=== PATIENT | female | born 1940 | race Caucasian/White ===

== ENCOUNTER 2022-12-10 12:29 | Emergency (ER) | payer OTHER, SELFPAY ==
--- NOTE | ~2022-12-10 | CT_ITS ---
EXAMINATION: CT ABDOMEN AND PELVIS WITHOUT CONTRAST CLINICAL INFORMATION: No bowel movement x5 days. Rule out small bowel obstruction. COMPARISON: None available. TECHNIQUE: Multidetector volumetric imaging was performed from the superior aspect of the liver through the pubic symphysis. Sagittal and coronal reformatted images were obtained on the technologist's workstation. This CT examination was performed using dose optimization techniques as appropriate, variously including the following: *Automated exposure control *Adjustment of mA and/or kV according to patient size (this includes techniques or standardized protocols for targeted exams where dose is matched to indication/reason for exam; i.e. extremities or head) *Use of iterative reconstruction technique DLP: 440 mGy-cm FINDINGS: LUNG BASES: Motion artifact obscures lung bases but no consolidation. The heart is enlarged. Coronary atherosclerotic calcification. LIVER, GALLBLADDER, AND BILIARY TREE: Scattered calcified granulomas. No discrete liver mass. Mild ductal dilatation in the setting of cholecystectomy. Cholecystectomy. PANCREAS: No discrete pancreatic mass. No ductal dilatation. SPLEEN: Normal. ADRENAL GLANDS: No adrenal mass KIDNEYS AND URETERS: Small calcifications in the kidneys are favored to be vascular in etiology. There is mild perinephric stranding. No hydroureteronephrosis. BLADDER: Unremarkable. GASTROINTESTINAL TRACT: Small bowel is normal in caliber. There is no evidence of small bowel obstruction. The appendix is normal. There is a large amount of radiodense stool in the distal colon consistent with the given history of constipation. ABDOMINAL WALL: Surgical changes right groin. LYMPH NODES: No lymphadenopathy. VASCULAR: Moderate aortoiliac atherosclerotic disease. No aortic aneurysm. PELVIC VISCERA: The uterus and adnexa are unremarkable. OSSEOUS STRUCTURES: Degenerative changes in the spine. Superior endplate compression fractures at L2, L3, L4 appear chronic. CT/CT abdomen pelvis wo IV con IMPRESSION: No evidence of small bowel obstruction. Large volume of stool throughout the colon consistent with given history of constipation. Fleischner guidelines were followed.
[2022-12-10 12:49] VITALS: BP 198/72; PULSE 61; PULSE 98; RESP 18; TEMP 36.6; O2SAT 98; BMI 28.7
--- NOTE | 2022-12-10 13:16 | PC.NURSE ---
BEDSIDE DISIMPACTION WITH PROVIDER, LARGE FORMED BALLS OF STOOL REMOVED.
--- NOTE | 2022-12-10 13:17 | ED.GENADULT ---
HPI - General Adult General Chief complaint: Abdominal Pain Stated complaint: constipation Time Seen by Provider: 12/10/22 12:45 Source: patient Mode of arrival: ambulatory Limitations: no limitations History of Present Illness HPI narrative: 82-year-old female brought in from nursing for possible constipation evaluation. Patient did not have a bowel movement for the past 5 days, mild nausea but no vomiting, abdominal discomfort, last meal was yesterday, no past surgical history. Patient normally have a bowel movement once a day every day. Related Data Allergies Allergy/AdvReac Type Severity Reaction Status Date / Time No Known Allergies Allergy Verified 12/10/22 13:21 Review of Systems Review of Systems: All other systems are reviewed and are negative Constitutional: Reports as per HPI and Reports no additional constitutional complaints Eyes: Reports as per HPI and Reports no additional eye complaints Reports system reviewed and no additional complaints, except as documented Cardiovascular: Reports as per HPI and Reports no additional cardiovascular complaints Respiratory: Reports as per HPI and Reports no additional respiratory complaints Gastrointestinal: Reports as per HPI and Reports no additional gastrointestinal complaints Genitourinary: Reports no additional female genitourinary complaints Musculoskeletal: Reports no additional musculoskeletal complaints Skin/Breast: Reports system reviewed and no additional complaints, except as docu Psychiatric: Reports no additional psychiatric complaints Endocrine: Reports no additional endocrine complaints Hematologic/Lymphatic: Reports no additional hematologic/lymphatic complaints Allergic/Immunologic: Reports no additional allergic/immunologic complaints Reports system reviewed and no additional complaints, except as documented and Reports Abnormal speech present [facility] Social History Social History Smoked in Last 30 Days: No Advance Directives: No Advance Directives Information Provided: No Physical Exam ED Vital Signs: Vital Signs - 24 hr 12/10/22 12:49 12/10/22 14:56 12/10/22 15:33 Temperature 98 F 98 F 98.0 F Pulse Rate 61 66 69 Respiratory Rate 18 18 16 Blood Pressure 198/72 H 188/68 H 186/72 H Pulse Oximetry 98 98 98 Oxygen Delivery Method Room Air Room Air Room Air BMI result Body Mass Index 28.7 Vital signs have been reviewed as appeared to be correct. Blood pressure elevated. Heart rate normal. Respiration rate normal. Temperature normal. Oxygen saturation normal. Appearance: Alert. Oriented X3. No acute distress. Head: Normal external exam. Normocephalic. Atraumatic. No [place]uire signs noted. No raccoon eyes noted Eyes: PERRLA. EOMI. Conjunctiva and sclera normal. Eyelids normal. ENT: TM's Normal. Pharynx normal. Uvula midline. Moist mucous membranes. No trismus noted. No drooling noted. No muffled voice noted. Neck: Normal inspection. Neck supple. FROM. No adenopathy. Thyroid Normal. No meningeal signs. No neck mass noted. CVS: Normal heart rate and rhythm. Heart sound normal. No murmurs noted. Pulses normal throughout. Respiratory: No respiratory distress. Painless inspiration. Breath sounds normal. No wheezes/rales/rhonchi noted. Chest nontender. No accessory muscle usage noted or decreased air movement noted. Abdomen: Soft and nontender. Bowel sounds normal in all 4 quadrants. No distention noted. No organomegaly noted. No visible injury noted. Rectal exam: Hard stool in the vault, tender and limited exam otherwise, able to disimpact hard stool from the rectal vault. Back: No CVA tenderness. Full range of motion noted. Skin: Skin warm and dry. Normal skin color. Normal skin turgor. No rashes/lesions/lacerations noted. Extremities: No lower extremity edema. Extremities exhibit normal range of motion. Extremities nontender. Neuro: Oriented X 3. Cranial nerve exam: II-XII are grossly intact No motor deficit. No sensory deficit. Reflexes normal. Course Course Course Narrative: 82-year-old female with no bowel movement for the past 4 days physical exam is consistent with constipation, patient had rectal disimpaction with removal of significant hard stool output from the rectal vault patient feels improvement, will discharge her back to the group home and to use MiraLax for the next 2-3 days. Medications Administered Discontinued Medications Generic Name Dose Route Start Last Admin Trade Name Freq PRN Reason Stop Dose Admin Magnesium Hydroxide 30 ml 12/10/22 13:22 12/10/22 14:21 Milk Of Magnesia 30 Ml Oral.Susp PO 12/10/22 13:23 30 ml ONCE ONE Administration Mineral Oil 133 ml 12/10/22 13:22 12/10/22 14:21 Mineral Oil Enema 133 Ml Enema KS 12/10/22 13:23 133 ml ONCE ONE Administration Procedures Rectal Disimpaction Time out performed rectal disimpaction: Yes Indication: fecal impaction Procedural Sedation: No Technique: manual disimpaction with gloved finger Result: significant stool output Patient Tolerated Procedure: well Complications: none Medical Decision Making Differential Diagnosis Differential Diagnoses: The differential diagnosis associated with the presentation includes (Constipation, small-bowel obstruction, colitis, diverticular disease.) Lab Data MDM Lab Attestation statement: I reviewed the patient's lab results. 12/10/22 13:32 12/10/22 13:32 Labs: Lab Results 12/10/22 12/10/22 Range/Units 13:32 13:32 WBC 14.2 H (4.8-10.8) X10*3/uL RBC 2.87 L (4.20-5.50) X10*6/uL Hgb 9.0 L (12.0-16.0) g/dl Hct 26.3 L (37.0-47.0) % MCV 91.6 (80.0-98.0) fL MCH 31.4 (27.0-33.0) pg MCHC 34.2 (31.0-35.0) g/dl RDW 13.6 (11.0-16.0) % Plt Count 286 (160-400) X10*3/uL MPV 8.3 L (9.4-12.3) fL Immature Gran % (Auto) 0.4 (0.0-0.4) % Neut % (Auto) 84.7 H (45-73) % Lymph % (Auto) 10.4 L (20-40) % [place] % (Auto) 3.5 (2-11) % Eos % (Auto) 0.7 (0-4) % Baso % (Auto) 0.3 (0-2) % Lymph # (Auto) 1.5 (1.2-4.9) X10*3/uL [place] # (Auto) 0.5 (0.1-1.2) X10*3/uL Eos # (Auto) 0.1 (0.0-0.4) X10*3/uL Baso # (Auto) 0.0 (0.0-0.2) X10*3/uL Abs Immat Gran (auto) 0.06 H (0.00-0.03) X10*3/uL Absolute Neuts (auto) 12.0 H (2.0-8.3) x10*3/uL Absolute Nucleated RBC 0.000 (0.0-0.012) X10*3/uL Nucleated RBC % (auto) 0.0 (0.0-0.2) /100WBC Sodium 135 (135-145) mmol/L Potassium 4.2 (3.3-5.1) mmol/L Chloride 103 (96-108) mmol/L Carbon Dioxide 21 L (22-29) mmol/L Anion Gap 15 (12-20) BUN 68 H (9-16) mg/dL Creatinine 3.88 H (0.5-1.4) mg/dL Estim Creat Clear Calc 9.7 Estimated GFR 11 Random Glucose 115 (60-115) mg/dL Calcium 9.2 (8.4-10.2) mg/dL Total Bilirubin 0.4 (0.0-1.0) mg/dL Direct Bilirubin 0.1 (0.0-0.5) mg/dL AST 11 (5-31) U/L ALT 7 (0-31) U/L Alkaline Phosphatase 60 (39-117) U/L Total Protein 6.4 L (6.5-8.0) g/dL Albumin 3.6 (3.5-5.0) g/dL Lipase 28 (8-78) U/L Independent Interpretation I performed an independent interpretation of an: CT Scan (Abdomen and pelvis: Constipation, no other intra-abdominal pathology.) Radiology Impression Discussion of test interpretation with radiology: I have reviewed the radiologist's reading. Discharge Plan Discharge Clinical Impression: Constipation Patient Disposition: Xfer SNF Instructions: Constipation (ED) Referrals: Osmin Cardoza MD [Primary Care Provider] -
[2022-12-10 13:35] LABS: MANUAL DIFF FLAG NO
[2022-12-10 13:36] LABS: Basophils Percent Auto 0.3 % (0-2); Eosinophils Absolute Auto 0.1 X10*3/uL (0.0-0.4); Eosinophils Percent Auto 0.7 % (0-4); Hematocrit 26.3 % (37.0-47.0); Imm Gran Abs Auto 0.06 X10*3/uL (0.00-0.03); Imm Gran Pct Auto 0.4 % (0.0-0.4); Lymphocytes Absolute Auto 1.5 X10*3/uL (1.2-4.9); Lymphocytes Percent Auto 10.4 % (20-40); Mean Corpuscular HGB Conc 34.2 g/dl (31.0-35.0); Mean Corpuscular Hemoglobin 31.4 pg (27.0-33.0); Mean Corpuscular Volume 91.6 fL (80.0-98.0); Mean Platelet Volume 8.3 fL (9.4-12.3); Monocytes Absolute Auto 0.5 X10*3/uL (0.1-1.2); Monocytes Percent Auto 3.5 % (2-11); Neutrophils Percent Auto 84.7 % (45-73); Platelet Count 286 X10*3/uL (160-400); Red Blood Count 2.87 X10*6/uL (4.20-5.50); Red Cell Distribution Width 13.6 % (11.0-16.0); White Blood Count 14.2 X10*3/uL (4.8-10.8)
[2022-12-10] MEDS: Milk of Magnesia 30 ML ORAL.SUSP PO (14:21)
[2022-12-10] MEDS: Mineral OiL enema 133 ML ENEMA PR (14:21)
[2022-12-10 14:26] LABS: Alanine Aminotransferase 7 U/L (0-31); Albumin Level 3.6 g/dL (3.5-5.0); Alkaline Phosphatase 60 U/L (39-117); Anion Gap 15 (12-20); Aspartate Amino Transferase 11 U/L (5-31); Bilirubin Direct 0.1 mg/dL (0.0-0.5); Bilirubin Total 0.4 mg/dL (0.0-1.0); Blood Urea Nitrogen 68 mg/dL (9-16); Calcium 9.2 mg/dL (8.4-10.2); Carbon Dioxide 21 mmol/L (22-29); Chloride 103 mmol/L (96-108); Creatinine Clr Calc Pharmacy 9.7; Estimated Glomerular Filt Rate 11; Glucose Random 115 mg/dL (60-115); Lipase 28 U/L (8-78); Potassium 4.2 mmol/L (3.3-5.1); Sodium 135 mmol/L (135-145); Total Protein 6.4 g/dL (6.5-8.0)
--- NOTE | 2022-12-10 14:55 | PC.NURSE ---
DAUGHTER CALLED WILL BE COMING IN TO VISIT
[2022-12-10 14:56] VITALS: BP 188/68; PULSE 66; RESP 18; TEMP 36.6; O2SAT 98
[2022-12-10 15:33] VITALS: BP 186/72; PULSE 69; RESP 16; TEMP 36.7; O2SAT 98
--- NOTE | 2022-12-10 18:06 | PC.NURSE ---
attempted to give nurse to nurse to regal (snf) no answer x2
== END 2022-12-10 18:07 | disposition skilled nursing facility (03) ==
PROVIDERS: Emergency Provider Emergency Medicine; PCP Internal Medicine
DX: K59.00 Constipation, unspecified (principal); Z79.899 Other long term (current) drug therapy
CPT/HCPCS: 36415; 74176; 80048; 80076; 83690; 85025; 99284

== ENCOUNTER 2022-12-12 22:17 | Emergency (ER) | payer OTHER, SELFPAY ==
[2022-12-12 22:26] VITALS: BP 144/70; PULSE 80; O2SAT 95; BMI 40.3
[2022-12-12 22:30] VITALS: BP 144/77; PULSE 89; O2SAT 95; BMI 35.0
[2022-12-12 22:34] VITALS: BP 122/54; PULSE 50; RESP 18; TEMP 36.7; O2SAT 95
[2022-12-12 22:49] LABS: MANUAL DIFF FLAG NO
--- NOTE | 2022-12-12 22:49 | ED_ITS ---
HPI - Recheck/Abnormal Lab/Rx General Chief Complaint: Recheck/Abnormal Lab/Rx Stated Complaint: abnormal labs,bun 20 creatinine 4.9 Time Seen by Provider: 12/12/22 22:45 Source: RN notes reviewed Mode of arrival: EMS History of Present Illness HPI narrative: Patient with dementia, CKD and diabetes [facility] a BUN of 17 creatinine of 4.19 with baseline of 3.8 patient denies any significant complaint no vomiting or diarrhea Related Data Allergies Allergy/AdvReac Type Severity Reaction Status Date / Time No Known Allergies Allergy Verified 12/10/22 13:21 Review of Systems Review of Systems: Yes all other systems are reviewed and are negative [facility] Social History Social History Alcohol intake: never Smoked in Last 30 Days: No Use of substances other than those prescribed or required for medical reasons: No Advance Directives: No Advance Directives Information Provided: Yes Physical Exam Vital Signs: Vital Signs: Last Vital Signs Temp 97.6 F 12/13/22 00:27 Pulse 49 L 12/13/22 00:27 Resp 16 12/13/22 00:27 BP 137/57 L 12/13/22 00:27 Pulse Ox 96 12/13/22 00:27 O2 Del Method Room Air 12/12/22 22:34 BMI result Body Mass Index 35.0 Appearance: Alert. Oriented X2. No acute distress. Eyes: PERRLA, No Nystagmus ENT: Pharynx normal. Oral Mucosa moist Neck: Normal inspection. Neck supple. CVS: Normal heart rate and rhythm. Pulses normal. Respiratory: No respiratory distress. Equal air entry bilateral, no wheezing/rales/rhonchi Abdomen: Soft and nontender. Bowel sounds are present, no mass palpable, no CVA tenderness Skin: Skin warm and dry. Normal skin color. Normal skin turgor. Extremities: No lower extremity edema. No calf tenderness Neuro: Oriented X2. No motor deficit. No sensory deficit.No cerebellar signs , cranial nerves II-XII intact Medications Administered Discontinued Medications Generic Name Dose Route Start Last Admin Trade Name Freq PRN Reason Stop Dose Admin Sodium Chloride 1,000 mls @ 999 mls/hr 12/12/22 22:56 12/13/22 02:05 Ns IV 12/12/22 23:56 Infused .Q1H1M ONE Infusion Medical Decision Making Medical Decision Making [facility] Narrative: Patient has CKD stage 4-5 slightly elevated BUN creatinine [facility] patient received IV fluids UA was negative for acute UTI advised to follow- up with PCP/household assistant Lab Data [facility] Lab Attestation statement: I reviewed the patient's lab results. 12/12/22 22:45 12/12/22 22:44 Labs: Lab Results 12/12/22 12/12/22 12/13/22 Range/Units 22:44 22:45 01:53 WBC 7.8 (4.8-10.8) X10*3/uL RBC 2.36 L (4.20-5.50) X10*6/uL Hgb 7.3 L (12.0-16.0) g/dl Hct 22.1 L (37.0-47.0) % MCV 93.6 (80.0-98.0) fL MCH 30.9 (27.0-33.0) pg MCHC 33.0 (31.0-35.0) g/dl RDW 14.0 (11.0-16.0) % Plt Count 263 (160-400) X10*3/uL MPV 8.6 L (9.4-12.3) fL Immature Gran % (Auto) 0.1 (0.0-0.4) % Neut % (Auto) 54.1 (45-73) % Lymph % (Auto) 36.1 (20-40) % [place] % (Auto) 5.7 (2-11) % Eos % (Auto) 3.5 (0-4) % Baso % (Auto) 0.5 (0-2) % Lymph # (Auto) 2.8 (1.2-4.9) X10*3/uL [place] # (Auto) 0.4 (0.1-1.2) X10*3/uL Eos # (Auto) 0.3 (0.0-0.4) X10*3/uL Baso # (Auto) 0.0 (0.0-0.2) X10*3/uL Abs Immat Gran (auto) 0.01 (0.00-0.03) X10*3/uL Absolute Neuts (auto) 4.2 (2.0-8.3) x10*3/uL Absolute Nucleated RBC 0.000 (0.0-0.012) X10*3/uL Nucleated RBC % (auto) 0.0 (0.0-0.2) /100WBC Sodium 130 L (135-145) mmol/L Potassium 5.1 D (3.3-5.1) mmol/L Chloride 100 (96-108) mmol/L Carbon Dioxide 22 (22-29) mmol/L Anion Gap 13 (12-20) BUN 66 H (9-16) mg/dL Creatinine 3.96 H (0.5-1.4) mg/dL Estim Creat Clear Calc 14.0 Estimated GFR 11 Random Glucose 110 (60-115) mg/dL Calcium 8.3 L D (8.4-10.2) mg/dL Urine Color Yellow Urine Appearance Clear Urine pH 7.5 (5.0-9.0) Ur Specific [place] 1.010 (1.005-1.025) Urine Protein 300 (3+) H (Neg-Trace) mg/dL Urine Glucose (UA) Negative (Negative) mg/dL Urine Ketones Negative (Negative) mg/dL Urine Blood Negative (Negative) Urine Nitrite Negative (Negative) Ur Leukocyte Esterase Moderate (2+) H (Negative) Urine RBC 3-5 H (0-2) /HPF Urine WBC 0-5 (0-5) /HPF Ur Squamous Epith Cells 0-2 (0-2) /HPF Urine Bacteria 2+ (None Seen) Hyaline Casts 0-2 (0-2) /LPF Discharge Plan Discharge Clinical Impression: Chronic renal disease, stage 5, glomerular filtration rate (GFR) less than or equal to 15 mL/min/1.73 square meter Patient Disposition: Xfer [facility] Transfer Details: Patient has CKD follow-up with household assistant BUN 66 creatinine 3.96 patient received 1 L of normal saline Instructions: Diabetic Kidney Disease (ED) Additional Instructions: Follow-up with household assistant for further management
[2022-12-12 22:53] LABS: Basophils Percent Auto 0.5 % (0-2); Eosinophils Absolute Auto 0.3 X10*3/uL (0.0-0.4); Eosinophils Percent Auto 3.5 % (0-4); Hematocrit 22.1 % (37.0-47.0); Hemoglobin 7.3 g/dl (12.0-16.0); Imm Gran Abs Auto 0.01 X10*3/uL (0.00-0.03); Imm Gran Pct Auto 0.1 % (0.0-0.4); Lymphocytes Absolute Auto 2.8 X10*3/uL (1.2-4.9); Lymphocytes Percent Auto 36.1 % (20-40); Mean Corpuscular Hemoglobin 30.9 pg (27.0-33.0); Mean Corpuscular Volume 93.6 fL (80.0-98.0); Mean Platelet Volume 8.6 fL (9.4-12.3); Monocytes Absolute Auto 0.4 X10*3/uL (0.1-1.2); Monocytes Percent Auto 5.7 % (2-11); Neutrophils Absolute Auto 4.2 x10*3/uL (2.0-8.3); Neutrophils Percent Auto 54.1 % (45-73); Platelet Count 263 X10*3/uL (160-400); Red Blood Count 2.36 X10*6/uL (4.20-5.50); White Blood Count 7.8 X10*3/uL (4.8-10.8)
[2022-12-12 23:02] LABS: Anion Gap 13 (12-20); Blood Urea Nitrogen 66 mg/dL (9-16); Calcium 8.3 mg/dL (8.4-10.2); Carbon Dioxide 22 mmol/L (22-29); Chloride 100 mmol/L (96-108); Estimated Glomerular Filt Rate 11; Glucose Random 110 mg/dL (60-115); Potassium 5.1 mmol/L (3.3-5.1); Sodium 130 mmol/L (135-145)
[2022-12-13 00:27] VITALS: BP 137/57; PULSE 49; RESP 16; TEMP 36.4; O2SAT 96
[2022-12-13] MEDS: 0.9 % Sodium Chloride 1,000 ML 999 ML IV (01:00)
[2022-12-13 02:11] LABS: Appearance Urine Clear; Color Urine Yellow; Glucose Urine UA Negative (Negative); Leukocyte Esterase Urine Moderate (2+) (Negative); Nitrite Urine Negative (Negative); PH 7.5 (5.0-9.0); UMIC TRIGGER UACC YES; Urine Blood Negative (Negative); Urine Ketones Negative (Negative); Urine Protein 300 (3+) mg/dL (Neg-Trace)
[2022-12-13 02:24] LABS: Bacteria Urine 2+ (None Seen); Hyaline Casts Urine 0-2 /LPF (0-2); Squamous Epithelial Cell Urine 0-2 /HPF (0-2); WBC Urine 0-5 /HPF (0-5)
--- NOTE | 2022-12-13 05:55 | PC.NURSE ---
Report given to Todd at [facility] with no further questions at this time.
--- NOTE | 2022-12-13 06:30 | MHC.EDTECH ---
call out to servando to book transportion at 06:26 [facility]
== END 2022-12-13 07:23 | disposition skilled nursing facility (03) ==
PROVIDERS: Emergency Provider Internal Medicine; PCP Family Medicine
DX: N18.5 Chronic kidney disease, stage 5 (principal); R79.89 Other specified abnormal findings of blood chemistry; Z79.899 Other long term (current) drug therapy
CPT/HCPCS: 36415; 80048; 81001; 85025; 96360; 99284

== ENCOUNTER 2023-01-25 14:37 | Inpatient (IN) | payer MEDICARE, MEDICAID, SELFPAY ==
--- NOTE | ~2023-01-25 | CT_ITS ---
EXAMINATION: CT CHEST, ABDOMEN AND PELVIS WITHOUT CONTRAST. CLINICAL INFORMATION: Cough and abdominal pain.. COMPARISON: CT abdomen/pelvis 12/10/2022.. TECHNIQUE: Multidetector volumetric imaging was performed from the thoracic inlet through the pubic symphysis without IV contrast. Sagittal and coronal reformatted images were obtained on the technologist's workstation. This CT examination was performed using dose optimization techniques as appropriate, variously including the following: *Automated exposure control *Adjustment of mA and/or kV according to patient size (this includes techniques or standardized protocols for targeted exams where dose is matched to indication/reason for exam; i.e. extremities or head) *Use of iterative reconstruction technique DLP: 310 and 494 mGy-cm FINDINGS: CHEST: Lung: Limited examination secondary to motion. No consolidation or significant groundglass disease. Central airways are patent. Scattered pulmonary nodules, suboptimally assessed due to motion, for instance an approximately 0.4 cm solid right upper lobe nodule on image 106 and an approximately 0.5 cm solid pleural-based nodule in the anterior right upper lobe on image 75, series 7. Mediastinum: Enlarged heart. Trace amount of pericardial fluid. Extensive coronary artery calcifications. Borderline mediastinal lymphadenopathy, for instance a 1.3 x 1.4 cm lower anterior tracheal lymph node (3:20). Evaluation of hilar structures, including hilar masses or lymphadenopathies very limited in the absence of IV contrast and due to motion. Incidentally noted 1.6 cm left-sided thyroid nodule (3:5). Pericardium/Pleura: No pleural effusion or pneumothorax. As above, trace pericardial fluid. Chest Wall/Axilla: No lymphadenopathy by size criteria. ABDOMEN/PELVIS: The lack of intravenous contrast limits evaluation of the solid visceral organs including the liver, spleen, pancreas, and kidneys. The examination is also limited due to motion. Liver, Gallbladder, Biliary Tree: The liver measures 16.6 cm craniocaudally and is otherwise normal in shape and attenuation. No discrete focal liver lesions in this limited noncontrast examination. Cholecystectomy. The CBD is not well delineated due to motion, however appears dilated measuring up to 1 cm, not significantly changed and indeterminate in view of cholecystectomy and patient's age. No evidence of calcified choledocholithiasis. Pancreas: Limited examination. No significant peripancreatic fat stranding or free fluid. Spleen: Limited examination, normal size. Adrenal Glands: No adrenal mass. Kidneys and Ureters: Mild asymmetric right-sided hydroureter, not significantly changed compared to 12/10/2022, no discrete calcified ureteric calculi, calcifications adjacent to the right ureter are likely vascular in etiology. Slightly asymmetric perinephric free fluid, also not convincingly changed. Redemonstration of small calcifications in the right greater than left kidneys, likely related with a combination of stones and vascular calcifications. Again noted 1 cm hyperattenuating observation in the lower pole of the left kidney (11:56) measuring 44 Hounsfield units. A few additional too small to characterize hyperdense foci are noted, for instance upper left kidney image 20 and upper right kidney image 24 series 4. Unchanged exophytic water density cysts from the lower left kidney. Bladder: Mild diffuse urinary bladder wall thickening with minimal perivesical fat stranding. Gastrointestinal Tract: The stomach and the small bowel are nondilated. Normal appendix. No pericolonic inflammatory changes. Moderate to large amount of stool in the colon and rectum. Abdominal Wall: No significant hernia is appreciated. Lymphovascular Structures: No lymphadenopathy by CT short axis size criteria. Extensive atherosclerotic disease. Abdominal aorta normal in caliber. Pelvic Viscera: Unremarkable. Osseous Structures: Chronic appearing bilateral rib fractures. Age indeterminate compression deformity at T2. Stable compression deformities at L2, L3 and L4. Partially imaged left femoral hardware overlying a chronic deformity. Chronic deformity of the right inferior pubic rami. CT/CT abdomen pelvis wo IV con IMPRESSION: Very limited examination secondary to motion as well as lack of IV contrast. 1. No consolidation or groundglass disease. 2. Scattered pulmonary nodules, suboptimally assessed due to motion. Nonspecific borderline mediastinal lymphadenopathy. Recommend a follow-up chest CT in 3-6 months. 3. Mild diffuse urinary bladder wall thickening with perivesical fat stranding. Mild asymmetric right hydroureter with slightly increased right-sided perinephric free fluid compared to the left. Findings are suggestive of an urinary tract infection, correlate clinically. No evidence of obstructive calcified urolithiasis. 4. Large amount of stool in the rectum and less so colon, correlate for constipation. 5. Age indeterminate compression deformity at T2. Correlate for point tenderness. 6. Incidentally noted 1.6 cm left-sided thyroid nodule. Based on the recommendations of the ACR Incidental Thyroid Findings Committee (JACR 2015 Sep; 12(2):143-50), further evaluation by thyroid ultrasound is recommended for solitary incidental thyroid nodules greater than or equal to 1.5 cm in largest axial dimension in patients age 35 years and older who do not have limited life expectancy or significant morbidities, unless clinically warranted. 7. A few hyperattenuating foci in the left kidney are statistically favoring to represent proteinaceous/hemorrhagic cysts, stable compared to 12/10/2022, although incompletely characterized in this examination. Attention on follow-up in future studies recommended.
--- NOTE | ~2023-01-25 | CT_ITS ---
EXAMINATION: CT HEAD WITHOUT CONTRAST CT CERVICAL SPINE WITHOUT CONTRAST CLINICAL INFORMATION: Fall. COMPARISON: None. TECHNIQUE: Contiguous axial imaging was performed from the skull base to vertex without intravenous administration of contrast. Contiguous axial imaging was performed from the upper chest through the skull base without intravenous administration of contrast. Coronal and sagittal reformats were obtained at the acquisition workstation. This CT examination was performed using dose optimization techniques as appropriate, variously including the following: *Automated exposure control *Adjustment of mA and/or kV according to patient size (this includes techniques or standardized protocols for targeted exams where dose is matched to indication/reason for exam; i.e. extremities or head) *Use of iterative reconstruction technique DLP: 281 mGy-cm FINDINGS: Head: Encephalomalacia/gliosis in the right parietal lobe (7:25) with associated volume loss. Multiple age indeterminate hypodensities in the bilateral basal ganglia. No edematous territorial infarction or intracranial hemorrhage. No extra-axial collection. Background of prominent diffuse periventricular white matter hypoattenuation. Generalized cerebral volume loss. No evidence of obstructive hydrocephalus. No acute soft tissue or osseous abnormalities. The mastoid air cells and paranasal sinuses are clear. 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 Bilateral lens extraction. Cervical Spine: Limited examination secondary to motion. The atlantooccipital and atlantoaxial articulations remain well aligned. Straightening of the normal cervical lordosis. Otherwise, there is anatomic alignment of the vertebral bodies and posterior elements. Age indeterminate compression deformity of T3, only partially included within the [id number]. No evidence of acute compression deformities of the cervical spine. Multilevel cervical spondylosis with various degrees of neural foraminal encroachment. Moderate to severe facet arthropathy on the right at the level of C3-C4 and C4-C5. Prominent Schmorl's nodule along the superior endplate of C7. There is no prevertebral soft tissue swelling. The thyroid gland and remaining cervical soft tissues are normal in appearance. Multiple sub-4 mm pulmonary nodules are noted, for instance in the right apex (4:289). CT/CT head/brain wo IV con IMPRESSION: 1. Multiple age-indeterminate hypodensities in the bilateral basal ganglia. If an acute cerebrovascular accident is suspected, correlation with an MR of the brain is recommended. 2. Limited evaluation of the cervical spine secondary to motion. However, accounting for these limitations, no definite acute cervical fractures or subluxation are seen. Repeat imaging could be obtained as clinically indicated. 3. Age indeterminate compression deformity of T3, only partially included within the [id number]. Recommend correlation with point tenderness. 4. Multiple sub-4 mm pulmonary nodules are noted; given upper lobe location and background of mild emphysematous changes, follow-up with a diagnostic chest CT in 3-6 months is recommended.
--- NOTE | ~2023-01-25 | US_ITS ---
EXAMINATION: US EXTRACRANIAL CAROTID DUPLEX, BILATERAL CLINICAL INFORMATION: CVA COMPARISON: None available. TECHNIQUE: Real-time ultrasound and Doppler techniques (integrating B-mode 2-D vascular images, Doppler spectral analysis and color-flow Doppler imaging) were utilized to interrogate the extracranial carotid arteries, the vertebral arteries and proximal subclavian arteries bilaterally. The degree of stenosis is determined by criteria similar to NASCET. FINDINGS: Right Side: 1. There is no significant atherosclerotic plaque seen in the bifurcation/proximal ICA region. 2. The common carotid artery PSV proximally is 138 cm/s and distally 99 cm/s. 3. The proximal internal carotid artery velocities are 65 cm/s systolic and 14 cm/s diastolic. 4. The proximal external carotid artery PSV is 106 cm/s. 5. The vertebral artery shows antegrade flow. 6. The subclavian artery waveforms are normal. Left Side: 1. There is no significant atherosclerotic plaque seen in the bifurcation/proximal ICA region. 2. The common carotid artery PSV proximally is 144 cm/s and distally 101 cm/s. 3. The proximal internal carotid artery velocities are 82 cm/s systolic and 23 cm/s diastolic. 4. The proximal external carotid artery PSV is 117 cm/s. 5. The vertebral artery shows antegrade flow. 6. The subclavian artery waveforms are normal. US/US carotid duplex BI IMPRESSION: 1. RIGHT: Normal right internal carotid artery without atherosclerotic plaque or hemodynamically significant stenosis. 2. LEFT: Normal left internal carotid artery without atherosclerotic plaque or hemodynamically significant stenosis.
--- NOTE | ~2023-01-25 | MR_ITS ---
EXAMINATION: MR BRAIN WITHOUT CONTRAST CLINICAL INFORMATION: left sided weakness, basal ganglia hypodensities COMPARISON: Same day CT head without contrast TECHNIQUE: Multiplanar multisequence MR imaging of the brain was obtained without intravenous contrast. FINDINGS: Motion degraded examination There is no acute infarct on diffusion-weighted imaging. 4 mm focus of susceptibility artifact along the cortex of the left parietal lobe which may reflect sequela of prior microhemorrhage versus a small cavernoma. No extra-axial collection or mass effect/herniation. Confluent supratentorial white matter T2 FLAIR hyperintensity consistent with underlying microangiopathy. Chronic right superior frontoparietal infarct. There are multiple chronic lacunar infarcts involving the deep julio nuclei No hydrocephalus. Mild generalized cerebral volume loss with commensurate sulcal and ventricular prominence. The major flow voids at the skull base are preserved. The midline structures are normal. The cerebellar tonsils are normally positioned. The craniocervical junction is normal. Marrow signal is within normal limits. The visualized soft tissues are without significant abnormality. No signal abnormality within the paranasal sinuses or within the mastoid air cells. MR/MR head/brain wo con IMPRESSION: Motion limited examination. 1. No evidence of acute infarct. No other acute intracranial abnormality within the limitations of motion artifact. 2. Chronic findings include severe chronic microangiopathy, multiple chronic lacunar infarcts involving the deep julio nuclei, and chronic right superior frontoparietal lobe infarct. 3. Focus of susceptibility artifact in the left parietal lobe which may represent sequela microhemorrhage or a small cavernoma.
--- NOTE | ~2023-01-25 | XR_ITS ---
EXAMINATION: XR FOOT, LEFT CLINICAL INFORMATION: Foot pain COMPARISON: None available. TECHNIQUE: AP, lateral, and oblique views of the left foot. FINDINGS: There is diffuse osteopenia. No visible acute fracture, dislocation or subluxation seen. No bony erosive changes. The ankle mortise and subtalar joints are normal. A small calcaneal heel spur. XR/XR foot LT 2V IMPRESSION: 1. Diffuse osteopenia. No visible acute fracture or dislocation seen. 2. Small calcaneal heel spur.
--- NOTE | ~2023-01-25 | CT_ITS ---
EXAMINATION: CT HEAD WITHOUT CONTRAST CT CERVICAL SPINE WITHOUT CONTRAST CLINICAL INFORMATION: Fall. COMPARISON: None. TECHNIQUE: Contiguous axial imaging was performed from the skull base to vertex without intravenous administration of contrast. Contiguous axial imaging was performed from the upper chest through the skull base without intravenous administration of contrast. Coronal and sagittal reformats were obtained at the acquisition workstation. This CT examination was performed using dose optimization techniques as appropriate, variously including the following: *Automated exposure control *Adjustment of mA and/or kV according to patient size (this includes techniques or standardized protocols for targeted exams where dose is matched to indication/reason for exam; i.e. extremities or head) *Use of iterative reconstruction technique DLP: 281 mGy-cm FINDINGS: Head: Encephalomalacia/gliosis in the right parietal lobe (7:25) with associated volume loss. Multiple age indeterminate hypodensities in the bilateral basal ganglia. No edematous territorial infarction or intracranial hemorrhage. No extra-axial collection. Background of prominent diffuse periventricular white matter hypoattenuation. Generalized cerebral volume loss. No evidence of obstructive hydrocephalus. No acute soft tissue or osseous abnormalities. The mastoid air cells and paranasal sinuses are clear. 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 Bilateral lens extraction. Cervical Spine: Limited examination secondary to motion. The atlantooccipital and atlantoaxial articulations remain well aligned. Straightening of the normal cervical lordosis. Otherwise, there is anatomic alignment of the vertebral bodies and posterior elements. Age indeterminate compression deformity of T3, only partially included within the [id number]. No evidence of acute compression deformities of the cervical spine. Multilevel cervical spondylosis with various degrees of neural foraminal encroachment. Moderate to severe facet arthropathy on the right at the level of C3-C4 and C4-C5. Prominent Schmorl's nodule along the superior endplate of C7. There is no prevertebral soft tissue swelling. The thyroid gland and remaining cervical soft tissues are normal in appearance. Multiple sub-4 mm pulmonary nodules are noted, for instance in the right apex (4:289). CT/CT cervical spine wo IV con IMPRESSION: 1. Multiple age-indeterminate hypodensities in the bilateral basal ganglia. If an acute cerebrovascular accident is suspected, correlation with an MR of the brain is recommended. 2. Limited evaluation of the cervical spine secondary to motion. However, accounting for these limitations, no definite acute cervical fractures or subluxation are seen. Repeat imaging could be obtained as clinically indicated. 3. Age indeterminate compression deformity of T3, only partially included within the [id number]. Recommend correlation with point tenderness. 4. Multiple sub-4 mm pulmonary nodules are noted; given upper lobe location and background of mild emphysematous changes, follow-up with a diagnostic chest CT in 3-6 months is recommended.
--- NOTE | ~2023-01-25 | XR_ITS ---
EXAMINATION: XR HIP, LEFT CLINICAL INFORMATION: Left hip pain after fall COMPARISON: None available. TECHNIQUE: Two views of the left hip. Frontal view of the pelvis. FINDINGS: Left femoral fixation hardware. No fracture or dislocation. Mild degenerative change of both hips. Increased ossification at the left femoral lesser trochanter, likely associated with osseous bridging from prior fracture. The sacroiliac joints are symmetric with mild sclerosis along the SI joints. The pubic symphysis is well aligned. Prior healed right inferior pubic ramus fracture. Normal bowel gas pattern. XR/XR hip LT w PEL1V IMPRESSION: No acute fracture or malalignment. Mild degenerative changes of the hips.
[2023-01-25 14:52] VITALS: BP 170/71; BP 170/74; PULSE 78; PULSE 86; RESP 16; TEMP 36.9; O2SAT 97; O2SAT 98; BMI 24.2
[2023-01-25 15:00] VITALS: BP 170/71; PULSE 78; RESP 16; O2SAT 98
--- NOTE | 2023-01-25 15:15 | ECG_ITS ---
Test Reason : fall Blood Pressure : / mmHG Vent. Rate : 066 BPM Atrial Rate : 066 BPM P-R Int : 210 ms QRS Dur : 112 ms QT Int : 438 ms P-R-T Axes : 055 -13 129 degrees QTc Int : 459 ms Sinus rhythm with 1st degree A-V block Left ventricular hypertrophy with repolarization abnormality ( R in aVL , [place] product ) Inferior infarct , age undetermined Abnormal ECG When compared with ECG of 13-JAN-2006 07:19, T wave inversion less evident in Anterolateral leads Referred By: Nellie Machado Electronically Signed By:FANNY RODRIGUEZ MD
[2023-01-25 16:47] LABS: MANUAL DIFF FLAG NO
[2023-01-25 16:52] LABS: Basophils Absolute Auto 0.1 X10*3/uL (0.0-0.2); Basophils Percent Auto 0.4 % (0-2); Eosinophils Absolute Auto 0.3 X10*3/uL (0.0-0.4); Eosinophils Percent Auto 2.1 % (0-4); Hematocrit 24.2 % (37.0-47.0); Hemoglobin 8.3 g/dl (12.0-16.0); Imm Gran Abs Auto 0.08 X10*3/uL (0.00-0.03); Imm Gran Pct Auto 0.6 % (0.0-0.4); Lymphocytes Absolute Auto 2.2 X10*3/uL (1.2-4.9); Lymphocytes Percent Auto 15.3 % (20-40); Mean Corpuscular HGB Conc 34.3 g/dl (31.0-35.0); Mean Corpuscular Hemoglobin 31.4 pg (27.0-33.0); Mean Corpuscular Volume 91.7 fL (80.0-98.0); Mean Platelet Volume 8.6 fL (9.4-12.3); Monocytes Absolute Auto 0.6 X10*3/uL (0.1-1.2); Monocytes Percent Auto 3.9 % (2-11); Neutrophils Percent Auto 77.7 % (45-73); Platelet Count 280 X10*3/uL (160-400); Red Blood Count 2.64 X10*6/uL (4.20-5.50); Red Cell Distribution Width 14.1 % (11.0-16.0); White Blood Count 14.2 X10*3/uL (4.8-10.8)
[2023-01-25 16:56] LABS: INTERNATIONAL NORM RATIO 0.8 (0.9-1.1); Prothrombin Time 9.4 SEC (10.0-13.1)
[2023-01-25 17:03] LABS: Alanine Aminotransferase 8 U/L (0-31); Albumin Level 3.8 g/dL (3.5-5.0); Alkaline Phosphatase 53 U/L (39-117); Anion Gap 17 (12-20); Aspartate Amino Transferase 12 U/L (5-31); Bilirubin Total 0.4 mg/dL (0.0-1.0); Blood Urea Nitrogen 52 mg/dL (9-16); Carbon Dioxide 20 mmol/L (22-29); Chloride 105 mmol/L (96-108); Creatinine Clr Calc Pharmacy 11.7; Estimated Glomerular Filt Rate 14; Glucose Random 92 mg/dL (60-115); Potassium 4.6 mmol/L (3.3-5.1); Sodium 137 mmol/L (135-145); Total Protein 6.9 g/dL (6.5-8.0)
--- NOTE | 2023-01-25 17:30 | ED_ITS ---
HPI - Fall General Chief Complaint: Fall Stated Complaint: FALL W/NECK,L KNEE PAIN Time Seen by Provider: 01/25/23 15:16 Source: patient Mode of arrival: EMS History of Present Illness HPI Narrative: 82-year-old female who arrives via EMS after [place] care found patient on the floor next to her bed. Patient states she is unsure what happened but she is having bilateral shoulder discomfort as well as neck pain but denies any hip or leg pain. Related Data Allergies Allergy/AdvReac Type Severity Reaction Status Date / Time No Known Allergies Allergy Verified 12/10/22 13:21 Review of Systems Review of Systems: Pertinent positives and negatives as stated in HPI PMFSH Past Medical History Source: nursing notes reviewed Social History Social History Alcohol intake: never Smoked in Last 30 Days: No Use of substances other than those prescribed or required for medical reasons: No Advance Directives: Yes Advance Directives on File: Yes Advance Directives Date on File: 12/11/22 Physical Exam Vital Signs: Vital Signs: Last Vital Signs Temp 98.4 F 01/25/23 14:52 Pulse 78 01/25/23 15:00 Resp 16 01/25/23 15:00 BP 170/71 H 01/25/23 15:00 Pulse Ox 98 01/25/23 15:00 O2 Del Method Room Air 01/25/23 15:00 BMI result Body Mass Index 24.2 VITAL SIGNS: Reviewed. GENERAL: Well developed, well nourished, in no acute distress. HEAD: Normocephalic/atraumatic EYES: PERRLA, EOMI EARS: Ext canals without abnormality, TMs non-bulging and non-erythematous NOSE: Nares patent bilateral OROPHARYNX: no oral lesions noted, posterior pharynx clear NECK: Supple, no adenopathy, no midline cervical spine tenderness or step-offs noted LUNGS: Normal breath sounds. No adventitious sounds or accessory muscle use. SpO2<98> CARDIOVASCULAR: Regular rate and rhythm without noted murmurs, no JVD or lower extremity edema. ABDOMEN: Soft, mild discomfort right lower quadrant without rebound, non- distended with bowel sounds. MUSCULOSKELETAL: No tenderness, deformities, or effusions noted on gross inspection. EXTREMITIES: No cyanosis, clubbing or edema. SKIN: Inspection of the skin reveals no rashes NEUROLOGIC: Alert and oriented x 4. Strength and sensation to light touch were grossly intact x 4. Medical Decision Making Medical Decision Making [facility] Narrative: 1818: 82-year-old female who presents with what appears to be a fall from bed, my interpretation of the pelvis x-ray in agreement with radiology's impression, after review of prior lab work it was noted that she had had a significant anemia and the decision was made to proceed with lab work, I have reviewed the hematologic results which show a leukocytosis with concerns for urinary source. Will proceed with lactic acid, blood cultures, antibiotics. 1841: After review of CT scan which I was not called about they described multiple age indeterminate hypodensities in the bilateral basal ganglia. There is no obvious CVA that was initially suspected, last known well is unknown but on re-evaluation of the patient at bedside she does have noted left upper extremity weakness when compared to the right and also has increased ataxia and weakness of the left lower extremity. In addition, CT scan identified an age in determinate compression deformity of T3. I did palpate that area and patient is having pain and may explain patient's complaints of bilateral shoulder pain. Will order MRI, but patient will also be admitted. CT of the chest/abdomen/pelvis is pending. Differential Diagnosis Please see the discussion above Lab Data Please see the discussion above 01/25/23 16:36 01/25/23 16:36 Labs: Lab Results 01/25/23 01/25/23 01/25/23 Range/Units 16:36 16:36 16:36 WBC 14.2 H (4.8-10.8) X10*3/uL RBC 2.64 L (4.20-5.50) X10*6/uL Hgb 8.3 L (12.0-16.0) g/dl Hct 24.2 L (37.0-47.0) % MCV 91.7 (80.0-98.0) fL MCH 31.4 (27.0-33.0) pg MCHC 34.3 (31.0-35.0) g/dl RDW 14.1 (11.0-16.0) % Plt Count 280 (160-400) X10*3/uL MPV 8.6 L (9.4-12.3) fL Immature Gran % (Auto) 0.6 H (0.0-0.4) % Neut % (Auto) 77.7 H (45-73) % Lymph % (Auto) 15.3 L (20-40) % [place] % (Auto) 3.9 (2-11) % Eos % (Auto) 2.1 (0-4) % Baso % (Auto) 0.4 (0-2) % Lymph # (Auto) 2.2 (1.2-4.9) X10*3/uL [place] # (Auto) 0.6 (0.1-1.2) X10*3/uL Eos # (Auto) 0.3 (0.0-0.4) X10*3/uL Baso # (Auto) 0.1 (0.0-0.2) X10*3/uL Abs Immat Gran (auto) 0.08 H (0.00-0.03) X10*3/uL Absolute Neuts (auto) 11.0 H (2.0-8.3) x10*3/uL Absolute Nucleated RBC 0.000 (0.0-0.012) X10*3/uL Nucleated RBC % (auto) 0.0 (0.0-0.2) /100WBC PT 9.4 L (10.0-13.1) SEC INR 0.8 L (0.9-1.1) Sodium 137 (135-145) mmol/L Potassium 4.6 (3.3-5.1) mmol/L Chloride 105 (96-108) mmol/L Carbon Dioxide 20 L (22-29) mmol/L Anion Gap 17 (12-20) BUN 52 H (9-16) mg/dL Creatinine 3.23 H (0.5-1.4) mg/dL Estim Creat Clear Calc 11.7 Estimated GFR 14 Random Glucose 92 (60-115) mg/dL Calcium 9.0 D (8.4-10.2) mg/dL Total Bilirubin 0.4 (0.0-1.0) mg/dL AST 12 (5-31) U/L ALT 8 (0-31) U/L Alkaline Phosphatase 53 (39-117) U/L Total Protein 6.9 (6.5-8.0) g/dL Albumin 3.8 (3.5-5.0) g/dL Urine Color Urine Appearance Urine pH (5.0-9.0) Ur Specific [place] (1.005-1.025) Urine Protein (Neg-Trace) mg/dL Urine Glucose (UA) (Negative) mg/dL Urine Ketones (Negative) mg/dL Urine Blood (Negative) Urine Nitrite (Negative) Ur Leukocyte Esterase (Negative) Urine RBC (0-2) /HPF Urine WBC (0-5) /HPF Ur Squamous Epith Cells (0-2) /HPF Urine Bacteria (None Seen) Hyaline Casts (0-2) /LPF 01/25/23 Range/Units 17:32 WBC (4.8-10.8) X10*3/uL RBC (4.20-5.50) X10*6/uL Hgb (12.0-16.0) g/dl Hct (37.0-47.0) % MCV (80.0-98.0) fL MCH (27.0-33.0) pg MCHC (31.0-35.0) g/dl RDW (11.0-16.0) % Plt Count (160-400) X10*3/uL MPV (9.4-12.3) fL Immature Gran % (Auto) (0.0-0.4) % Neut % (Auto) (45-73) % Lymph % (Auto) (20-40) % [place] % (Auto) (2-11) % Eos % (Auto) (0-4) % Baso % (Auto) (0-2) % Lymph # (Auto) (1.2-4.9) X10*3/uL [place] # (Auto) (0.1-1.2) X10*3/uL Eos # (Auto) (0.0-0.4) X10*3/uL Baso # (Auto) (0.0-0.2) X10*3/uL Abs Immat Gran (auto) (0.00-0.03) X10*3/uL Absolute Neuts (auto) (2.0-8.3) x10*3/uL Absolute Nucleated RBC (0.0-0.012) X10*3/uL Nucleated RBC % (auto) (0.0-0.2) /100WBC PT (10.0-13.1) SEC INR (0.9-1.1) Sodium (135-145) mmol/L Potassium (3.3-5.1) mmol/L Chloride (96-108) mmol/L Carbon Dioxide (22-29) mmol/L Anion Gap (12-20) BUN (9-16) mg/dL Creatinine (0.5-1.4) mg/dL Estim Creat Clear Calc Estimated GFR Random Glucose (60-115) mg/dL Calcium (8.4-10.2) mg/dL Total Bilirubin (0.0-1.0) mg/dL AST (5-31) U/L ALT (0-31) U/L Alkaline Phosphatase (39-117) U/L Total Protein (6.5-8.0) g/dL Albumin (3.5-5.0) g/dL Urine Color Yellow Urine Appearance Cloudy Urine pH 7.5 (5.0-9.0) Ur Specific [place] 1.015 (1.005-1.025) Urine Protein >=1000 (4+) H (Neg-Trace) mg/dL Urine Glucose (UA) Negative (Negative) mg/dL Urine Ketones Negative (Negative) mg/dL Urine Blood Negative (Negative) Urine Nitrite Negative (Negative) Ur Leukocyte Esterase Moderate (2+) H (Negative) Urine RBC 11-20 H (0-2) /HPF Urine WBC 21-50 H (0-5) /HPF Ur Squamous Epith Cells 0-2 (0-2) /HPF Urine Bacteria 4+ (None Seen) Hyaline Casts 0-2 (0-2) /LPF Independent Interpretation I performed an independent interpretation of an: EKG Interpretation: Sinus rhythm with first-degree AV block (this is new), no STEMI, IL-210, QTC is within normal limits. Discharge Plan Discharge Clinical Impression: Acute UTI, Compression fracture of T3 vertebra, Left-sided weakness Patient Disposition: Still a Patient
[2023-01-25 17:44] LABS: Appearance Urine Cloudy; Color Urine Yellow; Glucose Urine UA Negative (Negative); Leukocyte Esterase Urine Moderate (2+) (Negative); Nitrite Urine Negative (Negative); PH 7.5 (5.0-9.0); Specific Gravity - Urine 1.015 (1.005-1.025); UMIC TRIGGER UACC YES; Urine Blood Negative (Negative); Urine Ketones Negative (Negative); Urine Protein >=1000 (4+) mg/dL (Neg-Trace)
[2023-01-25 18:06] LABS: Bacteria Urine 4+ (None Seen); Hyaline Casts Urine 0-2 /LPF (0-2); Squamous Epithelial Cell Urine 0-2 /HPF (0-2); UACC Culture Trigger YES; WBC Urine 21-50 /HPF (0-5)
[2023-01-25] MEDS: Acetaminophen 325 MG TABLET 975 MG PO (19:22)
[2023-01-25] MEDS: 0.9 % Sodium Chloride 500 ML IV (19:22)
[2023-01-25] MEDS: cefTRIAXone sodium 1 GM in 0.9 % Sodium Chloride 50 ML IV (19:22)
[2023-01-25 19:35] LABS: Lactic Acid 0.7 mmol/L (0.5-2.0)
[2023-01-25 19:46] LABS: Troponin-I High Sensitivity 48.7 ng/L (<3.5-17.0)
--- NOTE | 2023-01-25 20:06 | PM.IMHP ---
History of Present Illness Date of Service: 01/25/23 Attending physician on admission: Christiano Jackson Chief Complaint: Unwitnessed fall Pt is an 82-year-old female with a PMH significant for? who presents to the ED from [facility] for evaluation after an unwitnessed fall earlier today. ? In the ED patient was afebrile but hypertensive up to 170/71. Labs were significant for leukocytosis of 14.2, H&H of 8.3/24.2, BUN of 52, creatinine 3.23, initial troponin 48.7. Lactic acid 0.7. Electrolytes WNL. Hepatic function WNL. UA negative for nitrites, but positive for moderate leukocyte esterase, WBC 21-50, and bacteria 4+. Hip and pelvis x-ray found no acute fracture or malalignment but mild degenerative changes of the hips. CT of head found multiple age indeterminate hypodensities in the bilateral basal ganglia. CT of cervical spine limited due to motion, but did not find any definitive acute cervical fractures or subluxation. Found age-indeterminate compression deformity of T3. And found multiple sub 4 mm pulmonary nodules in upper lobes. CT? EKG demonstrated Pt was treated with Pt will be admitted to the hospital [facility] Social History Alcohol intake: never Smoked in Last 30 Days: No Use of substances other than those prescribed or required for medical reasons: No Advance Directives: Yes Advance Directives on File: Yes Advance Directives Date on File: 12/11/22 Meds Allergies Allergy/AdvReac Type Severity Reaction Status Date / Time No Known Allergies Allergy Verified 12/10/22 13:21 Physical Exam Vital Signs and Narrative: Vital Signs: Last Vital Signs Temp 98.4 F 01/25/23 14:52 Pulse 78 01/25/23 15:00 Resp 16 01/25/23 15:00 BP 170/71 H 01/25/23 15:00 Pulse Ox 98 01/25/23 15:00 O2 Del Method Room Air 01/25/23 15:00 BMI result Body Mass Index 24.2 Results Labs 01/25/23 16:36 01/25/23 16:36 Labs: Laboratory Results - last 24 hr 01/25/23 01/25/23 01/25/23 16:36 16:36 16:36 MCV 91.7 MCH 31.4 MCHC 34.3 RDW 14.1 Plt Count 280 MPV 8.6 L Immature Gran % (Auto) 0.6 H Neut % (Auto) 77.7 H Lymph % (Auto) 15.3 L [place] % (Auto) 3.9 Eos % (Auto) 2.1 Baso % (Auto) 0.4 Lymph # (Auto) 2.2 [place] # (Auto) 0.6 Eos # (Auto) 0.3 Baso # (Auto) 0.1 Abs Immat Gran (auto) 0.08 H Absolute Neuts (auto) 11.0 H Absolute Nucleated RBC 0.000 Nucleated RBC % (auto) 0.0 PT 9.4 L INR 0.8 L Anion Gap 17 Estim Creat Clear Calc 11.7 Estimated GFR 14 Random Glucose 92 Lactic Acid Calcium 9.0 D Total Bilirubin 0.4 AST 12 ALT 8 Alkaline Phosphatase 53 Troponin I High Sens Total Protein 6.9 Albumin 3.8 Urine Color Urine Appearance Urine pH Ur Specific [place] Urine Protein Urine Glucose (UA) Urine Ketones Urine Blood Urine Nitrite Ur Leukocyte Esterase Urine RBC Urine WBC Ur Squamous Epith Cells Urine Bacteria Hyaline Casts 01/25/23 01/25/23 01/25/23 17:32 19:05 19:05 MCV MCH MCHC RDW Plt Count MPV Immature Gran % (Auto) Neut % (Auto) Lymph % (Auto) [place] % (Auto) Eos % (Auto) Baso % (Auto) Lymph # (Auto) [place] # (Auto) Eos # (Auto) Baso # (Auto) Abs Immat Gran (auto) Absolute Neuts (auto) Absolute Nucleated RBC Nucleated RBC % (auto) PT INR Anion Gap Estim Creat Clear Calc Estimated GFR Random Glucose Lactic Acid 0.7 Calcium Total Bilirubin AST ALT Alkaline Phosphatase Troponin I High Sens 48.7 H Total Protein Albumin Urine Color Yellow Urine Appearance Cloudy Urine pH 7.5 Ur Specific [place] 1.015 Urine Protein >=1000 (4+) H Urine Glucose (UA) Negative Urine Ketones Negative Urine Blood Negative Urine Nitrite Negative Ur Leukocyte Esterase Moderate (2+) H Urine RBC 11-20 H Urine WBC 21-50 H Ur Squamous Epith Cells 0-2 Urine Bacteria 4+ Hyaline Casts 0-2 Imaging Radiologist's Impressions: Impressions Hip/Pelvis X-Ray 01/25/23 15:24 IMPRESSION: No acute fracture or malalignment. Mild degenerative changes of the hips. Cervical Spine CT 01/25/23 17:21 IMPRESSION: 1. Multiple age-indeterminate hypodensities in the bilateral basal ganglia. If an acute cerebrovascular accident is suspected, correlation with an MR of the brain is recommended. 2. Limited evaluation of the cervical spine secondary to motion. However, accounting for these limitations, no definite acute cervical fractures or subluxation are seen. Repeat imaging could be obtained as clinically indicated. 3. Age indeterminate compression deformity of T3, only partially included within the [id number]. Recommend correlation with point tenderness. 4. Multiple sub-4 mm pulmonary nodules are noted; given upper lobe location and background of mild emphysematous changes, follow-up with a diagnostic chest CT in 3-6 [address] is recommended. Head CT 01/25/23 17:22 IMPRESSION: 1. Multiple age-indeterminate hypodensities in the bilateral basal ganglia. If an acute cerebrovascular accident is suspected, correlation with an MR of the brain is recommended. 2. Limited evaluation of the cervical spine secondary to motion. However, accounting for these limitations, no definite acute cervical fractures or subluxation are seen. Repeat imaging could be obtained as clinically indicated. 3. Age indeterminate compression deformity of T3, only partially included within the [id number]. Recommend correlation with point tenderness. 4. Multiple sub-4 mm pulmonary nodules are noted; given upper lobe location and background of mild emphysematous changes, follow-up with a diagnostic chest CT in 3-6 months is recommended. Assessment and Plan Plan Question of UTI UA negative for nitrites, but positive for moderate leukocyte esterase, WBC 20-50, urine bacteria 4+ Will empirically treat with ceftriaxone Follow cultures Pulmonary nodules CT found multiple sub 4 mm pulmonary nodules in right upper lobe Patient should follow-up with diagnostic chest CT in 3-6 months Time Spent With Patient Time: Total time managing care of this patient today ____ minutes.
--- NOTE | 2023-01-25 20:28 | PC.NURSE ---
I assumed care of the pt at 1900. Pt was resting quietly in bed. Pt reported 8/10 pain in her neck. A 20g IV was inserted in the left AC, labs were drawn and sent. Pt medicated per OCT and brought to CT. Pt is A&Ox4, GCS 15. Denies NVD or SOB.
--- NOTE | 2023-01-25 22:01 | PC.NURSE ---
Pt brought to MRI but was unable to sit still. Dr Jackson ordered IV ativan. IV ativan was administered in MRI and pt relaxed a little bit. Scans were taken but may not be able to be read. aware of situation.
[2023-01-25] MEDS: LORazepam 2 MG/ML VIAL 0.5 MG IVPUSH (22:10)
--- NOTE | 2023-01-25 22:21 | PC.NURSE ---
Pt IV in left AC infiltrated upon return to the ER. Fluids and antibiotics were held. I attempted to put an IV in the right arm but was unsuccessful. I will have someone else try. A heat pack was applied to the infiltrated area and swelling is decreasing.
--- NOTE | 2023-01-25 23:11 | P.HPHOSP_ITS ---
History of Present Illness Date of Service: 01/25/23 Chief Complaint: fall 82-year-old female with past medical history of hypertension, diabetes, CKD stage 4, CAD, HLD, [facility] after on on witnessed fall. Patient does not remember the episode and cannot give me much history. She does not remember if she lost consciousness or not. When asked her if she has had any weakness she states that she has been feeling weak on the right side, for the past 3 days. on my exam patient is more weak on the left side. she otherwise denies any chest pain, reports no shortness of breath, no abdominal pain nausea or vomiting, no diarrhea constipation, she does report burning on urination for the past 3 days. She otherwise reports no lower extremity edema. No headache or change in vision. On arrival to the ED patient hemodynamically stable slightly elevated blood pressure Labs are significant for WBC count of 14.2, hemoglobin of 8.3 which is higher than recent visit, creatinine of 3.23 which is around her baseline, troponin of 40.7, UA is positive for leukocyte Estrace, WBC, bacteria, head CT showed multiple age indeterminate hypodensities in the bilateral basal ganglia, on MRI is recommended, no diffuse acute cervical fractures or subluxation, compression deformity of T3, multiple sub 4 mm pulmonary nodules patient scheduled for MRI and will be admitted for further management past medical history is obtained from the documents included with her from prison Review of Systems Review of Systems: Yes all other systems are reviewed and are negative [facility] Medical History Alzheimer's dementia Anxiety CAD (coronary artery disease) CKD (chronic kidney disease) stage 3, GFR 30-59 ml/min Diabetes Heart failure Hypertension Social History Household Members: Other Housing: Group Home Do you presently have visiting nurse or other home services: No Alcohol intake: never Patient Tobacco Use Status: Never used Tobacco Smoked in Last 30 Days: No Use of substances other than those prescribed or required for medical reasons: No Have you been hit, kicked, punched, or otherwise hurt by someone within the past year? If so, by whom?: No Advance Directives: Yes Advance Directives on File: Yes Advance Directives Date on File: 12/11/22 Do you have thoughts of harming others: None Do you have a plan to hurt others: No Plan Recently lost weight without trying: No Nutrition Risks: No Nutritional Risk Patient : No : No Poor oral hygiene: No Meds Allergies Allergy/AdvReac Type Severity Reaction Status Date / Time No Known Allergies Allergy Verified 12/10/22 13:21 Active Medications: Current Medications Acetaminophen (Acetaminophen 325 Mg Tablet) 650 mg PO Q6H PRN PRN Reason: Pain, Mild (Pain Scale 1-3) Docusate Sodium (Docusate Sodium 100 Mg Capsule) 100 mg PO DAILY PRN PRN Reason: Constipation Ondansetron HCl (Ondansetron Hcl 4 Mg/2 Ml Vial) 4 mg IVPUSH Q8H PRN PRN Reason: Nausea and Vomiting Pharmacy Consult (Consult Rx Perform Med Rec) 1 each MISCELLANE ONCE PRN PRN Reason: Consult order Home Medications Medication Instructions Recorded Confirmed Last Taken Type acetaminophen 325 mg tablet 975 mg PO Q8H 01/25/23 01/25/23 Unknown History aspirin 81 mg tablet,delayed 81 mg PO DAILY 01/25/23 01/25/23 Unknown History release atorvastatin 20 mg tablet 20 mg PO BEDTIME 01/25/23 01/25/23 Unknown History bisacodyl 10 mg rectal suppository 10 mg LA DAILY PRN Constipation 01/25/23 01/25/23 Unknown History clonidine HCl 0.2 mg tablet 0.2 mg PO TID 01/25/23 01/25/23 Unknown History epoetin paul 20,000 unit/2 mL 20,000 unit subcut FR 01/25/23 01/25/23 Unknown History injection solution (Procrit) escitalopram oxalate 10 mg tablet 10 mg PO DAILY 01/25/23 01/25/23 Unknown History furosemide 40 mg tablet 40 mg PO BID 01/25/23 01/25/23 Unknown History hydralazine 100 mg tablet 100 mg PO TID 01/25/23 01/25/23 Unknown History ipratropium 18 mcg-albuterol 103 1 spray inhalation Q6H PRN Wheezing 01/25/23 01/25/23 Unknown History mcg/actuation aerosol inhaler lidocaine 5 % topical patch 1 patch topical DAILY 01/25/23 01/25/23 Unknown His tory melatonin 3 mg tablet 3 mg PO BEDTIME PRN Insomnia 01/25/23 01/25/23 Unknown History nifedipine 60 mg tablet,extended 60 mg PO BID 01/25/23 01/25/23 Unknown History release nitroglycerin 0.3 mg sublingual 0.3 mg sublingual Q5M PRN Angina 01/25/23 01/25/23 Unknown History tablet ondansetron 4 mg oral soluble film 4 mg PO Q6H 01/25/23 01/25/23 Unknown History oxycodone 5 mg capsule 5 mg PO Q6H PRN Pain 01/25/23 01/25/23 Unknown History polyethylene glycol 3350 17 gram 17 g PO BID 01/25/23 01/25/23 Unknown History oral powder packet (Miralax) sennosides 8.6 mg-docusate sodium 1 tab-cap PO DAILY 01/25/23 01/25/23 Unknown History 50 mg capsule (Senna Plus) sevelamer HCl 800 mg tablet 800 mg PO BID 01/25/23 01/25/23 Unknown History sodium bicarbonate 650 mg tablet 650 mg PO TID 01/25/23 01/25/23 Unknown History Physical Exam Vital Signs and Narrative: Vital Signs: Last Vital Signs Temp 98.4 F 01/25/23 14:52 Pulse 78 01/25/23 15:00 Resp 16 01/25/23 15:00 BP 170/71 H 01/25/23 15:00 Pulse Ox 98 01/25/23 15:00 O2 Del Method Room Air 01/25/23 15:00 BMI result Body Mass Index 24.2 Const: Other: patient awake, alert, oriented to self, able to answers questions, and follow command General: cooperative and no acute distress Eyes: General: appearance normal, both eyes and all related structures Resp: Effort & Inspection: normal respiratory effort Auscultation: clear to auscultation bilaterally Cardio: Rate: regular rate Rhythm: regular rhythm GI: Palpation (GI): Soft to palpation Auscultation: normal bowel sounds Skin: General skin exam: no rashes or lesions noted Neuro: Other: has 3/5 strength in left upper and lower extremity no other neurological deficits noted Extrem: General: Yes normal to inspection and Yes no pedal edema Results Labs 01/25/23 16:36 01/25/23 16:36 Labs: Laboratory Results - last 24 hr 01/25/23 01/25/23 01/25/23 16:36 16:36 16:36 MCV 91.7 MCH 31.4 MCHC 34.3 RDW 14.1 Plt Count 280 MPV 8.6 L Immature Gran % (Auto) 0.6 H Neut % (Auto) 77.7 H Lymph % (Auto) 15.3 L [place] % (Auto) 3.9 Eos % (Auto) 2.1 Baso % (Auto) 0.4 Lymph # (Auto) 2.2 [place] # (Auto) 0.6 Eos # (Auto) 0.3 Baso # (Auto) 0.1 Abs Immat Gran (auto) 0.08 H Absolute Neuts (auto) 11.0 H Absolute Nucleated RBC 0.000 Nucleated RBC % (auto) 0.0 PT 9.4 L INR 0.8 L Anion Gap 17 Estim Creat Clear Calc 11.7 Estimated GFR 14 Random Glucose 92 Lactic Acid Calcium 9.0 D Total Bilirubin 0.4 AST 12 ALT 8 Alkaline Phosphatase 53 Troponin I High Sens Total Protein 6.9 Albumin 3.8 Urine Color Urine Appearance Urine pH Ur Specific [place] Urine Protein Urine Glucose (UA) Urine Ketones Urine Blood Urine Nitrite Ur Leukocyte Esterase Urine RBC Urine WBC Ur Squamous Epith Cells Urine Bacteria Hyaline Casts 01/25/23 01/25/23 01/25/23 17:32 19:05 19:05 MCV MCH MCHC RDW Plt Count MPV Immature Gran % (Auto) Neut % (Auto) Lymph % (Auto) [place] % (Auto) Eos % (Auto) Baso % (Auto) Lymph # (Auto) [place] # (Auto) Eos # (Auto) Baso # (Auto) Abs Immat Gran (auto) Absolute Neuts (auto) Absolute Nucleated RBC Nucleated RBC % (auto) PT INR Anion Gap Estim Creat Clear Calc Estimated GFR Random Glucose Lactic Acid 0.7 Calcium Total Bilirubin AST ALT Alkaline Phosphatase Troponin I High Sens 48.7 H Total Protein Albumin Urine Color Yellow Urine Appearance Cloudy Urine pH 7.5 Ur Specific [place] 1.015 Urine Protein >=1000 (4+) H Urine Glucose (UA) Negative Urine Ketones Negative Urine Blood Negative Urine Nitrite Negative Ur Leukocyte Esterase Moderate (2+) H Urine RBC 11-20 H Urine WBC 21-50 H Ur Squamous Epith Cells 0-2 Urine Bacteria 4+ Hyaline Casts 0-2 Imaging Radiologist's Impressions: Impressions Hip/Pelvis X-Ray 01/25/23 15:24 IMPRESSION: No acute fracture or malalignment. Mild degenerative changes of the hips. Cervical Spine CT 01/25/23 17:21 IMPRESSION: 1. Multiple age-indeterminate hypodensities in the bilateral basal ganglia. If an acute cerebrovascular accident is suspected, correlation with an MR of the brain is recommended. 2. Limited evaluation of the cervical spine secondary to motion. However, accounting for these limitations, no definite acute cervical fractures or subluxation are seen. Repeat imaging could be obtained as clinically indicated. 3. Age indeterminate compression deformity of T3, only partially included within the [id number]. Recommend correlation with point tenderness. 4. Multiple sub-4 mm pulmonary nodules are noted; given upper lobe location and background of mild emphysematous changes, follow-up with a diagnostic chest CT in 3-6 months is recommended. Head CT 01/25/23 17:22 IMPRESSION: 1. Multiple age-indeterminate hypodensities in the bilateral basal ganglia. If an acute cerebrovascular accident is suspected, correlation with an MR of the brain is recommended. 2. Limited evaluation of the cervical spine secondary to motion. However, accounting for these limitations, no definite acute cervical fractures or subluxation are seen. Repeat imaging could be obtained as clinically indicated. 3. Age indeterminate compression deformity of T3, only partially included within the [id number]. Recommend correlation with point tenderness. 4. Multiple sub-4 mm pulmonary nodules are noted; given upper lobe location and background of mild emphysematous changes, follow-up with a diagnostic chest CT in 3-6 months is recommended. Abdomen/Pelvis CT 01/25/23 19:59 IMPRESSION: Very limited examination secondary to motion as well as lack of IV contrast. 1. No consolidation or groundglass disease. 2. Scattered pulmonary nodules, suboptimally assessed due to motion. Nonspecific borderline mediastinal lymphadenopathy. Recommend a follow-up chest CT in 3-6 months. 3. Mild diffuse urinary bladder wall thickening with perivesical fat stranding. Mild asymmetric right hydroureter with slightly increased right-sided perinephric free fluid compared to the left. Findings are suggestive of an urinary tract infection, correlate clinically. No evidence of obstructive calcified urolithiasis. 4. Large amount of stool in the rectum and less so colon, correlate for constipation. 5. Age indeterminate compression deformity at T2. Correlate for point tenderness. 6. Incidentally noted 1.6 cm left-sided thyroid nodule. Based on the recommendations of the ACR Incidental Thyroid Findings Committee (JACR 2014; 12(2):143-50), further evaluation by thyroid ultrasound is recommended for solitary incidental thyroid nodules greater than or equal to 1.5 cm in largest axial dimension in patients age 35 years and older who do not have limited life expectancy or significant morbidities, unless clinically warranted. 7. A few hyperattenuating foci in the left kidney are statistically favoring to represent proteinaceous/hemorrhagic cysts, stable compared to 12/10/2022, although incompletely characterized in this examination. Attention on follow-up in future studies recommended. Chest CT 01/25/23 19:59 IMPRESSION: Very limited examination secondary to motion as well as lack of IV contrast. 1. No consolidation or groundglass disease. 2. Scattered pulmonary nodules, suboptimally assessed due to motion. Nonspecific borderline mediastinal lymphadenopathy. Recommend a follow-up chest CT in 3-6 months. 3. Mild diffuse urinary bladder wall thickening with perivesical fat stranding. Mild asymmetric right hydroureter with slightly increased right-sided perinephric free fluid compared to the left. Findings are suggestive of an urinary tract infection, correlate clinically. No evidence of obstructive calcified urolithiasis. 4. Large amount of stool in the rectum and less so colon, correlate for constipation. 5. Age indeterminate compression deformity at T2. Correlate for point tenderness. 6. Incidentally noted 1.6 cm left-sided thyroid nodule. Based on the recommendations of the ACR Incidental Thyroid Findings Committee (JACR 2014; 12(2):143-50), further evaluation by thyroid ultrasound is recommended for solitary incidental thyroid nodules greater than or equal to 1.5 cm in largest axial dimension in patients age 35 years and older who do not have limited life expectancy or significant morbidities, unless clinically warranted. 7. A few hyperattenuating foci in the left kidney are statistically favoring to represent proteinaceous/hemorrhagic cysts, stable compared to 12/10/2022, although incompletely characterized in this examination. Attention on follow-up in future studies recommended. Assessment and Plan (1) CVA (cerebral vascular accident): Status: Acute (2) Left-sided weakness: Status: Acute (3) Acute UTI: Status: Acute Plan 82-year-old female presents to the hospital after an unwitnessed fall, found to have on age-indeterminate CVA on imaging # CVA - acute versus subacute versus chronic - CT head as above with findings of CVA in the basal ganglia with likely led to her fall - patient also has residual left-sided weakness - at this time will admit for further workup including MRI that is scheduled to be done tonight,bilateral Doppler, echocardiogram, admit to telemetry - will increase dose of atorvastatin, continue aspirin - lipid battery - Neurology consulted - PT OT # UTI - symptomatic with dysuria - will treat with IV antibiotics - follow cultures # fall - likely due to left-sided weakness - will consult physical therapy # diabetes - low-dose sliding scale insulin - diabetic diet # history of CHF, unspecified - not in exacerbation - continue home Lasix # hypertensive crisis - resume her home medications - monitor BP # CKD stage 4 - baseline - monitor BMP DVT prophylaxis: Hep subcu given patient's need for further workup of CVA patient require minimum 2 nights inpatient hospital stay for further management and monitoring Time Spent With Patient Time: Total time managing care of this patient today ____ minutes. Quality Stroke Does the patient have a stroke diagnosis?: No VTE Prior VTE?: No VTE Risk Level:: Medical - moderate - high VTE Device Contraindication: Treatment Not Indicated VTE Drug Contraindication: N/A - Med Ordered
[2023-01-26] VITALS (11 sets, daily range): BP systolic 123–252; BP diastolic 56–112; PULSE 57–77; RESP 16–18; TEMP 35.8–37.1; O2SAT 96–99; BMI 24.4
[2023-01-26] MEDS: hydrALAZINE HCl 20 MG/ML VIAL 5 MG IVPUSH (00:49)
[2023-01-26] MEDS: cloNIDine HCL 0.2 MG TABLET PO ×4 (01:51→19:57)
[2023-01-26] MEDS: hydrALAZINE HCl 50 MG TABLET 100 MG PO ×4 (01:51→19:56)
[2023-01-26] MEDS: Labetalol HCL 100 MG/20 ML VIAL 20 MG IVPUSH (02:19)
[2023-01-26 06:38] LABS: MANUAL DIFF FLAG NO
[2023-01-26 06:44] LABS: Basophils Percent Auto 0.4 % (0-2); Eosinophils Absolute Auto 0.3 X10*3/uL (0.0-0.4); Eosinophils Percent Auto 2.9 % (0-4); Hematocrit 21.6 % (37.0-47.0); Hemoglobin 7.2 g/dl (12.0-16.0); Imm Gran Abs Auto 0.04 X10*3/uL (0.00-0.03); Imm Gran Pct Auto 0.4 % (0.0-0.4); Lymphocytes Absolute Auto 1.9 X10*3/uL (1.2-4.9); Lymphocytes Percent Auto 19.9 % (20-40); Mean Corpuscular HGB Conc 33.3 g/dl (31.0-35.0); Mean Corpuscular Hemoglobin 31.3 pg (27.0-33.0); Mean Corpuscular Volume 93.9 fL (80.0-98.0); Mean Platelet Volume 8.9 fL (9.4-12.3); Monocytes Absolute Auto 0.5 X10*3/uL (0.1-1.2); Monocytes Percent Auto 5.5 % (2-11); Neutrophils Absolute Auto 6.6 x10*3/uL (2.0-8.3); Neutrophils Percent Auto 70.9 % (45-73); Platelet Count 250 X10*3/uL (160-400); Red Cell Distribution Width 14.4 % (11.0-16.0); White Blood Count 9.4 X10*3/uL (4.8-10.8)
--- NOTE | 2023-01-26 07:00 | CA_ITS ---
Transthoracic Echocardiogram Patient (Last, First, Middle): Dorie Faria, Gender: Female Date of : 1940 Age: 82 Procedure Date: 01/26/2023 Procedure Type: Transthoracic Echocardiogram [place] [facility] [place]: 162.56 cm Weight: 74.84 kg BSA: 1.80 m2 Heart Rate: bpm BP: 170 / 62 mmHg Certified Professional Controller: Referring MD: Christiano Jackson MD Acute Care Physical Therapist: Don Luna MD Symptoms: cva Study Quality: Adequate ECG Rhythm: Sinus Conclusions: - 1. Normal LV systolic function with mild LVH with LVEF of 60 65% 2. At least mildly dilated left atrium 3. [id number] calcific aortic stenosis 4. Moderate mitral and calcification 5. Mildly dilated ascending aorta at 3.8 cm 6. No pericardial effusion Findings Left Ventricle Normal left ventricular size and systolic function. There is mildly increased left ventricular wall thickness. The visually estimated ejection fraction is between 60-65%. Spectral Doppler is indicative of an impaired relaxation filling pattern. E/E prime ratio is between 8 and 15 consistent with indeterminate filling pressures. Peak GLS is -17.1%, borderline low. Right Ventricle Normal right ventricular cavity size and systolic function. Atria The left atrium is mildly dilated. There is no evidence of interatrial shunt. The right atrium is normal in size. Aortic Valve There is moderate calcification of the aortic valve. There is mild thickening of the aortic valve. There is mild to moderate aortic valve stenosis. There is trace (trivial) aortic valve regurgitation. Mitral Valve There is mild anterior and posterior mitral leaflet thickening. There is moderate mitral annular calcification. There is mild mitral valve regurgitation. There is no mitral valve stenosis. Pulmonic Valve The pulmonic valve is likely normal. Tricuspid Valve Normal tricuspid valve structure. Tricuspid regurgitation envelope is inadequate for calculation of right ventricular systolic pressure. Great Vessels The pulmonary artery was not well visualized. There is mild dilatation of the ascending aorta measuring 3.80 cm. Venous The inferior vena cava is normal in size and collapses greater than 50% with inspiration. Pericardium/Pleural There is no evidence of pericardial effusion. Prior Study Comparison no previous study in the last 5 years for comparison Measurements 2D Linear Measurements IVSd: 1.21 0.6-0.9/0.6-1.0 cm LVIDd: 4.29 3.9-5.3/4.2-5.9 cm LVIDd Index: 2.38 2.4-3.2/2.2-3.1 cm/m2 LVIDs: 2.79 2.0-3.6 cm LVPWd: 1.27 0.7-1.1 cm Ao Root: 3.30 2.1-3.5 cm LA Diam: 3.70 2.7-3.8/3.0-4.0 cm LAIDs Index: 2.06 1.5-2.3 cm/m2 LV Mass: 240.59 67-162/88-224 g LV Mass Index: 133.66 43-95/49-115 g/m2 LVOT Diam: 2.10 3.0+(-)1.3 cm Mitral Valve MV VTI: 0.35 MV Pk Kilo: 1.35 MV Mn Kilo: 0.72 MV Pk Grad: 7.00 MV Mn Grad: 3.00 MV Pk E: 0.75 MV PK A: 1.19 MV Decel Time: 159.00 E/A: 0.60 E'Lateral: 5.66 E'Medial: 4.03 E/E' Med: 18.60 E/E' Lat: 13.30 PHT: 47.00 MVA PHT: 4.68 MVA Continuity: 2.83 Decel Jennings: 4.71 Aortic Valve AoV Pk Kilo: 2.97 AoV Mn Kilo: 1.82 AoV VTI: 0.68 AoV Pk Grad: 35.00 Aov Mn Grad: 16.00 RADHA Cont.VTI: 1.44 LVOT LVOT Pk Kilo: 1.24 LVOT Mn Kilo: 0.73 LVOT VTI: 0.28 LVOT Pk Grad: 6.00 LVOT Mn Grad: 3.00 LVOT Diam: 2.10 LVOT Area: 3.46 Diastolic Function MV Pk E: 0.75 MV Pk A: 1.19 E/A: 0.60 E'Medial: 4.03 E/E' Med: 18.60 E' Laterial: 5.66 E/E' Lat: 13.30 Right Ventricle TAPSE (mm): 24.30 TVS' Kilo: 13.90 Tricuspid Valve TR Pk Kilo: 2.31 TR Pk Grad: 21.00 RA Press: 3.00 Great Vessels Aorta Ao Root-2D: 3.30 2.0-3.7 cm Ao Asc: 3.80 2.1-3.4 cm Pulmonary Valve PV Pk Kilo: 1.41 Peak PV Grad: 8.00 Updated in Other Vendor System with Status of Final Don Luna MD electronically signed on 01/26/2023 3:16:52 PM with status of Final
[2023-01-26 07:11] LABS: Anion Gap 13 (12-20); Blood Urea Nitrogen 50 mg/dL (9-16); Calcium 8.7 mg/dL (8.4-10.2); Carbon Dioxide 18 mmol/L (22-29); Chloride 110 mmol/L (96-108); Cholesterol 124 mg/dL; Creatinine Clr Calc Pharmacy 13.2; Estimated Glomerular Filt Rate 16; Glucose Random 103 mg/dL (60-115); HDL Cholesterol 42 mg/dL; LDL Cholesterol Calculated 62 mg/dl; Potassium 4.2 mmol/L (3.3-5.1); Sodium 137 mmol/L (135-145); Triglycerides 103 mg/dL
[2023-01-26 07:30] LABS: Troponin-I High Sensitivity 53.4 ng/L (<3.5-17.0)
[2023-01-26 08:10] LABS: Iron 42 mcg/dL (30-160); Percent Iron Saturation 22 % (15-50); Total Iron Binding Capacity 192 mcg/dL (228-428); Unsaturated Iron Binding 150 ug/dL
[2023-01-26 08:24] LABS: Ferritin 409 ng/mL (10-250)
[2023-01-26] MEDS: Furosemide 40 MG TABLET PO ×2 (08:48→19:57)
[2023-01-26] MEDS: Aspirin Enteric Coated 81 MG TABLET.DR PO (08:48)
[2023-01-26] MEDS: Sevelamer Carbonate Tablet 800 MG TABLET PO ×2 (08:48→19:56)
[2023-01-26] MEDS: NIFEdipine ER 60 MG TAB.ER.24 PO ×2 (08:48→19:56)
[2023-01-26] MEDS: Escitalopram Oxalate 10 MG TABLET PO (08:49)
[2023-01-26] MEDS: Sennosides/Docusate Sodium TABLET 1 TAB PO (08:49)
[2023-01-26] MEDS: Sodium Bicarbonate 650 MG TABLET PO ×3 (08:49→19:57)
[2023-01-26 09:33] LABS: Folate 6.5 ng/mL (> or = 4.0); Vitamin B12 283 pg/mL (200-900)
--- NOTE | 2023-01-26 09:38 | MHC.CM.PN ---
IMM 01/26/23 DELIVER TO DTR/HCP EDGAR HERNÁNDEZ REPORTS PT IS IN LTC AT [facility] SINCE END OF OCTOBER, [facility] REPORTS PT WAS WALKING AND REPORTS SNF SHOULD BE WALKING PT, EDGAR VERIFIES PT HAS NOT BEEN VACCINATED, SNF PCP [facility] AND HCP IS ON FILE FROM PREVIOUS ADMIT. PLAN WILL BE FOR PT TO RETURN TO LTC AT [facility] ONCE MEDICALLY CLEARED.
[2023-01-26] MEDS: diphenhydrAMINE HCL 50 MG/ML VIAL 12.5 MG IVPUSH (10:39)
--- NOTE | 2023-01-26 11:05 | PM.NEUROCN ---
History of Present Illness Data of Consult Service Date: 01/26/23 Primary Care Provider: Unknown Physician HPI Reason for consult: Encephalopathy 82 years old woman who was brought to hospital after she fell. Circumstances around the fall were not clear. There was no witnessing of any seizure. She said that she was here because she was having headache for number of years. She said that her primary care physician center here. Review of Systems Review of Systems: No recent fever or chills. PMFSH Past Medical History Medical History Alzheimer's dementia Anxiety CAD (coronary artery disease) CKD (chronic kidney disease) stage 3, GFR 30-59 ml/min Diabetes Heart failure Hypertension Social History Social History Household Members: Other Housing: Shelter Do you presently have visiting nurse or other home services: No Alcohol intake: never Patient Tobacco Use Status: Never used Tobacco Smoked in Last 30 Days: No Use of substances other than those prescribed or required for medical reasons: No Currently Displaying Signs/Symptoms of Drug Intoxication Withdrawal: No Have you been hit, kicked, punched, or otherwise hurt by someone within the past year? If so, by whom?: No Advance Directives: Yes Advance Directives on File: Yes Advance Directives Date on File: 12/11/22 Do you have thoughts of harming others: None Do you have a plan to hurt others: No Plan Recently lost weight without trying: No Nutrition Risks: No Nutritional Risk Patient : No : No Poor oral hygiene: No service: No Meds Allergies Allergy/AdvReac Type Severity Reaction Status Date / Time No Known Allergies Allergy Verified 12/10/22 13:21 Active Medications: Current Medications Acetaminophen (Acetaminophen 325 Mg Tablet) 650 mg PO Q6H PRN PRN Reason: Pain, Mild (Pain Scale 1-3) Albuterol/Ipratropium (Albuterol/Iprat 2.5/0.5mg 3 Ml Ampul.Neb) 3 ml INHALE Q6H PRN PRN Reason: wheezing Aspirin (Aspirin Enteric Coated 81 Mg Tablet.) 81 mg PO DAILY [facility] Last Admin: 01/26/23 08:48 Dose: 81 mg Atorvastatin Calcium (Atorvastatin Calcium 20 Mg Tablet) 20 mg PO BEDTIME [facility] Bisacodyl (Bisacodyl 10 Mg Supp.Rect) 10 mg [place] DAILY PRN PRN Reason: Constipation Clonidine HCl (Clonidine Hcl 0.2 Mg Tablet) 0.2 mg PO TID [facility]; Protocol Last Admin: 01/26/23 08:49 Dose: 0.2 mg Docusate Sodium (Docusate Sodium 100 Mg Capsule) 100 mg PO DAILY PRN PRN Reason: Constipation Escitalopram Oxalate (Escitalopram Oxalate 10 Mg Tablet) 10 mg PO DAILY [facility] Last Admin: 01/26/23 08:49 Dose: 10 mg Furosemide (Furosemide 40 Mg Tablet) 40 mg PO BID [facility]; Protocol Last Admin: 01/26/23 08:48 Dose: 40 mg Heparin Sodium (Porcine) (Heparin Sodium,Porcine 5,000 Unit/Ml Vial) 5,000 unit SUBCUT Q12H [facility] Last Admin: 01/26/23 07:24 Dose: Not Given Hydralazine HCl (Hydralazine Hcl 50 Mg Tablet) 100 mg PO TID [facility]; Protocol Last Admin: 01/26/23 08:48 Dose: 100 mg Ceftriaxone Sodium 1 gm/ (Sodium Chloride) 50 mls @ 100 mls/hr IV Q24H [facility] Lidocaine (Lidocaine 4 % Patch Adh..Patch) 1 patch TRANSDERMA DAILY [facility] Last Admin: 01/26/23 10:41 Dose: Not Given Melatonin (Melatonin 3 Mg Tablet) 3 mg PO BEDTIME PRN PRN Reason: Insomnia Nifedipine (Nifedipine Er 60 Mg Tab.Er.24) 60 mg PO BID [facility] Last Admin: 01/26/23 08:48 Dose: 60 mg Nitroglycerin (Nitroglycerin 0.4 Mg Tab.Subl) 0.4 mg SUBLINGUAL Q5M PRN PRN Reason: chest pain Omeprazole (Omeprazole 20 Mg Capsule.Dr) 20 mg PO BID@0630,1630 [facility] Ondansetron HCl (Ondansetron Hcl 4 Mg/2 Ml Vial) 4 mg IVPUSH Q8H PRN PRN Reason: Nausea and Vomiting Oxycodone HCl (Oxycodone Hcl Immed Release 5 Mg Tablet) 5 mg PO Q6H PRN PRN Reason: Pain, Moderate(Pain Scale 4-6) Pharmacy Consult (Consult Rx Perform Med Rec) 1 each MISCELLANE ONCE PRN PRN Reason: Consult order Polyethylene Glycol (Polyethylene Glycol 3350 17 Gm Powd.Pack) 17 gm PO BID [facility] Last Admin: 01/26/23 08:50 Dose: Not Given Senna/Docusate Sodium (Sennosides/Docusate Sodium Tablet) 1 tab PO DAILY [facility] Last Admin: 01/26/23 08:49 Dose: 1 tab Sevelamer Carbonate (Sevelamer Carbonate Tablet 800 Mg Tablet) 800 mg PO BID [facility] Last Admin: 01/26/23 08:48 Dose: 800 mg Sodium Bicarbonate (Sodium Bicarbonate 650 Mg Tablet) 650 mg PO TID [facility] Last Admin: 01/26/23 08:49 Dose: 650 mg Home Medications Medication Instructions Recorded Confirmed Last Taken Type acetaminophen 325 mg tablet 975 mg PO Q8H 01/25/23 01/25/23 Unknown History aspirin 81 mg tablet,delayed 81 mg PO DAILY 01/25/23 01/25/23 Unknown History release atorvastatin 20 mg tablet 20 mg PO BEDTIME 01/25/23 01/25/23 Unknown History bisacodyl 10 mg rectal suppository 10 mg [place] DAILY PRN Constipation 01/25/23 01/25/23 Unknown History clonidine HCl 0.2 mg tablet 0.2 mg PO TID 01/25/23 01/25/23 Unknown History epoetin paul 20,000 unit/2 mL 20,000 unit subcut FR 01/25/23 01/25/23 Unknown History injection solution (Procrit) escitalopram oxalate 10 mg tablet 10 mg PO DAILY 01/25/23 01/25/23 Unknown History furosemide 40 mg tablet 40 mg PO BID 01/25/23 01/25/23 Unknown History hydralazine 100 mg tablet 100 mg PO TID 01/25/23 01/25/23 Unknown History ipratropium 18 mcg-albuterol 103 1 spray inhalation Q6H PRN Wheezing 01/25/23 01/25/23 Unknown History mcg/actuation aerosol inhaler lidocaine 5 % topical patch 1 patch topical DAILY 01/25/23 01/25/23 Unknown History melatonin 3 mg tablet 3 mg PO BEDTIME PRN Insomnia 01/25/23 01/25/23 Unknown History nifedipine 60 mg tablet,extended 60 mg PO BID 01/25/23 01/25/23 Unknown History release nitroglycerin 0.3 mg sublingual 0.3 mg sublingual Q5M PRN Angina 01/25/23 01/25/23 Unknown History tablet ondansetron 4 mg oral soluble film 4 mg PO Q6H 01/25/23 01/25/23 Unknown History oxycodone 5 mg capsule 5 mg PO Q6H PRN Pain 01/25/23 01/25/23 Unknown History polyethylene glycol 3350 17 gram 17 g PO BID 01/25/23 01/25/23 Unknown History oral powder packet (Miralax) sennosides 8.6 mg-docusate sodium 1 tab-cap PO DAILY 01/25/23 01/25/23 Unknown History 50 mg capsule (Senna Plus) sevelamer HCl 800 mg tablet 800 mg PO BID 01/25/23 01/25/23 Unknown History sodium bicarbonate 650 mg tablet 650 mg PO TID 01/25/23 01/25/23 Unknown History Physical Exam Vital Signs: Vital Signs: Last Vital Signs Temp 96.4 F L 01/26/23 07:56 Pulse 61 01/26/23 07:56 Resp 18 01/26/23 07:56 BP 166/74 H 01/26/23 07:56 Pulse Ox 96 01/26/23 07:56 O2 Del Method Room Air 01/26/23 03:05 BMI result Body Mass Index 24.4 Neuro: Other: Alert and awake with normal spontaneity of speech fluency comprehension and affect. Visual pringle are full. Face is symmetrical. There is mild left-sided pronator drift. Deep tendon reflexes are trace to absent with left extensor right flexor plantar. Results Labs 01/26/23 06:09 01/26/23 06:09 Labs: Short CBC 01/25/23 01/26/23 Range/Units 16:36 06:09 WBC 14.2 H 9.4 (4.8-10.8) X10*3/uL Hgb 8.3 L 7.2 L (12.0-16.0) g/dl Hct 24.2 L 21.6 L (37.0-47.0) % Plt Count 280 250 (160-400) X10*3/uL BMP 01/25/23 01/26/23 16:36 06:09 Sodium 137 137 Potassium 4.6 4.2 Chloride 105 110 H Carbon Dioxide 20 L 18 L BUN 52 H 50 H Creatinine 3.23 H 2.89 H Calcium 9.0 D 8.7 Liver Function 01/25/23 Range/Units 16:36 Total Bilirubin 0.4 (0.0-1.0) mg/dL AST 12 (5-31) U/L ALT 8 (0-31) U/L Alkaline Phosphatase 53 (39-117) U/L Albumin 3.8 (3.5-5.0) g/dL Urine 01/25/23 Range/Units 17:32 Urine Color Yellow Urine Appearance Cloudy Urine pH 7.5 (5.0-9.0) Ur Specific [place] 1.015 (1.005-1.025) Urine Protein >=1000 (4+) H (Neg-Trace) mg/dL Urine Glucose (UA) Negative (Negative) mg/dL MRI of brain revealed extensive chronic microvascular ischemic changes and moderate to severe diffuse atrophy. Assessment and Plan (1) Vascular dementia: Status: Acute 82 years old woman with extensive ischemic microvascular disease of brain likely related to uncontrolled hypertension and significant brain atrophy resulting in multifactorial dementia. She was constantly at risk of falling and cognitive dysfunction. Conservative measures are recommended with blood pressure control, baby aspirin daily, and control of other vascular risk factors. MRI of brain revealed couple of small signal abnormalities suggestive of chronic hemosiderin deposition, which is not a risk at this time for this type of treatment. She is also at risk for seizure disorder. (2) Multifactorial dementia: Status: Acute Time Spent With Patient Time: Total time managing care of this patient today ____ minutes. Procedures Date of Service Date of Service: 01/26/23
--- NOTE | 2023-01-26 13:58 | HO.PM.IMPN ---
Subjective Subjective Date of Service: 01/29/23 Interval History: ? ch cva ,unconrtolled htn ,aocd,?ckd 5 Review of Systems Seems to be improving, blood pressure is also somewhat better Denies any chest pain or shortness of breath or abdominal pain Physical Exam Vital Signs: Vital Signs: Last Vital Signs Temp 96.4 F L 01/26/23 07:56 Pulse 61 01/26/23 07:56 Resp 18 01/26/23 07:56 BP 166/74 H 01/26/23 07:56 Pulse Ox 96 01/26/23 07:56 O2 Del Method Room Air 01/26/23 03:05 BMI result Body Mass Index 24.4 Appearance: Alert.? Oriented X3.? not in distress.? cvs: rrr, [id number] , no murmur res: clear to auscultation ,no rhonchii or wheezing abd: no rebound or guarding ,nt, bs present. ext pulses present , no cyanosis ,Gait well balanced well coordinated. neuro: axo3 , nonfocal. Objective Data Active Medications Acetaminophen (Acetaminophen 325 Mg Tablet) 650 mg PO Q6H PRN PRN Reason: Pain, Mild (Pain Scale 1-3) Albuterol/Ipratropium (Albuterol/Iprat 2.5/0.5mg 3 Ml Ampul.Neb) 3 ml INHALE Q6H PRN PRN Reason: wheezing Aspirin (Aspirin Enteric Coated 81 Mg Tablet.) 81 mg PO DAILY [facility], [facility] Last Admin: 01/26/23 08:48 Dose: 81 mg Documented By: DOMONIQUE Atorvastatin Calcium (Atorvastatin Calcium 20 Mg Tablet) 20 mg PO BEDTIME [facility]1983 Bisacodyl (Bisacodyl 10 Mg Supp.Rect) 10 mg [place] DAILY PRN PRN Reason: Constipation Clonidine HCl (Clonidine Hcl 0.2 Mg Tablet) 0.2 mg PO TID [facility], [facility]; Protocol Last Admin: 01/26/23 08:49 Dose: 0.2 mg Documented By: DOMONIQUE Docusate Sodium (Docusate Sodium 100 Mg Capsule) 100 mg PO DAILY PRN PRN Reason: Constipation Escitalopram Oxalate (Escitalopram Oxalate 10 Mg Tablet) 10 mg PO DAILY [facility] Last Admin: 01/26/23 08:49 Dose: 10 mg Documented By: DOMONIQUE Furosemide (Furosemide 40 Mg Tablet) 40 mg PO BID [facility], [facility]; Protocol Last Admin: 01/26/23 08:48 Dose: 40 mg Documented By: DOMONIQUE Heparin Sodium (Porcine) (Heparin Sodium,Porcine 5,000 Unit/Ml Vial) 5,000 unit SUBCUT Q12H [facility]1983 Last Admin: 01/26/23 07:24 Dose: Not Given Documented By: DOMONIQUE Non-Admin Reason: Physician Held Med Hydralazine HCl (Hydralazine Hcl 50 Mg Tablet) 100 mg PO TID [facility]; Protocol Last Admin: 01/26/23 08:48 Dose: 100 mg Documented By: DOMONIQUE Ceftriaxone Sodium 1 gm/ (Sodium Chloride) 50 mls @ 100 mls/hr IV Q24H [facility]1983 Lidocaine (Lidocaine 4 % Patch Adh..Patch) 1 patch TRANSDERMA DAILY [facility] Last Admin: 01/26/23 10:41 Dose: Not Given Documented By: DOMONIQUE Non-Admin Reason: Patient Refused Melatonin (Melatonin 3 Mg Tablet) 3 mg PO BEDTIME PRN PRN Reason: Insomnia Nifedipine (Nifedipine Er 60 Mg Tab.Er.24) 60 mg PO BID [facility] Last Admin: 01/26/23 08:48 Dose: 60 mg Documented By: DOMONIQUE Nitroglycerin (Nitroglycerin 0.4 Mg Tab.Subl) 0.4 mg SUBLINGUAL Q5M PRN PRN Reason: chest pain Omeprazole (Omeprazole 20 Mg Capsule.Dr) 20 mg PO BID@0630,1630 [facility] Ondansetron HCl (Ondansetron Hcl 4 Mg/2 Ml Vial) 4 mg IVPUSH Q8H PRN PRN Reason: Nausea and Vomiting Oxycodone HCl (Oxycodone Hcl Immed Release 5 Mg Tablet) 5 mg PO Q6H PRN PRN Reason: Pain, Moderate(Pain Scale 4-6) Pharmacy Consult (Consult Rx Perform Med Rec) 1 each MISCELLANE ONCE PRN PRN Reason: Consult order Polyethylene Glycol (Polyethylene Glycol 3350 17 Gm Powd.Pack) 17 gm PO BID [facility] Last Admin: 01/26/23 08:50 Dose: Not Given Documented By: DOMONIQUE Non-Admin Reason: Patient Refused Senna/Docusate Sodium (Sennosides/Docusate Sodium Tablet) 1 tab PO DAILY [facility] Last Admin: 01/26/23 08:49 Dose: 1 tab Documented By: DOMONIQUE Sevelamer Carbonate (Sevelamer Carbonate Tablet 800 Mg Tablet) 800 mg PO BID [facility] Last Admin: 01/26/23 08:48 Dose: 800 mg Documented By: DOMONIQUE Sodium Bicarbonate (Sodium Bicarbonate 650 Mg Tablet) 650 mg PO TID [facility] Last Admin: 01/26/23 08:49 Dose: 650 mg Documented By: DOMONIQUE Labs 01/26/23 06:09 01/26/23 06:09 Labs: Laboratory Results - last 24 hr 01/25/23 01/25/23 01/25/23 16:36 16:36 16:36 MCV 91.7 MCH 31.4 MCHC 34.3 RDW 14.1 Plt Count 280 MPV 8.6 L Immature Gran % (Auto) 0.6 H Neut % (Auto) 77.7 H Lymph % (Auto) 15.3 L [place] % (Auto) 3.9 Eos % (Auto) 2.1 Baso % (Auto) 0.4 Lymph # (Auto) 2.2 [place] # (Auto) 0.6 Eos # (Auto) 0.3 Baso # (Auto) 0.1 Abs Immat Gran (auto) 0.08 H Absolute Neuts (auto) 11.0 H Absolute Nucleated RBC 0.000 Nucleated RBC % (auto) 0.0 PT 9.4 L INR 0.8 L Anion Gap 17 Estim Creat Clear Calc 11.7 Estimated GFR 14 Random Glucose 92 Lactic Acid Calcium 9.0 D Iron TIBC % Saturation Unsat Iron Binding Ferritin Total Bilirubin 0.4 AST 12 ALT 8 Alkaline Phosphatase 53 Troponin I High Sens Total Protein 6.9 Albumin 3.8 Triglycerides Cholesterol LDL Cholesterol, Calc HDL Cholesterol Vitamin B12 Folate Urine Color Urine Appearance Urine pH Ur Specific [place] Urine Protein Urine Glucose (UA) Urine Ketones Urine Blood Urine Nitrite Ur Leukocyte Esterase Urine RBC Urine WBC Ur Squamous Epith Cells Urine Bacteria Hyaline Casts Blood Type Antibody Screen 01/25/23 01/25/23 01/25/23 17:32 19:05 19:05 MCV MCH MCHC RDW Plt Count MPV Immature Gran % (Auto) Neut % (Auto) Lymph % (Auto) [place] % (Auto) Eos % (Auto) Baso % (Auto) Lymph # (Auto) [place] # (Auto) Eos # (Auto) Baso # (Auto) Abs Immat Gran (auto) Absolute Neuts (auto) Absolute Nucleated RBC Nucleated RBC % (auto) PT INR Anion Gap Estim Creat Clear Calc Estimated GFR Random Glucose Lactic Acid 0.7 Calcium Iron TIBC % Saturation Unsat Iron Binding Ferritin Total Bilirubin AST ALT Alkaline Phosphatase Troponin I High Sens 48.7 H Total Protein Albumin Triglycerides Cholesterol LDL Cholesterol, Calc HDL Cholesterol Vitamin B12 Folate Urine Color Yellow Urine Appearance Cloudy Urine pH 7.5 Ur Specific [place] 1.015 Urine Protein >=1000 (4+) H Urine Glucose (UA) Negative Urine Ketones Negative Urine Blood Negative Urine Nitrite Negative Ur Leukocyte Esterase Moderate (2+) H Urine RBC 11-20 H Urine WBC 21-50 H Ur Squamous Epith Cells 0-2 Urine Bacteria 4+ Hyaline Casts 0-2 Blood Type Antibody Screen 01/26/23 01/26/23 01/26/23 06:09 06:09 06:09 MCV 93.9 MCH 31.3 MCHC 33.3 RDW 14.4 Plt Count 250 MPV 8.9 L Immature Gran % (Auto) 0.4 Neut % (Auto) 70.9 Lymph % (Auto) 19.9 L [place] % (Auto) 5.5 Eos % (Auto) 2.9 Baso % (Auto) 0.4 Lymph # (Auto) 1.9 [place] # (Auto) 0.5 Eos # (Auto) 0.3 Baso # (Auto) 0.0 Abs Immat Gran (auto) 0.04 H Absolute Neuts (auto) 6.6 Absolute Nucleated RBC 0.000 Nucleated RBC % (auto) 0.0 PT INR Anion Gap 13 Estim Creat Clear Calc 13.2 Estimated GFR 16 Random Glucose 103 Lactic Acid Calcium 8.7 Iron 42 TIBC 192 L % Saturation 22 Unsat Iron Binding 150 Ferritin 409 H Total Bilirubin AST ALT Alkaline Phosphatase Troponin I High Sens Total Protein Albumin Triglycerides 103 Cancelled Cholesterol 124 Cancelled LDL Cholesterol, Calc 62 Cancelled HDL Cholesterol 42 Cancelled Vitamin B12 Folate Urine Color Urine Appearance Urine pH Ur Specific [place] Urine Protein Urine Glucose (UA) Urine Ketones Urine Blood Urine Nitrite Ur Leukocyte Esterase Urine RBC Urine WBC Ur Squamous Epith Cells Urine Bacteria Hyaline Casts Blood Type Antibody Screen 01/26/23 01/26/23 01/26/23 06:09 07:40 08:34 MCV MCH MCHC RDW Plt Count MPV Immature Gran % (Auto) Neut % (Auto) Lymph % (Auto) [place] % (Auto) Eos % (Auto) Baso % (Auto) Lymph # (Auto) [place] # (Auto) Eos # (Auto) Baso # (Auto) Abs Immat Gran (auto) Absolute Neuts (auto) Absolute Nucleated RBC Nucleated RBC % (auto) PT INR Anion Gap Estim Creat Clear Calc Estimated GFR Random Glucose Lactic Acid Calcium Iron TIBC % Saturation Unsat Iron Binding Ferritin Total Bilirubin AST ALT Alkaline Phosphatase Troponin I High Sens 53.4 H* Total Protein Albumin Triglycerides Cholesterol LDL Cholesterol, Calc HDL Cholesterol Vitamin B12 283 Folate 6.5 Urine Color Urine Appearance Urine pH Ur Specific [place] Urine Protein Urine Glucose (UA) Urine Ketones Urine Blood Urine Nitrite Ur Leukocyte Esterase Urine RBC Urine WBC Ur Squamous Epith Cells Urine Bacteria Hyaline Casts Blood Type O Positive Antibody Screen NEGATIVE Microbiology Microbiology Results: Microbiology 01/25/23 18:07 Urine Culture - Preliminary Urine clean catch - Urine julio top Culture too young to evaluate. Assessment and Plan (1) Multifactorial dementia: Status: Acute (2) CVA (cerebral vascular accident): Status: Acute (3) Acute UTI: Status: Acute Plan 82-year-old female presents to the hospital after an unwitnessed fall, found to have on? age-indeterminate CVA on imaging #? CVA -? acute versus subacute versus chronic -? CT head as above with findings of CVA in the basal ganglia with likely led to her fall -? patient also has residual left-sided weakness -? at this time will admit for further workup including? MRI that is scheduled to be done tonight,bilateral Doppler and echocardiogram pemding -? will increase dose of atorvastatin, continue aspirin - lipid battery - ? Neurology consulted -? PT OT #? UTI -? symptomatic with? dysuria -? will treat with IV antibiotics -? follow cultures #? fall -? likely? due to left-sided weakness -? will consult physical therapy #? diabetes -? low-dose sliding scale insulin -? diabetic diet #? history of CHF,? unspecified -? not in exacerbation -? continue home Lasix #? hypertensive uncontrolled adjusted bpmeds -? monitor BP #? CKD stage 4 -? baseline -? monitor BMP ?DVT prophylaxis:? Hep subcu ?inpatient need:uti -on iv antibiotics ,cultures pending , as well as echo/carotid pending Time Spent With Patient Time: Total time managing care of this patient today ____ minutes. Quality Stroke Does the patient have a stroke diagnosis?: No VTE Prior VTE?: No VTE Risk Level:: Medical - moderate - high VTE Device Contraindication: Treatment Not Indicated VTE Drug Contraindication: N/A - Med Ordered
--- NOTE | 2023-01-26 15:39 | PC.NURSE ---
Assumed care of patient at this time
--- NOTE | 2023-01-26 16:26 | PM.CNNEP ---
History of Present Illness Reason for Consult Consult date: 01/26/23 Reason for consult: MIA on CKD Chief Complaint Chief complaint: CVA History of Present Illness Narrative: Ms. Dorie Faria is an 82-year-old female with past medical history of hypertension, diabetes, CKD stage 4 (BL Cr 3.7-4.1mg/dL) but does not follow regularly with [employer], TURNER, KAREN, who presents to the hospital from group home after on on witnessed fall.? On arrival to the ED patient was hemodynamically stable slightly elevated blood pressure Labs are significant for WBC count of 14.2, hemoglobin of 8.3 which is higher than recent visit, creatinine of 3.23 which is around her baseline, troponin of 40.7, UA is positive for leukocyte Estrace, WBC, bacteria. ?She had head CT showed multiple age indeterminate hypodensities in the bilateral basal ganglia, on MRI is recommended, no diffuse acute cervical fractures or subluxation, compression deformity of T3, multiple sub 4 mm pulmonary nodules Review of Systems Review of Systems Yes all other systems are reviewed and are negative PMFSH Past Medical History Medical History Alzheimer's dementia Anxiety CAD (coronary artery disease) CKD (chronic kidney disease) stage 3, GFR 30-59 ml/min Diabetes Heart failure Hypertension Social History Social History Household Members: Other Housing: [facility] Do you presently have visiting nurse or other home services: No Alcohol intake: never Patient Tobacco Use Status: Never used Tobacco Smoked in Last 30 Days: No Use of substances other than those prescribed or required for medical reasons: No Currently Displaying Signs/Symptoms of Drug Intoxication Withdrawal: No Have you been hit, kicked, punched, or otherwise hurt by someone within the past year? If so, by whom?: No Advance Directives: Yes Advance Directives on File: Yes Advance Directives Date on File: 12/11/22 Do you have thoughts of harming others: None Do you have a plan to hurt others: No Plan Recently lost weight without trying: No Nutrition Risks: No Nutritional Risk Patient : No : No Poor oral hygiene: No service: No Meds Allergies Allergy/AdvReac Type Severity Reaction Status Date / Time No Known Allergies Allergy Verified 12/10/22 13:21 Active Medications: Current Medications Acetaminophen (Acetaminophen 325 Mg Tablet) 650 mg PO Q6H PRN PRN Reason: Pain, Mild (Pain Scale 1-3) Albuterol/Ipratropium (Albuterol/Iprat 2.5/0.5mg 3 Ml Ampul.Neb) 3 ml INHALE Q6H PRN PRN Reason: wheezing Aspirin (Aspirin Enteric Coated 81 Mg Tablet.Dr) 81 mg PO DAILY [facility] Last Admin: 01/26/23 08:48 Dose: 81 mg Atorvastatin Calcium (Atorvastatin Calcium 20 Mg Tablet) 20 mg PO BEDTIME [place] Bisacodyl (Bisacodyl 10 Mg Supp.Rect) 10 mg FL DAILY PRN PRN Reason: Constipation Clonidine HCl (Clonidine Hcl 0.2 Mg Tablet) 0.2 mg PO TID [facility]; Protocol Last Admin: 01/26/23 14:28 Dose: 0.2 mg Docusate Sodium (Docusate Sodium 100 Mg Capsule) 100 mg PO DAILY PRN PRN Reason: Constipation Escitalopram Oxalate (Escitalopram Oxalate 10 Mg Tablet) 10 mg PO DAILY [facility] Last Admin: 01/26/23 08:49 Dose: 10 mg Furosemide (Furosemide 40 Mg Tablet) 40 mg PO BID [facility]; Protocol Last Admin: 01/26/23 08:48 Dose: 40 mg Heparin Sodium (Porcine) (Heparin Sodium,Porcine 5,000 Unit/Ml Vial) 5,000 unit SUBCUT Q12H [facility] Last Admin: 01/26/23 07:24 Dose: Not Given Hydralazine HCl (Hydralazine Hcl 50 Mg Tablet) 100 mg PO TID [facility]; Protocol Last Admin: 01/26/23 14:28 Dose: 100 mg Ceftriaxone Sodium 1 gm/ (Sodium Chloride) 50 mls @ 100 mls/hr IV Q24H [facility] Lidocaine (Lidocaine 4 % Patch Adh..Patch) 1 patch TRANSDERMA DAILY [facility] Last Admin: 01/26/23 10:41 Dose: Not Given Melatonin (Melatonin 3 Mg Tablet) 3 mg PO BEDTIME PRN PRN Reason: Insomnia Nifedipine (Nifedipine Er 60 Mg Tab.Er.24) 60 mg PO BID [facility] Last Admin: 01/26/23 08:48 Dose: 60 mg Nitroglycerin (Nitroglycerin 0.4 Mg Tab.Subl) 0.4 mg SUBLINGUAL Q5M PRN PRN Reason: chest pain Omeprazole (Omeprazole 20 Mg Capsule.) 20 mg PO BID@0630,1630 [facility] Ondansetron HCl (Ondansetron Hcl 4 Mg/2 Ml Vial) 4 mg IVPUSH Q8H PRN PRN Reason: Nausea and Vomiting Oxycodone HCl (Oxycodone Hcl Immed Release 5 Mg Tablet) 5 mg PO Q6H PRN PRN Reason: Pain, Moderate(Pain Scale 4-6) Pharmacy Consult (Consult Rx Perform Med Rec) 1 each MISCELLANE ONCE PRN PRN Reason: Consult order Polyethylene Glycol (Polyethylene Glycol 3350 17 Gm Powd.Pack) 17 gm PO BID [facility] Last Admin: 01/26/23 08:50 Dose: Not Given Senna/Docusate Sodium (Sennosides/Docusate Sodium Tablet) 1 tab PO DAILY [facility] Last Admin: 01/26/23 08:49 Dose: 1 tab Sevelamer Carbonate (Sevelamer Carbonate Tablet 800 Mg Tablet) 800 mg PO BID [facility] Last Admin: 01/26/23 08:48 Dose: 800 mg Sodium Bicarbonate (Sodium Bicarbonate 650 Mg Tablet) 650 mg PO TID [facility] Last Admin: 01/26/23 14:28 Dose: 650 mg Home Medications Medication Instructions Recorded Confirmed Last Taken Type acetaminophen 325 mg tablet 975 mg PO Q8H 01/25/23 01/25/23 Unknown History aspirin 81 mg tablet,delayed 81 mg PO DAILY 01/25/23 01/25/23 Unknown History release atorvastatin 20 mg tablet 20 mg PO BEDTIME 01/25/23 01/25/23 Unknown History bisacodyl 10 mg rectal suppository 10 mg FL DAILY PRN Constipation 01/25/23 01/25/23 Unknown History clonidine HCl 0.2 mg tablet 0.2 mg PO TID 01/25/23 01/25/23 Unknown History epoetin paul 20,000 unit/2 mL 20,000 unit subcut FR 01/25/23 01/25/23 Unknown History injection solution (Procrit) escitalopram oxalate 10 mg tablet 10 mg PO DAILY 01/25/23 01/25/23 Unknown History furosemide 40 mg tablet 40 mg PO BID 01/25/23 01/25/23 Unknown History hydralazine 100 mg tablet 100 mg PO TID 01/25/23 01/25/23 Unknown History ipratropium 18 mcg-albuterol 103 1 spray inhalation Q6H PRN Wheezing 01/25/23 01/25/23 Unknown History mcg/actuation aerosol inhaler lidocaine 5 % topical patch 1 patch topical DAILY 01/25/23 01/25/23 Unknown History melatonin 3 mg tablet 3 mg PO BEDTIME PRN Insomnia 01/25/23 01/25/23 Unknown History nifedipine 60 mg tablet,extended 60 mg PO BID 01/25/23 01/25/23 Unknown History release nitroglycerin 0.3 mg sublingual 0.3 mg sublingual Q5M PRN Angina 01/25/23 01/25/23 Unknown History tablet ondansetron 4 mg oral soluble film 4 mg PO Q6H 01/25/23 01/25/23 Unknown History oxycodone 5 mg capsule 5 mg PO Q6H PRN Pain 01/25/23 01/25/23 Unknown History polyethylene glycol 3350 17 gram 17 g PO BID 01/25/23 01/25/23 Unknown History oral powder packet (Miralax) sennosides 8.6 mg-docusate sodium 1 tab-cap PO DAILY 01/25/23 01/25/23 Unknown History 50 mg capsule (Senna Plus) sevelamer HCl 800 mg tablet 800 mg PO BID 01/25/23 01/25/23 Unknown History sodium bicarbonate 650 mg tablet 650 mg PO TID 01/25/23 01/25/23 Unknown History Physical Exam Vital Signs: Last Vital Signs Temp 98.0 F 01/26/23 15:24 Pulse 64 01/26/23 15:24 Resp 18 01/26/23 15:24 BP 123/56 L 01/26/23 15:24 Pulse Ox 96 01/26/23 15:24 O2 Del Method Room Air 01/26/23 15:24 BMI result Body Mass Index 24.4 Const General: cooperative and no acute distress Eyes General: appearance normal, both eyes and all related structures Resp Effort & Inspection: normal respiratory effort Auscultation: clear to auscultation bilaterally Cardio Rate: regular rate Rhythm: regular rhythm GI Palpation (GI): Soft to palpation Auscultation: normal bowel sounds Neuro Other: Alert and awake with normal spontaneity of speech fluency comprehension and affect. Visual pringle are full. Face is symmetrical. There is mild left-sided pronator drift. Deep tendon reflexes are trace to absent with left extensor right flexor plantar. Extrem General: Yes normal to inspection and Yes no pedal edema Results Lab Results 01/26/23 06:09 01/26/23 06:09 Lab results: Chemistry 01/25/23 01/26/23 16:36 06:09 Sodium 137 137 Potassium 4.6 4.2 Carbon Dioxide 20 L 18 L BUN 52 H 50 H Creatinine 3.23 H 2.89 H Calcium 9.0 D 8.7 Hematology 01/25/23 01/26/23 16:36 06:09 WBC 14.2 H 9.4 Hgb 8.3 L 7.2 L Plt Count 280 250 Urinalysis 01/25/23 17:32 Urine Color Yellow Urine Appearance Cloudy Urine pH 7.5 Ur Specific [place] 1.015 Urine Protein >=1000 (4+) H Urine Glucose (UA) Negative Urine Ketones Negative Urine Blood Negative Urine Nitrite Negative Ur Leukocyte Esterase Moderate (2+) H Urine RBC 11-20 H Urine WBC 21-50 H Ur Squamous Epith Cells 0-2 Hyaline Casts 0-2 Assessment and Plan (1) Multifactorial dementia: Status: Acute (2) CVA (cerebral vascular accident): Status: Acute (3) Acute UTI: Status: Acute Plan Ms. Dorie Faria is an 82-year-old female with past medical history of hypertension, diabetes, CKD stage 4 (BL Cr 3.7-4.1mg/dL) but does not follow regularly with [employer], TURNER, KAREN, who presents to the hospital from group home after on on witnessed fall.?She is being worked up for UTI, CVA all in the setting of advanced CKD. 1 Advanced CKD stage IV [place] [facility] [place]. Does not have routine Nephrology care established, being at [facility] adequate followups never established. 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 PCN since removed. Has chronic Right hydro-ureter. Now with BL Cr 3.7-4.0mg/dL Plan: - monitor renal function - treat urosepsis - monitor for hydronephrosis / [place]-ureteral fistula -? continue home Lasix Time Spent With Patient Time: Total time managing care of this patient today ____ minutes. Procedures Date of Service Date of Service: 01/26/23
[2023-01-26] MEDS: cefTRIAXone sodium 1 GM in 0.9 % Sodium Chloride 50 ML IV (17:13)
[2023-01-26] MEDS: Omeprazole 20 MG CAPSULE.DR PO (17:13)
[2023-01-26] MEDS: Acetaminophen 325 MG TABLET 650 MG PO (17:13)
[2023-01-26] MEDS: polyethylene glycoL 3350 17 GM POWD.PACK PO (19:56)
[2023-01-26] MEDS: Atorvastatin Calcium 20 MG TABLET PO (19:57)
[2023-01-26 22:24] LABS: OBS Int Ctl Valid YES; OBS1 NEGATIVE (NEGATIVE)
[2023-01-27 03:54] VITALS: BP 124/56; PULSE 58; RESP 20; TEMP 36.9; O2SAT 98
[2023-01-27] MEDS: Omeprazole 20 MG CAPSULE.DR PO (05:49)
[2023-01-27 07:22] VITALS: BP 154/70; PULSE 56; RESP 12; TEMP 36.8; O2SAT 99
[2023-01-27] MEDS: NIFEdipine ER 60 MG TAB.ER.24 PO (08:48)
[2023-01-27] MEDS: hydrALAZINE HCl 50 MG TABLET 100 MG PO (08:48)
[2023-01-27] MEDS: Sennosides/Docusate Sodium TABLET 1 TAB PO (08:48)
[2023-01-27] MEDS: Aspirin Enteric Coated 81 MG TABLET.DR PO (08:49)
[2023-01-27] MEDS: Escitalopram Oxalate 10 MG TABLET PO (08:50)
[2023-01-27] MEDS: Sodium Bicarbonate 650 MG TABLET PO (08:50)
[2023-01-27] MEDS: Furosemide 40 MG TABLET PO (08:50)
[2023-01-27] MEDS: Sevelamer Carbonate Tablet 800 MG TABLET PO (08:50)
[2023-01-27] MEDS: polyethylene glycoL 3350 17 GM POWD.PACK PO (08:51)
[2023-01-27] MEDS: cloNIDine HCL 0.2 MG TABLET PO (08:55)
--- NOTE | 2023-01-27 11:09 | PM.DS ---
DS: Providers Provider Date of Service: 01/28/23 Date of admission: 01/25/23 23:05 Primary care physician: Steven Martinez MD Consults: 01/25/23 23:05 Consult to Neurology Routine Consulting Provider: [facility] Reason for consultation: cva Has provider been notified: No 01/26/23 08:04 Consult to Nephrology Routine Consulting Provider: Abhinav Erazo Reason for consultation: ckd 5?/htn urgency/?AOCD DS: Diagnosis Discharge Diagnosis (1) Multifactorial dementia: Status: Acute (2) CVA (cerebral vascular accident): Status: Acute (3) Acute UTI: Status: Acute DS: Summary Hospital Course Hospital Course: 82-year-old female with past medical history of hypertension, diabetes, CKD stage 4, CAD, HLD, presents the hospital from [facility] after on on witnessed fall.? Patient does not remember the episode and cannot give me much history. ? She does not remember if she lost consciousness or not.? When asked her if she has had any weakness she states that she has been feeling weak on the right side,? for the past 3 days. on my exam patient is more weak on the left side. ? she otherwise denies any chest pain, reports no shortness of breath, no abdominal pain nausea or vomiting, no diarrhea constipation, she does report burning on urination for the past 3 days. ? She otherwise reports no lower extremity edema.? No headache or change in vision.? On arrival to the ED patient hemodynamically stable slightly elevated blood pressure Labs are significant for WBC count of 14.2, hemoglobin of 8.3 which is higher than recent visit, creatinine of 3.23 which is around her baseline, troponin of 40.7, UA is positive for leukocyte Estrace, WBC, bacteria, ?head CT showed multiple age indeterminate hypodensities in the bilateral basal ganglia, on MRI is recommended, no diffuse acute cervical fractures or subluxation, compression deformity of T3, multiple sub 4 mm pulmonary nodules ?patient scheduled for MRI and will be admitted for further management ?past medical history is obtained from the documents included with her from halfway. hospital course: Patient was sent from [facility] after unwitnessed fall-admitted for question of CVA: further workup MRI of brain did not reveal acute CVA, has chronic infarcts: Currently patient seems to be near her baseline and Seen by Neurology-no new CVA appreciated, patient possibly has extensive ischemic microvascular disease of brain likely related to uncontrolled hypertension and significant brain atrophy resulting in multifactorial dementia.? She was constantly at risk of falling and cognitive dysfunction.? Conservative measures are recommended with blood pressure control, baby aspirin daily, and control of other vascular risk factors.? MRI of brain revealed couple of small signal abnormalities suggestive of chronic hemosiderin deposition, which is not a risk at this time for this type of treatment.? She is also at risk for seizure disorder but currently no seizure medication recomended . echo was also done :ef 60-65%(please see detailed report in the eye imaging section). carotid study -seems fine (please see detailed report in the eye imaging section). uti -urine cultures still mixed ,blood cultures seems neg@24hrs- will switch to po ceftin. htn control-blood pressure improving with home regimen-clonidine,hydrlazine,procardia. ckd stage 4 and possible anemia of ch dis( fobt negative ,iron studies seems fine except low tibc, folate and b12 normal) : moniter cbc and bmp outpatiently patient is on epogen. constipation on ct : added luxatives prn . ct imgaing abd /chest showed :incidental : Scattered pulmonary nodules, suboptimally assessed due to motion. Nonspecific borderline mediastinal lymphadenopathy. Recommend a follow-up chest CT in 3-6 months. ?Incidentally noted 1.6 cm left-sided thyroid nodule?:further evaluation by thyroid ultrasound is recommended for solitary incidental thyroid nodules greater than or equal to 1.5 cm in largest axial dimension in patients age 35 years and older who do not have limited life expectancy or significant morbidities, unless clinically warranted. ?Age indeterminate compression deformity at T2. Correlate for point tenderness. (patient does not have pain or tenderness at site), continue to moniter. plan: Complete course of antibiotics(Ceftin) for UTI for 5 days. Monitor renal function and CBC for chronic kidney disease and anemia. please consider further workup and management outpatient -chest/abd imaging outpatient. Time Spent with Patient Time attestation: Total time managing care of this patient today ____ minutes. Discharge coordination time: Greater than 30 minutes Quality: Safe Use of Opioids Does Pt have an Active Cancer Diagnosis on the Problem List?: No Quality: Stroke Does the patient have a stroke diagnosis?: No Physical Exam Vital Signs: Vital Signs: Last Vital Signs Temp 98.3 F 06/17/23 07:22 Pulse 56 01/27/23 07:22 Resp 12 01/27/23 07:22 BP 154/70 H 01/27/23 07:22 Pulse Ox 99 01/27/23 07:22 O2 Del Method Room Air 01/27/23 07:22 BMI result Body Mass Index 24.4 ?patient awake, alert, oriented to self,? able to answers questions, and follow command cvs: rrr, [id number] . res: clear to auscultation ,no rhonchii or wheezing abd: no rebound or guarding ,nt, bs present. ext pulses present , no cyanosis . neuro: axo3 , ?There is mild left-sided pronator drift.? weakness seems to be improving DS: Data Data Completed and Pending Labs on day of discharge: Laboratory Results - last 24 hr 01/26/23 21:59 Stool Occult Blood NEGATIVE Preliminary micro results at discharge 01/25/23 19:05 Blood Culture - Preliminary Blood - Venous No growth after 24 hours. 01/25/23 19:05 Blood Culture - Preliminary Blood - Venous No growth after 24 hours. 01/25/23 18:07 Urine Culture - Preliminary Urine clean catch - Urine julio top Culture too young to evaluate. Imaging Chest x-ray: Radiologist's impression: ITS Impressions Hip/Pelvis X-Ray 01/25/23 15:24 IMPRESSION: No acute fracture or malalignment. Mild degenerative changes of the hips. Cervical Spine CT 01/25/23 17:21 IMPRESSION: 1. Multiple age-indeterminate hypodensities in the bilateral basal ganglia. If an acute cerebrovascular accident is suspected, correlation with an MR of the brain is recommended. 2. Limited evaluation of the cervical spine secondary to motion. However, accounting for these limitations, no definite acute cervical fractures or subluxation are seen. Repeat imaging could be obtained as clinically indicated. 3. Age indeterminate compression deformity of T3, only partially included within the [id number]. Recommend correlation with point tenderness. 4. Multiple sub-4 mm pulmonary nodules are noted; given upper lobe location and background of mild emphysematous changes, follow-up with a diagnostic chest CT in 3-6 [address] is [address]. Head CT 01/25/23 17:22 IMPRESSION: 1. Multiple age-indeterminate hypodensities in the bilateral basal ganglia. If an acute cerebrovascular accident is suspected, correlation with an MR of the brain is recommended. 2. Limited evaluation of the cervical spine secondary to motion. However, accounting for these limitations, no definite acute cervical fractures or subluxation are seen. Repeat imaging could be obtained as clinically indicated. 3. Age indeterminate compression deformity of T3, only partially included within the [id number]. Recommend correlation with point tenderness. 4. Multiple sub-4 mm pulmonary nodules are noted; given upper lobe location and background of mild emphysematous changes, follow-up with a diagnostic chest CT in 3-6 months is recommended. Abdomen/Pelvis CT 01/25/23 19:59 IMPRESSION: Very limited examination secondary to motion as well as lack of IV contrast. 1. No consolidation or groundglass disease. 2. Scattered pulmonary nodules, suboptimally assessed due to motion. Nonspecific borderline mediastinal lymphadenopathy. Recommend a follow-up chest CT in 3-6 months. 3. Mild diffuse urinary bladder wall thickening with perivesical fat stranding. Mild asymmetric right hydroureter with slightly increased right-sided perinephric free fluid compared to the left. Findings are suggestive of an urinary tract infection, correlate clinically. No evidence of obstructive calcified urolithiasis. 4. Large amount of stool in the rectum and less so colon, correlate for constipation. 5. Age indeterminate compression deformity at T2. Correlate for point tenderness. 6. Incidentally noted 1.6 cm left-sided thyroid nodule. Based on the recommendations of the ACR Incidental Thyroid Findings Committee (JACR 2015 Sep; 12(2):143-50), further evaluation by thyroid ultrasound is recommended for solitary incidental thyroid nodules greater than or equal to 1.5 cm in largest axial dimension in patients age 35 years and older who do not have limited life expectancy or significant morbidities, unless clinically warranted. 7. A few hyperattenuating foci in the left kidney are statistically favoring to represent proteinaceous/hemorrhagic cysts, stable compared to 12/10/2022, although incompletely characterized in this examination. Attention on follow-up in future studies recommended. Chest CT 01/25/23 19:59 IMPRESSION: Very limited examination secondary to motion as well as lack of IV contrast. 1. No consolidation or groundglass disease. 2. Scattered pulmonary nodules, suboptimally assessed due to motion. Nonspecific borderline mediastinal lymphadenopathy. Recommend a follow-up chest CT in 3-6 months. 3. Mild diffuse urinary bladder wall thickening with perivesical fat stranding. Mild asymmetric right hydroureter with slightly increased right-sided perinephric free fluid compared to the left. Findings are suggestive of an urinary tract infection, correlate clinically. No evidence of obstructive calcified urolithiasis. 4. Large amount of stool in the rectum and less so colon, correlate for constipation. 5. Age indeterminate compression deformity at T2. Correlate for point tenderness. 6. Incidentally noted 1.6 cm left-sided thyroid nodule. Based on the recommendations of the ACR Incidental Thyroid Findings Committee (JACR 2015 Sep; 12(2):143-50), further evaluation by thyroid ultrasound is recommended for solitary incidental thyroid nodules greater than or equal to 1.5 cm in largest axial dimension in patients age 35 years and older who do not have limited life expectancy or significant morbidities, unless clinically warranted. 7. A few hyperattenuating foci in the left kidney are statistically favoring to represent proteinaceous/hemorrhagic cysts, stable compared to 12/10/2022, although incompletely characterized in this examination. Attention on follow-up in future studies recommended. Brain MRI 01/25/23 21:57 IMPRESSION: Motion limited examination. 1. No evidence of acute infarct. No other acute intracranial abnormality within the limitations of motion artifact. 2. Chronic findings include severe chronic microangiopathy, multiple chronic lacunar infarcts involving the deep julio nuclei, and chronic right superior frontoparietal lobe infarct. 3. Focus of susceptibility artifact in the left parietal lobe which may represent sequela microhemorrhage or a small cavernoma. echo: Conclusions: - 1. Normal LV systolic function with mild LVH with LVEF of 60 ? 65%? 2. At least mildly dilated left atrium ? 3. [id number] calcific aortic stenosis ? 4. Moderate mitral and calcification ? 5. Mildly dilated ascending aorta at 3.8 cm? 6. No pericardial effusion ? Findings Left Ventricle Normal left ventricular size and systolic function. There is mildly increased left ventricular wall thickness.? The visually estimated ejection fraction is between 60-65%.? Spectral Doppler is indicative of an impaired relaxation filling pattern.? E/E prime ratio is between 8 and 15 consistent with indeterminate filling pressures. Peak GLS is -17.1%, borderline low. Right Ventricle Normal right ventricular cavity size and systolic function. Atria The left atrium is mildly dilated.? There is no evidence of interatrial shunt.? The right atrium is normal in size. Aortic Valve There is moderate calcification of the aortic valve.? There is mild thickening of the aortic valve.? There is mild to moderate aortic valve stenosis.? There is trace (trivial) aortic valve regurgitation. Mitral Valve There is mild anterior and posterior mitral leaflet thickening. There is moderate mitral annular calcification.? There is mild mitral valve regurgitation.? There is no mitral valve stenosis. Pulmonic Valve The pulmonic valve is likely normal. Tricuspid Valve Normal tricuspid valve structure.? Tricuspid regurgitation envelope is inadequate for calculation of right ventricular systolic pressure. Great Vessels The pulmonary artery was not well visualized.? There is mild dilatation of the ascending aorta measuring 3.80 cm. Venous The inferior vena cava is normal in size and collapses greater than 50% with inspiration. Pericardium/Pleural There is no evidence of pericardial effusion. Prior Study Comparison no previous study in the last 5 years for comparison ?? carotid dupplex: US/US carotid duplex BI IMPRESSION: 1. RIGHT: Normal right internal carotid artery without atherosclerotic plaque or hemodynamically significant stenosis. ? 2. LEFT: Normal left internal carotid artery without atherosclerotic plaque or hemodynamically significant stenosis. ? Discharge Plan Discharge Anticipated Discharge Date/Time: 01/27/23 10:56 Patient Disposition: er SNF Discharge Diagnosis: uti, vascular dementia Referrals: [facility] [Outside] - 1 Week Steven Martinez MD [Primary Care Provider] - 1 Week Discharge Medications: New cefuroxime axetil 250 mg tablet 250 mg PO Q12H Qty: 10 0RF Continued furosemide 40 mg tablet 40 mg PO BID acetaminophen 325 mg Tablet 975 mg PO Q8H atorvastatin 20 mg Tablet 20 mg PO BEDTIME polyethylene glycol 3350 [Miralax] 17 gram Powder In Packet 17 g PO BID nitroglycerin 0.3 mg Tablet, Sublingual 0.3 mg SUBLINGUAL Q5M PRN (Reason: Angina) Rx Instructions: do not exceed 3 doses per episode sevelamer HCl 800 mg Tablet 800 mg PO BID Rx Instructions: must administer with a meal/food melatonin 3 mg Tablet 3 mg PO BEDTIME PRN (Reason: Insomnia) aspirin 81 mg Tablet,Delayed Release (Dr/Ec) 81 mg PO DAILY clonidine HCl 0.2 mg Tablet 0.2 mg PO TID sodium bicarbonate 650 mg Tablet 650 mg PO TID bisacodyl 10 mg Suppository 10 mg TN DAILY PRN (Reason: Constipation) hydralazine 100 mg Tablet 100 mg PO TID lidocaine 5 % Adhesive Patch,Medicated 1 patch TOPICAL DAILY Rx Instructions: leave on most painful area for up to 12 hrs oxycodone 5 mg Capsule 5 mg PO Q6H PRN (Reason: Pain) ipratropium-albuterol 18-103 mcg/actuation Aerosol 1 spray INHALATION Q6H PRN (Reason: Wheezing) nifedipine 60 mg Tablet Extended Release 60 mg PO BID escitalopram oxalate 10 mg tablet 10 mg PO DAILY Procrit 20,000 unit/2 mL Solution 20,000 unit SUBCUT FR ondansetron 4 mg Film 4 mg PO Q6H Senna Plus 8.6-50 mg Capsule 1 tab-cap PO DAILY Discharge Orders: Discharge Order (Routine); Ordered 01/27/23 Ordered By: Diomedes Vargas Diet: Advance to usual diet Activity on Discharge: As tolerated Stand Alone Forms: Patient Portal Discharge page Care Plan Goals: Patient was sent from halfway after unwitnessed fall-admitted for question of CVA: Subsequent workup including MRI of brain did not reveal acute CVA, has chronic infarcts: Currently patient seems to be near her baseline and Seen by Neurology-no new CVA appreciated, patient possibly has extensive ischemic microvascular disease of brain likely related to uncontrolled hypertension and significant brain atrophy resulting in multifactorial dementia.? She was constantly at risk of falling and cognitive dysfunction.? Conservative measures are recommended with blood pressure control, baby aspirin daily, and control of other vascular risk factors.? MRI of brain revealed couple of small signal abnormalities suggestive of chronic hemosiderin deposition, which is not a risk at this time for this type of treatment.? She is also at risk for seizure disorder but currently no seizure medication recomended . htn control-blood pressure improving with home regimen-clonidine,hydrlazine,procardia.adjust dosing current blood pressure medications if need needed for blood pressure control. ckd stage 4 and possible anemia of ch dis( fobt negative ,iron studies seems fine except low tibc, folate and b12 normal) : moniter cbc and bmp outpatiently patient is on epogen. further workup and management outpatient. Health Concerns: as above. Plan of Treatment: as above. Assessment: as above. Discharge Date/Time: 01/27/23 19:10
--- NOTE | 2023-01-27 11:17 | PC.NURSE ---
Pt pulled IV and refuses another. Provider notified.
[2023-01-27 11:28] LABS: Glucose, Whole Blood 139 mg/dL (60-115)
--- NOTE | 2023-01-27 12:37 | MHC.CM.PN ---
Patient has been medically cleared for dc today, to return to LTC. Patient will return to LTC @ [facility] [place] [facility] today at 4PM via [facility]. CM spoke with Daughter/HCP/Josefa @ [phone], who is aware of and in agreement with the dc plan. Last IMM addressed on 01/26/2023.
--- NOTE | 2023-01-27 13:20 | P.PNNP_ITS ---
Subjective Subjective Date of Service: 01/27/23 Interval history: GFR stable HH stable Physical Exam Vital Signs: Vital Signs: Last Vital Signs Temp 98.3 F 01/27/23 07:22 Pulse 56 01/27/23 07:22 Resp 12 01/27/23 07:22 BP 154/70 H 01/27/23 07:22 Pulse Ox 99 01/27/23 07:22 O2 Del Method Room Air 01/27/23 07:22 BMI result Body Mass Index 24.4 Const: General: cooperative and no acute distress Eyes: General: appearance normal, both eyes and all related structures Resp: Effort & Inspection: normal respiratory effort Auscultation: clear to auscultation bilaterally Cardio: Rate: regular rate Rhythm: regular rhythm GI: Palpation (GI): Soft to palpation Auscultation: normal bowel sounds Neuro: Other: Alert and awake with normal spontaneity of speech fluency comprehension and affect. Visual pringle are full. Face is symmetrical. There is mild left-sided pronator drift. Deep tendon reflexes are trace to absent with left extensor right flexor plantar. Extrem: General: Yes normal to inspection and Yes no pedal edema Objective Data Labs 01/26/23 06:09 01/26/23 06:09 Labs: Laboratory Results - last 24 hr 01/26/23 01/27/23 21:59 11:23 POC Glucose 139 H Stool Occult Blood NEGATIVE Microbiology Microbiology Results: Microbiology 01/25/23 19:05 Blood - Venous Blood Culture - Preliminary No growth after 24 hours. 01/25/23 19:05 Blood - Venous Blood Culture - Preliminary No growth after 24 hours. 01/25/23 18:07 Urine clean catch - Urine julio top Urine Culture - Preliminary Culture too young to evaluate. Procedures Date of Service Date of Service: 01/27/23 Assessment & Plan Assessment and plan (1) Multifactorial dementia: Status: Acute (2) CVA (cerebral vascular accident): Status: Acute (3) Acute UTI: Status: Acute Plan Ms. Dorie Faria is an 82-year-old female with past medical history of hypertension, diabetes, CKD stage 4 (BL Cr 3.7-4.1mg/dL) but does not follow regularly with Medicare Coordinator, CAD, HLD, who presents to the hospital from longterm after on on witnessed fall.?She is being worked up for UTI, CVA all in the setting of advanced CKD. 1 Advanced CKD stage IV Has had admissions to [facility] with severe MIA. Does not have routine Nephrology care established, being at SNF adequate followups never established. 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 PCN since removed. Has chronic Right hydro-ureter. Now with BL Cr 3.7-4.0mg/dL Plan: - OK for discharge - will set up f/u with [facility] per patient / family request. wishing for nephrology team in [place] - will setup with EPO injection Time Spent With Patient Time: Total time managing care of this patient today ____ minutes. Progress Note: Quality Stroke Does the patient have a stroke diagnosis?: No
[2023-01-27 13:24] LABS: COVID-19 Test Negative (Negative); IDNOW Serial# BCCEAD1C
[2023-01-27 15:26] VITALS: BP 142/61; PULSE 74; RESP 18; TEMP 37.1; O2SAT 97
[2023-01-27 16:09] LABS: Glucose, Whole Blood 133 mg/dL (60-115)
[2023-01-27] MEDS: Acetaminophen 325 MG TABLET 650 MG PO (18:08)
== END 2023-01-27 19:10 | disposition skilled nursing facility (03) | DRG 690 ==
LOC: HO.ED 20:00 → HO.EDOVER 23:13 → HO.IMC 23:35
PROVIDERS: Admitting Provider Internal Medicine; Emergency Provider Student in an Organized Health Care Education/Training Program; PCP Family Medicine; Visit Provider Internal Medicine
DX: N39.0 Urinary tract infection, site not specified (principal); I13.0 Hypertensive heart and chronic kidney disease with heart failure and stage 1 through stage 4 chronic kidney disease, or unspecified chronic kidney disease; I16.9 Hypertensive crisis, unspecified; N18.4 Chronic kidney disease, stage 4 (severe); I69.954 Hemiplegia and hemiparesis following unspecified cerebrovascular disease affecting left non-dominant side; G30.9 Alzheimer's disease, unspecified; I50.9 Heart failure, unspecified; E78.5 Hyperlipidemia, unspecified; F01.50 Vascular dementia, unspecified severity, without behavioral disturbance, psychotic disturbance, mood disturbance, and anxiety; K59.00 Constipation, unspecified; F02.80 Dementia in other diseases classified elsewhere, unspecified severity, without behavioral disturbance, psychotic disturbance, mood disturbance, and anxiety; I25.10 Atherosclerotic heart disease of native coronary artery without angina pectoris; E11.22 Type 2 diabetes mellitus with diabetic chronic kidney disease; Z20.822 Contact with and (suspected) exposure to COVID-19; Z79.899 Other long term (current) drug therapy
CPT/HCPCS: 36415; 70450; 70551; 71250; 72125; 73502; 73620; 74176; 80048; 80053; 80061; 81001; 82272; 82607; 82728; 82746; 82947; 83540; 83605; 84484; 85025; 85610; 86850; 86900; 86901; 87040; 87086; 87635; 93005; 93306; 93356; 93880; 97162; 97166; 99285; J0696; J1200; J2060

== ENCOUNTER 2023-03-04 10:34 | Inpatient (IN) | payer MEDICARE, MEDICAID, SELFPAY ==
[2023-03-04] VITALS (8 sets, daily range): BP systolic 160–199; BP diastolic 64–80; PULSE 61–75; RESP 16–18; TEMP 36.6–36.8; O2SAT 96–100; BMI 27.2
--- NOTE | ~2023-03-04 | CT_ITS ---
EXAMINATION: CT ABDOMEN AND PELVIS WITHOUT CONTRAST CLINICAL INFORMATION: Abdominal pain COMPARISON: Previous CT of the abdomen and pelvis January 2023 TECHNIQUE: Multidetector volumetric imaging was performed from the superior aspect of the liver through the pubic symphysis. Sagittal and coronal reformatted images were obtained on the technologist's workstation. This CT examination was performed using dose optimization techniques as appropriate, variously including the following: *Automated exposure control *Adjustment of mA and/or kV according to patient size (this includes techniques or standardized protocols for targeted exams where dose is matched to indication/reason for exam; i.e. extremities or head) *Use of iterative reconstruction technique DLP: 576 mGy-cm FINDINGS: LUNG BASES: Enlarged heart and coronary artery calcification. LIVER, GALLBLADDER, AND BILIARY TREE: The liver is normal in size, shape, and attenuation. No focal hepatic lesion or intrahepatic biliary ductal dilatation is present. The gallbladder has been removed. Mild dilatation of the common bile duct similar to previous exams probably normal postcholecystectomy. PANCREAS: Unremarkable. SPLEEN: Unremarkable. ADRENAL GLANDS: Unremarkable. KIDNEYS AND URETERS: Small bilateral renal stones. No definite right hydronephrosis. Asymmetric increased right perinephric fat stranding. Mild right ureteral dilatation. No right ureteral stone seen. Findings are similar to January 2023 exam. Simple and hyperdense left renal cysts. No imaging follow-up recommended. BLADDER: Unremarkable. GASTROINTESTINAL TRACT: Constipation. There is mild wall thickening of the distal colon and rectum questionable for proctocolitis. The small and large bowel are otherwise unremarkable. The appendix is unremarkable. ABDOMINAL WALL: No significant hernia is appreciated. LYMPH NODES: Normal. VASCULAR: Atherosclerotic disease. PELVIC VISCERA: Unremarkable. OSSEOUS STRUCTURES: Old trauma to the right pelvis. ORIF of left femoral intertrochanteric fracture. Old-appearing L2 and L4 vertebral body impression fractures. CT/CT abdomen pelvis wo IV con IMPRESSION: Constipation. Mild wall thickening of the distal colon and rectum suggestive of mild proctocolitis. Small bilateral renal stones. Mild right ureteral dilatation and perinephric fat stranding similar to recent exam. Fleischner guidelines were followed.
--- NOTE | 2023-03-04 11:59 | ED.GENADULT ---
HPI - General Adult General Chief complaint: Abdominal Pain Stated complaint: Vomiting x 2 days, no BM in 8 days per EMS Time Seen by Provider: 03/04/23 11:36 Source: patient Mode of arrival: ambulatory Limitations: no limitations and other (Poor historian, dementia) History of Present Illness HPI narrative: Patient is an 82-year-old female the past medical history of vascular dementia, hypertension and diabetes presenting with a chief complaint of nausea, vomiting, weakness. Patient reports that starting at 08:00 she has been experiencing nausea. Patient had 1 episode of vomiting, has been having nausea and dry heaving ever since. Patient has been nauseous all day. Patient denies any other symptoms. Patient denies any sick contacts or travel. Patient denies fever, chills, abdominal pain, headache, vision changes, chest pain, numbness, tingling. Patient poor historian, appears confused. Related Data Home Medications Medication Instructions Recorded Confirmed acetaminophen 325 mg tablet 975 mg PO Q8H 01/25/23 01/25/23 aspirin 81 mg tablet,delayed 81 mg PO DAILY 01/25/23 01/25/23 release atorvastatin 20 mg tablet 20 mg PO BEDTIME 01/25/23 01/25/23 bisacodyl 10 mg rectal suppository 10 mg OR DAILY PRN Constipation 01/25/23 01/25/23 clonidine HCl 0.2 mg tablet 0.2 mg PO TID 01/25/23 01/25/23 epoetin paul 20,000 unit/2 mL 20,000 unit subcut FR 01/25/23 01/25/23 injection solution (Procrit) escitalopram oxalate 10 mg tablet 10 mg PO DAILY 01/25/23 01/25/23 furosemide 40 mg tablet 40 mg PO BID 01/25/23 01/25/23 hydralazine 100 mg tablet 100 mg PO TID 01/25/23 01/25/23 ipratropium 18 mcg-albuterol 103 1 spray inhalation Q6H PRN Wheezing 01/25/23 01/25/23 mcg/actuation aerosol inhaler lidocaine 5 % topical patch 1 patch topical DAILY 01/25/23 01/25/23 melatonin 3 mg tablet 3 mg PO BEDTIME PRN Insomnia 01/25/23 01/25/23 nifedipine 60 mg tablet,extended 60 mg PO BID 01/25/23 01/25/23 release nitroglycerin 0.3 mg sublingual 0.3 mg sublingual Q5M PRN Angina 01/25/23 01/25/23 tablet ondansetron 4 mg oral soluble film 4 mg PO Q6H 01/25/23 01/25/23 oxycodone 5 mg capsule 5 mg PO Q6H PRN Pain 01/25/23 01/25/23 polyethylene glycol 3350 17 gram 17 g PO BID 01/25/23 01/25/23 oral powder packet (Miralax) sennosides 8.6 mg-docusate sodium 1 tab-cap PO DAILY 01/25/23 01/25/23 50 mg capsule (Senna Plus) sevelamer HCl 800 mg tablet 800 mg PO BID 01/25/23 01/25/23 sodium bicarbonate 650 mg tablet 650 mg PO TID 01/25/23 01/25/23 Previous Rx's Medication Instructions Recorded cefuroxime axetil 250 mg tablet 250 mg PO Q12H #10 tabs 01/27/23 Allergies Allergy/AdvReac Type Severity Reaction Status Date / Time No Known Allergies Allergy Verified 12/10/22 13:21 Review of Systems Review of Systems: Constitutional : No Weight loss, No Fever, No Chills, No Fatigue, No Malaise ENT/Mouth : No sore throat, No Rhinorrhea Eyes: No Eye Pain, No Swelling, No Redness Cardiovascular : No Chest Pain, No SOB, No Dyspnea on Exertion, No Orthopnea, No Edema, No Palpitations Respiratory : No Cough, No Sputum, No Wheezing Gastrointestinal : + Nausea, + Vomiting, No Diarrhea, No Constipation, No abdominal Pain, No Hematochezia, No Melena Genitourinary : No Dysuria, No Urinary Frequency, No Hematuria, Musculoskeletal : No joint pain, No Myalgias, No Joint Swelling Skin : No Skin Lesions, No rash Neuro : No Weakness, No Numbness, No Dizziness, No Headache All other systems reviewed and are negative Yes all other systems are reviewed and are negative [facility] Past Medical History Attestation statement: The following information was validated with the patient. Source: old records reviewed and nursing notes reviewed Medical History Alzheimer's dementia Anxiety CAD (coronary artery disease) CKD (chronic kidney disease) stage 3, GFR 30-59 ml/min Diabetes Heart failure Hypertension Social History Social History Household Members: Other Housing: Custodial Do you presently have visiting nurse or other home services: No Alcohol intake: never Patient Tobacco Use Status: Never used Tobacco Smoked in Last 30 Days: No Use of substances other than those prescribed or required for medical reasons: No Advance Directives: Yes Advance Directives on File: Yes Advance Directives Date on File: 12/11/22 service: No Physical Exam ED Vital Signs: Vital Signs - 24 hr 03/04/23 11:08 03/04/23 12:47 03/04/23 14:06 Temperature 98.2 F 98.2 F 98.3 F Pulse Rate 62 62 61 Respiratory Rate 18 16 16 Blood Pressure 172/73 H 186/64 H 199/77 H Pulse Oximetry 98 100 98 Oxygen Delivery Method Room Air Room Air Room Air 03/04/23 14:23 Temperature Pulse Rate Respiratory Rate Blood Pressure 185/73 H Pulse Oximetry Oxygen Delivery Method BMI result Body Mass Index 27.2 vss. Hypertension likely due to discomfort/nausea Appearance: Alert.? Oriented X3.? No acute distress.? Patient spitting in a bag and on the floor Head: Normocephalic, atraumatic, no step-offs or deformities Eyes: Pupils equal, round and reactive to light.? Neck: Normal inspection.? Neck supple.? CVS: Normal heart rate and rhythm.? Pulses normal.? Respiratory: No respiratory distress.? Breath sounds normal.? Abdomen: Soft and nontender.? Slight distension Skin: Skin warm and dry.? Normal skin color.? Normal skin turgor.? Extremities: No lower extremity edema.? No calf ttp. Global weakness Neuro: Oriented X 3.? No motor deficit.? No sensory deficit. CN 2-12 intact Course Reevaluation(s) Reevaluation #1: CBC with slight leukocytosis 12.6 likely reactive from nausea and vomiting or possibly from infection, patient is noted to have low sodium 126, IV fluids ordered and patient receiving them at this time, patient also noted to have an acute on chronic kidney injury, fluids are being given at this time in CMP will be rechecked, dehydration likely contributing to MIA, magnesium 3.0. Random glucose 117. Lipase within normal limits. Patient's out chest pain or shortness of breath. Patient's urine with bacteria concerns for UTI. CT abdomen and pelvis pending. Time: 14:23 Reevaluation #2: CT abdomen pelvis with constipation and mild proctocolitis, patient also noted to have small bilateral renal stones, nonobstructing however there is mild right ureteral dilation. Neck freak fat stranding similar to recent exam ceftriaxone ordered, still having nausea and vomiting, not tolerating p.o.. Repeat CMP pending. Plan at this time hospital admission. Time: 15:51 Medications Administered Discontinued Medications Generic Name Dose Route Start Last Admin Trade Name Freq PRN Reason Stop Dose Admin Sodium Chloride 1,000 mls @ 999 mls/hr 03/04/23 12:45 03/04/23 15:24 Ns IV 03/04/23 13:45 Infused .Q1H1M SHIRLEY Infusion Sodium Chloride 1,000 mls @ 999 mls/hr 03/04/23 12:45 03/04/23 15:24 Ns IV 03/04/23 13:45 Infused .Q1H1M SHIRLEY Infusion Ceftriaxone Sodium 1 gm/ 50 mls @ 100 mls/hr 03/04/23 14:01 03/04/23 15:22 Sodium Chloride IV 03/04/23 14:30 100 mls/hr ONCE ONE Administration Ondansetron HCl 4 mg 03/04/23 12:37 03/04/23 12:42 Ondansetron Hcl 4 Mg/2 Ml Vial IVPUSH 03/04/23 12:38 4 mg ONCE ONE Administration Medical Decision Making Medical Decision Making MDM Narrative: 82-year-old female with past medical history of dementia presenting with nausea, vomiting. Also reports to nursing no bowel movements for the past 8 days. Poor historian Physical exam pertinent for a slight abdominal distension with no tenderness to palpation. Benign otherwise. Concerns for obstruction, GERD, gastritis, viral illness, UTI. Other differentials which are less likely include diverticulitis, pancreatitis, cholecystitis, appendicitis, acute abdomen. Will rule out electrolyte abnormalities and metabolic derangements. plan: Labs, imaging, urine Differential Diagnosis Differential Diagnoses: The differential diagnosis associated with the presentation includes Concerns for obstruction, GERD, gastritis, viral illness, UTI. Other differentials which are less likely include diverticulitis, pancreatitis, cholecystitis, appendicitis, acute abdomen. Will rule out electrolyte abnormalities and metabolic derangements. Consult Healthcare Provider Management of the patient was discussed with: Hospitalist Lab Data MDM Lab Attestation statement: I reviewed the patient's lab results. 03/04/23 12:08 03/04/23 12:08 Labs: Lab Results 03/04/23 03/04/23 03/04/23 Range/Units 12:08 12:08 13:29 WBC 12.6 H (4.8-10.8) X10*3/uL RBC 4.11 L D (4.20-5.50) X10*6/uL Hgb 12.6 D (12.0-16.0) g/dl Hct 36.6 L D (37.0-47.0) % MCV 89.1 (80.0-98.0) fL MCH 30.7 (27.0-33.0) pg MCHC 34.4 (31.0-35.0) g/dl RDW 14.3 (11.0-16.0) % Plt Count 382 D (160-400) X10*3/uL MPV 8.5 L (9.4-12.3) fL Immature Gran % (Auto) 0.5 H (0.0-0.4) % Neut % (Auto) 87.5 H (45-73) % Lymph % (Auto) 8.2 L (20-40) % [place] % (Auto) 3.0 (2-11) % Eos % (Auto) 0.6 (0-4) % Baso % (Auto) 0.2 (0-2) % Lymph # (Auto) 1.0 L (1.2-4.9) X10*3/uL [place] # (Auto) 0.4 (0.1-1.2) X10*3/uL Eos # (Auto) 0.1 (0.0-0.4) X10*3/uL Baso # (Auto) 0.0 (0.0-0.2) X10*3/uL Abs Immat Gran (auto) 0.06 H (0.00-0.03) X10*3/uL Absolute Neuts (auto) 11.0 H (2.0-8.3) x10*3/uL Absolute Nucleated RBC 0.000 (0.0-0.012) X10*3/uL Nucleated RBC % (auto) 0.0 (0.0-0.2) /100WBC Sodium 126 L (135-145) mmol/L Potassium 3.5 (3.3-5.1) mmol/L Chloride 91 L (96-108) mmol/L Carbon Dioxide 20 L (22-29) mmol/L Anion Gap 19 (12-20) BUN 44 H (9-16) mg/dL Creatinine 4.29 H* (0.5-1.4) mg/dL Estim Creat Clear Calc 8.5 Estimated GFR 10 Random Glucose 117 H (60-115) mg/dL Lactic Acid (0.5-2.0) mmol/L Calcium 9.6 D (8.4-10.2) mg/dL Magnesium 3.0 H (1.6-2.6) mg/dL Total Bilirubin 0.4 (0.0-1.0) mg/dL AST 11 (5-31) U/L ALT 7 (0-31) U/L Alkaline Phosphatase 60 (39-117) U/L Total Protein 7.4 (6.5-8.0) g/dL Albumin 4.0 (3.5-5.0) g/dL Lipase 23 (8-78) U/L Urine Color Yellow Urine Appearance Turbid Urine pH 6.5 (5.0-9.0) Ur Specific [place] 1.010 (1.005-1.025) Urine Protein 300 (3+) H (Neg-Trace) mg/dL Urine Glucose (UA) Negative (Negative) mg/dL Urine Ketones Negative (Negative) mg/dL Urine Blood Negative (Negative) Urine Nitrite Negative (Negative) Ur Leukocyte Esterase Large (3+) H (Negative) Urine RBC 6-10 H (0-2) /HPF Urine WBC >50 H (0-5) /HPF Ur Squamous Epith Cells 3-5 (0-2) /HPF Urine Bacteria 4+ (None Seen) Hyaline Casts 0-2 (0-2) /LPF 03/04/ Range/Units 15:05 WBC (4.8-10.8) X10*3/uL RBC (4.20-5.50) X10*6/uL Hgb (12.0-16.0) g/dl Hct (37.0-47.0) % MCV (80.0-98.0) fL MCH (27.0-33.0) pg MCHC (31.0-35.0) g/dl RDW (11.0-16.0) % Plt Count (160-400) X10*3/uL MPV (9.4-12.3) fL Immature Gran % (Auto) (0.0-0.4) % Neut % (Auto) (45-73) % Lymph % (Auto) (20-40) % [place] % (Auto) (2-11) % Eos % (Auto) (0-4) % Baso % (Auto) (0-2) % Lymph # (Auto) (1.2-4.9) X10*3/uL [place] # (Auto) (0.1-1.2) X10*3/uL Eos # (Auto) (0.0-0.4) X10*3/uL Baso # (Auto) (0.0-0.2) X10*3/uL Abs Immat Gran (auto) (0.00-0.03) X10*3/uL Absolute Neuts (auto) (2.0-8.3) x10*3/uL Absolute Nucleated RBC (0.0-0.012) X10*3/uL Nucleated RBC % (auto) (0.0-0.2) /100WBC Sodium (135-145) mmol/L Potassium (3.3-5.1) mmol/L Chloride (96-108) mmol/L Carbon Dioxide (22-29) mmol/L Anion Gap (12-20) BUN (9-16) mg/dL Creatinine (0.5-1.4) mg/dL Estim Creat Clear Calc Estimated GFR Random Glucose (60-115) mg/dL Lactic Acid 1.3 (0.5-2.0) mmol/L Calcium (8.4-10.2) mg/dL Magnesium (1.6-2.6) mg/dL Total Bilirubin (0.0-1.0) mg/dL AST (5-31) U/L ALT (0-31) U/L Alkaline Phosphatase (39-117) U/L Total Protein (6.5-8.0) g/dL Albumin (3.5-5.0) g/dL Lipase (8-78) U/L Urine Color Urine Appearance Urine pH (5.0-9.0) Ur Specific [place] (1.005-1.025) Urine Protein (Neg-Trace) mg/dL Urine Glucose (UA) (Negative) mg/dL Urine Ketones (Negative) mg/dL Urine Blood (Negative) Urine Nitrite (Negative) Ur Leukocyte Esterase (Negative) Urine RBC (0-2) /HPF Urine WBC (0-5) /HPF Ur Squamous Epith Cells (0-2) /HPF Urine Bacteria (None Seen) Hyaline Casts (0-2) /LPF Independent Interpretation I performed an independent interpretation of an: CT Scan (CT/CT abdomen pelvis wo IV con IMPRESSION: Constipation. Mild wall thickening of the distal colon and rectum suggestive of mild proctocolitis. Small bilateral renal stones. Mild right ureteral dilatation and perinephric fat stranding similar to recent exam. Fleischner guidelines were followed.) Radiology Impression Discussion of test interpretation with radiology: I have reviewed the radiologist's reading. Core Measures AMI core measures followed: Yes Measure exclusions: not indicated Critical Care Time Critical Care Time Critical Care Time: No Discharge Plan Discharge Clinical Impression: Acute UTI, Nausea & vomiting, Dehydration, Acute on chronic kidney failure, Proctocolitis Patient Disposition: Admitted As Inpatient Prescriptions: No Action furosemide 40 mg tablet 40 mg PO BID acetaminophen 325 mg Tablet 975 mg PO Q8H atorvastatin 20 mg Tablet 20 mg PO BEDTIME polyethylene glycol 3350 [Miralax] 17 gram Powder In Packet 17 g PO BID nitroglycerin 0.3 mg Tablet, Sublingual 0.3 mg SUBLINGUAL Q5M PRN (Reason: Angina) Rx Instructions: do not exceed 3 doses per episode sevelamer HCl 800 mg Tablet 800 mg PO BID Rx Instructions: must administer with a meal/food melatonin 3 mg Tablet 3 mg PO BEDTIME PRN (Reason: Insomnia) aspirin 81 mg Tablet,Delayed Release (Dr/Ec) 81 mg PO DAILY clonidine HCl 0.2 mg Tablet 0.2 mg PO TID sodium bicarbonate 650 mg Tablet 650 mg PO TID bisacodyl 10 mg Suppository 10 mg OR DAILY PRN (Reason: Constipation) hydralazine 100 mg Tablet 100 mg PO TID lidocaine 5 % Adhesive Patch,Medicated 1 patch TOPICAL DAILY Rx Instructions: leave on most painful area for up to 12 hrs oxycodone 5 mg Capsule 5 mg PO Q6H PRN (Reason: Pain) ipratropium-albuterol 18-103 mcg/actuation Aerosol 1 spray INHALATION Q6H PRN (Reason: Wheezing) nifedipine 60 mg Tablet Extended Release 60 mg PO BID escitalopram oxalate 10 mg tablet 10 mg PO DAILY Procrit 20,000 unit/2 mL Solution 20,000 unit SUBCUT FR ondansetron 4 mg Film 4 mg PO Q6H Senna Plus 8.6-50 mg Capsule 1 tab-cap PO DAILY cefuroxime axetil 250 mg tablet 250 mg PO Q12H Qty: 10 0RF
[2023-03-04 12:14] LABS: MANUAL DIFF FLAG NO
[2023-03-04 12:21] LABS: Basophils Percent Auto 0.2 % (0-2); Eosinophils Absolute Auto 0.1 X10*3/uL (0.0-0.4); Eosinophils Percent Auto 0.6 % (0-4); Hematocrit 36.6 % (37.0-47.0); Hemoglobin 12.6 g/dl (12.0-16.0); Imm Gran Abs Auto 0.06 X10*3/uL (0.00-0.03); Imm Gran Pct Auto 0.5 % (0.0-0.4); Lymphocytes Percent Auto 8.2 % (20-40); Mean Corpuscular HGB Conc 34.4 g/dl (31.0-35.0); Mean Corpuscular Hemoglobin 30.7 pg (27.0-33.0); Mean Corpuscular Volume 89.1 fL (80.0-98.0); Mean Platelet Volume 8.5 fL (9.4-12.3); Monocytes Absolute Auto 0.4 X10*3/uL (0.1-1.2); Neutrophils Percent Auto 87.5 % (45-73); Platelet Count 382 X10*3/uL (160-400); Red Blood Count 4.11 X10*6/uL (4.20-5.50); Red Cell Distribution Width 14.3 % (11.0-16.0); White Blood Count 12.6 X10*3/uL (4.8-10.8)
[2023-03-04 12:38] LABS: Alanine Aminotransferase 7 U/L (0-31); Alkaline Phosphatase 60 U/L (39-117); Anion Gap 19 (12-20); Aspartate Amino Transferase 11 U/L (5-31); Bilirubin Total 0.4 mg/dL (0.0-1.0); Blood Urea Nitrogen 44 mg/dL (9-16); Calcium 9.6 mg/dL (8.4-10.2); Carbon Dioxide 20 mmol/L (22-29); Chloride 91 mmol/L (96-108); Creatinine Clr Calc Pharmacy 8.5; Estimated Glomerular Filt Rate 10; Glucose Random 117 mg/dL (60-115); Lipase 23 U/L (8-78); Potassium 3.5 mmol/L (3.3-5.1); Sodium 126 mmol/L (135-145); Total Protein 7.4 g/dL (6.5-8.0)
[2023-03-04] MEDS: ondansetron HCL 4 MG/2 ML VIAL IVPUSH (12:42)
[2023-03-04] MEDS: 0.9 % Sodium Chloride 1,000 ML 999 ML IV ×2 (12:42→14:14)
[2023-03-04 13:36] LABS: Appearance Urine Turbid; Color Urine Yellow; Glucose Urine UA Negative (Negative); Leukocyte Esterase Urine Large (3+) (Negative); Nitrite Urine Negative (Negative); PH 6.5 (5.0-9.0); UMIC TRIGGER UACC YES; Urine Blood Negative (Negative); Urine Ketones Negative (Negative); Urine Protein 300 (3+) mg/dL (Neg-Trace)
[2023-03-04 13:43] LABS: Bacteria Urine 4+ (None Seen); Hyaline Casts Urine 0-2 /LPF (0-2); UACC Culture Trigger YES; WBC Urine >50 /HPF (0-5)
[2023-03-04 15:20] LABS: Lactic Acid 1.3 mmol/L (0.5-2.0)
[2023-03-04] MEDS: cefTRIAXone sodium 1 GM in 0.9 % Sodium Chloride 50 ML IV (15:22)
--- NOTE | 2023-03-04 15:23 | PC.NURSE ---
assume care of pt from [facility]LL[facility]. abx hung and infusing with 2L NS. pt resting comfortably, watching TV, NAD
--- NOTE | 2023-03-04 16:24 | P.HPHOSP_ITS ---
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 Symptoms started on a.m. of admission. One episode of vomitus with multiple dry heaves, unable to tolerate p.o.. Denies bowel movement for several days. In ED found to have acute kidney injury on CKD 4, hyponatremia, UTI, proctocolitis PMFSH Medical History Alzheimer's dementia Anxiety CAD (coronary artery disease) CKD (chronic kidney disease) stage 3, GFR 30-59 ml/min Diabetes Heart failure Hypertension Social History Household Members: Other Housing: Retirement Do you presently have visiting nurse or other home services: No Alcohol intake: never Patient Tobacco Use Status: Never used Tobacco Smoked in Last 30 Days: No Use of substances other than those prescribed or required for medical reasons: No Advance Directives: Yes Advance Directives on File: Yes Advance Directives Date on File: 12/11/22 service: No Meds Allergies Allergy/AdvReac Type Severity Reaction Status Date / Time No Known Allergies Allergy Verified 12/10/22 13:21 Active Medications: Current Medications Heparin Sodium (Porcine) (Heparin Sodium,Porcine 5,000 Unit/Ml Vial) 5,000 unit SUBCUT Q12H [facility] Sodium Chloride (Ns) 1,000 mls @ 75 mls/hr IVCONT .[id number] [facility] Ceftriaxone Sodium 1 gm/ (Sodium Chloride) 50 mls @ 100 mls/hr IV Q24H [facility] Mineral Oil (Mineral Oil Enema 133 Ml Enema) 133 ml [place] Q2H [facility] Ondansetron HCl (Ondansetron Hcl 4 Mg/2 Ml Vial) 4 mg IVPUSH Q8H PRN PRN Reason: Nausea Pharmacy Consult (Consult Rx Perform Med Rec) 1 each MISCELLANE ONCE PRN PRN Reason: Consult order Sodium Chloride (0.9 % Sodium Chloride Flush 3 Ml Syringe) 3 ml IVFLUSH QSHIFT [facility] Home Medications Medication Instructions Recorded Confirmed Last Taken Type acetaminophen 325 mg tablet 975 mg PO Q8H 01/25/23 01/25/23 Unknown History aspirin 81 mg tablet,delayed 81 mg PO DAILY 01/25/23 01/25/23 Unknown History release atorvastatin 20 mg tablet 20 mg PO BEDTIME 01/25/23 01/25/23 Unknown History bisacodyl 10 mg rectal suppository 10 mg [place] DAILY PRN Constipation 01/25/23 01/25/23 Unknown History clonidine HCl 0.2 mg tablet 0.2 mg PO TID 01/25/23 01/25/23 Unknown History epoetin paul 20,000 unit/2 mL 20,000 unit subcut FR 01/25/23 01/25/23 Unknown History injection solution (Procrit) escitalopram oxalate 10 mg tablet 10 mg PO DAILY 01/25/23 01/25/23 Unknown History furosemide 40 mg tablet 40 mg PO BID 01/25/23 01/25/23 Unknown History hydralazine 100 mg tablet 100 mg PO TID 01/25/23 01/25/23 Unknown History ipratropium 18 mcg-albuterol 103 1 spray inhalation Q6H PRN Wheezing 01/25/23 01/25/23 Unknown History mcg/actuation aerosol inhaler lidocaine 5 % topical patch 1 patch topical DAILY 01/25/23 01/25/23 Unknown History melatonin 3 mg tablet 3 mg PO BEDTIME PRN Insomnia 01/25/23 01/25/23 Unknown History nifedipine 60 mg tablet,extended 60 mg PO BID 01/25/23 01/25/23 Unknown History release nitroglycerin 0.3 mg sublingual 0.3 mg sublingual Q5M PRN Angina 01/25/23 01/25/23 Unknown History tablet ondansetron 4 mg oral soluble film 4 mg PO Q6H 01/25/23 01/25/23 Unknown History oxycodone 5 mg capsule 5 mg PO Q6H PRN Pain 01/25/23 01/25/23 Unknown History polyethylene glycol 3350 17 gram 17 g PO BID 01/25/23 01/25/23 Unknown History oral powder packet (Miralax) sennosides 8.6 mg-docusate sodium 1 tab-cap PO DAILY 01/25/23 01/25/23 Unknown History 50 mg capsule (Senna Plus) sevelamer HCl 800 mg tablet 800 mg PO BID 01/25/23 01/25/23 Unknown History sodium bicarbonate 650 mg tablet 650 mg PO TID 01/25/23 01/25/23 Unknown History Physical Exam Vital Signs and Narrative: Vital Signs: Last Vital Signs Temp 98.3 F 03/04/23 14:06 Pulse 61 03/04/23 14:06 Resp 16 03/04/23 14:06 BP 185/73 H 03/04/23 14:23 Pulse Ox 98 03/04/23 14:06 O2 Del Method Room Air 03/04/23 14:06 BMI result Body Mass Index 27.2 alert, oriented times 2, uncomfortable/nasueous appearing, lungs cta, abd soft non tender Results Labs 03/04/23 12:08 03/04/23 12:08 Labs: Laboratory Results - last 24 hr 03/04/23 03/04/23 03/04/23 12:08 12:08 13:29 MCV 89.1 MCH 30.7 MCHC 34.4 RDW 14.3 Plt Count 382 D MPV 8.5 L Immature Gran % (Auto) 0.5 H Neut % (Auto) 87.5 H Lymph % (Auto) 8.2 L [place] % (Auto) 3.0 Eos % (Auto) 0.6 Baso % (Auto) 0.2 Lymph # (Auto) 1.0 L [place] # (Auto) 0.4 Eos # (Auto) 0.1 Baso # (Auto) 0.0 Abs Immat Gran (auto) 0.06 H Absolute Neuts (auto) 11.0 H Absolute Nucleated RBC 0.000 Nucleated RBC % (auto) 0.0 Anion Gap 19 Estim Creat Clear Calc 8.5 Estimated GFR 10 Random Glucose 117 H Lactic Acid Calcium 9.6 D Magnesium 3.0 H Total Bilirubin 0.4 AST 11 ALT 7 Alkaline Phosphatase 60 Total Protein 7.4 Albumin 4.0 Lipase 23 Urine Color Yellow Urine Appearance Turbid Urine pH 6.5 Ur Specific [place] 1.010 Urine Protein 300 (3+) H Urine Glucose (UA) Negative Urine Ketones Negative Urine Blood Negative Urine Nitrite Negative Ur Leukocyte Esterase Large (3+) H Urine RBC 6-10 H Urine WBC >50 H Ur Squamous Epith Cells 3-5 Urine Bacteria 4+ Hyaline Casts 0-2 03/04/23 15:05 MCV MCH MCHC RDW Plt Count MPV Immature Gran % (Auto) Neut % (Auto) Lymph % (Auto) [place] % (Auto) Eos % (Auto) Baso % (Auto) Lymph # (Auto) [place] # (Auto) Eos # (Auto) Baso # (Auto) Abs Immat Gran (auto) Absolute Neuts (auto) Absolute Nucleated RBC Nucleated RBC % (auto) Anion Gap Estim Creat Clear Calc Estimated GFR Random Glucose Lactic Acid 1.3 Calcium Magnesium Total Bilirubin AST ALT Alkaline Phosphatase Total Protein Albumin Lipase Urine Color Urine Appearance Urine pH Ur Specific [place] Urine Protein Urine Glucose (UA) Urine Ketones Urine Blood Urine Nitrite Ur Leukocyte Esterase Urine RBC Urine WBC Ur Squamous Epith Cells Urine Bacteria Hyaline Casts Imaging Radiologist's Impressions: Impressions Abdomen/Pelvis CT 03/04/23 14:22 IMPRESSION: Constipation. Mild wall thickening of the distal colon and rectum suggestive of mild proctocolitis. Small bilateral renal stones. Mild right ureteral dilatation and perinephric fat stranding similar to recent exam. Fleischner guidelines were followed. 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), right parietal lobe CVA, presented with nausea and vomitting constipation, [place] and vomitting with proctocolitis enemas until successful BM antiemetics clear liquids ivf karen on ckd IV ns, monitor UTI [place], follow up cultures acute hyponatremia poor solute intake, iv NS, monitor closely DM inuslin vasular dementia stable CAD asa, statin htn nifedipine, hydralazine, clonidine chronic diastolic chf hold diuretics dvt prohpylaxis - heparin sq full code patient with significant karen and hyponatremia, requiring ivf, close monitoring, therefore, expected to require atleast 2 midnights inpatient. Time Spent With Patient Time: Total time managing care of this patient today ____ minutes. Quality Stroke Does the patient have a stroke diagnosis?: No VTE Prior VTE?: No VTE Risk Level:: Medical - moderate - high VTE Device Contraindication: Treatment Not Indicated VTE Drug Contraindication: N/A - Med Ordered
[2023-03-04 16:29] LABS: Alanine Aminotransferase 7 U/L (0-31); Albumin Level 3.7 g/dL (3.5-5.0); Alkaline Phosphatase 55 U/L (39-117); Anion Gap 19 (12-20); Aspartate Amino Transferase 20 U/L (5-31); Bilirubin Total 0.4 mg/dL (0.0-1.0); Blood Urea Nitrogen 41 mg/dL (9-16); Calcium 9.1 mg/dL (8.4-10.2); Carbon Dioxide 18 mmol/L (22-29); Chloride 96 mmol/L (96-108); Creatinine Clr Calc Pharmacy 8.8; Estimated Glomerular Filt Rate 10; Glucose Random 95 mg/dL (60-115); Potassium 3.9 mmol/L (3.3-5.1); Sodium 129 mmol/L (135-145); Total Protein 7.1 g/dL (6.5-8.0)
[2023-03-04] MEDS: Sodium Phosphate,Mono-Dibasic 133 ML ENEMA PR (16:41)
[2023-03-04] MEDS: 0.9 % Sodium Chloride 1,000 ML 75 ML IVCONT (17:27)
[2023-03-04 17:32] LABS: Glucose, Whole Blood 100 mg/dL (60-115)
--- NOTE | 2023-03-04 17:47 | PHA.MEDREC ---
Pharmacy Consult ? Medication Reconciliation Pharmacy has completed the medication reconciliation. [facility]
[2023-03-04] MEDS: Heparin Sodium,Porcine 5,000 UNIT/ML VIAL 5000 UNIT SUBCUT (18:05)
[2023-03-04] MEDS: Atorvastatin Calcium 20 MG TABLET PO (20:04)
[2023-03-04] MEDS: Sodium Bicarbonate 650 MG TABLET PO (20:04)
[2023-03-04] MEDS: oxyCODONE HCl Immed Release 5 MG TABLET PO (20:05)
[2023-03-04] MEDS: Sevelamer Carbonate Tablet 800 MG TABLET PO (20:05)
[2023-03-04] MEDS: cloNIDine HCL 0.2 MG TABLET PO (20:05)
[2023-03-04] MEDS: hydrALAZINE HCl 50 MG TABLET 100 MG PO (20:05)
[2023-03-04 20:27] LABS: Glucose, Whole Blood 105 mg/dL (60-115)
[2023-03-05 04:00] VITALS: BP 178/76; PULSE 59; RESP 16; TEMP 36.1; O2SAT 98
[2023-03-05] MEDS: Heparin Sodium,Porcine 5,000 UNIT/ML VIAL 5000 UNIT SUBCUT ×2 (05:01→18:11)
[2023-03-05] MEDS: 0.9 % Sodium Chloride 1,000 ML 75 ML IVCONT (05:04)
[2023-03-05 06:15] LABS: Hemoglobin 12.3 g/dl (12.0-16.0); Mean Corpuscular HGB Conc 33.2 g/dl (31.0-35.0); Mean Corpuscular Hemoglobin 31.1 pg (27.0-33.0); Mean Corpuscular Volume 93.4 fL (80.0-98.0); Mean Platelet Volume 9.2 fL (9.4-12.3); Platelet Count 315 X10*3/uL (160-400); Red Blood Count 3.96 X10*6/uL (4.20-5.50); Red Cell Distribution Width 14.3 % (11.0-16.0); White Blood Count 8.6 X10*3/uL (4.8-10.8)
[2023-03-05 06:37] LABS: Anion Gap 15 (12-20); Blood Urea Nitrogen 38 mg/dL (9-16); Calcium 8.9 mg/dL (8.4-10.2); Carbon Dioxide 20 mmol/L (22-29); Chloride 103 mmol/L (96-108); Creatinine Clr Calc Pharmacy 10.5; Estimated Glomerular Filt Rate 13; Glucose Fasting 88 mg/dL (60-99); Magnesium 2.8 mg/dL (1.6-2.6); Potassium 3.2 mmol/L (3.3-5.1); Sodium 135 mmol/L (135-145)
[2023-03-05] MEDS: polyethylene glycoL 3350 17 GM POWD.PACK PO (07:57)
[2023-03-05] MEDS: cloNIDine HCL 0.2 MG TABLET PO ×3 (07:58→20:53)
[2023-03-05] MEDS: Sevelamer Carbonate Tablet 800 MG TABLET PO ×2 (07:58→20:53)
[2023-03-05] MEDS: Potassium Chloride ER 20 MEQ TAB.ER.PRT 40 MEQ PO (07:58)
[2023-03-05] MEDS: Aspirin Enteric Coated 81 MG TABLET.DR PO (07:58)
[2023-03-05] MEDS: Sodium Bicarbonate 650 MG TABLET PO ×3 (07:58→20:54)
[2023-03-05] MEDS: hydrALAZINE HCl 50 MG TABLET 100 MG PO ×3 (07:58→20:54)
[2023-03-05] MEDS: NIFEdipine ER 60 MG TAB.ER.24 PO (07:58)
[2023-03-05] MEDS: oxyCODONE HCl Immed Release 5 MG TABLET PO ×2 (07:59→20:51)
[2023-03-05] MEDS: Escitalopram Oxalate 10 MG TABLET PO (07:59)
[2023-03-05 08:00] VITALS: BP 142/82; PULSE 57; RESP 18; TEMP 36.9
[2023-03-05 08:04] LABS: Glucose, Whole Blood 90 mg/dL (60-115)
--- NOTE | 2023-03-05 08:12 | P.PNIM_ITS ---
Subjective Subjective Date of Service: 03/05/23 Interval History: had BM Physical Exam Vital Signs: Vital Signs: Last Vital Signs Temp 96.9 F 03/05/23 04:00 Pulse 59 03/05/23 04:00 Resp 16 03/05/23 04:00 BP 178/76 H 03/05/23 04:00 Pulse Ox 98 03/05/23 04:00 O2 Del Method Room Air 03/05/23 04:00 BMI result Body Mass Index 27.2 more comfortable, alert oriented times 3, abd soft non tender Objective Data Active Medications Aspirin (Aspirin Enteric Coated 81 Mg Tablet.Dr) 81 mg PO DAILY [facility] Last Admin: 03/05/23 07:58 Dose: 81 mg Documented By: FIDELIA Atorvastatin Calcium (Atorvastatin Calcium 20 Mg Tablet) 20 mg PO BEDTIME [facility] Last Admin: 03/04/23 20:04 Dose: 20 mg Documented By: SHAYAN Clonidine HCl (Clonidine Hcl 0.2 Mg Tablet) 0.2 mg PO TID [facility]; Protocol Last Admin: 03/05/23 07:58 Dose: 0.2 mg Documented By: FIDELIA Dextrose (Dextrose 50 % 25 Gm/50 Ml Syringe) 25 gm IVPUSH Q15M PRN; Protocol PRN Reason: per Hypoglycemia Standing Ord. Escitalopram Oxalate (Escitalopram Oxalate 10 Mg Tablet) 10 mg PO DAILY [facility] Last Admin: 03/05/23 07:59 Dose: 10 mg Documented By: FIDELIA Glucose (Glucose Gel 15 Gm Gel..Gram.) 15 gm PO Q15M PRN; Protocol PRN Reason: per Hypoglycemia Standing Ord. Heparin Sodium (Porcine) (Heparin Sodium,Porcine 5,000 Unit/Ml Vial) 5,000 unit SUBCUT Q12H [facility] Last Admin: 03/05/23 05:01 Dose: 5,000 unit Documented By: GIOVANA Hydralazine HCl (Hydralazine Hcl 50 Mg Tablet) 100 mg PO TID [facility]; Protocol Last Admin: 03/05/23 07:58 Dose: 100 mg Documented By: FIDELIA Ceftriaxone Sodium 1 gm/ (Sodium Chloride) 50 mls @ 100 mls/hr IV Q24H [facility] Insulin Human Lispro (Insulin Lispro 100 Unit/Ml 3 Ml Vial) 0 unit SUBCUT QIDACHS [facility]; Protocol Last Admin: 03/05/23 07:59 Dose: Not Given Documented By: FIDELIA Non-Admin Reason: No Insulin Coverage Nifedipine (Nifedipine Er 60 Mg Tab.Er.24) 60 mg PO DAILY [facility]; Protocol Last Admin: 03/05/23 07:58 Dose: 60 mg Documented By: FIDELIA Ondansetron HCl (Ondansetron Hcl 4 Mg/2 Ml Vial) 4 mg IVPUSH Q8H PRN PRN Reason: Nausea Oxycodone HCl (Oxycodone Hcl Immed Release 5 Mg Tablet) 5 mg PO BID [facility] Last Admin: 03/05/23 07:59 Dose: 5 mg Documented By: FIDELIA Pharmacy Consult (Consult Rx Perform Med Rec) 1 each MISCELLANE ONCE PRN PRN Reason: Consult order Polyethylene Glycol (Polyethylene Glycol 3350 17 Gm Powd.Pack) 17 gm PO DAILY [facility] Last Admin: 03/05/23 07:57 Dose: 17 gm Documented By: FIDELIA Sevelamer Carbonate (Sevelamer Carbonate Tablet 800 Mg Tablet) 800 mg PO BID [facility] Last Admin: 03/05/23 07:58 Dose: 800 mg Documented By: FIDELIA Sodium Bicarbonate (Sodium Bicarbonate 650 Mg Tablet) 650 mg PO TID [facility] Last Admin: 03/05/23 07:58 Dose: 650 mg Documented By: FIDELIA Sodium Chloride (0.9 % Sodium Chloride Flush 3 Ml Syringe) 3 ml IVFLUSH QSHIFT [facility] Last Admin: 03/05/23 07:59 Dose: Not Given Documented By: FIDELIA Non-Admin Reason: IV Running Labs 03/05/23 06:03 03/05/23 06:03 Labs: Laboratory Results - last 24 hr 03/04/23 03/04/23 03/04/23 12:08 12:08 13:29 MCV 89.1 MCH 30.7 MCHC 34.4 RDW 14.3 Plt Count 382 D MPV 8.5 L Immature Gran % (Auto) 0.5 H Neut % (Auto) 87.5 H Lymph % (Auto) 8.[address] [place] % (Auto) 3.0 Eos % (Auto) 0.6 Baso % (Auto) 0.2 Lymph # (Auto) 1.[address] [place] # (Auto) 0.4 Eos # (Auto) 0.1 Baso # (Auto) 0.0 Abs Immat Gran (auto) 0.06 H Absolute Neuts (auto) 11.0 H Absolute Nucleated RBC 0.000 Nucleated RBC % (auto) 0.0 Anion Gap 19 Estim Creat Clear Calc 8.5 Estimated GFR 10 POC Glucose Random Glucose 117 H Fasting Glucose Lactic Acid Calcium 9.6 D Magnesium 3.0 H Total Bilirubin 0.4 AST 11 ALT 7 Alkaline Phosphatase 60 Total Protein 7.4 Albumin 4.0 Lipase 23 Urine Color Yellow Urine Appearance Turbid Urine pH 6.5 Ur Specific [place] 1.010 Urine Protein 300 (3+) H Urine Glucose (UA) Negative Urine Ketones Negative Urine Blood Negative Urine Nitrite Negative Ur Leukocyte Esterase Large (3+) H Urine RBC 6-10 H Urine WBC >50 H Ur Squamous Epith Cells 3-5 Urine Bacteria 4+ Hyaline Casts 0-2 03/04/23 03/04/23 03/04/23 15:05 16:07 17:28 MCV MCH MCHC RDW Plt Count MPV Immature Gran % (Auto) Neut % (Auto) Lymph % (Auto) [place] % (Auto) Eos % (Auto) Baso % (Auto) Lymph # (Auto) [place] # (Auto) Eos # (Auto) Baso # (Auto) Abs Immat Gran (auto) Absolute Neuts (auto) Absolute Nucleated RBC Nucleated RBC % (auto) Anion Gap 19 Estim Creat Clear Calc 8.8 Estimated GFR 10 POC Glucose 100 Random Glucose 95 Fasting Glucose Lactic Acid 1.3 Calcium 9.1 Magnesium Total Bilirubin 0.4 AST 20 ALT 7 Alkaline Phosphatase 55 Total Protein 7.1 Albumin 3.7 Lipase Urine Color Urine Appearance Urine pH Ur Specific [place] Urine Protein Urine Glucose (UA) Urine Ketones Urine Blood Urine Nitrite Ur Leukocyte Esterase Urine RBC Urine WBC Ur Squamous Epith Cells Urine Bacteria Hyaline Casts 03/04/23 03/05/23 03/05/23 20:15 06:03 06:03 MCV 93.4 MCH 31.1 MCHC 33.2 RDW 14.3 Plt Count 315 MPV 9.2 L Immature Gran % (Auto) Neut % (Auto) Lymph % (Auto) [place] % (Auto) Eos % (Auto) Baso % (Auto) Lymph # (Auto) [place] # (Auto) Eos # (Auto) Baso # (Auto) Abs Immat Gran (auto) Absolute Neuts (auto) Absolute Nucleated RBC 0.000 Nucleated RBC % (auto) 0.0 Anion Gap 15 Estim Creat Clear Calc 10.5 Estimated GFR 13 POC Glucose 105 Random Glucose Fasting Glucose 88 Lactic Acid Calcium 8.9 Magnesium 2.8 H Total Bilirubin AST ALT Alkaline Phosphatase Total Protein Albumin Lipase Urine Color Urine Appearance Urine pH Ur Specific [place] Urine Protein Urine Glucose (UA) Urine Ketones Urine Blood Urine Nitrite Ur Leukocyte Esterase Urine RBC Urine WBC Ur Squamous Epith Cells Urine Bacteria Hyaline Casts 03/05/23 07:41 MCV MCH MCHC RDW Plt Count MPV Immature Gran % (Auto) Neut % (Auto) Lymph % (Auto) [place] % (Auto) Eos % (Auto) Baso % (Auto) Lymph # (Auto) [place] # (Auto) Eos # (Auto) Baso # (Auto) Abs Immat Gran (auto) Absolute Neuts (auto) Absolute Nucleated RBC Nucleated RBC % (auto) Anion Gap Estim Creat Clear Calc Estimated GFR POC Glucose 90 Random Glucose Fasting Glucose Lactic Acid Calcium Magnesium Total Bilirubin AST ALT Alkaline Phosphatase Total Protein Albumin Lipase Urine Color Urine Appearance Urine pH Ur Specific [place] Urine Protein Urine Glucose (UA) Urine Ketones Urine Blood Urine Nitrite Ur Leukocyte Esterase Urine RBC Urine WBC Ur Squamous Epith Cells Urine Bacteria Hyaline Casts 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), right parietal lobe CVA, presented with nausea and vomiting constipation, nasuea and vomitting with proctocolitis had successful BM antiemetics advance to solids karen on ckd IV improved hypokalemia replace UTI Rocephin, follow up cultures acute hyponatremia poor solute intake, resolved DM inuslin vascular dementia stable CAD asa, statin htn nifedipine, hydralazine, clonidine chronic diastolic chf hold diuretics dvt prohpylaxis - heparin sq full code reason for continued hospitalization:awaiting cultures, tolerance of po Time Spent With Patient Time: Total time managing care of this patient today ____ minutes. Quality Stroke Does the patient have a stroke diagnosis?: No VTE Prior VTE?: No VTE Risk Level:: Medical - moderate - high VTE Device Contraindication: Treatment Not Indicated VTE Drug Contraindication: N/A - Med Ordered
[2023-03-05 11:24] LABS: Glucose, Whole Blood 106 mg/dL (60-115)
[2023-03-05] MEDS: cefTRIAXone sodium 1 GM in 0.9 % Sodium Chloride 50 ML IV (14:48)
[2023-03-05 15:42] VITALS: BP 115/57; PULSE 58; RESP 18; TEMP 36.2; O2SAT 98
--- NOTE | 2023-03-05 15:43 | MHC.CM.PN ---
IMM 03/05/23 Patient from [facility]. Spoke with patients dtr/HCP Aranza to gather information for the CM assessment. Patient went to [facility] s/p CVA 02/02. She is dependent with care. Per dtr was ambulatory prior to previous admit. DP return to [facility] via BLS. A HCP is on file.
[2023-03-05 16:27] LABS: Glucose, Whole Blood 93 mg/dL (60-115)
[2023-03-05 19:02] VITALS: BP 138/60; PULSE 55; RESP 16; TEMP 36.3; O2SAT 97
[2023-03-05 20:18] LABS: Glucose, Whole Blood 122 mg/dL (60-115)
[2023-03-05] MEDS: Atorvastatin Calcium 20 MG TABLET PO (20:54)
[2023-03-05] MEDS: 0.9 % Sodium Chloride Flush 3 ML SYRINGE IVFLUSH (20:55)
[2023-03-06 03:54] VITALS: BP 158/56; PULSE 54; RESP 16; TEMP 36.1; O2SAT 100
[2023-03-06] MEDS: Heparin Sodium,Porcine 5,000 UNIT/ML VIAL 5000 UNIT SUBCUT ×2 (05:52→17:01)
[2023-03-06 06:37] LABS: Hematocrit 32.7 % (37.0-47.0); Hemoglobin 10.5 g/dl (12.0-16.0); Mean Corpuscular HGB Conc 32.1 g/dl (31.0-35.0); Mean Corpuscular Hemoglobin 30.3 pg (27.0-33.0); Mean Corpuscular Volume 94.2 fL (80.0-98.0); Platelet Count 297 X10*3/uL (160-400); Red Blood Count 3.47 X10*6/uL (4.20-5.50); Red Cell Distribution Width 14.2 % (11.0-16.0); White Blood Count 8.3 X10*3/uL (4.8-10.8)
[2023-03-06 06:48] LABS: Anion Gap 10 (12-20); Blood Urea Nitrogen 33 mg/dL (9-16); Calcium 8.7 mg/dL (8.4-10.2); Carbon Dioxide 25 mmol/L (22-29); Chloride 102 mmol/L (96-108); Creatinine Clr Calc Pharmacy 11.8; Estimated Glomerular Filt Rate 15; Glucose Fasting 98 mg/dL (60-99); Potassium 3.8 mmol/L (3.3-5.1); Sodium 133 mmol/L (135-145)
[2023-03-06 07:37] LABS: Glucose, Whole Blood 100 mg/dL (60-115)
[2023-03-06 08:00] VITALS: BP 177/79; PULSE 50; RESP 18; TEMP 36.7; O2SAT 100
[2023-03-06] MEDS: oxyCODONE HCl Immed Release 5 MG TABLET PO ×2 (09:42→21:54)
[2023-03-06] MEDS: NIFEdipine ER 60 MG TAB.ER.24 PO (09:43)
[2023-03-06] MEDS: 0.9 % Sodium Chloride Flush 3 ML SYRINGE IVFLUSH ×2 (09:43→15:31)
[2023-03-06] MEDS: hydrALAZINE HCl 50 MG TABLET 100 MG PO ×3 (09:43→21:54)
[2023-03-06] MEDS: Escitalopram Oxalate 10 MG TABLET PO (09:43)
[2023-03-06] MEDS: cloNIDine HCL 0.2 MG TABLET PO ×3 (09:43→21:54)
[2023-03-06] MEDS: polyethylene glycoL 3350 17 GM POWD.PACK PO (09:43)
[2023-03-06] MEDS: Aspirin Enteric Coated 81 MG TABLET.DR PO (09:43)
[2023-03-06] MEDS: Sodium Bicarbonate 650 MG TABLET PO ×3 (09:43→21:54)
[2023-03-06] MEDS: Sevelamer Carbonate Tablet 800 MG TABLET PO ×2 (09:43→21:55)
--- NOTE | 2023-03-06 11:30 | P.PNIM_ITS ---
Subjective Subjective Date of Service: 03/06/23 Interval History: still nauseous, poor intake Physical Exam Vital Signs: Vital Signs: Last Vital Signs Temp 98.0 F 03/06/23 08:00 Pulse 50 03/06/23 08:00 Resp 18 03/06/23 08:00 BP 177/79 H 03/06/23 08:00 Pulse Ox 100 03/06/23 08:00 O2 Del Method Room Air 03/06/23 08:00 BMI result Body Mass Index 27.2 more comfortable, alert oriented times 3, abd soft non tender Objective Data Active Medications Aspirin (Aspirin Enteric Coated 81 Mg Tablet.Dr) 81 mg PO DAILY [facility] Last Admin: 03/06/23 09:43 Dose: 81 mg Documented By: SARAHI Atorvastatin Calcium (Atorvastatin Calcium 20 Mg Tablet) 20 mg PO BEDTIME [facility] Last Admin: 03/05/23 20:54 Dose: 20 mg Documented By: SARA Clonidine HCl (Clonidine Hcl 0.2 Mg Tablet) 0.2 mg PO TID [facility]; Protocol Last Admin: 03/06/23 09:43 Dose: 0.2 mg Documented By: SARAHI Dextrose (Dextrose 50 % 25 Gm/50 Ml Syringe) 25 gm IVPUSH Q15M PRN; Protocol PRN Reason: per Hypoglycemia Standing Ord. Escitalopram Oxalate (Escitalopram Oxalate 10 Mg Tablet) 10 mg PO DAILY [facility] Last Admin: 03/06/23 09:43 Dose: 10 mg Documented By: SARAHI Glucose (Glucose Gel 15 Gm Gel..Gram.) 15 gm PO Q15M PRN; Protocol PRN Reason: per Hypoglycemia Standing Ord. Heparin Sodium (Porcine) (Heparin Sodium,Porcine 5,000 Unit/Ml Vial) 5,000 unit SUBCUT Q12H [facility] Last Admin: 03/06/23 05:52 Dose: 5,000 unit Documented By: SARA Hydralazine HCl (Hydralazine Hcl 50 Mg Tablet) 100 mg PO TID [facility]; Protocol Last Admin: 03/06/23 09:43 Dose: 100 mg Documented By: SARAHI Ceftriaxone Sodium 1 gm/ (Sodium Chloride) 50 mls @ 100 mls/hr IV Q24H [facility] Last Infusion: 03/05/23 15:23 Dose: 0 mls/hr Documented By: FIDELIA Insulin Human Lispro (Insulin Lispro 100 Unit/Ml 3 Ml Vial) 0 unit SUBCUT QIDACHS [facility]; Protocol Last Admin: 03/06/23 08:28 Dose: Not Given Documented By: SARAHI Non-Admin Reason: No Insulin Coverage Nifedipine (Nifedipine Er 60 Mg Tab.Er.24) 60 mg PO DAILY [facility]; Protocol Last Admin: 03/06/23 09:43 Dose: 60 mg Documented By: SARAHI Ondansetron HCl (Ondansetron Hcl 4 Mg/2 Ml Vial) 4 mg IVPUSH Q8H PRN PRN Reason: Nausea Oxycodone HCl (Oxycodone Hcl Immed Release 5 Mg Tablet) 5 mg PO BID [facility] Last Admin: 03/06/23 09:42 Dose: 5 mg Documented By: SARAHI Pharmacy Consult (Consult Rx Perform Med Rec) 1 each MISCELLANE ONCE PRN PRN Reason: Consult order Polyethylene Glycol (Polyethylene Glycol 3350 17 Gm Powd.Pack) 17 gm PO DAILY [facility] Last Admin: 03/06/23 09:43 Dose: 17 gm Documented By: SARAHI Sevelamer Carbonate (Sevelamer Carbonate Tablet 800 Mg Tablet) 800 mg PO BID [facility] Last Admin: 03/06/23 09:43 Dose: 800 mg Documented By: SARAHI Sodium Bicarbonate (Sodium Bicarbonate 650 Mg Tablet) 650 mg PO TID [facility] Last Admin: 03/06/23 09:43 Dose: 650 mg Documented By: SARAHI Sodium Chloride (0.9 % Sodium Chloride Flush 3 Ml Syringe) 3 ml IVFLUSH QSHIFT [facility] Last Admin: 03/06/23 09:43 Dose: 3 ml Documented By: SARAHI Labs 03/06/23 06:21 03/06/23 06:21 Labs: Laboratory Results - last 24 hr 03/05/23 03/05/23 03/06/23 16:23 20:09 06:21 MCV 94.2 MCH 30.3 MCHC 32.1 RDW 14.2 Plt Count 297 MPV 9.0 L Absolute Nucleated RBC 0.000 Nucleated RBC % (auto) 0.0 Anion Gap Estim Creat Clear Calc Estimated GFR POC Glucose 93 122 H Fasting Glucose Calcium 03/06/23 03/06/23 06:21 07:32 MCV MCH MCHC RDW Plt Count MPV Absolute Nucleated RBC Nucleated RBC % (auto) Anion Gap 10 L Estim Creat Clear Calc 11.8 Estimated GFR 15 POC Glucose 100 Fasting Glucose 98 Calcium 8.7 Microbiology Microbiology Results: Microbiology 03/04/23 Unknown Urine Culture - Preliminary Urine clean catch - Urine julio top Escherichia coli 03/04/23 15:07 Blood Culture - Preliminary Blood - Venous No growth after 24 hours. 03/04/23 15:05 Blood Culture - Preliminary Blood - Venous No growth after 24 hours. 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), right parietal lobe CVA, presented with nausea and vomiting constipation, nasuea and vomitting with proctocolitis had successful BM antiemetics advanced to solids but still nauseous, poor intake karen on ckd IV improved, back to baseline hypokalemia replace UTI Rocephin, urine growing ecoli, follow up sensitivities acute hyponatremia poor solute intake, resolved DM inuslin vascular dementia stable CAD asa, statin htn nifedipine, hydralazine, clonidine chronic diastolic chf holding diuretics for karen, monitor fluid status dvt prohpylaxis - heparin sq full code reason for continued hospitalization:awaiting cultures, tolerance of po Time Spent With Patient Time: Total time managing care of this patient today ____ minutes. Quality Stroke Does the patient have a stroke diagnosis?: No VTE Prior VTE?: No VTE Risk Level:: Medical - moderate - high VTE Device Contraindication: Treatment Not Indicated VTE Drug Contraindication: N/A - Med Ordered
[2023-03-06 11:34] LABS: Glucose, Whole Blood 141 mg/dL (60-115)
[2023-03-06] MEDS: ondansetron HCL 4 MG/2 ML VIAL IVPUSH (14:40)
[2023-03-06] MEDS: cefTRIAXone sodium 1 GM in 0.9 % Sodium Chloride 50 ML IV (14:49)
[2023-03-06 14:51] VITALS: BP 186/81; PULSE 50; RESP 18; TEMP 36.9; O2SAT 100
[2023-03-06 14:59] VITALS: BP 168/54; PULSE 51; RESP 18; TEMP 36; O2SAT 100
[2023-03-06] MEDS: Pantoprazole Sodium 40 MG/10 ML VIAL IVPUSH (15:27)
[2023-03-06 16:30] LABS: Glucose, Whole Blood 125 mg/dL (60-115)
[2023-03-06 19:15] VITALS: BP 152/74; PULSE 60; RESP 18; TEMP 36.3; O2SAT 99
[2023-03-06 20:28] LABS: Glucose, Whole Blood 130 mg/dL (60-115)
[2023-03-06] MEDS: Prochlorperazine Edisylate 10 MG/2 ML VIAL 5 MG IVPUSH (21:51)
[2023-03-06] MEDS: Atorvastatin Calcium 20 MG TABLET PO (21:54)
--- NOTE | 2023-03-06 21:59 | PC.NURSE ---
c/o nausea, spitting up in cup, no vomiting. MD Jackson notified and ordered compazine kevin
[2023-03-07 04:00] VITALS: BP 162/68; PULSE 53; RESP 16; TEMP 36; O2SAT 99
[2023-03-07] MEDS: Heparin Sodium,Porcine 5,000 UNIT/ML VIAL 5000 UNIT SUBCUT ×2 (06:26→16:20)
[2023-03-07 06:59] LABS: Hematocrit 33.6 % (37.0-47.0); Hemoglobin 11.3 g/dl (12.0-16.0); Mean Corpuscular HGB Conc 33.6 g/dl (31.0-35.0); Mean Corpuscular Hemoglobin 30.5 pg (27.0-33.0); Mean Corpuscular Volume 90.6 fL (80.0-98.0); PLT CLUMP 1; Red Blood Count 3.71 X10*6/uL (4.20-5.50)
[2023-03-07 07:13] VITALS: BP 170/79; PULSE 51; RESP 18; TEMP 36.4; O2SAT 99
[2023-03-07 07:24] LABS: Anion Gap 13 (12-20); Blood Urea Nitrogen 30 mg/dL (9-16); Calcium 8.5 mg/dL (8.4-10.2); Carbon Dioxide 21 mmol/L (22-29); Chloride 101 mmol/L (96-108); Creatinine Clr Calc Pharmacy 12.7; Estimated Glomerular Filt Rate 16; Glucose Fasting 155 mg/dL (60-99); Potassium 4.4 mmol/L (3.3-5.1); Sodium 131 mmol/L (135-145)
[2023-03-07 07:26] LABS: Glucose, Whole Blood 136 mg/dL (60-115)
[2023-03-07 07:41] LABS: Platelet Count 324 X10*3/uL (160-400); White Blood Count 8.5 X10*3/uL (4.8-10.8)
[2023-03-07] MEDS: oxyCODONE HCl Immed Release 5 MG TABLET PO ×2 (08:27→20:41)
[2023-03-07] MEDS: Sevelamer Carbonate Tablet 800 MG TABLET PO ×2 (08:27→20:41)
[2023-03-07] MEDS: Sodium Bicarbonate 650 MG TABLET PO ×3 (08:27→20:41)
[2023-03-07] MEDS: Escitalopram Oxalate 10 MG TABLET PO (08:27)
[2023-03-07] MEDS: cloNIDine HCL 0.2 MG TABLET PO ×3 (08:27→20:41)
[2023-03-07] MEDS: NIFEdipine ER 60 MG TAB.ER.24 PO (08:27)
[2023-03-07] MEDS: hydrALAZINE HCl 50 MG TABLET 100 MG PO ×3 (08:27→20:41)
[2023-03-07] MEDS: polyethylene glycoL 3350 17 GM POWD.PACK PO (08:27)
[2023-03-07] MEDS: Aspirin Enteric Coated 81 MG TABLET.DR PO (08:28)
[2023-03-07] MEDS: 0.9 % Sodium Chloride Flush 3 ML SYRINGE IVFLUSH ×3 (08:28→20:42)
[2023-03-07 11:30] LABS: Glucose, Whole Blood 133 mg/dL (60-115)
[2023-03-07] MEDS: Butalb/Acetamin/Caff 50/325/40 TABLET 1 TAB PO (12:27)
[2023-03-07] MEDS: cefTRIAXone sodium 1 GM in 0.9 % Sodium Chloride 50 ML IV (14:33)
[2023-03-07 14:37] VITALS: BP 126/60; PULSE 48; RESP 18; O2SAT 99
--- NOTE | 2023-03-07 14:45 | HO.PM.IMPN ---
Subjective Subjective Date of Service: 03/07/23 Interval History: complaining of headache and nausea, otherwise unable to provide any meaningful history. Review of Systems unable to obtain due to dementia Physical Exam Vital Signs: Vital Signs: Last Vital Signs Temp 97.6 F 03/07/23 07:13 Pulse 48 L 03/07/23 14:37 Resp 18 03/07/23 14:37 BP 126/60 03/07/23 14:37 Pulse Ox 99 03/07/23 14:37 O2 Del Method Room Air 03/07/23 14:37 BMI result Body Mass Index 27.2 Const: Other: General resting comfortably in no acute distress. Neck supple no JVD. CVS regular rate rhythm, Respiratory lungs clear to auscultation, no respiratory distress, no wheeze, no rhonchi. Gastrointestinal abdomen soft, non tender, bowel sounds audible, no guarding , no rigidity. Extremities no edema. Neuro moving all 4 extremity, speech clear. Skin no rash psych poor insight Objective Data Active Medications Aspirin (Aspirin Enteric Coated 81 Mg Tablet.) 81 mg PO DAILY [facility] Last Admin: 03/07/23 08:28 Dose: 81 mg Documented By: SARAHI Atorvastatin Calcium (Atorvastatin Calcium 20 Mg Tablet) 20 mg PO BEDTIME [facility] Last Admin: 03/06/23 21:54 Dose: 20 mg Documented By: MARY ANN Clonidine HCl (Clonidine Hcl 0.2 Mg Tablet) 0.2 mg PO TID [facility]; Protocol Last Admin: 03/07/23 14:32 Dose: 0.2 mg Documented By: SARAHI Dextrose (Dextrose 50 % 25 Gm/50 Ml Syringe) 25 gm IVPUSH Q15M PRN; Protocol PRN Reason: per Hypoglycemia Standing Ord. Escitalopram Oxalate (Escitalopram Oxalate 10 Mg Tablet) 10 mg PO DAILY [facility] Last Admin: 03/07/23 08:27 Dose: 10 mg Documented By: SARAHI Glucose (Glucose Gel 15 Gm Gel..Gram.) 15 gm PO Q15M PRN; Protocol PRN Reason: per Hypoglycemia Standing Ord. Heparin Sodium (Porcine) (Heparin Sodium,Porcine 5,000 Unit/Ml Vial) 5,000 unit SUBCUT Q12H [facility] Last Admin: 03/07/23 06:26 Dose: 5,000 unit Documented By: MARY ANN Hydralazine HCl (Hydralazine Hcl 50 Mg Tablet) 100 mg PO TID [facility]; Protocol Last Admin: 03/07/23 14:32 Dose: 100 mg Documented By: SARAHI Meropenem 500 mg/ Sodium (Chloride) 50 mls @ 100 mls/hr IV Q24H [facility] Insulin Human Lispro (Insulin Lispro 100 Unit/Ml 3 Ml Vial) 0 unit SUBCUT QIDACHS [facility]; Protocol Last Admin: 03/07/23 11:30 Dose: Not Given Documented By: SARAHI Non-Admin Reason: No Insulin Coverage Nifedipine (Nifedipine Er 60 Mg Tab.Er.24) 60 mg PO DAILY [facility]; Protocol Last Admin: 03/07/23 08:27 Dose: 60 mg Documented By: SARAHI Ondansetron HCl (Ondansetron Hcl 4 Mg/2 Ml Vial) 4 mg IVPUSH Q8H PRN PRN Reason: Nausea Last Admin: 03/06/23 14:40 Dose: 4 mg Documented By: SARAHI Oxycodone HCl (Oxycodone Hcl Immed Release 5 Mg Tablet) 5 mg PO BID [facility] Last Admin: 03/07/23 08:27 Dose: 5 mg Documented By: SARAHI Pharmacy Consult (Consult Rx Perform Med Rec) 1 each MISCELLANE ONCE PRN PRN Reason: Consult order Polyethylene Glycol (Polyethylene Glycol 3350 17 Gm Powd.Pack) 17 gm PO DAILY [facility] Last Admin: 03/07/23 08:27 Dose: 17 gm Documented By: SARAHI Sevelamer Carbonate (Sevelamer Carbonate Tablet 800 Mg Tablet) 800 mg PO BID [facility] Last Admin: 03/07/23 08:27 Dose: 800 mg Documented By: SARAHI Sodium Bicarbonate (Sodium Bicarbonate 650 Mg Tablet) 650 mg PO TID [facility] Last Admin: 03/07/23 14:32 Dose: 650 mg Documented By: SARAHI Sodium Chloride (0.9 % Sodium Chloride Flush 3 Ml Syringe) 3 ml IVFLUSH QSHIFT [facility] Last Admin: 03/07/23 08:28 Dose: 3 ml Documented By: SARAHI Labs 03/07/23 06:27 03/07/23 06:27 Labs: Laboratory Results - last 24 hr 03/06/23 03/06/23 03/07/23 16:15 20:18 06:27 MCV 90.6 MCH 30.5 MCHC 33.6 RDW 14.0 Plt Count 324 MPV Not Reportable Absolute Nucleated RBC 0.000 Nucleated RBC % (auto) 0.0 Anion Gap Estim Creat Clear Calc Estimated GFR POC Glucose 125 H 130 H Fasting Glucose Calcium 03/07/23 03/07/23 03/07/23 06:27 07:11 11:24 MCV MCH MCHC RDW Plt Count MPV Absolute Nucleated RBC Nucleated RBC % (auto) Anion Gap 13 Estim Creat Clear Calc 12.7 Estimated GFR 16 POC Glucose 136 H 133 H Fasting Glucose 155 H Calcium 8.5 Microbiology Microbiology Results: Microbiology 03/04/23 Unknown Urine Culture - Preliminary Urine clean catch - Urine julio top Escherichia coli 03/04/23 15:07 Blood Culture - Preliminary Blood - Venous No growth after 48 hours. 03/04/23 15:05 Blood Culture - Preliminary Blood - Venous No growth after 48 hours. 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), right parietal lobe CVA, presented with nausea and vomiting constipation, nasuea and vomitting with proctocolitis tolerating diet, last bowel movement continue antiemetics and IV antibiotics karen on ckd IV improved, back to baseline hypokalemia resolved UTI ESBL positive E coli will DC IV Rocephin and placed on IV meropenem renally dosed follow final sensitivities acute hyponatremia poor solute intake, sodium 131 will follow DM stable blood sugars continue inuslin vascular dementia stable CAD asa, statin htn nifedipine, hydralazine, clonidine chronic diastolic chf holding diuretics for karen, monitor fluid status dvt prohpylaxis - heparin sq full code reason for continued hospitalization: ESBS positive coli awaiting final sensitivities on IV antibiotic Time Spent With Patient Time: Total time managing care of this patient today ____ minutes. Quality Stroke Does the patient have a stroke diagnosis?: No VTE Prior VTE?: No VTE Risk Level:: Medical - moderate - high VTE Device Contraindication: Treatment Not Indicated VTE Drug Contraindication: N/A - Med Ordered
[2023-03-07 15:08] VITALS: BP 127/61; PULSE 49; RESP 18; TEMP 36; O2SAT 99
[2023-03-07 16:08] LABS: Glucose, Whole Blood 127 mg/dL (60-115)
[2023-03-07 19:00] VITALS: BP 154/62; PULSE 65; RESP 18; TEMP 36.1; O2SAT 99
[2023-03-07 20:27] LABS: Glucose, Whole Blood 178 mg/dL (60-115)
[2023-03-07] MEDS: Atorvastatin Calcium 20 MG TABLET PO (20:41)
[2023-03-07] MEDS: Insulin Lispro 100 UNIT/ML 3 ML VIAL SUBCUT (20:41)
[2023-03-08 04:00] VITALS: BP 159/69; PULSE 52; RESP 16; TEMP 36; O2SAT 97
[2023-03-08] MEDS: Heparin Sodium,Porcine 5,000 UNIT/ML VIAL 5000 UNIT SUBCUT ×2 (04:10→17:29)
[2023-03-08 07:17] VITALS: BP 160/64; PULSE 52; RESP 18; TEMP 36.3; O2SAT 98
[2023-03-08 07:29] LABS: Glucose, Whole Blood 109 mg/dL (60-115)
[2023-03-08] MEDS: Aspirin Enteric Coated 81 MG TABLET.DR PO (08:08)
[2023-03-08] MEDS: Sodium Bicarbonate 650 MG TABLET PO ×3 (08:08→20:08)
[2023-03-08] MEDS: cloNIDine HCL 0.2 MG TABLET PO ×3 (08:08→20:08)
[2023-03-08] MEDS: oxyCODONE HCl Immed Release 5 MG TABLET PO ×2 (08:08→20:07)
[2023-03-08] MEDS: Escitalopram Oxalate 10 MG TABLET PO (08:08)
[2023-03-08] MEDS: hydrALAZINE HCl 50 MG TABLET 100 MG PO ×3 (08:08→20:08)
[2023-03-08] MEDS: Sevelamer Carbonate Tablet 800 MG TABLET PO ×2 (08:08→20:08)
[2023-03-08] MEDS: 0.9 % Sodium Chloride Flush 3 ML SYRINGE IVFLUSH ×3 (08:09→20:08)
[2023-03-08] MEDS: NIFEdipine ER 60 MG TAB.ER.24 PO (08:09)
[2023-03-08] MEDS: polyethylene glycoL 3350 17 GM POWD.PACK PO (08:09)
[2023-03-08 11:19] LABS: Glucose, Whole Blood 103 mg/dL (60-115)
--- NOTE | 2023-03-08 15:30 | HO.PM.IMPN ---
Subjective Subjective Date of Service: 03/08/23 Interval History: sitting comfortably in bed eating breakfast complaining of mild headache, denies fever, no chills, no urinary symptoms, no other acute issues overnight, no nausea, no vomiting, no abdominal pain or diarrhea. Review of Systems All other system reviewed and negative. Physical Exam Vital Signs: Vital Signs: Last Vital Signs Temp 97.3 F 03/08/23 07:17 Pulse 52 03/08/23 07:17 Resp 18 03/08/23 07:17 BP 160/64 H 03/08/23 07:17 Pulse Ox 98 03/08/23 07:17 O2 Del Method Room Air 03/08/23 07:17 BMI result Body Mass Index 27.2 Const: Other: General resting comfortably in no acute distress.? Neck? supple no JVD. CVS? regular rate rhythm, Respiratory lungs clear to auscultation, no respiratory distress, no wheeze, no rhonchi. Gastrointestinal abdomen soft, non tender, bowel sounds audible, no guarding , no rigidity. Extremities no edema. Neuro moving all 4 extremity, speech clear. Skin no rash psych poor insight Objective Data Active Medications Aspirin (Aspirin Enteric Coated 81 Mg Tablet.) 81 mg PO DAILY [facility] Last Admin: 03/08/23 08:08 Dose: 81 mg Documented By: SEGUNDO Atorvastatin Calcium (Atorvastatin Calcium 20 Mg Tablet) 20 mg PO BEDTIME [facility] Last Admin: 03/07/23 20:41 Dose: 20 mg Documented By: ABBY Clonidine HCl (Clonidine Hcl 0.2 Mg Tablet) 0.2 mg PO TID [facility]; Protocol Last Admin: 03/08/23 14:38 Dose: 0.2 mg Documented By: SEGUNDO Dextrose (Dextrose 50 % 25 Gm/50 Ml Syringe) 25 gm IVPUSH Q15M PRN; Protocol PRN Reason: per Hypoglycemia Standing Ord. Escitalopram Oxalate (Escitalopram Oxalate 10 Mg Tablet) 10 mg PO DAILY [facility] Last Admin: 03/08/23 08:08 Dose: 10 mg Documented By: SEGUNDO Glucose (Glucose Gel 15 Gm Gel..Gram.) 15 gm PO Q15M PRN; Protocol PRN Reason: per Hypoglycemia Standing Ord. Heparin Sodium (Porcine) (Heparin Sodium,Porcine 5,000 Unit/Ml Vial) 5,000 unit SUBCUT Q12H [facility] Last Admin: 03/08/23 04:10 Dose: 5,000 unit Documented By: ABBY Hydralazine HCl (Hydralazine Hcl 50 Mg Tablet) 100 mg PO TID [facility]; Protocol Last Admin: 03/08/23 14:38 Dose: 100 mg Documented By: SEGUNDO Meropenem 500 mg/ Sodium (Chloride) 50 mls @ 100 mls/hr IV Q12H [facility] Last Infusion: 03/08/23 15:15 Dose: 0 mls/hr Documented By: SEGUNDO Insulin Human Lispro (Insulin Lispro 100 Unit/Ml 3 Ml Vial) 0 unit SUBCUT QIDACHS [facility]; Protocol Last Admin: 03/08/23 11:55 Dose: Not Given Documented By: SEGUNDO Non-Admin Reason: No Insulin Coverage Nifedipine (Nifedipine Er 60 Mg Tab.Er.24) 60 mg PO DAILY [facility]; Protocol Last Admin: 03/08/23 08:09 Dose: 60 mg Documented By: SEGUNDO Ondansetron HCl (Ondansetron Hcl 4 Mg/2 Ml Vial) 4 mg IVPUSH Q8H PRN PRN Reason: Nausea Last Admin: 03/06/23 14:40 Dose: 4 mg Documented By: SARAHI Oxycodone HCl (Oxycodone Hcl Immed Release 5 Mg Tablet) 5 mg PO BID [facility] Last Admin: 03/08/23 08:08 Dose: 5 mg Documented By: SEGUNDO Pharmacy Consult (Consult Rx Perform Med Rec) 1 each MISCELLANE ONCE PRN PRN Reason: Consult order Polyethylene Glycol (Polyethylene Glycol 3350 17 Gm Powd.Pack) 17 gm PO DAILY [facility] Last Admin: 03/08/23 08:09 Dose: 17 gm Documented By: SEGUNDO Sevelamer Carbonate (Sevelamer Carbonate Tablet 800 Mg Tablet) 800 mg PO BID [facility] Last Admin: 03/08/23 08:08 Dose: 800 mg Documented By: SEGUNDO Sodium Bicarbonate (Sodium Bicarbonate 650 Mg Tablet) 650 mg PO TID [facility] Last Admin: 03/08/23 14:40 Dose: 650 mg Documented By: SEGUNDO Sodium Chloride (0.9 % Sodium Chloride Flush 3 Ml Syringe) 3 ml IVFLUSH QSHIFT [facility] Last Admin: 03/08/23 14:40 Dose: 3 ml Documented By: SEGUNDO Labs 03/07/23 06:27 03/07/23 06:27 Labs: Laboratory Results - last 24 hr 03/07/23 03/07/23 03/08/23 16:02 20:20 07:14 POC Glucose 127 H 178 H 109 03/08/23 11:13 POC Glucose 103 Microbiology Microbiology Results: Microbiology 03/04/23 Unknown Urine Culture - Preliminary Urine clean catch - Urine julio top Escherichia coli 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), right parietal lobe CVA, presented with nausea and vomiting constipation, nasuea and vomitting with proctocolitis all symptoms resolved no nausea no vomiting, last bowel movement 03/07 tolerating diet, continue antiemetics , on IV antibiotic meropenem for ESBL UTI that will cover proctocolitis karen on ckd IV improved, back to baseline hypokalemia resolved UTI ESBL positive E coli s/p IV Rocephin and placed on IV meropenem renally dosed 03/07, follow final sensitivities acute hyponatremia poor solute intake, sodium 131 will follow lytes DM stable blood sugars continue inuslin vascular dementia stable CAD asa, statin htn suboptimal blood pressure control on home medications nifedipine, hydralazine, and clonidine follow BP chronic diastolic chf no acute exacerbation , appears euvolemic continue to hold Lasix, monitor fluid status, take Lasix 40 mg b.i.d. at home, recent echo January 2023 showed EF 60-65% with impaired relaxation, and mild to moderate aortic valve stenosis dvt prohpylaxis - heparin sq full code reason for continued hospitalization: ESBL positive coli awaiting final sensitivities on IV antibiotic Time Spent With Patient Time: Total time managing care of this patient today ____ minutes. Quality Stroke Does the patient have a stroke diagnosis?: No VTE Prior VTE?: No VTE Risk Level:: Medical - moderate - high VTE Device Contraindication: Treatment Not Indicated VTE Drug Contraindication: N/A - Med Ordered
[2023-03-08 15:35] VITALS: BP 137/61; PULSE 57; RESP 20; TEMP 36.6; O2SAT 98
[2023-03-08 16:06] LABS: Glucose, Whole Blood 117 mg/dL (60-115)
[2023-03-08 19:49] VITALS: BP 143/65; PULSE 67; RESP 20; TEMP 36.8; O2SAT 98
[2023-03-08] MEDS: Atorvastatin Calcium 20 MG TABLET PO (20:07)
[2023-03-08 20:51] LABS: Glucose, Whole Blood 129 mg/dL (60-115)
[2023-03-08 23:59] VITALS: BP 155/68; PULSE 51; RESP 18; TEMP 36.4; O2SAT 97
[2023-03-09] MEDS: Heparin Sodium,Porcine 5,000 UNIT/ML VIAL 5000 UNIT SUBCUT ×2 (05:06→16:24)
[2023-03-09] MEDS: Escitalopram Oxalate 10 MG TABLET PO (07:20)
[2023-03-09] MEDS: polyethylene glycoL 3350 17 GM POWD.PACK PO (07:20)
[2023-03-09] MEDS: cloNIDine HCL 0.2 MG TABLET PO ×3 (07:20→22:14)
[2023-03-09] MEDS: 0.9 % Sodium Chloride Flush 3 ML SYRINGE IVFLUSH ×3 (07:20→22:14)
[2023-03-09] MEDS: hydrALAZINE HCl 50 MG TABLET 100 MG PO ×3 (07:20→22:13)
[2023-03-09] MEDS: Aspirin Enteric Coated 81 MG TABLET.DR PO (07:20)
[2023-03-09] MEDS: Sodium Bicarbonate 650 MG TABLET PO ×3 (07:20→22:13)
[2023-03-09] MEDS: NIFEdipine ER 60 MG TAB.ER.24 PO (07:21)
[2023-03-09] MEDS: oxyCODONE HCl Immed Release 5 MG TABLET PO (07:21)
[2023-03-09] MEDS: Sevelamer Carbonate Tablet 800 MG TABLET PO ×2 (07:21→22:14)
[2023-03-09 07:27] VITALS: BP 167/78; PULSE 48; RESP 18; TEMP 36.1; O2SAT 98
[2023-03-09 07:55] LABS: Glucose, Whole Blood 109 mg/dL (60-115)
[2023-03-09 11:25] LABS: Glucose, Whole Blood 148 mg/dL (60-115)
--- NOTE | 2023-03-09 14:00 | HO.PM.IMPN ---
Subjective Subjective Date of Service: 03/09/23 Interval History: offers no acute complaints, no events overnight, tolerating diet no nausea no vomiting no abdominal pain, denies urinary symptoms of urgency frequency, no fevers, no chills, tolerating antibiotics. Review of Systems all other system reviewed and negative Physical Exam Vital Signs: Vital Signs: Last Vital Signs Temp 96.9 F 03/09/23 07:27 Pulse 48 L 03/09/23 07:27 Resp 18 03/09/23 07:27 BP 167/78 H 03/09/23 07:27 Pulse Ox 98 03/09/23 07:27 O2 Del Method Room Air 03/09/23 07:27 BMI result Body Mass Index 27.2 Const: Other: General resting comfortably in no acute distress.? Neck? supple no JVD. CVS? regular rate rhythm, Respiratory lungs clear to auscultation, no respiratory distress, no wheeze, no rhonchi. Gastrointestinal abdomen soft, non tender, bowel sounds audible, no guarding , no rigidity. Extremities no edema. Neuro moving all 4 extremity, speech clear. Skin no rash psych poor insight Objective Data Active Medications Aspirin (Aspirin Enteric Coated 81 Mg Tablet.) 81 mg PO DAILY [facility] Last Admin: 03/09/23 07:20 Dose: 81 mg Documented By: YODIT Atorvastatin Calcium (Atorvastatin Calcium 20 Mg Tablet) 20 mg PO BEDTIME [facility] Last Admin: 03/08/23 20:07 Dose: 20 mg Documented By: SHAYAN Clonidine HCl (Clonidine Hcl 0.2 Mg Tablet) 0.2 mg PO TID [facility]; Protocol Last Admin: 03/09/23 07:20 Dose: 0.2 mg Documented By: YODIT Dextrose (Dextrose 50 % 25 Gm/50 Ml Syringe) 25 gm IVPUSH Q15M PRN; Protocol PRN Reason: per Hypoglycemia Standing Ord. Escitalopram Oxalate (Escitalopram Oxalate 10 Mg Tablet) 10 mg PO DAILY [facility] Last Admin: 03/09/23 07:20 Dose: 10 mg Documented By: YODIT Glucose (Glucose Gel 15 Gm Gel..Gram.) 15 gm PO Q15M PRN; Protocol PRN Reason: per Hypoglycemia Standing Ord. Heparin Sodium (Porcine) (Heparin Sodium,Porcine 5,000 Unit/Ml Vial) 5,000 unit SUBCUT Q12H [facility] Last Admin: 03/09/23 05:06 Dose: 5,000 unit Documented By: SHAYAN Hydralazine HCl (Hydralazine Hcl 50 Mg Tablet) 100 mg PO TID [facility]; Protocol Last Admin: 03/09/23 07:20 Dose: 100 mg Documented By: YODIT Meropenem 500 mg/ Sodium (Chloride) 50 mls @ 100 mls/hr IV Q12H [facility] Last Infusion: 03/09/23 03:15 Dose: 0 mls/hr Documented By: SHAYAN Insulin Human Lispro (Insulin Lispro 100 Unit/Ml 3 Ml Vial) 0 unit SUBCUT QIDACHS [facility]; Protocol Last Admin: 03/09/23 11:28 Dose: Not Given Documented By: CARMITA Non-Admin Reason: No Insulin Coverage Nifedipine (Nifedipine Er 60 Mg Tab.Er.24) 60 mg PO DAILY [facility]; Protocol Last Admin: 03/09/23 07:21 Dose: 60 mg Documented By: YODIT Ondansetron HCl (Ondansetron Hcl 4 Mg/2 Ml Vial) 4 mg IVPUSH Q8H PRN PRN Reason: Nausea Last Admin: 03/06/23 14:40 Dose: 4 mg Documented By: SARAHI Oxycodone HCl (Oxycodone Hcl Immed Release 5 Mg Tablet) 5 mg PO BID [facility] Last Admin: 03/09/23 07:21 Dose: 5 mg Documented By: YODIT Pharmacy Consult (Consult Rx Perform Med Rec) 1 each MISCELLANE ONCE PRN PRN Reason: Consult order Polyethylene Glycol (Polyethylene Glycol 3350 17 Gm Powd.Pack) 17 gm PO DAILY [facility] Last Admin: 03/09/23 07:20 Dose: 17 gm Documented By: YODIT Sevelamer Carbonate (Sevelamer Carbonate Tablet 800 Mg Tablet) 800 mg PO BID [facility] Last Admin: 03/09/23 07:21 Dose: 800 mg Documented By: YODIT Sodium Bicarbonate (Sodium Bicarbonate 650 Mg Tablet) 650 mg PO TID [facility] Last Admin: 03/09/23 07:20 Dose: 650 mg Documented By: YODIT Sodium Chloride (0.9 % Sodium Chloride Flush 3 Ml Syringe) 3 ml IVFLUSH QSHIFT [facility] Last Admin: 03/09/23 07:20 Dose: 3 ml Documented By: YODIT Labs 03/07/23 06:27 03/07/23 06:27 Labs: Laboratory Results - last 24 hr 03/08/23 03/08/23 03/09/23 16:00 20:47 07:24 POC Glucose 117 H 129 H 109 03/09/23 11:10 POC Glucose 148 H 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), right parietal lobe CVA, presented with nausea and vomiting constipation, nasuea and vomitting with proctocolitis all symptoms resolved no nausea no vomiting, last bowel movement 03/07 tolerating diet, continue antiemetics prn, on IV antibiotic meropenem for ESBL UTI that cover proctocolitis karen on ckd IV improved, back to baseline hypokalemia resolved UTI ESBL positive E coli s/p IV Rocephin and placed on IV meropenem renally dosed is started on 03/07, follow final sensitivities, sent to [facility] hopefully will be back in next 24 hours acute hyponatremia poor solute intake, sodium 131 will follow lytes DM stable blood sugars continue inuslin sliding scale vascular dementia stable CAD asa, statin htn suboptimal blood pressure control on home medications nifedipine, hydralazine, and clonidine , will resume Lasix andfollow BP chronic diastolic chf no acute exacerbation , take Lasix 40 mg b.i.d. at home, recent echo January 2023 showed EF 60-65% with impaired relaxation, and mild to moderate aortic valve stenosis will start Lasix 40 mg daily dvt prohpylaxis - heparin sq full code reason for continued hospitalization: ESBL positive e.coli awaiting final sensitivities on IV antibiotic Time Spent With Patient Time: Total time managing care of this patient today ____ minutes. Quality Stroke Does the patient have a stroke diagnosis?: No VTE Prior VTE?: No VTE Risk Level:: Medical - moderate - high VTE Device Contraindication: Treatment Not Indicated VTE Drug Contraindication: N/A - Med Ordered
[2023-03-09] MEDS: Furosemide 40 MG TABLET PO (14:42)
--- NOTE | 2023-03-09 15:28 | MHC.CM.PN ---
Per MD rounds no discharge today. Final cultures are pending for ABX coverage. DP Return to [facility] via BLS.
[2023-03-09 15:35] VITALS: BP 148/59; PULSE 56; RESP 20; TEMP 36.4; O2SAT 98
[2023-03-09] MEDS: ondansetron HCL 4 MG/2 ML VIAL IVPUSH (16:24)
[2023-03-09 16:28] LABS: Glucose, Whole Blood 119 mg/dL (60-115)
[2023-03-09 19:42] VITALS: BP 155/69; PULSE 55; RESP 20; TEMP 36.8; O2SAT 97
[2023-03-09 20:49] LABS: Glucose, Whole Blood 133 mg/dL (60-115)
[2023-03-09] MEDS: Atorvastatin Calcium 20 MG TABLET PO (22:14)
[2023-03-10] VITALS (8 sets, daily range): BP systolic 138–179; BP diastolic 50–80; PULSE 50–55; RESP 16–18; TEMP 36.1–36.4; O2SAT 96–99
[2023-03-10] MEDS: Heparin Sodium,Porcine 5,000 UNIT/ML VIAL 5000 UNIT SUBCUT ×2 (04:14→16:43)
[2023-03-10 07:43] LABS: Glucose, Whole Blood 88 mg/dL (60-115)
[2023-03-10] MEDS: 0.9 % Sodium Chloride Flush 3 ML SYRINGE IVFLUSH ×3 (08:56→20:30)
[2023-03-10] MEDS: cloNIDine HCL 0.2 MG TABLET PO ×3 (08:57→20:29)
[2023-03-10] MEDS: hydrALAZINE HCl 50 MG TABLET 100 MG PO ×3 (08:57→20:30)
[2023-03-10] MEDS: Escitalopram Oxalate 10 MG TABLET PO (08:57)
[2023-03-10] MEDS: NIFEdipine ER 60 MG TAB.ER.24 PO ×2 (08:57→20:29)
[2023-03-10] MEDS: Furosemide 40 MG TABLET PO (08:58)
[2023-03-10] MEDS: Sodium Bicarbonate 650 MG TABLET PO ×3 (08:58→20:29)
[2023-03-10] MEDS: polyethylene glycoL 3350 17 GM POWD.PACK PO (08:58)
[2023-03-10] MEDS: Aspirin Enteric Coated 81 MG TABLET.DR PO (08:58)
[2023-03-10] MEDS: Sevelamer Carbonate Tablet 800 MG TABLET PO ×2 (08:58→20:29)
[2023-03-10] MEDS: Acetaminophen 325 MG TABLET 650 MG PO ×2 (10:07→17:52)
--- NOTE | 2023-03-10 11:43 | P.PNIM_ITS ---
Subjective Subjective Date of Service: 03/10/23 Interval History: complaining of headache and bilateral shoulder pain, tolerating diet no nausea, no vomiting, no abdominal pain, denies urinary symptoms no fever, no chills no other acute events overnight. Review of Systems All other system reviewed and negative Physical Exam Vital Signs: Vital Signs: Last Vital Signs Temp 96.9 F 03/10/23 08:00 Pulse 55 03/10/23 10:31 Resp 16 03/10/23 10:29 BP 166/80 H 03/10/23 10:31 Pulse Ox 99 03/10/23 10:29 O2 Del Method Room Air 03/10/23 10:29 BMI result Body Mass Index 27.2 Const: Other: General resting comfortably in no acute distress.? Neck? supple no JVD. CVS? regular rate rhythm, Respiratory lungs clear to auscultation, no respiratory distress, no wheeze, no rhonchi. Gastrointestinal abdomen soft, non tender, bowel sounds audible, no guarding , no rigidity. Extremities no edema. Neuro moving all 4 extremity, speech clear. Skin no rash psych poor insight Objective Data Active Medications Acetaminophen (Acetaminophen 325 Mg Tablet) 650 mg PO Q6H PRN PRN Reason: Pain, Mild (Pain Scale 1-3) Last Admin: 03/10/23 10:07 Dose: 650 mg Documented By: KRISTINA Aspirin (Aspirin Enteric Coated 81 Mg Tablet.) 81 mg PO DAILY [facility] Last Admin: 03/10/23 08:58 Dose: 81 mg Documented By: KRISTINA Atorvastatin Calcium (Atorvastatin Calcium 20 Mg Tablet) 20 mg PO BEDTIME [facility] Last Admin: 03/09/23 22:14 Dose: 20 mg Documented By: CHASTITY Clonidine HCl (Clonidine Hcl 0.2 Mg Tablet) 0.2 mg PO TID [facility]; Protocol Last Admin: 03/10/23 08:57 Dose: 0.2 mg Documented By: KRISTINA Dextrose (Dextrose 50 % 25 Gm/50 Ml Syringe) 25 gm IVPUSH Q15M PRN; Protocol PRN Reason: per Hypoglycemia Standing Ord. Escitalopram Oxalate (Escitalopram Oxalate 10 Mg Tablet) 10 mg PO DAILY [facility] Last Admin: 03/10/23 08:57 Dose: 10 mg Documented By: KRISTINA Furosemide (Furosemide 40 Mg Tablet) 40 mg PO DAILY [facility]; Protocol Last Admin: 03/10/23 08:58 Dose: 40 mg Documented By: KRISTINA Glucose (Glucose Gel 15 Gm Gel..Gram.) 15 gm PO Q15M PRN; Protocol PRN Reason: per Hypoglycemia Standing Ord. Heparin Sodium (Porcine) (Heparin Sodium,Porcine 5,000 Unit/Ml Vial) 5,000 unit SUBCUT Q12H [facility] Last Admin: 03/10/23 04:14 Dose: 5,000 unit Documented By: SUZY Hydralazine HCl (Hydralazine Hcl 50 Mg Tablet) 100 mg PO TID [facility]; Protocol Last Admin: 03/10/23 08:57 Dose: 100 mg Documented By: KRISTINA Meropenem 500 mg/ Sodium (Chloride) 50 mls @ 100 mls/hr IV Q12H [facility] Last Infusion: 03/10/23 05:17 Dose: 0 mls/hr Documented By: SUZY Insulin Human Lispro (Insulin Lispro 100 Unit/Ml 3 Ml Vial) 0 unit SUBCUT QIDACHS [facility]; Protocol Last Admin: 03/10/23 08:26 Dose: Not Given Documented By: KRISTINA Non-Admin Reason: No Insulin Coverage Nifedipine (Nifedipine Er 60 Mg Tab.Er.24) 60 mg PO DAILY [facility]; Protocol Last Admin: 03/10/23 08:57 Dose: 60 mg Documented By: KRISTINA Ondansetron HCl (Ondansetron Hcl 4 Mg/2 Ml Vial) 4 mg IVPUSH Q8H PRN PRN Reason: Nausea Last Admin: 03/09/23 16:24 Dose: 4 mg Documented By: CARMITA Pharmacy Consult (Consult Rx Perform Med Rec) 1 each MISCELLANE ONCE PRN PRN Reason: Consult order Polyethylene Glycol (Polyethylene Glycol 3350 17 Gm Powd.Pack) 17 gm PO DAILY [facility] Last Admin: 03/10/23 08:58 Dose: 17 gm Documented By: KRISTINA Sevelamer Carbonate (Sevelamer Carbonate Tablet 800 Mg Tablet) 800 mg PO BID [facility] Last Admin: 03/10/23 08:58 Dose: 800 mg Documented By: KRISTINA Sodium Bicarbonate (Sodium Bicarbonate 650 Mg Tablet) 650 mg PO TID [facility] Last Admin: 03/10/23 08:58 Dose: 650 mg Documented By: KRISTINA Sodium Chloride (0.9 % Sodium Chloride Flush 3 Ml Syringe) [facility] Last Admin: 03/10/23 08:56 Dose: 3 ml Documented By: KRISTINA Labs 03/07/23 06:27 03/07/23 06:27 Labs: Laboratory Results - last 24 hr 03/09/23 03/09/23 03/10/23 16:13 20:44 07:37 POC Glucose 119 H 133 H 88 Microbiology Microbiology Results: Microbiology 03/04/23 15:07 Blood Culture - Final Blood - Venous No growth after 5 days. 03/04/23 15:05 Blood Culture - Final Blood - Venous No growth after 5 days. 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), right parietal lobe CVA, presented with nausea and vomiting constipation, nasuea and vomitting with proctocolitis all symptoms resolved no nausea no vomiting, last bowel movement 03/07 tolerating diet, continue antiemetics prn, on IV antibiotic meropenem for ESBL UTI that cover proctocolitis karen on ckd IV improved, back to baseline hypokalemia resolved UTI ESBL positive E coli s/p IV Rocephin and placed on IV meropenem renally dosed started on 03/07, follow final sensitivities, sent to [facility] hopefully will be back in next 24 hours acute hyponatremia poor solute intake, sodium 131 will follow lytes DM stable blood sugars continue inuslin sliding scale vascular dementia stable CAD asa, statin htn suboptimal blood pressure control will increase dose of nifedipine to b.i.d., continue hydralazine, clonidine and Lasix chronic diastolic chf no acute exacerbation , take Lasix 40 mg b.i.d. at home, recent echo January 2023 showed EF 60-65% with impaired relaxation, and mild to moderate aortic valve stenosis dvt prohpylaxis - heparin sq full code reason for continued hospitalization: ESBL positive e.coli awaiting final sensitivities on IV antibiotic Time Spent With Patient Time: Total time managing care of this patient today ____ minutes. Quality Stroke Does the patient have a stroke diagnosis?: No VTE Prior VTE?: No VTE Risk Level:: Medical - moderate - high VTE Device Contraindication: Treatment Not Indicated VTE Drug Contraindication: N/A - Med Ordered
[2023-03-10 12:16] LABS: Glucose, Whole Blood 128 mg/dL (60-115)
[2023-03-10 16:24] LABS: Glucose, Whole Blood 189 mg/dL (60-115)
[2023-03-10] MEDS: Insulin Lispro 100 UNIT/ML 3 ML VIAL SUBCUT (16:45)
[2023-03-10] MEDS: Atorvastatin Calcium 20 MG TABLET PO (20:30)
[2023-03-10 21:42] LABS: Glucose, Whole Blood 101 mg/dL (60-115)
[2023-03-11] VITALS (7 sets, daily range): BP systolic 142–158; BP diastolic 58–71; PULSE 47–55; RESP 16–18; TEMP 35.9–37; O2SAT 96–98
[2023-03-11] MEDS: Heparin Sodium,Porcine 5,000 UNIT/ML VIAL 5000 UNIT SUBCUT ×2 (05:25→17:11)
[2023-03-11 07:02] LABS: Glucose, Whole Blood 100 mg/dL (60-115)
[2023-03-11] MEDS: cloNIDine HCL 0.2 MG TABLET PO ×3 (08:04→20:03)
[2023-03-11] MEDS: Sodium Bicarbonate 650 MG TABLET PO ×3 (08:04→20:04)
[2023-03-11] MEDS: Sevelamer Carbonate Tablet 800 MG TABLET PO ×2 (08:04→20:03)
[2023-03-11] MEDS: NIFEdipine ER 60 MG TAB.ER.24 PO ×2 (08:04→20:03)
[2023-03-11] MEDS: hydrALAZINE HCl 50 MG TABLET 100 MG PO ×3 (08:04→20:03)
[2023-03-11] MEDS: Aspirin Enteric Coated 81 MG TABLET.DR PO (08:04)
[2023-03-11] MEDS: Furosemide 40 MG TABLET PO (08:04)
[2023-03-11] MEDS: Escitalopram Oxalate 10 MG TABLET PO (08:05)
[2023-03-11] MEDS: 0.9 % Sodium Chloride Flush 3 ML SYRINGE IVFLUSH ×3 (08:05→20:04)
[2023-03-11] MEDS: polyethylene glycoL 3350 17 GM POWD.PACK PO (08:05)
[2023-03-11] MEDS: Acetaminophen 325 MG TABLET 650 MG PO (08:16)
--- NOTE | 2023-03-11 10:07 | HO.PM.IMPN ---
Subjective Subjective Date of Service: 03/11/23 Interval History: being followed for E coli ESBL positive UTI, complaining of headache, unreliable historian due to underlying dementia, tolerating diet no nausea, no vomiting, no abdominal pain, no fevers, no chills, no other acute issues overnight. Review of Systems All other system reviewed and negative. Physical Exam Vital Signs: Vital Signs: Last Vital Signs Temp 97 F 03/11/23 06:50 Pulse 54 03/11/23 06:50 Resp 18 03/11/23 06:50 BP 150/66 H 03/11/23 06:50 Pulse Ox 97 03/11/23 06:50 O2 Del Method Room Air 03/11/23 06:50 BMI result Body Mass Index 27.2 Const: Other: General resting comfortably in no acute distress.? Neck? supple no JVD. CVS? regular rate rhythm, Respiratory lungs clear to auscultation, no respiratory distress, no wheeze, no rhonchi. Gastrointestinal abdomen soft, non tender, bowel sounds audible, no guarding , no rigidity. Extremities no edema. Neuro moving all 4 extremity, speech clear. Skin no rash psych poor insight Objective Data Active Medications Acetaminophen (Acetaminophen 325 Mg Tablet) 650 mg PO Q6H PRN PRN Reason: Pain, Mild (Pain Scale 1-3) Last Admin: 03/11/23 08:16 Dose: 650 mg Documented By: KRISTINA Aspirin (Aspirin Enteric Coated 81 Mg Tablet.) 81 mg PO DAILY [facility] Last Admin: 03/11/23 08:04 Dose: 81 mg Documented By: KRISTINA Atorvastatin Calcium (Atorvastatin Calcium 20 Mg Tablet) 20 mg PO BEDTIME [facility] Last Admin: 03/10/23 20:30 Dose: 20 mg Documented By: RAFA Clonidine HCl (Clonidine Hcl 0.2 Mg Tablet) 0.2 mg PO TID [facility]; Protocol Last Admin: 03/11/23 08:04 Dose: 0.2 mg Documented By: KRISTINA Dextrose (Dextrose 50 % 25 Gm/50 Ml Syringe) 25 gm IVPUSH Q15M PRN; Protocol PRN Reason: per Hypoglycemia Standing Ord. Escitalopram Oxalate (Escitalopram Oxalate 10 Mg Tablet) 10 mg PO DAILY [facility] Last Admin: 03/11/23 08:05 Dose: 10 mg Documented By: KRISTINA Furosemide (Furosemide 40 Mg Tablet) 40 mg PO DAILY [facility]; Protocol Last Admin: 03/11/23 08:04 Dose: 40 mg Documented By: KRISTINA Glucose (Glucose Gel 15 Gm Gel..Gram.) 15 gm PO Q15M PRN; Protocol PRN Reason: per Hypoglycemia Standing Ord. Heparin Sodium (Porcine) (Heparin Sodium,Porcine 5,000 Unit/Ml Vial) 5,000 unit SUBCUT Q12H [facility] Last Admin: 03/11/23 05:25 Dose: 5,000 unit Documented By: RAFA Hydralazine HCl (Hydralazine Hcl 50 Mg Tablet) 100 mg PO TID [facility]; Protocol Last Admin: 03/11/23 08:04 Dose: 100 mg Documented By: KRISTINA Meropenem 500 mg/ Sodium (Chloride) 50 mls @ 100 mls/hr IV Q12H [facility] Last Infusion: 03/11/23 03:19 Dose: 0 mls/hr Documented By: RAFA Insulin Human Lispro (Insulin Lispro 100 Unit/Ml 3 Ml Vial) 0 unit SUBCUT QIDACHS [facility]; Protocol Last Admin: 03/11/23 09:11 Dose: Not Given Documented By: KRISTINA Non-Admin Reason: No Insulin Coverage Nifedipine (Nifedipine Er 60 Mg Tab.Er.24) 60 mg PO BID [facility]; Protocol Last Admin: 03/11/23 08:04 Dose: 60 mg Documented By: KRISTINA Ondansetron HCl (Ondansetron Hcl 4 Mg/2 Ml Vial) 4 mg IVPUSH Q8H PRN PRN Reason: Nausea Last Admin: 03/09/23 16:24 Dose: 4 mg Documented By: CARMITA Pharmacy Consult (Consult Rx Perform Med Rec) 1 each MISCELLANE ONCE PRN PRN Reason: Consult order Polyethylene Glycol (Polyethylene Glycol 3350 17 Gm Powd.Pack) 17 gm PO DAILY [facility] Last Admin: 03/11/23 08:05 Dose: 17 gm Documented By: KRISTINA Sevelamer Carbonate (Sevelamer Carbonate Tablet 800 Mg Tablet) 800 mg PO BID [facility] Last Admin: 03/11/23 08:04 Dose: 800 mg Documented By: KRISTINA Sodium Bicarbonate (Sodium Bicarbonate 650 Mg Tablet) 650 mg PO TID [facility] Last Admin: 03/11/23 08:04 Dose: 650 mg Documented By: KRISTINA Sodium Chloride (0.9 % Sodium Chloride Flush 3 Ml Syringe) 3 ml IVFLUSH QSHIFT [facility] Last Admin: 03/11/23 08:05 Dose: 3 ml Documented By: KRISTINA Labs 03/07/23 06:27 03/07/23 06:27 Labs: Laboratory Results - last 24 hr 03/10/23 03/10/23 03/10/23 12:10 16:19 21:37 POC Glucose 128 H 189 H 101 03/11/23 06:52 POC Glucose 100 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), right parietal lobe CVA, presented with nausea and vomiting constipation, nasuea and vomitting with proctocolitis all symptoms resolved no nausea, no vomiting, last bowel movement 03/07 tolerating diet, ,on IV antibiotic meropenem for ESBL UTI that cover proctocolitis karen on ckd IV improved, back to baseline hypokalemia resolved UTI ESBL positive E coli s/p IV Rocephin and placed on IV meropenem renally dosed started on 03/07, follow final sensitivities, sent to [facility] spoke with lab was very resistant organism had intermediate sensitivity to nitrofurantoin with patient with significant renal failure cannot use Macrobid, follow final sensitivities. acute hyponatremia poor solute intake, sodium 131 will follow lytes DM stable blood sugars continue inuslin sliding scale vascular dementia stable CAD asa, statin htn suboptimal blood pressure control continue nifedipine xl 60 to b.i.d.,( dose adjusted yesterday) continue hydralazine, clonidine and Lasix, follow BP chronic diastolic chf no acute exacerbation , take Lasix 40 mg b.i.d. at home, recent echo January 2023 showed EF 60-65% with impaired relaxation, and mild to moderate aortic valve stenosis dvt prohpylaxis - heparin sq full code reason for continued hospitalization: ESBL positive e.coli awaiting final sensitivities on IV antibiotic Time Spent With Patient Time: Total time managing care of this patient today ____ minutes. Quality Stroke Does the patient have a stroke diagnosis?: No VTE Prior VTE?: No VTE Risk Level:: Medical - moderate - high VTE Device Contraindication: Treatment Not Indicated VTE Drug Contraindication: N/A - Med Ordered
[2023-03-11 10:59] LABS: Glucose, Whole Blood 146 mg/dL (60-115)
[2023-03-11] MEDS: ondansetron HCL 4 MG/2 ML VIAL IVPUSH (11:19)
[2023-03-11 15:50] LABS: Glucose, Whole Blood 102 mg/dL (60-115)
[2023-03-11] MEDS: Atorvastatin Calcium 20 MG TABLET PO (20:03)
[2023-03-11 21:16] LABS: Glucose, Whole Blood 143 mg/dL (60-115)
[2023-03-12 02:57] VITALS: BP 144/64; PULSE 54; RESP 16; TEMP 36; O2SAT 96
[2023-03-12] MEDS: Heparin Sodium,Porcine 5,000 UNIT/ML VIAL 5000 UNIT SUBCUT ×2 (05:27→15:26)
[2023-03-12 07:18] VITALS: BP 147/67; PULSE 57; RESP 18; TEMP 36.4; O2SAT 99
[2023-03-12 07:31] LABS: Glucose, Whole Blood 122 mg/dL (60-115)
[2023-03-12] MEDS: NIFEdipine ER 60 MG TAB.ER.24 PO ×2 (08:10→21:27)
[2023-03-12] MEDS: Sevelamer Carbonate Tablet 800 MG TABLET PO ×2 (08:10→21:27)
[2023-03-12] MEDS: Escitalopram Oxalate 10 MG TABLET PO (08:11)
[2023-03-12] MEDS: Furosemide 40 MG TABLET PO (08:11)
[2023-03-12] MEDS: hydrALAZINE HCl 50 MG TABLET 100 MG PO ×3 (08:11→21:27)
[2023-03-12] MEDS: polyethylene glycoL 3350 17 GM POWD.PACK PO (08:11)
[2023-03-12] MEDS: Sodium Bicarbonate 650 MG TABLET PO ×3 (08:11→21:27)
[2023-03-12] MEDS: Aspirin Enteric Coated 81 MG TABLET.DR PO (08:11)
[2023-03-12] MEDS: cloNIDine HCL 0.2 MG TABLET PO ×3 (08:11→21:27)
[2023-03-12] MEDS: 0.9 % Sodium Chloride Flush 3 ML SYRINGE IVFLUSH ×3 (08:12→23:30)
[2023-03-12 11:25] LABS: Glucose, Whole Blood 119 mg/dL (60-115)
--- NOTE | 2023-03-12 14:52 | P.PNIM_ITS ---
Subjective Subjective Date of Service: 03/12/23 Interval History: feeling better today offers no acute complaints denies headache, no shoulder pain, later in the day complain of back pain and requested for oxycodone, tolerating diet no nausea, no vomiting, no abdominal pain, denies urinary symptoms. Review of Systems All other systems reviewed and negative. Physical Exam Vital Signs: Vital Signs: Last Vital Signs Temp 97.5 F 03/12/23 07:18 Pulse 57 03/12/23 07:18 Resp 18 03/12/23 07:18 BP 147/67 H 03/12/23 07:18 Pulse Ox 99 03/12/23 07:18 O2 Del Method Room Air 03/12/23 07:18 BMI result Body Mass Index 27.2 Const: Other: General resting comfortably in no acute distress.? Neck? supple no JVD. CVS? regular rate rhythm, Respiratory lungs clear to auscultation, no respiratory distress, no wheeze, no rhonchi. Gastrointestinal abdomen soft, non tender, bowel sounds audible, no guarding , no rigidity. Extremities no edema. Neuro moving all 4 extremity, speech clear. Skin no rash psych poor insight Objective Data Active Medications Acetaminophen (Acetaminophen 325 Mg Tablet) 650 mg PO Q6H PRN PRN Reason: Pain, Mild (Pain Scale 1-3) Last Admin: 03/11/23 08:16 Dose: 650 mg Documented By: KRISTINA Aspirin (Aspirin Enteric Coated 81 Mg Tablet.) 81 mg PO DAILY [facility] Last Admin: 03/12/23 08:11 Dose: 81 mg Documented By: SHAILA Atorvastatin Calcium (Atorvastatin Calcium 20 Mg Tablet) 20 mg PO BEDTIME [facility] Last Admin: 03/11/23 20:03 Dose: 20 mg Documented By: CAMRISCj Bisacodyl (Bisacodyl 10 Mg Supp.Rect) 10 mg PA DAILY PRN PRN Reason: Constipation Clonidine HCl (Clonidine Hcl 0.2 Mg Tablet) 0.2 mg PO TID [facility]; Protocol Last Admin: 03/12/23 08:11 Dose: 0.2 mg Documented By: SHAILA Dextrose (Dextrose 50 % 25 Gm/50 Ml Syringe) 25 gm IVPUSH Q15M PRN; Protocol PRN Reason: per Hypoglycemia Standing Ord. Escitalopram Oxalate (Escitalopram Oxalate 10 Mg Tablet) 10 mg PO DAILY [facility] Last Admin: 03/12/23 08:11 Dose: 10 mg Documented By: SHAILA Furosemide (Furosemide 40 Mg Tablet) 40 mg PO DAILY [facility]; Protocol Last Admin: 03/12/23 08:11 Dose: 40 mg Documented By: SHAILA Glucose (Glucose Gel 15 Gm Gel..Gram.) 15 gm PO Q15M PRN; Protocol PRN Reason: per Hypoglycemia Standing Ord. Heparin Sodium (Porcine) (Heparin Sodium,Porcine 5,000 Unit/Ml Vial) 5,000 unit SUBCUT Q12H [facility] Last Admin: 03/12/23 05:27 Dose: 5,000 unit Documented By: CAMRISCj Hydralazine HCl (Hydralazine Hcl 50 Mg Tablet) 100 mg PO TID [facility]; Protocol Last Admin: 03/12/23 08:11 Dose: 100 mg Documented By: SHAILA Meropenem 500 mg/ Sodium (Chloride) 50 mls @ 100 mls/hr IV Q12H [facility] Last Infusion: 03/12/23 03:42 Dose: 0 mls/hr Documented By: JAYSHREE Insulin Human Lispro (Insulin Lispro 100 Unit/Ml 3 Ml Vial) 0 unit SUBCUT Q IDACHS [facility]; Protocol Last Admin: 03/12/23 11:31 Dose: Not Given Documented By: SHAILA Non-Admin Reason: No Insulin Coverage Nifedipine (Nifedipine Er 60 Mg Tab.Er.24) 60 mg PO BID [facility]; Protocol Last Admin: 03/12/23 08:10 Dose: 60 mg Documented By: SHAILA Ondansetron HCl (Ondansetron Hcl 4 Mg/2 Ml Vial) 4 mg IVPUSH Q8H PRN PRN Reason: Nausea Last Admin: 03/11/23 11:19 Dose: 4 mg Documented By: KRISTINA Oxycodone HCl (Oxycodone Hcl Immed Release 5 Mg Tablet) 5 mg PO Q6H PRN PRN Reason: Pain, Severe (Pain Scale 7-10) Pharmacy Consult (Consult Rx Perform Med Rec) 1 each MISCELLANE ONCE PRN PRN Reason: Consult order Polyethylene Glycol (Polyethylene Glycol 3350 17 Gm Powd.Pack) 17 gm PO DAILY [facility] Last Admin: 03/12/23 08:11 Dose: 17 gm Documented By: SHAILA Sevelamer Carbonate (Sevelamer Carbonate Tablet 800 Mg Tablet) 800 mg PO BID [facility] Last Admin: 03/12/23 08:10 Dose: 800 mg Documented By: SHAILA Sodium Bicarbonate (Sodium Bicarbonate 650 Mg Tablet) 650 mg PO TID [facility] Last Admin: 03/12/23 08:11 Dose: 650 mg Documented By: SHAILA Sodium Chloride (0.9 % Sodium Chloride Flush 3 Ml Syringe) 3 ml IVFLUSH QSHIFT [facility] Last Admin: 03/12/23 08:12 Dose: 3 ml Documented By: SHAILA Labs 03/07/23 06:27 03/07/23 06:27 Labs: Laboratory Results - last 24 hr 03/11/23 03/11/23 03/12/23 15:44 19:36 07:23 POC Glucose 102 143 H 122 H 03/12/23 11:16 POC Glucose 119 H Microbiology Microbiology Results: Microbiology 03/04/23 Unknown Urine Culture - Final Urine clean catch - Urine julio top Escherichia coli 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 acute hyponatremia poor solute intake, sodium 131 will follow lytes DM stable blood sugars continue inuslin sliding scale vascular dementia stable CAD asa, statin htn suboptimal blood pressure control continue nifedipine xl 60 to b.i.d.,hydralazine, clonidine and Lasix, follow BP chronic diastolic chf no acute exacerbation , take Lasix 40 mg b.i.d. at home, recent echo January 2023 showed EF 60-65% with impaired relaxation, and mild to moderate aortic valve stenosis, continue Lasix dvt prohpylaxis - heparin sq full code reason for continued hospitalization: ESBL positive e.coli requiring 1 more day of IV meropenem. Time Spent With Patient Time: Total time managing care of this patient today ____ minutes. Quality Stroke Does the patient have a stroke diagnosis?: No VTE Prior VTE?: No VTE Risk Level:: Medical - moderate - high VTE Device Contraindication: Treatment Not Indicated VTE Drug Contraindication: N/A - Med Ordered
[2023-03-12 14:56] VITALS: BP 152/72; PULSE 51; RESP 18; TEMP 36; O2SAT 98
--- NOTE | 2023-03-12 15:02 | MHC.CM.PN ---
Per MD rounds Infectious disease plans to see the patient today. DP return to [facility] via BLS.
[2023-03-12] MEDS: oxyCODONE HCl Immed Release 5 MG TABLET PO ×2 (15:28→21:28)
[2023-03-12 15:35] LABS: Anion Gap 17 (12-20); Blood Urea Nitrogen 49 mg/dL (9-16); Calcium 9.1 mg/dL (8.4-10.2); Carbon Dioxide 19 mmol/L (22-29); Chloride 99 mmol/L (96-108); Estimated Glomerular Filt Rate 13; Glucose Random 169 mg/dL (60-115); Potassium 5.1 mmol/L (3.3-5.1); Sodium 130 mmol/L (135-145)
[2023-03-12 16:22] LABS: Glucose, Whole Blood 132 mg/dL (60-115)
[2023-03-12 19:42] VITALS: BP 165/75; PULSE 66; RESP 18; TEMP 36; O2SAT 99
[2023-03-12 20:16] LABS: Glucose, Whole Blood 142 mg/dL (60-115)
[2023-03-12] MEDS: Atorvastatin Calcium 20 MG TABLET PO (21:27)
[2023-03-13 00:36] VITALS: BP 152/68; PULSE 58; RESP 18; TEMP 36.3; O2SAT 96
[2023-03-13] MEDS: Heparin Sodium,Porcine 5,000 UNIT/ML VIAL 5000 UNIT SUBCUT ×2 (04:20→15:46)
[2023-03-13 07:26] VITALS: BP 165/78; PULSE 58; RESP 16; TEMP 36; O2SAT 98
[2023-03-13 07:59] LABS: Glucose, Whole Blood 116 mg/dL (60-115)
[2023-03-13] MEDS: cloNIDine HCL 0.2 MG TABLET PO ×3 (08:15→20:05)
[2023-03-13] MEDS: Aspirin Enteric Coated 81 MG TABLET.DR PO (08:15)
[2023-03-13] MEDS: polyethylene glycoL 3350 17 GM POWD.PACK PO (08:15)
[2023-03-13] MEDS: hydrALAZINE HCl 50 MG TABLET 100 MG PO ×3 (08:15→20:05)
[2023-03-13] MEDS: Sevelamer Carbonate Tablet 800 MG TABLET PO ×2 (08:15→20:05)
[2023-03-13] MEDS: NIFEdipine ER 60 MG TAB.ER.24 PO ×2 (08:15→20:05)
[2023-03-13] MEDS: Furosemide 40 MG TABLET PO (08:16)
[2023-03-13] MEDS: Sodium Bicarbonate 650 MG TABLET PO ×3 (08:16→20:05)
[2023-03-13] MEDS: Escitalopram Oxalate 10 MG TABLET PO (08:16)
[2023-03-13] MEDS: 0.9 % Sodium Chloride Flush 3 ML SYRINGE IVFLUSH ×3 (08:17→20:06)
--- NOTE | 2023-03-13 09:50 | P.PNIM_ITS ---
Subjective Subjective Date of Service: 03/13/23 Interval History: Seen in follow up for ESBL UTI, proctocolitis Interval history: No complaints, last BM yesterday, normal. No urinary symptoms. Feeling well. Review of Systems Review of Systems: Yes all other systems are reviewed and are negative Physical Exam Vital Signs: Vital Signs: Last Vital Signs Temp 96.8 F 03/13/23 07:26 Pulse 58 03/13/23 07:26 Resp 16 03/13/23 07:26 BP 165/78 H 03/13/23 07:26 Pulse Ox 98 03/13/23 07:26 O2 Del Method Room Air 03/13/23 07:26 BMI result Body Mass Index 27.2 Constitutional - Awake and Alert, No apparent distress Eyes - PERRLA, EOMI Cardiovascular - S1S2, RRR, No edema Respiratory - Normal lung expansion, Normal respiratory effort, No respiratory distress, CTA bilaterally Gastrointestinal - NT / ND; +BS; No rebound or guarding Extremities - no calf tenderness bilaterally, no swelling Skin - Warm/Dry Neurological - Alert & oriented x3 Objective Data Active Medications Acetaminophen (Acetaminophen 325 Mg Tablet) 650 mg PO Q6H PRN PRN Reason: Pain, Mild (Pain Scale 1-3) Last Admin: 03/11/23 08:16 Dose: 650 mg Documented By: KRISTINA Aspirin (Aspirin Enteric Coated 81 Mg Tablet.Dr) 81 mg PO DAILY [facility] Last Admin: 03/13/23 08:15 Dose: 81 mg Documented By: SEGUNDO Atorvastatin Calcium (Atorvastatin Calcium 20 Mg Tablet) 20 mg PO BEDTIME [facility] Last Admin: 03/12/23 21:27 Dose: 20 mg Documented By: YODIT Bisacodyl (Bisacodyl 10 Mg Supp.Rect) 10 mg [place] DAILY PRN PRN Reason: Constipation Clonidine HCl (Clonidine Hcl 0.2 Mg Tablet) 0.2 mg PO TID [facility]; Protocol Last Admin: 03/13/23 08:15 Dose: 0.2 mg Documented By: SEGUNDO Dextrose (Dextrose 50 % 25 Gm/50 Ml Syringe) 25 gm IVPUSH Q15M PRN; Protocol PRN Reason: per Hypoglycemia Standing Ord. Escitalopram Oxalate (Escitalopram Oxalate 10 Mg Tablet) 10 mg PO DAILY [facility] Last Admin: 03/13/23 08:16 Dose: 10 mg Documented By: SEGUNDO Furosemide (Furosemide 40 Mg Tablet) 40 mg PO DAILY [facility]; Protocol Last Admin: 03/13/23 08:16 Dose: 40 mg Documented By: SEGUNDO Glucose (Glucose Gel 15 Gm Gel..Gram.) 15 gm PO Q15M PRN; Protocol PRN Reason: per Hypoglycemia Standing Ord. Heparin Sodium (Porcine) (Heparin Sodium,Porcine 5,000 Unit/Ml Vial) 5,000 unit SUBCUT Q12H [facility] Last Admin: 03/13/23 04:20 Dose: 5,000 unit Documented By: SARA Hydralazine HCl (Hydralazine Hcl 50 Mg Tablet) 100 mg PO TID [facility]; Protocol Last Admin: 03/13/23 08:15 Dose: 100 mg Documented By: SEGUNDO Meropenem 500 mg/ Sodium (Chloride) 50 mls @ 100 mls/hr IV Q12H [facility] Last Infusion: 03/13/23 04:25 Dose: 0 mls/hr Documented By: SARA Insulin Human Lispro (Insulin Lispro 100 Unit/Ml 3 Ml Vial) 0 unit SUBCUT QIDACHS [facility]; Protocol Last Admin: 03/13/23 08:05 Dose: Not Given Documented By: SEGUNDO Non-Admin Reason: No Insulin Coverage Nifedipine (Nifedipine Er 60 Mg Tab.Er.24) 60 mg PO BID [facility]; Protocol Last Admin: 03/13/23 08:15 Dose: 60 mg Documented By: SEGUNDO Ondansetron HCl (Ondansetron Hcl 4 Mg/2 Ml Vial) 4 mg IVPUSH Q8H PRN PRN Reason: Nausea Last Admin: 03/11/23 11:19 Dose: 4 mg Documented By: KRISTINA Oxycodone HCl (Oxycodone Hcl Immed Release 5 Mg Tablet) 5 mg PO Q6H PRN PRN Reason: Pain, Severe (Pain Scale 7-10) Last Admin: 03/12/23 21:28 Dose: 5 mg Documented By: YODIT Pharmacy Consult (Consult Rx Perform Med Rec) 1 each MISCELLANE ONCE PRN PRN Reason: Consult order Polyethylene Glycol (Polyethylene Glycol 3350 17 Gm Powd.Pack) 17 gm PO DAILY [facility] Last Admin: 03/13/23 08:15 Dose: 17 gm Documented By: SEGUNDO Sevelamer Carbonate (Sevelamer Carbonate Tablet 800 Mg Tablet) 800 mg PO BID [facility] Last Admin: 03/13/23 08:15 Dose: 800 mg Documented By: SEGUNDO Sodium Bicarbonate (Sodium Bicarbonate 650 Mg Tablet) 650 mg PO TID [facility] Last Admin: 03/13/23 08:16 Dose: 650 mg Documented By: SEGUNDO Sodium Chloride (0.9 % Sodium Chloride Flush 3 Ml Syringe) 3 ml IVFLUSH QSHIFT [facility] Last Admin: 03/13/23 08:17 Dose: 3 ml Documented By: SEGUNDO Labs 03/07/23 06:27 03/12/23 15:06 Labs: Laboratory Results - last 24 hr 03/12/23 03/12/23 03/12/23 11:16 15:06 16:04 Anion Gap 17 Estim Creat Clear Calc 11.0 Estimated GFR 13 POC Glucose 119 H 132 H Random Glucose 169 H Calcium 9.1 D 03/12/23 03/13/23 20:07 07:19 Anion Gap Estim Creat Clear Calc Estimated GFR POC Glucose 142 H 116 H Random Glucose Calcium Microbiology Microbiology Results: Microbiology 03/04/23 Unknown Urine Culture - Final Urine clean catch - Urine julio top Escherichia coli Assessment and Plan (1) Acute UTI: Status: Acute (2) Proctocolitis: Status: Acute Plan 82F PMH dementia, DM, HTN, CKDIV, CAD (pci to RCA and left circ), HLD, chronic diastolic chf, 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), right parietal lobe CVA, presented with nausea and vomiting #constipation, nasuea and vomitting with proctocolitis -all symptoms resolved no nausea, no vomiting, last bowel movement 03/12 -tolerating diet,on IV antibiotic meropenem for ESBL UTI that cover proctocolitis #karen on ckd IV -improved, back to baseline #hypokalemia -resolved #UTI -ESBL positive E coli s/p IV Rocephin and placed on IV meropenem renally dosed started on 03/07, final sensitivities showed highly resistant bacteria sensitive to ertapenem, imipenem and Bactrim, id recommend finish total 7 day course of meropenem (last dose 03/14 330am) #acute hyponatremia -poor solute intake, sodium 131 will follow lytes #DM- controlled -stable blood sugars continue insulin sliding scale #vascular dementia -stable #CAD -asa, statin #htn -suboptimal blood pressure control, but improving- continue nifedipine xl 60 to b.i.d.,hydralazine, clonidine and Lasix, follow BP #chronic diastolic chf -no acute exacerbation , take Lasix 40 mg b.i.d. at home, recent echo January 2023 showed EF 60-65% with impaired relaxation, and mild to moderate aortic valve stenosis, continue Lasix dvt prohpylaxis - heparin sq full code reason for continued hospitalization: ESBL positive e.coli requiring 1 more day of IV meropenem. Last dose 03/14 @ 330am, then [facility] Time Spent With Patient Time: Total time managing care of this patient today ____ minutes. Quality Stroke Does the patient have a stroke diagnosis?: No VTE Prior VTE?: No VTE Risk Level:: Medical - moderate - high VTE Device Contraindication: Treatment Not Indicated VTE Drug Contraindication: N/A - Med Ordered
[2023-03-13 11:20] LABS: Glucose, Whole Blood 144 mg/dL (60-115)
[2023-03-13 15:05] VITALS: BP 158/64; PULSE 58; RESP 18; TEMP 36.7; O2SAT 99
--- NOTE | 2023-03-13 15:37 | W.PM.IDCN ---
History of Present Illness Data of Consult Service Date: 03/12/23 Requesting physician: Pam Montalvo Primary Care Provider: Steven Martinez MD HPI Reason for consult: ESBL UTI She presents with nausea and vomiting. She has no fever or chills. She has ESBL urine. She has kidney injury with creatinine 3.34. Review of Systems Review of Systems: Yes Unobtainable due to mental condition PMF Past Medical History Medical History Alzheimer's dementia Anxiety CAD (coronary artery disease) CKD (chronic kidney disease) stage 3, GFR 30-59 ml/min Diabetes Heart failure Hypertension Family History Family history: reviewed and not pertinent Social History Social History Household Members: None Housing: Apartment Do you presently have visiting nurse or other home services: No Alcohol intake: never Patient Tobacco Use Status: Former Tobacco user Smoked in Last 30 Days: No Use of substances other than those prescribed or required for medical reasons: No Currently Displaying Signs/Symptoms of Drug Intoxication Withdrawal: No Have you been hit, kicked, punched, or otherwise hurt by someone within the past year? If so, by whom?: No Do you feel safe in your current relationship?: No Current Relationship Is there a partner from a previous relationship who is making you feel unsafe now?: No Are you made to feel afraid or neglected: No Advance Directives: Yes Advance Directives on File: Yes Advance Directives Date on File: 12/11/22 Do you have thoughts of harming others: None Do you have a plan to hurt others: No Plan Recently lost weight without trying: Unsure Nutrition Risks: No Nutritional Risk Patient : No : No Poor oral hygiene: No service: No Meds Allergies Allergy/AdvReac Type Severity Reaction Status Date / Time No Known Allergies Allergy Verified 12/10/22 13:21 Active Medications: Current Medications Acetaminophen (Acetaminophen 325 Mg Tablet) 650 mg PO Q6H PRN PRN Reason: Pain, Mild (Pain Scale 1-3) Last Admin: 03/11/23 08:16 Dose: 650 mg Aspirin (Aspirin Enteric Coated 81 Mg Tablet.) 81 mg PO DAILY [facility] Last Admin: 03/13/23 08:15 Dose: 81 mg Atorvastatin Calcium (Atorvastatin Calcium 20 Mg Tablet) 20 mg PO BEDTIME [facility] Last Admin: 03/12/23 21:27 Dose: 20 mg Bisacodyl (Bisacodyl 10 Mg Supp.Rect) 10 mg WA DAILY PRN PRN Reason: Constipation Clonidine HCl (Clonidine Hcl 0.2 Mg Tablet) 0.2 mg PO TID [facility]; Protocol Last Admin: 03/13/23 14:50 Dose: 0.2 mg Dextrose (Dextrose 50 % 25 Gm/50 Ml Syringe) 25 gm IVPUSH Q15M PRN; Protocol PRN Reason: per Hypoglycemia Standing Ord. Escitalopram Oxalate (Escitalopram Oxalate 10 Mg Tablet) 10 mg PO DAILY [facility] Last Admin: 03/13/23 08:16 Dose: 10 mg Furosemide (Furosemide 40 Mg Tablet) 40 mg PO DAILY [facility]; Protocol Last Admin: 03/13/23 08:16 Dose: 40 mg Glucose (Glucose Gel 15 Gm Gel..Gram.) 15 gm PO Q15M PRN; Protocol PRN Reason: per Hypoglycemia Standing Ord. Heparin Sodium (Porcine) (Heparin Sodium,Porcine 5,000 Unit/Ml Vial) 5,000 unit SUBCUT Q12H [facility] Last Admin: 03/13/23 04:20 Dose: 5,000 unit Hydralazine HCl (Hydralazine Hcl 50 Mg Tablet) 100 mg PO TID [facility]; Protocol Last Admin: 03/13/23 14:50 Dose: 100 mg Meropenem 500 mg/ Sodium (Chloride) 50 mls @ 100 mls/hr IV Q12H [facility] Stop: 03/14/23 03:29 Last Admin: 03/13/23 14:51 Dose: 100 mls/hr Insulin Human Lispro (Insulin Lispro 100 Unit/Ml 3 Ml Vial) 0 unit SUBCUT QIDACHS [facility]; Protocol Last Admin: 03/13/23 11:35 Dose: Not Given Nifedipine (Nifedipine Er 60 Mg Tab.Er.24) 60 mg PO BID [facility]; Protocol Last Admin: 03/13/23 08:15 Dose: 60 mg Ondansetron HCl (Ondansetron Hcl 4 Mg/2 Ml Vial) 4 mg IVPUSH Q8H PRN PRN Reason: Nausea Last Admin: 03/11/23 11:19 Dose: 4 mg Oxycodone HCl (Oxycodone Hcl Immed Release 5 Mg Tablet) 5 mg PO Q6H PRN PRN Reason: Pain, Severe (Pain Scale 7-10) Last Admin: 03/12/23 21:28 Dose: 5 mg Pharmacy Consult (Consult Rx Perform Med Rec) 1 each MISCELLANE ONCE PRN PRN Reason: Consult order Polyethylene Glycol (Polyethylene Glycol 3350 17 Gm Powd.Pack) 17 gm PO DAILY [facility] Last Admin: 03/13/23 08:15 Dose: 17 gm Sevelamer Carbonate (Sevelamer Carbonate Tablet 800 Mg Tablet) 800 mg PO BID [facility] Last Admin: 03/13/23 08:15 Dose: 800 mg Sodium Bicarbonate (Sodium Bicarbonate 650 Mg Tablet) 650 mg PO TID [facility] Last Admin: 03/13/23 14:50 Dose: 650 mg Sodium Chloride (0.9 % Sodium Chloride Flush 3 Ml Syringe) 3 ml IVFLUSH QSHIFT [facility] Last Admin: 03/13/23 08:17 Dose: 3 ml Home Medications Medication Instructions Recorded Confirmed Last Taken Type acetaminophen 325 mg tablet 975 mg PO Q8H 01/25/23 03/04/23 Unknown History atorvastatin 20 mg tablet 20 mg PO BEDTIME 01/25/23 03/04/23 Unknown History bisacodyl 10 mg rectal suppository 10 mg WA DAILY PRN Constipation 01/25/23 03/04/23 Unknown History clonidine HCl 0.2 mg tablet 0.2 mg PO TID 01/25/23 03/04/23 Unknown History epoetin paul 20,000 unit/2 mL 20,000 unit subcut FR 01/25/23 03/04/23 Unknown History injection solution (Procrit) escitalopram oxalate 10 mg tablet 10 mg PO DAILY 01/25/23 03/04/23 Unknown History furosemide 40 mg tablet 40 mg PO BID 01/25/23 03/04/23 Unknown History hydralazine 100 mg tablet 100 mg PO TID 01/25/23 03/04/23 Unknown History ipratropium 18 mcg-albuterol 103 1 spray inhalation Q6H PRN Wheezing 01/25/23 03/04/23 Unknown History mcg/actuation aerosol inhaler melatonin 3 mg tablet 3 mg PO BEDTIME 01/25/23 03/04/23 Unknown History nifedipine 60 mg tablet,extended 60 mg PO BID 01/25/23 03/04/23 Unknown History release oxycodone 5 mg capsule 5 mg PO Q6H PRN Pain 01/25/23 03/04/23 Unknown History polyethylene glycol 3350 17 gram 17 g PO BID 01/25/23 03/04/23 Unknown History oral powder packet (Miralax) sennosides 8.6 mg-docusate sodium 2 tab-cap PO QAM 01/25/23 03/04/23 Unknown History 50 mg capsule (Senna Plus) sevelamer HCl 800 mg tablet 800 mg PO BID 01/25/23 03/04/23 Unknown History sodium bicarbonate 650 mg tablet 650 mg PO TID 01/25/23 03/04/23 Unknown History aspirin 81 mg chewable tablet 81 mg PO DAILY 03/04/23 03/04/23 Unknown History docusate sodium 100 mg capsule 100 mg PO BEDTIME 03/04/23 03/04/23 Unknown History nitroglycerin 0.4 mg sublingual 0.4 mg sublingual Q5M PRN Chest 03/04/23 03/04/23 Unknown History tablet Pain ondansetron 4 mg disintegrating 4 mg PO Q6H PRN Nausea And Vomiting 03/04/23 03/04/23 Unknown History tablet oxycodone 5 mg tablet 5 mg PO BID 03/04/23 03/04/23 Unknown History sodium phosphates 19 gram-7 118 ml WA DAILY PRN Constipation 03/04/23 03/04/23 Unknown History gram/118 mL enema (Fleet Enema) Physical Exam Vital Signs: Vital Signs: Last Vital Signs Temp 98.1 F 03/13/23 15:05 Pulse 58 03/13/23 15:05 Resp 18 03/13/23 15:05 BP 158/64 H 03/13/23 15:05 Pulse Ox 99 03/13/23 15:05 O2 Del Method Room Air 03/13/23 15:05 BMI result Body Mass Index 27.2 Const: General: cooperative HEENT: Head: Yes normal to inspection Face and sinus: Yes normal facial exam Mouth: Normal oral and palatal mucosa present Teeth and gingiva: dentition normal Eyes: General: appearance normal, both eyes and all related structures Pupils: Equal, round and reactive pupils present Resp: Effort & Inspection: normal respiratory effort Cardio: Rate: regular rate Rhythm: regular rhythm GI: Palpation (GI): Soft to palpation and nontender : General: Yes no CVA tenderness Back/Spine/Pelvis: Back: no CVA tenderness Skin: General skin exam: no rashes or lesions noted Neuro: General: moves all extremities Cranial nerves: Yes Equal, round and reactive pupils present Extrem: General: Yes normal to inspection Psych: Other: confused Results Labs 03/07/23 06:27 03/12/23 15:06 Microbiology Microbiology Results: Microbiology 03/04/23 Unknown Urine clean catch - Urine julio top Urine Culture - Final Escherichia coli 03/04/23 15:07 Blood - Venous Blood Culture - Final No growth after 5 days. 03/04/23 15:05 Blood - Venous Blood Culture - Final No growth after 5 days. Assessment and Plan (1) Acute UTI: Status: Acute She has had eight days therapy sufficient for ESBL. (2) Nausea & vomiting: Status: Acute (3) Dehydration: Status: Acute (4) Acute on chronic kidney failure: Status: Acute Plan Stop antibiotics. Time Spent With Patient Time: Total time managing care of this patient today ____ minutes.
[2023-03-13] MEDS: Acetaminophen 325 MG TABLET 650 MG PO (15:46)
[2023-03-13 16:28] LABS: Glucose, Whole Blood 147 mg/dL (60-115)
[2023-03-13 19:03] VITALS: BP 168/66; PULSE 56; RESP 16; TEMP 36.6; O2SAT 99
[2023-03-13] MEDS: Atorvastatin Calcium 20 MG TABLET PO (20:05)
[2023-03-13 20:15] LABS: Glucose, Whole Blood 105 mg/dL (60-115)
[2023-03-14 03:11] VITALS: BP 160/72; PULSE 53; RESP 16; TEMP 36.6; O2SAT 98
[2023-03-14] MEDS: Acetaminophen 325 MG TABLET 650 MG PO (03:26)
[2023-03-14] MEDS: Heparin Sodium,Porcine 5,000 UNIT/ML VIAL 5000 UNIT SUBCUT (05:17)
[2023-03-14 06:31] LABS: Anion Gap 16 (12-20); Blood Urea Nitrogen 57 mg/dL (9-16); Calcium 8.7 mg/dL (8.4-10.2); Carbon Dioxide 20 mmol/L (22-29); Chloride 100 mmol/L (96-108); Creatinine Clr Calc Pharmacy 12.2; Estimated Glomerular Filt Rate 15; Glucose Random 110 mg/dL (60-115); Potassium 5.5 mmol/L (3.3-5.1); Sodium 130 mmol/L (135-145)
[2023-03-14 07:27] VITALS: BP 161/72; PULSE 52; RESP 16; TEMP 36.4; O2SAT 94
[2023-03-14 07:27] LABS: Glucose, Whole Blood 122 mg/dL (60-115)
[2023-03-14] MEDS: Sevelamer Carbonate Tablet 800 MG TABLET PO (08:16)
[2023-03-14] MEDS: hydrALAZINE HCl 50 MG TABLET 100 MG PO ×2 (08:16→15:00)
[2023-03-14] MEDS: 0.9 % Sodium Chloride Flush 3 ML SYRINGE IVFLUSH (08:17)
[2023-03-14] MEDS: Furosemide 40 MG TABLET PO (08:17)
[2023-03-14] MEDS: Aspirin Enteric Coated 81 MG TABLET.DR PO (08:17)
[2023-03-14] MEDS: Sodium Bicarbonate 650 MG TABLET PO ×2 (08:17→15:00)
[2023-03-14] MEDS: cloNIDine HCL 0.2 MG TABLET PO ×2 (08:17→15:00)
[2023-03-14] MEDS: NIFEdipine ER 60 MG TAB.ER.24 PO (08:17)
[2023-03-14] MEDS: Escitalopram Oxalate 10 MG TABLET PO (08:17)
[2023-03-14] MEDS: Sodium Zirconium Cyclosilicate 10 GM POWD.PACK PO (08:17)
[2023-03-14] MEDS: polyethylene glycoL 3350 17 GM POWD.PACK PO (08:17)
[2023-03-14 11:37] LABS: Glucose, Whole Blood 176 mg/dL (60-115)
--- NOTE | 2023-03-14 11:58 | MHC.CM.PN ---
IMM 03/14/23 PATIENT IS DISCHARGED TODAY. [facility]. TRANSPORT IS BOOKED FOR 4PM [employer]. PTS DAUGHTER HAS BEEN NOTIFIED AND AGREES WITH THE DISCHARGE WELL RETURN TO [facility].
[2023-03-14] MEDS: Insulin Lispro 100 UNIT/ML 3 ML VIAL SUBCUT (12:05)
--- NOTE | 2023-03-14 13:01 | PM.DS ---
DS: Providers Provider Date of Service: 03/14/23 Date of admission: 03/04/23 16:18 Date of discharge: 03/14/23 Primary care physician: Steven Martinez MD Attending physician on admission: Jaylon Guerra Consults: 03/07/23 14:43 Consult to Infectious Diseases Routine Consulting Provider: Padmini Orourke Reason for consultation: esbl pos e.coli Has provider been notified: No Attending physician on discharge: Damon Peralta Discharging clinician: Genny Garrsion DS: Diagnosis Discharge Diagnosis (1) Acute UTI: Status: Acute (2) Nausea & vomiting: Status: Acute (3) Dehydration: Status: Acute (4) Acute on chronic kidney failure: Status: Acute DS: Summary Hospital Course Hospital Course: HPI on admission by Dr. 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 Symptoms started on a.m. of admission.? One episode of vomitus with multiple dry heaves, unable to tolerate p.o..? Denies bowel movement for several days.? In ED found to have acute kidney injury on CKD 4, hyponatremia, UTI, proctocolitis Hospital course: Pt admitted with acute proctocolitis and UTI. UTI with initially treated with IV ceftriaxone with cultures growing ESBL positive E coli and patient was placed on IV meropenem renally dosed. Final sensitivity report showed high a resistant bacteria sensitive to ertapenem, and venom, and Bactrim. Evaluated by Infectious Disease recommending 7 day total course of meropenem completed yesterday. Symptoms of nausea, vomiting, constipation resolved and patient has been moving her bowels every 1-2 days. Tolerating diet. Glucose levels remained stable throughout admission. She did continue to experience intermittent hyponatremia thought to be related to poor solute intake but remains stable between 130-133. On day of discharge, did have slight hyperkalemia of 5.5, given 10 mg Lokelma. Renal function returned to baseline and remained stable. Recommend follow-up BMP on discharge to [facility]. She has completed course of IV abx and does not require further antibiotic therapy. She is feeling well and vitals have remained stable. Will discharge back to [address] care with follow up advised in 1 week with PCP. Status at Discharge Functional status at discharge: uses cane/walker Overall status at discharge: patient is back to baseline Time Spent with Patient Time attestation: Total time managing care of this patient today ____ minutes. Discharge coordination time: Greater than 30 minutes Quality: Safe Use of Opioids Does Pt have an Active Cancer Diagnosis on the Problem List?: No Quality: Stroke Does the patient have a stroke diagnosis?: No Physical Exam Vital Signs: Vital Signs: Last Vital Signs Temp 97.6 F 03/14/23 07:27 Pulse 52 03/14/23 07:27 Resp 16 03/14/23 07:27 BP 161/72 H 03/14/23 07:27 Pulse Ox 94 03/14/23 07:27 O2 Del Method Room Air 03/14/23 07:27 BMI result Body Mass Index 27.2 DS: Data Data Completed and Pending Labs on day of discharge: Laboratory Results - last 24 hr 03/13/23 03/13/23 03/14/23 16:16 20:03 05:59 Sodium 130 L Potassium 5.5 H Chloride 100 Carbon Dioxide 20 L Anion Gap 16 BUN 57 H Creatinine 3.01 H Estim Creat Clear Calc 12.2 Estimated GFR 15 POC Glucose 147 H 105 Random Glucose 110 Calcium 8.7 03/14/23 03/14/23 07:08 11:26 Sodium Potassium Chloride Carbon Dioxide Anion Gap BUN Creatinine Estim Creat Clear Calc Estimated GFR POC Glucose 122 H 176 H Random Glucose Calcium Discharge Plan Discharge Anticipated Discharge Date/Time: 03/14/23 13:06 Patient Disposition: er [facility] Discharge Diagnosis: MIA and chronic kidney disease stage 4 ESBL positive E coli acute hyponatremia proctocolitis Referrals: [facility] [Outside] - 1 Week Steven Martinez MD [Primary Care Provider] - 1 Week Discharge Medications: Continued Fleet Enema 19-7 gram/118 mL Enema 118 ml IN DAILY PRN (Reason: Constipation) docusate sodium 100 mg Capsule 100 mg PO BEDTIME aspirin 81 mg Tablet,Chewable 81 mg PO DAILY nitroglycerin 0.4 mg Tablet, Sublingual 0.4 mg SUBLINGUAL Q5M PRN (Reason: Chest Pain) Rx Instructions: do not exceed 3 doses per episode ondansetron 4 mg Tablet,Disintegrating 4 mg PO Q6H PRN (Reason: Nausea And Vomiting) oxycodone 5 mg tablet 5 mg PO BID furosemide 40 mg tablet 40 mg PO BID acetaminophen 325 mg Tablet 975 mg PO Q8H atorvastatin 20 mg Tablet 20 mg PO BEDTIME polyethylene glycol 3350 [Miralax] 17 gram Powder In Packet 17 g PO BID sevelamer HCl 800 mg Tablet 800 mg PO BID Rx Instructions: must administer with a meal/food melatonin 3 mg Tablet 3 mg PO BEDTIME clonidine HCl 0.2 mg Tablet 0.2 mg PO TID sodium bicarbonate 650 mg Tablet 650 mg PO TID bisacodyl 10 mg Suppository 10 mg IN DAILY PRN (Reason: Constipation) hydralazine 100 mg Tablet 100 mg PO TID oxycodone 5 mg Capsule 5 mg PO Q6H PRN (Reason: Pain) ipratropium-albuterol 18-103 mcg/actuation Aerosol 1 spray INHALATION Q6H PRN (Reason: Wheezing) nifedipine 60 mg Tablet Extended Release 60 mg PO BID escitalopram oxalate 10 mg tablet 10 mg PO DAILY Procrit 20,000 unit/2 mL Solution 20,000 unit SUBCUT FR Senna Plus 8.6-50 mg Capsule 2 tab-cap PO QAM Discharge Orders: Discharge Order (Routine); Ordered 03/14/23 Ordered By: Genny Garrison Diet: Advance to usual diet Activity on Discharge: As tolerated Stand Alone Forms: Patient Portal Discharge page Care Plan Goals: finished 7 day course of IV meropenem for ESBL positive E coli UTI Health Concerns: continue all home medication as before Plan of Treatment: follow-up with primary care physician Assessment: as above
[2023-03-14 14:25] VITALS: BP 104/68; PULSE 84; RESP 18; TEMP 36.1; O2SAT 98
[2023-03-14 15:28] VITALS: BP 160/70; PULSE 60; RESP 16; TEMP 36.7; O2SAT 97
== END 2023-03-14 17:42 | disposition skilled nursing facility (03) | DRG 690 ==
LOC: HO.ED 15:53 → HO.EDOVER 16:23 → HO.S3 16:55
PROVIDERS: Hospitalist; Physician Assistant; Admitting Provider Internal Medicine; Emergency Provider Emergency Medicine Emergency Medical Services; PCP Family Medicine; Visit Provider Physician Assistant
DX: N39.0 Urinary tract infection, site not specified (principal); I13.0 Hypertensive heart and chronic kidney disease with heart failure and stage 1 through stage 4 chronic kidney disease, or unspecified chronic kidney disease; N18.4 Chronic kidney disease, stage 4 (severe); I50.32 Chronic diastolic (congestive) heart failure; N17.9 Acute kidney failure, unspecified; E87.1 Hypo-osmolality and hyponatremia; Z16.12 Extended spectrum beta lactamase (ESBL) resistance; E11.22 Type 2 diabetes mellitus with diabetic chronic kidney disease; E86.0 Dehydration; G30.9 Alzheimer's disease, unspecified; I25.10 Atherosclerotic heart disease of native coronary artery without angina pectoris; F02.80 Dementia in other diseases classified elsewhere, unspecified severity, without behavioral disturbance, psychotic disturbance, mood disturbance, and anxiety; F01.50 Vascular dementia, unspecified severity, without behavioral disturbance, psychotic disturbance, mood disturbance, and anxiety; I35.0 Nonrheumatic aortic (valve) stenosis; K59.09 Other constipation; E87.6 Hypokalemia; B96.29 Other Escherichia coli [E. coli] as the cause of diseases classified elsewhere; K52.89 Other specified noninfective gastroenteritis and colitis; Z79.82 Long term (current) use of aspirin; Z79.899 Other long term (current) drug therapy
CPT/HCPCS: 36415; 74176; 80048; 80053; 81001; 82947; 83605; 83690; 83735; 85025; 85027; 87040; 87086; 87088; 87186; 99285; J0696; J1643; J2185; J2405

== ENCOUNTER → 2023-03-04 16:18 | Outpatient (BNV) | payer MEDICARE, MEDICAID, SELFPAY | PROVIDERS: Admitting Provider Internal Medicine; Emergency Provider Emergency Medicine Emergency Medical Services; PCP Family Medicine; Visit Provider Internal Medicine | DX: N39.0 Urinary tract infection, site not specified (principal); N17.9 Acute kidney failure, unspecified; N18.4 Chronic kidney disease, stage 4 (severe); E86.0 Dehydration; R11.2 Nausea with vomiting, unspecified | CPT/HCPCS: 99223; 99232; 99233; 99239 ==

== ENCOUNTER → 2023-03-04 16:18 | Outpatient (BNV) | payer MEDICARE, MEDICAID, SELFPAY | PROVIDERS: Admitting Provider Internal Medicine; Emergency Provider Emergency Medicine Emergency Medical Services; PCP Family Medicine; Visit Provider Internal Medicine | DX: N39.0 Urinary tract infection, site not specified (principal); R11.2 Nausea with vomiting, unspecified; E86.0 Dehydration; N17.9 Acute kidney failure, unspecified; N18.9 Chronic kidney disease, unspecified | CPT/HCPCS: 99221 ==

== ENCOUNTER 2023-03-30 13:10 | Emergency (ER) | payer MEDICARE, MEDICAID, SELFPAY ==
[2023-03-30 13:24] VITALS: BP 182/104; BP 202/105; PULSE 74; PULSE 84; RESP 16; TEMP 36.8; O2SAT 96; O2SAT 98; BMI 24.8
--- NOTE | 2023-03-30 13:28 | ECG_ITS ---
Test Reason : WEAKNESS Blood Pressure : / mmHG Vent. Rate : 079 BPM Atrial Rate : 079 BPM P-R Int : 186 ms QRS Dur : 106 ms QT Int : 378 ms P-R-T Axes : 035 -24 128 degrees QTc Int : 433 ms Normal sinus rhythm Possible Left atrial enlargement Left ventricular hypertrophy with repolarization abnormality ( R in aVL , Sokolow-Dean , [employer] product ) Inferior infarct (cited on or before 25-JAN-2023) Abnormal ECG When compared with ECG of 25-JAN-2023 15:43, T wave inversion now evident in Anterior leads Referred By: Sarah Jean Baptiste Electronically Signed By:TITA LANGE
[2023-03-30 14:13] LABS: MANUAL DIFF FLAG NO
[2023-03-30 14:15] LABS: Basophils Percent Auto 0.4 % (0-2); Eosinophils Absolute Auto 0.1 X10*3/uL (0.0-0.4); Eosinophils Percent Auto 0.5 % (0-4); Hematocrit 41.2 % (37.0-47.0); Hemoglobin 14.1 g/dl (12.0-16.0); Imm Gran Abs Auto 0.05 X10*3/uL (0.00-0.03); Imm Gran Pct Auto 0.5 % (0.0-0.4); Lymphocytes Absolute Auto 1.7 X10*3/uL (1.2-4.9); Mean Corpuscular HGB Conc 34.2 g/dl (31.0-35.0); Mean Corpuscular Hemoglobin 29.8 pg (27.0-33.0); Mean Corpuscular Volume 87.1 fL (80.0-98.0); Mean Platelet Volume 9.1 fL (9.4-12.3); Monocytes Absolute Auto 0.4 X10*3/uL (0.1-1.2); Monocytes Percent Auto 4.1 % (2-11); Neutrophils Absolute Auto 8.1 x10*3/uL (2.0-8.3); Neutrophils Percent Auto 78.5 % (45-73); Platelet Count 367 X10*3/uL (160-400); Red Blood Count 4.73 X10*6/uL (4.20-5.50); Red Cell Distribution Width 14.2 % (11.0-16.0); White Blood Count 10.3 X10*3/uL (4.8-10.8)
[2023-03-30 14:29] LABS: COVID-19 Test Negative (Negative); IDNOW Serial# 9DB6401D
[2023-03-30 14:32] LABS: Alanine Aminotransferase 9 U/L (0-31); Albumin Level 3.7 g/dL (3.5-5.0); Alkaline Phosphatase 65 U/L (39-117); Anion Gap 15 (12-20); Aspartate Amino Transferase 14 U/L (5-31); Bilirubin Total 0.5 mg/dL (0.0-1.0); Blood Urea Nitrogen 43 mg/dL (9-16); Calcium 9.7 mg/dL (8.4-10.2); Carbon Dioxide 20 mmol/L (22-29); Chloride 102 mmol/L (96-108); Creatinine Clr Calc Pharmacy 13.4; Estimated Glomerular Filt Rate 16; Glucose Random 118 mg/dL (60-115); Sodium 133 mmol/L (135-145)
[2023-03-30 14:44] LABS: Troponin-I High Sensitivity 95.6 ng/L (<3.5-17.0)
--- NOTE | 2023-03-30 14:54 | ED.GENADULT ---
HPI - General Adult General Chief complaint: General Medical Stated complaint: WEAKNESS Time Seen by Provider: 03/30/23 14:53 Source: patient Mode of arrival: EMS Limitations: no limitations History of Present Illness HPI narrative: 82-year-old female history of hypertensive heart disease, chronic kidney disease, urinary tract infection, diabetes, Alzheimer's dementia, coronary artery disease, depression, hyperlipidemia, hyperkalemia, nonrheumatic aortic stenosis, constipation, who was sent to the emergency department for evaluation of altered mental status and generalized weakness. Patient's [facility] vital signs: BP 193/104, heart rate 76, respiratory 18, temperature 97.4 degrees weight 141 lb. The patient was oriented to person and place, she told me that she was having abdominal pain and points to the center of her abdomen and neck pain that occurred prior to coming to the emergency department. She denied fever, chills, cough, chest pain, shortness of breath Related Data Home Medications Medication Instructions Recorded Confirmed acetaminophen 325 mg tablet 975 mg PO Q8H 01/25/23 03/04/23 atorvastatin 20 mg tablet 20 mg PO BEDTIME 01/25/23 03/04/23 bisacodyl 10 mg rectal suppository 10 mg IN DAILY PRN Constipation 01/25/23 03/04/23 clonidine HCl 0.2 mg tablet 0.2 mg PO TID 01/25/23 03/04/23 epoetin paul 20,000 unit/2 mL 20,000 unit subcut FR 01/25/23 03/04/23 injection solution (Procrit) escitalopram oxalate 10 mg tablet 10 mg PO DAILY 01/25/23 03/04/23 furosemide 40 mg tablet 40 mg PO BID 01/25/23 03/04/23 hydralazine 100 mg tablet 100 mg PO TID 01/25/23 03/04/23 ipratropium 18 mcg-albuterol 103 1 spray inhalation Q6H PRN Wheezing 01/25/23 03/04/23 mcg/actuation aerosol inhaler melatonin 3 mg tablet 3 mg PO BEDTIME 01/25/23 03/04/23 nifedipine 60 mg tablet,extended 60 mg PO BID 01/25/23 03/04/23 release oxycodone 5 mg capsule 5 mg PO Q6H PRN Pain 01/25/23 03/04/23 polyethylene glycol 3350 17 gram 17 g PO BID 01/25/23 03/04/23 oral powder packet (Miralax) sennosides 8.6 mg-docusate sodium 2 tab-cap PO QAM 01/25/23 03/04/23 50 mg capsule (Senna Plus) sevelamer HCl 800 mg tablet 800 mg PO BID 01/25/23 03/04/23 sodium bicarbonate 650 mg tablet 650 mg PO TID 01/25/23 03/04/23 aspirin 81 mg chewable tablet 81 mg PO DAILY 03/04/23 03/04/23 docusate sodium 100 mg capsule 100 mg PO BEDTIME 03/04/23 03/04/23 nitroglycerin 0.4 mg sublingual 0.4 mg sublingual Q5M PRN Chest 03/04/23 03/04/23 tablet Pain ondansetron 4 mg disintegrating 4 mg PO Q6H PRN Nausea And Vomiting 03/04/23 03/04/23 tablet oxycodone 5 mg tablet 5 mg PO BID 03/04/23 03/04/23 sodium phosphates 19 gram-7 118 ml IN DAILY PRN Constipation 03/04/23 03/04/23 gram/118 mL enema (Fleet Enema) Allergies Allergy/AdvReac Type Severity Reaction Status Date / Time No Known Allergies Allergy Verified 12/10/22 13:21 Review of Systems Review of Systems: Yes all other systems are reviewed and are negative [facility] Past Medical History [facility] Narrative: Social history: She is a resident of [facility] Medical History Alzheimer's dementia Anxiety CAD (coronary artery disease) CKD (chronic kidney disease) stage 3, GFR 30-59 ml/min Diabetes Heart failure Hypertension Social History Social History Household Members: None Housing: Apartment Do you presently have visiting nurse or other home services: No Alcohol intake: never Patient Tobacco Use Status: Former Tobacco user Smoked in Last 30 Days: No Advance Directives: Yes Advance Directives on File: Yes Advance Directives Date on File: 12/11/22 service: No Physical Exam ED Vital Signs: Vital Signs - 24 hr 03/30/23 13:24 03/30/23 16:03 03/30/23 18:34 Temperature 98.3 F 98.4 F Pulse Rate 84 82 83 Respiratory Rate 16 12 15 Blood Pressure 202/105 H 242/110 H 160/78 H Pulse Oximetry 98 96 99 Oxygen Delivery Method Room Air Room Air Room Air BMI result Body Mass Index 24.8 Vital signs revealed an elevated blood pressure of 202/105 otherwise unremarkable. Exam: General: Awake, alert in no distress Head: Normocephalic, atraumatic EENT: PERRL, Lids normal, sclera normal, conjunctiva normal, nose normal , ears normal, throat without erythema or exudates Neck: Supple, no adenopathy, trachea midline and nontender Lung: breath sounds symmetric, no wheezing, rales or rhonchi Chest: symmetric movement, nontender Heart: regular rate and rhythm, normal S1, S2 no murmurs or rubs Abdomen: soft, mild epigastric tenderness, nondistended, normal bowel sounds Back: no vertebral tenderness, no CVAT Extremities: Trace pitting edema Skin: no rashes, no lesion, normal color and warmth Neuro: Awake, alert, oriented to person, she knows she is in a hospital, normal speech, cranial nerves significant for mild left facial droop, patient does have left drift of her arm but can older all up against gravity, she can hold her right leg up against gravity but this is weak compared to the right side-this is chronic Psych: Pleasant, cooperative Medications Administered Discontinued Medications Generic Name Dose Route Start Last Admin Trade Name Freq PRN Reason Stop Dose Admin Hydralazine HCl 100 mg 03/30/23 16:23 03/30/23 16:48 Hydralazine Hcl 50 Mg Tablet PO 03/30/23 16:24 100 mg ONCE ONE Administration Protocol Ketorolac Tromethamine 15 mg 03/30/23 15:05 03/30/23 15:29 Ketorolac Tromethamine 15 Mg/Ml Vial IVPUSH 03/30/23 15:06 15 mg ONCE STA Administration Ondansetron HCl 4 mg 03/30/23 15:05 03/30/23 15:29 Ondansetron Hcl 4 Mg/2 Ml Vial IVPUSH 03/30/23 15:06 4 mg ONCE ONE Administration Medical Decision Making Medical Decision Making MDM Narrative: 82-year-old female who presents emergency department for evaluation of altered mental status and weakness. The patient told me that she was experiencing neck pain and epigastric pain. Examination did reveal an elevated blood pressure and epigastric tenderness otherwise was unremarkable. The following evaluation was ordered: CBC, CMP, PT/INR, PTT, troponin, magnesium, urinalysis, COVID-19, 1513: Patient's laboratory evaluation did reveal elevated BUN creatinine which is consistent with her acute kidney disease. Patient's high sensitive troponin I was elevated at 95.6, 3 hour repeat is due at 17:00 hours. Twelve EKG is abnormal but unchanged from the previous EKG, she does have ST segment depression with inverted T-waves in leads 1 and aVL with less than [address] segment depression in V5 and V6. 1838: Patient has refused multiple times to have her troponin repeated. She has had similar elevation in her troponins in the past and her EKG is unchanged her previous . Also unable to get a urine sample on the patient . At this time I believe the patient is at her baseline therefore I am going to discharge her back to her facility. The patient's outpatient hydralazine 100 mg was given in her blood pressure did improve. Patient's elevated blood pressures are consistent with her hypertensive disorder and she is to continue to take her medications as prescribed. Differential Diagnosis Differential Diagnoses: The differential diagnosis associated with the presentation includes 1511: Differential diagnosis includes but is not limited to urinary tract infection, gastritis myocardial infarction, myocardial ischemia, electrolyte abnormalities, anemia Admission/Observation Consideration of admission/observation: Escalation of care including admission/observation considered Lab Data MDM Lab Attestation statement: I reviewed the patient's lab results. My independent interpretation patient's laboratory evaluation is as follows: CBC was normal. Sodium low 133, bicarb low 20. BUN creatinine elevated 43 and 2.8-patient has chronic kidney disease. High sensitive troponin I done at 14:03 was elevated at 95.6. Patient has had elevated troponins in the past but not as high as today's troponin. 03/30/23 14:03 03/30/23 14:03 Labs: Lab Results 03/30/23 03/30/23 03/30/23 Range/Units 14:03 14:03 14:03 WBC 10.3 (4.8-10.8) X10*3/uL RBC 4.73 D (4.20-5.50) X10*6/uL Hgb 14.1 D (12.0-16.0) g/dl Hct 41.2 D (37.0-47.0) % MCV 87.1 (80.0-98.0) fL MCH 29.8 (27.0-33.0) pg MCHC 34.2 (31.0-35.0) g/dl RDW 14.2 (11.0-16.0) % Plt Count 367 (160-400) X10*3/uL MPV 9.1 L (9.4-12.3) fL Immature Gran % (Auto) 0.5 H (0.0-0.4) % Neut % (Auto) 78.5 H (45-73) % Lymph % (Auto) 16.0 L (20-40) % Dale % (Auto) 4.1 (2-11) % Eos % (Auto) 0.5 (0-4) % Baso % (Auto) 0.4 (0-2) % Lymph # (Auto) 1.7 (1.2-4.9) X10*3/uL Dale # (Auto) 0.4 (0.1-1.2) X10*3/uL Eos # (Auto) 0.1 (0.0-0.4) X10*3/uL Baso # (Auto) 0.0 (0.0-0.2) X10*3/uL Abs Immat Gran (auto) 0.05 H (0.00-0.03) X10*3/uL Absolute Neuts (auto) 8.1 (2.0-8.3) x10*3/uL Absolute Nucleated RBC 0.000 (0.0-0.012) X10*3/uL Nucleated RBC % (auto) 0.0 (0.0-0.2) /100WBC PT (11.1-13.3) SEC INR (0.9-1.1) APTT (26.0-36.4) SEC Sodium 133 L (135-145) mmol/L Potassium 4.0 D (3.3-5.1) mmol/L Chloride 102 (96-108) mmol/L Carbon Dioxide 20 L (22-29) mmol/L Anion Gap 15 (12-20) BUN 43 H (9-16) mg/dL Creatinine 2.82 H (0.5-1.4) mg/dL Estim Creat Clear Calc 13.4 Estimated GFR 16 Random Glucose 118 H (60-115) mg/dL Calcium 9.7 D (8.4-10.2) mg/dL Magnesium 3.0 H (1.6-2.6) mg/dL Total Bilirubin 0.5 (0.0-1.0) mg/dL AST 14 (5-31) U/L ALT 9 (0-31) U/L Alkaline Phosphatase 65 (39-117) U/L Troponin I High Sens 95.6 H* D (<3.5-17.0) ng/L Total Protein 7.0 (6.5-8.0) g/dL Albumin 3.7 (3.5-5.0) g/dL COVID-19 ([facility]) (Negative) COVID-19 Clin Com 03/30/23 03/30/23 03/30/23 Range/Units 14:03 17:07 17:07 WBC (4.8-10.8) X10*3/uL RBC (4.20-5.50) X10*6/uL Hgb (12.0-16.0) g/dl Hct (37.0-47.0) % MCV (80.0-98.0) fL MCH (27.0-33.0) pg MCHC (31.0-35.0) g/dl RDW (11.0-16.0) % Plt Count (160-400) X10*3/uL MPV (9.4-12.3) fL Immature Gran % (Auto) (0.0-0.4) % Neut % (Auto) (45-73) % Lymph % (Auto) (20-40) % Dale % (Auto) (2-11) % Eos % (Auto) (0-4) % Baso % (Auto) (0-2) % Lymph # (Auto) (1.2-4.9) X10*3/uL Dale # (Auto) (0.1-1.2) X10*3/uL Eos # (Auto) (0.0-0.4) X10*3/uL Baso # (Auto) (0.0-0.2) X10*3/uL Abs Immat Gran (auto) (0.00-0.03) X10*3/uL Absolute Neuts (auto) (2.0-8.3) x10*3/uL Absolute Nucleated RBC (0.0-0.012) X10*3/uL Nucleated RBC % (auto) (0.0-0.2) /100WBC PT 9.8 L (11.1-13.3) SEC INR 0.8 L (0.9-1.1) APTT 28.7 Cancelled (26.0-36.4) SEC Sodium (135-145) mmol/L Potassium (3.3-5.1) mmol/L Chloride (96-108) mmol/L Carbon Dioxide (22-29) mmol/L Anion Gap (12-20) BUN (9-16) mg/dL Creatinine (0.5-1.4) mg/dL Estim Creat Clear Calc Estimated GFR Random Glucose (60-115) mg/dL Calcium (8.4-10.2) mg/dL Magnesium (1.6-2.6) mg/dL Total Bilirubin (0.0-1.0) mg/dL AST (5-31) U/L ALT (0-31) U/L Alkaline Phosphatase (39-117) U/L Troponin I High Sens (<3.5-17.0) ng/L Total Protein (6.5-8.0) g/dL Albumin (3.5-5.0) g/dL COVID-19 ([facility]) Negative (Negative) COVID-19 Clin Com See Note Independent Interpretation I performed an independent interpretation of an: EKG Interpretation: My independent interpretation patient's 12 EKG done at 14:45 hours is as follows: Normal sinus rhythm with a rate of 79, normal IN interval, prolonged QRS duration of 106 milliseconds, normal QTC interval, inverted T-waves leads 1 in aVL, [address] segment depression leads 1 and aVL and less than [address] segment depression V5 and V6, no ST segment elevation, no PACs, no PVCs. Compared to EKG dated 01/25/2023 the abnormalities on today's EKG were present previously and are unchanged. Discharge Plan Discharge Clinical Impression: Weakness, Altered mental state Patient Disposition: Home, Self-Care Additional Instructions: Your EKG was unchanged from your previous ones Your high sensitive troponin I was elevated, you refused to let us repeated however you had similar elevations in the past. At this time, I do not know why your confused and weak based on the test that we did today. You need to continue taking your medications as prescribed by your providers. Follow-up with your doctor in 2 days. Please return to the emergency department if your symptoms get worse or if you develop any symptoms that are concerning to you. Prescriptions: No Action Fleet Enema 19-7 gram/118 mL Enema 118 ml IN DAILY PRN (Reason: Constipation) docusate sodium 100 mg Capsule 100 mg PO BEDTIME aspirin 81 mg Tablet,Chewable 81 mg PO DAILY nitroglycerin 0.4 mg Tablet, Sublingual 0.4 mg SUBLINGUAL Q5M PRN (Reason: Chest Pain) Rx Instructions: do not exceed 3 doses per episode ondansetron 4 mg Tablet,Disintegrating 4 mg PO Q6H PRN (Reason: Nausea And Vomiting) oxycodone 5 mg tablet 5 mg PO BID furosemide 40 mg tablet 40 mg PO BID acetaminophen 325 mg Tablet 975 mg PO Q8H atorvastatin 20 mg Tablet 20 mg PO BEDTIME polyethylene glycol 3350 [Miralax] 17 gram Powder In Packet 17 g PO BID sevelamer HCl 800 mg Tablet 800 mg PO BID Rx Instructions: must administer with a meal/food melatonin 3 mg Tablet 3 mg PO BEDTIME clonidine HCl 0.2 mg Tablet 0.2 mg PO TID sodium bicarbonate 650 mg Tablet 650 mg PO TID bisacodyl 10 mg Suppository 10 mg IN DAILY PRN (Reason: Constipation) hydralazine 100 mg Tablet 100 mg PO TID oxycodone 5 mg Capsule 5 mg PO Q6H PRN (Reason: Pain) ipratropium-albuterol 18-103 mcg/actuation Aerosol 1 spray INHALATION Q6H PRN (Reason: Wheezing) nifedipine 60 mg Tablet Extended Release 60 mg PO BID escitalopram oxalate 10 mg tablet 10 mg PO DAILY Procrit 20,000 unit/2 mL Solution 20,000 unit SUBCUT FR Senna Plus 8.6-50 mg Capsule 2 tab-cap PO QAM
[2023-03-30] MEDS: Ketorolac Tromethamine 15 MG/ML VIAL IVPUSH (15:29)
[2023-03-30] MEDS: ondansetron HCL 4 MG/2 ML VIAL IVPUSH (15:29)
[2023-03-30 16:03] VITALS: BP 242/110; PULSE 82; RESP 12; TEMP 36.9; O2SAT 96
[2023-03-30] MEDS: hydrALAZINE HCl 50 MG TABLET 100 MG PO (16:48)
--- NOTE | 2023-03-30 16:50 | PC.NURSE ---
Addendum entered by Kat Hoover 03/30/23 18:36: left sided weakness noted, MD aware. grasps uneven, and some drift noted on left sided. Nuros otherwise intact, pt alert and oriented, no confusion noted Original Note: hurst of hypertension SBP >200, DBP >100. hydralazine given per OCT will recheck
[2023-03-30 17:25] LABS: INTERNATIONAL NORM RATIO 0.8 (0.9-1.1); Prothrombin Time 9.8 SEC (11.1-13.3)
[2023-03-30 17:28] LABS: Partial Thromboplastin Time 28.7 SEC (26.0-36.4)
--- NOTE | 2023-03-30 17:49 | PC.NURSE ---
pt pulled out IV, two attempts made to obtain repeat troponin. Pt is frustrated with needle sticks and says she does not want any more but is otherwise compliant and non-combative.
--- NOTE | 2023-03-30 18:27 | PC.NURSE ---
pt is very difficult stick, two nurses and techs have tried to obtain repeat trop
[2023-03-30 18:34] VITALS: BP 160/78; PULSE 83; RESP 15; O2SAT 99
--- NOTE | 2023-03-30 18:35 | PC.NURSE ---
pt refused repeat troponin repeat BP 160/78
--- NOTE | 2023-03-30 18:59 | PC.NURSE ---
Counseling Director organizing transport back to [facility] care
[2023-03-30] MEDS: Ondansetron ODT 4 MG TAB.RAPDIS TRANSLINGU (19:37)
--- NOTE | 2023-03-30 19:38 | PC.NURSE ---
during EMS berry picker pt vomited on the floor, brown emesis, appox 50-100ml. MD aware, sublingual zofran given. MD comfortable discharging pt.
== END 2023-03-30 19:51 | disposition home or self-care (01) ==
PROVIDERS: Physician Assistant Medical; Emergency Provider Emergency Medicine Emergency Medical Services; PCP Family Medicine
DX: R41.82 Altered mental status, unspecified (principal); R53.1 Weakness; Z20.822 Contact with and (suspected) exposure to COVID-19; E11.22 Type 2 diabetes mellitus with diabetic chronic kidney disease; I13.0 Hypertensive heart and chronic kidney disease with heart failure and stage 1 through stage 4 chronic kidney disease, or unspecified chronic kidney disease; N18.30 Chronic kidney disease, stage 3 unspecified; I50.9 Heart failure, unspecified; Z87.891 Personal history of nicotine dependence
CPT/HCPCS: 36415; 51701; 80053; 83735; 84484; 85025; 85610; 85730; 87635; 93005; 96374; 96375; 99284; J1885; J2405

== ENCOUNTER 2023-06-23 17:19 | Emergency (ER) | payer MEDICARE, MEDICAID, SELFPAY ==
--- NOTE | ~2023-06-23 | CT_ITS ---
EXAMINATION: CT HEAD WITHOUT CONTRAST CT CERVICAL SPINE WITHOUT CONTRAST CLINICAL INFORMATION: Fall. COMPARISON: CT head and cervical spine 01/25/2023. TECHNIQUE: Contiguous axial imaging was performed from the skull base to vertex without intravenous administration of contrast. Contiguous axial imaging was performed from the upper chest through the skull base without intravenous administration of contrast. Coronal and sagittal reformats were obtained at the acquisition workstation. This CT examination was performed using dose optimization techniques as appropriate, variously including the following: *Automated exposure control *Adjustment of mA and/or kV according to patient size (this includes techniques or standardized protocols for targeted exams where dose is matched to indication/reason for exam; i.e. extremities or head) *Use of iterative reconstruction technique DLP: 647 and 240 mGy-cm FINDINGS: Head: Encephalomalacia/gliosis in the right frontal lobe. Multiple chronic lacunar infarcts in the bilateral basal ganglia. There is no evidence of acute intracranial hemorrhage or edematous territorial infarction. Confluent hypoattenuation in the periventricular and deep white matter. Proportional prominence of the ventricles and sulcal spaces. No evidence for obstructive hydrocephalus. No abnormal mass effect or midline shift. No extra-axial fluid collections. Left high parietal scalp hematoma. No displaced calvarial fracture. The mastoid air cells and paranasal sinuses are clear. Cervical Spine: Unchanged mild superior endplate deformity at C7. The atlantooccipital and atlantoaxial articulations remain well aligned. Straightening of the normal cervical lordosis. Unchanged trace anterolisthesis of C5 on C6. Otherwise, there is anatomic alignment of the vertebral bodies and posterior elements. No evidence of acute fracture or subluxation. Moderate degree of multilevel intervertebral disc height loss, osteophyte complexes and facet/uncal hypertrophy leading to various degrees of neural foraminal encroachment. There is no prevertebral soft tissue swelling. The thyroid gland and remaining cervical soft tissues are normal in appearance. The lung apices demonstrate no abnormalities. CT/CT cervical spine wo IV con IMPRESSION: 1. Left high parietal scalp hematoma without acute intracranial abnormalities. 2. Encephalomalacia/gliosis in the right frontal lobe. 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 3. No acute cervical fractures or malalignment. 4. Unchanged mild superior endplate compression deformity at C7. 5. Moderate multilevel cervical spondylosis.
[2023-06-23 17:30] VITALS: BP 140/96; PULSE 64; O2SAT 98; BMI 22.9
[2023-06-23 17:37] VITALS: BP 189/77; PULSE 64; RESP 16; TEMP 36.6; O2SAT 96
--- NOTE | 2023-06-23 17:40 | PC.NURSE ---
a&ox3, vss aside from being hypertensive at this time. pt perri d/t fall at [facility] within the last hour. pt states that she was ambulating from bathroom to living room when she felt weak and fell. posterior headstrike. hematoma noted. no signs of bleeding at this time. pt in c-collar by ems - ems placed towel around pt's neck d/t neck not fitting properly in brace. pt c/o 03/22 headache. denies dizziness/lightheadedness/n/v at this time. pt incontinent of urine. this RN and isela tsang changed pt into hospital attire/cleaned/provided pt w/ clean sheets & placed purewick. pt positioned in high-fowlers position. respirations even and unlabored. call wilks placed within reach.
[2023-06-23 18:44] VITALS: BP 175/73
[2023-06-23 18:51] LABS: Appearance Urine Clear; Color Urine Yellow; Glucose Urine UA Negative (Negative); Leukocyte Esterase Urine Moderate (2+) (Negative); Nitrite Urine Negative (Negative); PH 6.5 (5.0-9.0); UMIC TRIGGER UACC YES; Urine Blood Negative (Negative); Urine Ketones Negative (Negative); Urine Protein 300 (3+) mg/dL (Neg-Trace)
[2023-06-23 18:54] LABS: Bacteria Urine 3+ (None Seen); Hyaline Casts Urine 0-2 /LPF (0-2); RBC Urine 0-2 /HPF (0-2); Squamous Epithelial Cell Urine 0-2 /HPF (0-2); UACC Culture Trigger YES
--- NOTE | 2023-06-23 19:07 | ECG_ITS ---
Test Reason : FALL Blood Pressure : / mmHG Vent. Rate : 058 BPM Atrial Rate : 058 BPM P-R Int : 184 ms QRS Dur : 110 ms QT Int : 478 ms P-R-T Axes : 017 -20 129 degrees QTc Int : [address] elevation in Inferior leads Left ventricular hypertrophy with repolarization abnormality ( R in aVL , Toy product ) Inferior infarct (cited on or before 25-JAN-2023) ACUTE IA / STEMI Consider right ventricular involvement in acute inferior infarct Abnormal ECG When compared with ECG of 30-MAR-2023 14:45, ST elevation now present in Anterior leads Referred By: Nellie Machado Electronically Signed By:SIMBA WEEMS MD
--- NOTE | 2023-06-23 19:41 | MHC.EDTECH ---
EKG at 1922 stated acute DE/STEMI. Dr. Machado looked at previous EKG's and stated that it is not an accurate comment on the EKG and that there is no sig change from the EKG in march 2023.
--- NOTE | 2023-06-23 19:43 | PC.NURSE ---
isela tsang obtained ekg displaying acute VA/stemi. this RN aware. dr. ward notified about results.dr. ward states that the results are consistent/no significant change as previous ekg in march.
[2023-06-23 19:56] LABS: MANUAL DIFF FLAG NO
--- NOTE | 2023-06-23 19:56 | ED.FALL ---
HPI - Fall General Chief Complaint: Fall Stated Complaint: fall, with headstrike Time Seen by Provider: 06/23/23 18:40 Source: patient Mode of arrival: EMS History of Present Illness HPI Narrative: 83-year-old female who presents via EMS from [facility] after a fall 1 hour ago. Patient states that she was getting up to use the restroom when her legs became weak and she fell striking the back of her head on the floor she denies any loss of consciousness and denies any use of blood thinners. Patient denies any shortness of breath or chest pain, she denies any nausea, vomiting, abdominal discomfort and denies any dysuria. Related Data Home Medications Medication Instructions Recorded Confirmed acetaminophen 325 mg tablet 975 mg PO Q8H 01/25/23 03/04/23 atorvastatin 20 mg tablet 20 mg PO BEDTIME 01/25/23 03/04/23 bisacodyl 10 mg rectal suppository [address] DAILY PRN Constipation 01/25/23 03/04/23 clonidine HCl 0.2 mg tablet 0.2 mg PO TID 01/25/23 03/04/23 epoetin paul 20,000 unit/2 mL 20,000 unit subcut FR 01/25/23 03/04/23 injection solution (Procrit) escitalopram oxalate 10 mg tablet 10 mg PO DAILY 01/25/23 03/04/23 furosemide 40 mg tablet 40 mg PO BID 01/25/23 03/04/23 hydralazine 100 mg tablet 100 mg PO TID 01/25/23 03/04/23 ipratropium 18 mcg-albuterol 103 1 spray inhalation Q6H PRN Wheezing 01/25/23 03/04/23 mcg/actuation aerosol inhaler melatonin 3 mg tablet 3 mg PO BEDTIME 01/25/23 03/04/23 nifedipine 60 mg tablet,extended 60 mg PO BID 01/25/23 03/04/23 release oxycodone 5 mg capsule 5 mg PO Q6H PRN Pain 01/25/23 03/04/23 polyethylene glycol 3350 17 gram 17 g PO BID 01/25/23 03/04/23 oral powder packet (Miralax) sennosides 8.6 mg-docusate sodium 2 tab-cap PO QAM 01/25/23 03/04/23 50 mg capsule (Senna Plus) sevelamer HCl 800 mg tablet 800 mg PO BID 01/25/23 03/04/23 sodium bicarbonate 650 mg tablet 650 mg PO TID 01/25/23 03/04/23 aspirin 81 mg chewable tablet 81 mg PO DAILY 03/04/23 03/04/23 docusate sodium 100 mg capsule 100 mg PO BEDTIME 03/04/23 03/04/23 nitroglycerin 0.4 mg sublingual 0.4 mg sublingual Q5M PRN Chest 03/04/23 03/04/23 tablet Pain ondansetron 4 mg disintegrating 4 mg PO Q6H PRN Nausea And Vomiting 03/04/23 03/04/23 tablet oxycodone 5 mg tablet 5 mg PO BID 03/04/23 03/04/23 sodium phosphates 19 gram-[address] DAILY PRN Constipation 03/04/23 03/04/23 gram/118 mL enema (Fleet Enema) Allergies Allergy/AdvReac Type Severity Reaction Status Date / Time No Known Allergies Allergy Verified 06/23/23 17:29 Review of Systems Review of Systems: Pertinent positives and negatives as stated in [facility] Past Medical History Source: nursing notes reviewed Medical History Heart failure Anxiety Alzheimer's dementia CAD (coronary artery disease) Diabetes CKD (chronic kidney disease) stage 3, GFR 30-59 ml/min Hypertension Social History Social History Household Members: None Housing: Apartment Do you presently have visiting nurse or other home services: No Alcohol intake: never Patient Tobacco Use Status: Former Tobacco user Smoked in Last 30 Days: No Use of substances other than those prescribed or required for medical reasons: No Advance Directives: Yes Advance Directives on File: Yes Advance Directives Date on File: 12/11/22 service: No Physical Exam Vital Signs: Vital Signs: Last Vital Signs Temp 98.5 F 06/24/23 00:27 Pulse 61 06/24/23 00:27 Resp 12 06/24/23 00:27 BP 209/79 H 06/24/23 00:27 Pulse Ox 98 06/24/23 00:27 O2 Del Method Room Air 06/24/23 00:27 BMI result Body Mass Index 22.9 VITAL SIGNS: Reviewed. GENERAL: Well developed, well nourished, in no acute distress. HEAD: Normocephalic/atraumatic EYES: PERRLA, EOMI EARS: Ext canals without abnormality NOSE: Nares patent bilateral OROPHARYNX: no oral lesions noted, posterior pharynx clear NECK: Supple, no adenopathy LUNGS: Normal breath sounds. No adventitious sounds or accessory muscle use. SpO2<98> CARDIOVASCULAR: Regular rate and rhythm without noted murmurs ABDOMEN: Soft, non-tender, non-distended with bowel sounds. MUSCULOSKELETAL: No tenderness, deformities, or effusions noted on gross inspection. EXTREMITIES: No cyanosis, clubbing or edema. SKIN: Inspection of the skin reveals no rashes NEUROLOGIC: Alert and oriented x 4. Strength and sensation to light touch were grossly intact x 4. Medications Administered Discontinued Medications Generic Name Dose Route Start Last Admin Trade Name Freq PRN Reason Stop Dose Admin Sodium Chloride 500 mls @ 999 mls/hr 06/23/23 23:30 06/24/23 00:21 Ns IV 06/24/23 00:00 Infused .Q31M SHIRLEY Infusion Medical Decision Making Medical Decision Making [facility] Narrative: 83-year-old female with history and clinical presentation, DDX: Rule out head and cervical spine injuries, evaluate for infection/anemia/electrolyte abnormalities as possible causes for patient's fall. I reviewed all investigations and hematologic indices are negative for leukocytosis and there is a chronic left shift, there is no anemia or thrombocytopenia. Coagulation studies are within normal limits. Chemistry indices do not show MIA and metabolic acidosis is likely secondary to renal function. Electrolyte and liver enzyme values are without derangement, high sensitivity troponin is elevated and serial value has risen but does not exceed the 50% value in suspect that this is a component of patient's renal function. There were no acute changes on EKG patient has no complaints of chest pain. CT scan of the head demonstrates scalp hematoma but otherwise no acute intracranial pathology and cervical spine negative for fractures or subluxations. Patient received 500 cc of IV fluids and patient received 5 mg of hydralazine for elevated blood pressure likely secondary to the fluids that she received. She is otherwise hemodynamically stable and will be discharged. Differential Diagnosis Differential Diagnoses: The differential diagnosis associated with the presentation includes Please see the discussion above Admission/Observation Consideration of admission/observation: Escalation of care including admission/observation considered Please see the discussion above Lab Data MDM Lab Attestation statement: I reviewed the patient's lab results. Please see the discussion above 06/23/23 19:53 06/23/23 19:53 Labs: Lab Results 06/23/23 06/23/23 06/23/23 Range/Units 18:44 19:53 21:51 WBC 8.9 (4.8-10.8) X10*3/uL RBC 4.09 L (4.20-5.50) X10*6/uL Hgb 12.4 (12.0-16.0) g/dl Hct 38.1 (37.0-47.0) % MCV 93.2 (80.0-98.0) fL MCH 30.3 (27.0-33.0) pg MCHC 32.5 (31.0-35.0) g/dl RDW 16.5 H (11.0-16.0) % Plt Count 390 (160-400) X10*3/uL MPV 8.8 L (9.4-12.3) fL Immature Gran % (Auto) 0.2 (0.0-0.4) % Neut % (Auto) 73.6 H (45-73) % Lymph % (Auto) 18.7 L (20-40) % Angelina % (Auto) 4.2 (2-11) % Eos % (Auto) 2.7 (0-4) % Baso % (Auto) 0.6 (0-2) % Lymph # (Auto) 1.7 (1.2-4.9) X10*3/uL Angelina # (Auto) 0.4 (0.1-1.2) X10*3/uL Eos # (Auto) 0.2 (0.0-0.4) X10*3/uL Baso # (Auto) 0.1 (0.0-0.2) X10*3/uL Abs Immat Gran (auto) 0.02 (0.00-0.03) X10*3/uL Absolute Neuts (auto) 6.5 (2.0-8.3) x10*3/uL Absolute Nucleated RBC 0.000 (0.0-0.012) X10*3/uL Nucleated RBC % (auto) 0.0 (0.0-0.2) /100WBC PT 10.5 L (11.1-13.3) SEC INR 0.9 (0.9-1.1) Sodium 136 (135-145) mmol/L Potassium 4.4 (3.3-5.1) mmol/L Chloride 107 (96-108) mmol/L Carbon Dioxide 15 L (22-29) mmol/L Anion Gap 18 (12-20) BUN 76 H (9-16) mg/dL Creatinine 3.30 H (0.5-1.4) mg/dL Estim Creat Clear Calc 10.8 Estimated GFR 13 Random Glucose 95 (60-115) mg/dL Calcium 8.8 D (8.4-10.2) mg/dL Total Bilirubin 0.3 (0.0-1.0) mg/dL AST 11 (5-31) U/L ALT 8 (0-31) U/L Alkaline Phosphatase 45 (39-117) U/L Troponin I High Sens 45.5 H D 51.7 H* (<3.5-17.0) ng/L Total Protein 6.7 (6.5-8.0) g/dL Albumin 3.5 (3.5-5.0) g/dL Urine Color Yellow Urine Appearance Clear Urine pH 6.5 (5.0-9.0) Ur Specific [place] 1.010 (1.005-1.025) Urine Protein 300 (3+) H (Neg-Trace) mg/dL Urine Glucose (UA) Negative (Negative) mg/dL Urine Ketones Negative (Negative) mg/dL Urine Blood Negative (Negative) Urine Nitrite Negative (Negative) Ur Leukocyte Esterase Moderate (2+) H (Negative) Urine RBC 0-2 (0-2) /HPF Urine WBC 11-20 H (0-5) /HPF Ur Squamous Epith Cells 0-2 (0-2) /HPF Urine Bacteria 3+ (None Seen) Hyaline Casts 0-2 (0-2) /LPF Independent Interpretation I performed an independent interpretation of an: EKG Interpretation: Sinus bradycardia, HR-58, no STEMI, CT-184, QRS 110 and QTC is within normal limits. EKG is reading as acute STEMI, I have compared this EKG to prior on 03/30/2023 and there are no acute changes and no ST elevations. Radiology Impression Discussion of test interpretation with radiology: I have reviewed the radiologist's reading. Radiologist Impression: Please see the discussion above External Record Review External record reviewed: Outpatient record, Prior outpatient labs and Prior outpatient radiology Chronic Conditions Patient?s care impacted by: Hypertension and Other CKD Critical Care Time Critical Care Time Critical Care Time: Yes Total Critical Care Time: 60 Attestation: I personally attest to this time spent taking care of the patient. Discharge Plan Discharge Clinical Impression: Fall, CKD (chronic kidney disease) Patient Disposition: Home, Self-Care Instructions: Chronic Kidney Disease (ED), Fall Prevention for Older Adults (ED) Additional Instructions: 1. Resume all home medications as prescribed. 2. Follow-up with the primary care doctor on Sunday morning. Return to the ER for any worsening symptoms. Prescriptions: No Action Fleet Enema 19-7 gram/118 mL Enema [address] DAILY PRN (Reason: Constipation) docusate sodium 100 mg Capsule 100 mg PO BEDTIME aspirin 81 mg Tablet,Chewable 81 mg PO DAILY nitroglycerin 0.4 mg Tablet, Sublingual 0.4 mg SUBLINGUAL Q5M PRN (Reason: Chest Pain) Rx Instructions: do not exceed 3 doses per episode ondansetron 4 mg Tablet,Disintegrating 4 mg PO Q6H PRN (Reason: Nausea And Vomiting) oxycodone 5 mg tablet 5 mg PO BID furosemide 40 mg tablet 40 mg PO BID acetaminophen 325 mg Tablet 975 mg PO Q8H atorvastatin 20 mg Tablet 20 mg PO BEDTIME polyethylene glycol 3350 [Miralax] 17 gram Powder In Packet 17 g PO BID sevelamer HCl 800 mg Tablet 800 mg PO BID Rx Instructions: must administer with a meal/food melatonin 3 mg Tablet 3 mg PO BEDTIME clonidine HCl 0.2 mg Tablet 0.2 mg PO TID sodium bicarbonate 650 mg Tablet 650 mg PO TID bisacodyl 10 mg Suppository [address] DAILY PRN (Reason: Constipation) hydralazine 100 mg Tablet 100 mg PO TID oxycodone 5 mg Capsule 5 mg PO Q6H PRN (Reason: Pain) ipratropium-albuterol 18-103 mcg/actuation Aerosol 1 spray INHALATION Q6H PRN (Reason: Wheezing) nifedipine 60 mg Tablet Extended Release 60 mg PO BID escitalopram oxalate 10 mg tablet 10 mg PO DAILY Procrit 20,000 unit/2 mL Solution 20,000 unit SUBCUT FR Senna Plus 8.6-50 mg Capsule 2 tab-cap PO QAM
--- NOTE | 2023-06-23 19:56 | PC.NURSE ---
tech bedside obtaining labs.
--- NOTE | 2023-06-23 19:57 | PC.NURSE ---
pt currently going to CT at this time. will update vitals when pt returns.
[2023-06-23 19:58] LABS: Basophils Absolute Auto 0.1 X10*3/uL (0.0-0.2); Basophils Percent Auto 0.6 % (0-2); Eosinophils Absolute Auto 0.2 X10*3/uL (0.0-0.4); Eosinophils Percent Auto 2.7 % (0-4); Hematocrit 38.1 % (37.0-47.0); Hemoglobin 12.4 g/dl (12.0-16.0); Imm Gran Abs Auto 0.02 X10*3/uL (0.00-0.03); Imm Gran Pct Auto 0.2 % (0.0-0.4); Lymphocytes Absolute Auto 1.7 X10*3/uL (1.2-4.9); Lymphocytes Percent Auto 18.7 % (20-40); Mean Corpuscular HGB Conc 32.5 g/dl (31.0-35.0); Mean Corpuscular Hemoglobin 30.3 pg (27.0-33.0); Mean Corpuscular Volume 93.2 fL (80.0-98.0); Mean Platelet Volume 8.8 fL (9.4-12.3); Monocytes Absolute Auto 0.4 X10*3/uL (0.1-1.2); Monocytes Percent Auto 4.2 % (2-11); Neutrophils Absolute Auto 6.5 x10*3/uL (2.0-8.3); Neutrophils Percent Auto 73.6 % (45-73); Platelet Count 390 X10*3/uL (160-400); Red Blood Count 4.09 X10*6/uL (4.20-5.50); Red Cell Distribution Width 16.5 % (11.0-16.0); White Blood Count 8.9 X10*3/uL (4.8-10.8)
[2023-06-23 20:03] LABS: INTERNATIONAL NORM RATIO 0.9 (0.9-1.1); Prothrombin Time 10.5 SEC (11.1-13.3)
[2023-06-23 20:16] LABS: Alanine Aminotransferase 8 U/L (0-31); Albumin Level 3.5 g/dL (3.5-5.0); Alkaline Phosphatase 45 U/L (39-117); Anion Gap 18 (12-20); Aspartate Amino Transferase 11 U/L (5-31); Bilirubin Total 0.3 mg/dL (0.0-1.0); Blood Urea Nitrogen 76 mg/dL (9-16); Calcium 8.8 mg/dL (8.4-10.2); Carbon Dioxide 15 mmol/L (22-29); Chloride 107 mmol/L (96-108); Creatinine Clr Calc Pharmacy 10.8; Estimated Glomerular Filt Rate 13; Glucose Random 95 mg/dL (60-115); Potassium 4.4 mmol/L (3.3-5.1); Sodium 136 mmol/L (135-145); Total Protein 6.7 g/dL (6.5-8.0)
[2023-06-23 20:23] LABS: Troponin-I High Sensitivity 45.5 ng/L (<3.5-17.0)
[2023-06-23 22:26] VITALS: BP 176/75; PULSE 60; RESP 12; TEMP 36.7; O2SAT 98
[2023-06-23 22:37] LABS: Troponin-I High Sensitivity 51.7 ng/L (<3.5-17.0)
--- NOTE | 2023-06-23 23:22 | PC.NURSE ---
hospitalist in with pt
[2023-06-23] MEDS: 0.9 % Sodium Chloride 500 ML 999 ML IV (23:45)
--- NOTE | 2023-06-23 23:46 | PC.NURSE ---
pt assessed, iv established, medicated per MAR, will cont to monitor
[2023-06-24 00:27] VITALS: BP 209/79; PULSE 61; RESP 12; TEMP 36.9; O2SAT 98
--- NOTE | 2023-06-24 00:38 | MHC.EDTECH ---
call out to servando at 0038 to book transport for pt back to [facility], estimated eta given was 0200
[2023-06-24] MEDS: hydrALAZINE HCl 20 MG/ML VIAL 5 MG IVPUSH (00:53)
[2023-06-24 00:54] VITALS: BP 204/78; PULSE 62; RESP 11; O2SAT 97
--- NOTE | 2023-06-24 01:06 | PC.NURSE ---
pt assessed, hypertensive, DrShelley aware, medicated per MAR will cont to monitor
[2023-06-24 01:12] VITALS: BP 184/72; PULSE 64; RESP 12; O2SAT 98
[2023-06-24 01:34] VITALS: BP 205/80; PULSE 64; RESP 12; O2SAT 99
[2023-06-24 01:51] VITALS: BP 181/70; PULSE 64; RESP 12; O2SAT 98
[2023-06-24] MEDS: hydrALAZINE HCl 50 MG TABLET 100 MG PO (01:51)
--- NOTE | 2023-06-24 02:24 | PC.NURSE ---
verbal report given [facility] [facility] prior to d/c
== END 2023-06-24 02:25 | disposition home or self-care (01) ==
PROVIDERS: Emergency Provider Student in an Organized Health Care Education/Training Program
DX: E11.22 Type 2 diabetes mellitus with diabetic chronic kidney disease (principal); I13.0 Hypertensive heart and chronic kidney disease with heart failure and stage 1 through stage 4 chronic kidney disease, or unspecified chronic kidney disease; N18.30 Chronic kidney disease, stage 3 unspecified; I50.9 Heart failure, unspecified; Z91.81 History of falling; G30.9 Alzheimer's disease, unspecified; F02.80 Dementia in other diseases classified elsewhere, unspecified severity, without behavioral disturbance, psychotic disturbance, mood disturbance, and anxiety; Z87.891 Personal history of nicotine dependence; Z86.73 Personal history of transient ischemic attack (TIA), and cerebral infarction without residual deficits; Z79.82 Long term (current) use of aspirin; Z79.899 Other long term (current) drug therapy
CPT/HCPCS: 36415; 70450; 72125; 80053; 81001; 84484; 85025; 85610; 87086; 93005; 96361; 96374; 99284; 99285; J0360

== ENCOUNTER 2023-10-19 12:19 | Emergency (ER) | payer MEDICARE, MEDICAID, SELFPAY ==
--- NOTE | ~2023-10-19 | XR_ITS ---
EXAMINATION: XR CHEST CLINICAL INFORMATION: SOB COMPARISON: None available. TECHNIQUE: Frontal view of the chest was obtained. FINDINGS: The lungs are well-expanded and clear. Heart size and pulmonary vascularity is normal. There is a dialysis catheter with its tip at the atriocaval junction. There is mild to moderate levoscoliosis of dorsal spine. There are several old healed fractures left lateral ribs. XR/XR chest 1V IMPRESSION: 1. No acute cardiopulmonary process seen. 2. Mild to moderate levoscoliosis of dorsal spine.
--- NOTE | 2023-10-19 12:20 | ECG_ITS ---
Test Reason : MISSED DIALYSIS Blood Pressure : / mmHG Vent. Rate : 053 BPM Atrial Rate : 053 BPM P-R Int : 202 ms QRS Dur : 118 ms QT Int : 468 ms P-R-T Axes : 000 -07 137 degrees QTc Int : 439 ms Sinus bradycardia Left ventricular hypertrophy with QRS widening and repolarization abnormality ( R in aVL , Toy product ) Inferior infarct (cited on or before 25-JAN-2023) Anterior infarct , age undetermined Abnormal ECG When compared with ECG of 23-JUN-2023 19:22, No significant changes seen Referred By: aSrah Jean Baptiste Electronically Signed By:Glenn Ames
--- NOTE | 2023-10-19 12:28 | ED.GENADULT ---
HPI - General Adult General Chief complaint: General Medical Stated complaint: MISSED 3 DIALYSIS APPTS DEMENTIA Time Seen by Provider: 10/19/23 12:21 Source: EMS and other (residential paper) Mode of arrival: EMS History of Present Illness HPI narrative: The this is a very pleasant 83 years old female with history of chronic renal insufficiency history of dementia history of anemia the said here by the prison ([facility]) because she missed 3 dialysis. Patient is unable to give me any history because of dementia. I spoke with the nurse at the nursing facility she is been there since Sunday (prior she was at [facility]) she was scheduled for dyalisis Wed she missed because transportation problem and she missed Today as well. Onset (ago): unknown Radiation: non-radiation Severity: mild Exacerbating factors: none Treatments prior to arrival: none Related Data Home Medications Medication Instructions Recorded Confirmed acetaminophen 325 mg tablet 975 mg PO Q8H 01/25/23 03/04/23 atorvastatin 20 mg tablet 20 mg PO BEDTIME 01/25/23 03/04/23 bisacodyl 10 mg rectal suppository 10 mg PA DAILY PRN Constipation 01/25/23 03/04/23 clonidine HCl 0.2 mg tablet 0.2 mg PO TID 01/25/23 03/04/23 epoetin paul 20,000 unit/2 mL 20,000 unit subcut FR 01/25/23 03/04/23 injection solution (Procrit) escitalopram oxalate 10 mg tablet 10 mg PO DAILY 01/25/23 03/04/23 furosemide 40 mg tablet 40 mg PO BID 01/25/23 03/04/23 hydralazine 100 mg tablet 100 mg PO TID 01/25/23 03/04/23 ipratropium 18 mcg-albuterol 103 1 spray inhalation Q6H PRN Wheezing 01/25/23 03/04/23 mcg/actuation aerosol inhaler melatonin 3 mg tablet 3 mg PO BEDTIME 01/25/23 03/04/23 nifedipine 60 mg tablet,extended 60 mg PO BID 01/25/23 03/04/23 release oxycodone 5 mg capsule 5 mg PO Q6H PRN Pain 01/25/23 03/04/23 polyethylene glycol 3350 17 gram 17 g PO BID 01/25/23 03/04/23 oral powder packet (Miralax) sennosides 8.6 mg-docusate sodium 2 tab-cap PO QAM 01/25/23 03/04/23 50 mg capsule (Senna Plus) sevelamer HCl 800 mg tablet 800 mg PO BID 01/25/23 03/04/23 sodium bicarbonate 650 mg tablet 650 mg PO TID 01/25/23 03/04/23 aspirin 81 mg chewable tablet 81 mg PO DAILY 03/04/23 03/04/23 docusate sodium 100 mg capsule 100 mg PO BEDTIME 03/04/23 03/04/23 nitroglycerin 0.4 mg sublingual 0.4 mg sublingual Q5M PRN Chest 03/04/23 03/04/23 tablet Pain ondansetron 4 mg disintegrating 4 mg PO Q6H PRN Nausea And Vomiting 03/04/23 03/04/23 tablet oxycodone 5 mg tablet 5 mg PO BID 03/04/23 03/04/23 sodium phosphates 19 gram-7 118 ml PA DAILY PRN Constipation 03/04/23 03/04/23 gram/118 mL enema (Fleet Enema) Allergies Allergy/AdvReac Type Severity Reaction Status Date / Time No Known Allergies Allergy Verified 10/19/23 12:37 Review of Systems Review of Systems: Yes Unobtainable due to mental status PMFSH Past Medical History Medical History Heart failure Anxiety Alzheimer's dementia CAD (coronary artery disease) Diabetes CKD (chronic kidney disease) stage 3, GFR 30-59 ml/min Hypertension Social History Social History Household Members: None Housing: Apartment Do you presently have visiting nurse or other home services: No Alcohol intake: never Patient Tobacco Use Status: Former Tobacco user Smoked in Last 30 Days: No Use of substances other than those prescribed or required for medical reasons: No Advance Directives: Yes Advance Directives on File: Yes Advance Directives Date on File: 12/11/22 service: No Physical Exam ED Vital Signs: Vital Signs - 24 hr 10/19/23 12:32 10/19/23 12:38 Temperature 97.9 F 97.9 F Pulse Rate 55 55 Respiratory Rate 18 18 Blood Pressure 153/52 H 153/52 H Pulse Oximetry 99 99 Oxygen Delivery Method Room Air Room Air BMI result Body Mass Index 26.9 She looks well she has not toxic-appearing she is not in distress whatsoever Const General: comfortable Nutritional Appearance: average body habitus Orientation/consciousness: Other orientation findings (She is oriented x1 she can tell me that she is in the hospital) [facility] Head: Yes normal to inspection Face and sinus: Yes normal facial exam Neck Neck: Yes normal visual inspection Chest Chest palpation & inspection: normal inspection of the chest Resp Effort & Inspection: normal respiratory effort Auscultation: clear to auscultation bilaterally Cardio Jugular venous distension: no JVD Rate: regular rate Rhythm: regular rhythm GI Inspection: Yes normal to inspection Palpation (GI): not firm and nontender Skin General skin exam: no rashes or lesions noted and elasticity normal Lesions: no lesions Rashes: no rashes Extrem General: Yes normal to inspection Right lower extremity: normal to inspection Left lower extremity: normal to inspection Course Reevaluation(s) Reevaluation #1: Patient is no distress breathing at 18 a minute sat 99% on room air chest x-ray no edema, legs no swelling, potassium 4.4 I discussed the case with the patient nephrology Dr. Kota Harper patient can be dialyzed on Sunday. Time: 15:45 Medical Decision Making Medical Decision Making [facility] Narrative: Patient presented with a chief complaint of missing dialysis x3 days, the plan is to get labs EKG chest x-ray and reassessed Differential Diagnosis Differential Diagnoses: The differential diagnosis associated with the presentation includes Hyperkalemia/pulmonary edema/uremia Admission/Observation Consideration of admission/observation: Escalation of care including admission/observation considered Consult Healthcare Provider d/w renal Dr Kota Harper [phone] patient can be dialyzed on Sunday given the fact that she has a normal potassium, no evidence of edema, clear lungs negative chest x-ray Lab Data [facility] Lab Attestation statement: I reviewed the patient's lab results. 10/19/23 14:02 10/19/23 14:02 Labs: Lab Results 10/19/23 Range/Units 14:02 WBC 8.3 (4.8-10.8) X10*3/uL RBC 3.31 L (4.20-5.50) X10*6/uL Hgb 10.0 L (12.0-16.0) g/dl Hct 31.4 L (37.0-47.0) % MCV 94.9 (80.0-98.0) fL MCH 30.2 (27.0-33.0) pg MCHC 31.8 (31.0-35.0) g/dl RDW 16.3 H (11.0-16.0) % Plt Count 218 D (160-400) X10*3/uL MPV 9.0 L (9.4-12.3) fL Immature Gran % (Auto) 0.2 (0.0-0.4) % Neut % (Auto) 69.2 (45-73) % Lymph % (Auto) 18.0 L (20-40) % Wilkinson % (Auto) 6.9 (2-11) % Eos % (Auto) 5.1 H (0-4) % Baso % (Auto) 0.6 (0-2) % Lymph # (Auto) 1.5 (1.2-4.9) X10*3/uL Wilkinson # (Auto) 0.6 (0.1-1.2) X10*3/uL Eos # (Auto) 0.4 (0.0-0.4) X10*3/uL Baso # (Auto) 0.1 (0.0-0.2) X10*3/uL Abs Immat Gran (auto) 0.02 (0.00-0.03) X10*3/uL Absolute Neuts (auto) 5.7 (2.0-8.3) x10*3/uL Absolute Nucleated RBC 0.000 (0.0-0.012) X10*3/uL Nucleated RBC % (auto) 0.0 (0.0-0.2) /100WBC Sodium 131 L (135-145) mmol/L Potassium 4.4 (3.3-5.1) mmol/L Chloride 99 (96-108) mmol/L Carbon Dioxide 25 (22-29) mmol/L Anion Gap 11 L (12-20) BUN 58 H (9-16) mg/dL Creatinine 4.08 H* (0.5-1.4) mg/dL Estim Creat Clear Calc 8.3 Estimated GFR 10 Random Glucose 84 (60-115) mg/dL Calcium 9.1 (8.4-10.2) mg/dL Magnesium 2.8 H (1.6-2.6) mg/dL Total Bilirubin 0.4 (0.0-1.0) mg/dL AST 9 (5-31) U/L ALT < 5 (0-31) U/L Alkaline Phosphatase 45 (39-117) U/L Total Protein 6.2 L (6.5-8.0) g/dL Albumin 3.2 L (3.5-5.0) g/dL Influenza Type A (PCR) NEGATIVE (Negative) Influenza Type B (PCR) NEGATIVE (Negative) RSV RNA Qual (PCR) NEGATIVE (Negative) SARS-CoV-2 RNA (RT-PCR) NEGATIVE (Negative) Independent Interpretation I performed an independent interpretation of an: EKG Interpretation: Electrocardiogram shows sinus bradycardia with a rate of 53 LVH with strain I compared this EKG with the one of 06/23/2023 (at that time also she was bradycardic with a rate of 58) Radiology Impression Discussion of test interpretation with radiology: I have reviewed the radiologist's reading. Radiologist Impression: None available. TECHNIQUE: Frontal view of the chest was obtained. FINDINGS: The lungs are well-expanded and clear. Heart size and pulmonary vascularity is normal. There is a dialysis catheter with its tip at the atriocaval junction. There is mild to moderate levoscoliosis of dorsal spine. There are several old healed fractures left lateral ribs. XR/XR chest 1V IMPRESSION: 1. No acute cardiopulmonary process seen. 2. Mild to moderate levoscoliosis of dorsal spine. Dictated By: Ash Wills MD Signed By: <Electronically signed by Ash Wills MD in OV> 10/19/23 2747 Independent Historian Review records from the prison External Record Review residential record Chronic Conditions CRF Discharge Plan Discharge Clinical Impression: Renal failure, chronic Qualifiers: Chronic kidney disease stage: stage 4 (severe) Qualified Code(s): N18.4 - Chronic kidney disease, stage 4 (severe) Patient Disposition: [facility] Bed Instructions: Chronic Kidney Disease (ED) Additional Instructions: We spoke with the kidney specialist the dialysis can be done on Sunday make sure you stay on low potassium low-salt diet (renal diet) Prescriptions: No Action Fleet Enema 19-7 gram/118 mL Enema 118 ml PA DAILY PRN (Reason: Constipation) docusate sodium 100 mg Capsule 100 mg PO BEDTIME aspirin 81 mg Tablet,Chewable 81 mg PO DAILY nitroglycerin 0.4 mg Tablet, Sublingual 0.4 mg SUBLINGUAL Q5M PRN (Reason: Chest Pain) Rx Instructions: do not exceed 3 doses per episode ondansetron 4 mg Tablet,Disintegrating 4 mg PO Q6H PRN (Reason: Nausea And Vomiting) oxycodone 5 mg tablet 5 mg PO BID furosemide 40 mg tablet 40 mg PO BID acetaminophen 325 mg Tablet 975 mg PO Q8H atorvastatin 20 mg Tablet 20 mg PO BEDTIME polyethylene glycol 3350 [Miralax] 17 gram Powder In Packet 17 g PO BID sevelamer HCl 800 mg Tablet 800 mg PO BID Rx Instructions: must administer with a meal/food melatonin 3 mg Tablet 3 mg PO BEDTIME clonidine HCl 0.2 mg Tablet 0.2 mg PO TID sodium bicarbonate 650 mg Tablet 650 mg PO TID bisacodyl 10 mg Suppository 10 mg PA DAILY PRN (Reason: Constipation) hydralazine 100 mg Tablet 100 mg PO TID oxycodone 5 mg Capsule 5 mg PO Q6H PRN (Reason: Pain) ipratropium-albuterol 18-103 mcg/actuation Aerosol 1 spray INHALATION Q6H PRN (Reason: Wheezing) nifedipine 60 mg Tablet Extended Release 60 mg PO BID escitalopram oxalate 10 mg tablet 10 mg PO DAILY Procrit 20,000 unit/2 mL Solution 20,000 unit SUBCUT FR Senna Plus 8.6-50 mg Capsule 2 tab-cap PO QAM [facility] Steven Martinez MD [Primary Care Provider] - 5 days
[2023-10-19 12:32] VITALS: BP 124/50; BP 153/52; PULSE 55; RESP 18; TEMP 36.6; O2SAT 99; BMI 26.9
[2023-10-19 12:38] VITALS: BP 153/52; PULSE 55; RESP 18; TEMP 36.6; O2SAT 99
--- NOTE | 2023-10-19 12:39 | PC.NURSE ---
Patient comes to ED from [facility] due to missing dialysis, last date of dialysis is unknown. Patient is asymptomatic. Lung sounds clear throughout, 0 edema noted. vss.
[2023-10-19 14:11] LABS: MANUAL DIFF FLAG NO
[2023-10-19 14:12] LABS: Basophils Absolute Auto 0.1 X10*3/uL (0.0-0.2); Basophils Percent Auto 0.6 % (0-2); Eosinophils Absolute Auto 0.4 X10*3/uL (0.0-0.4); Eosinophils Percent Auto 5.1 % (0-4); Hematocrit 31.4 % (37.0-47.0); Imm Gran Abs Auto 0.02 X10*3/uL (0.00-0.03); Imm Gran Pct Auto 0.2 % (0.0-0.4); Lymphocytes Absolute Auto 1.5 X10*3/uL (1.2-4.9); Mean Corpuscular HGB Conc 31.8 g/dl (31.0-35.0); Mean Corpuscular Hemoglobin 30.2 pg (27.0-33.0); Mean Corpuscular Volume 94.9 fL (80.0-98.0); Monocytes Absolute Auto 0.6 X10*3/uL (0.1-1.2); Monocytes Percent Auto 6.9 % (2-11); Neutrophils Absolute Auto 5.7 x10*3/uL (2.0-8.3); Neutrophils Percent Auto 69.2 % (45-73); Platelet Count 218 X10*3/uL (160-400); Red Blood Count 3.31 X10*6/uL (4.20-5.50); Red Cell Distribution Width 16.3 % (11.0-16.0); White Blood Count 8.3 X10*3/uL (4.8-10.8)
[2023-10-19 14:32] LABS: Alanine Aminotransferase < 5 U/L (0-31); Albumin Level 3.2 g/dL (3.5-5.0); Alkaline Phosphatase 45 U/L (39-117); Anion Gap 11 (12-20); Aspartate Amino Transferase 9 U/L (5-31); Bilirubin Total 0.4 mg/dL (0.0-1.0); Blood Urea Nitrogen 58 mg/dL (9-16); Calcium 9.1 mg/dL (8.4-10.2); Carbon Dioxide 25 mmol/L (22-29); Chloride 99 mmol/L (96-108); Creatinine Clr Calc Pharmacy 8.3; Estimated Glomerular Filt Rate 10; Glucose Random 84 mg/dL (60-115); Magnesium 2.8 mg/dL (1.6-2.6); Potassium 4.4 mmol/L (3.3-5.1); Sodium 131 mmol/L (135-145); Total Protein 6.2 g/dL (6.5-8.0)
--- NOTE | 2023-10-19 14:34 | MHC.CM.ED ---
Received case management consult from Dr Galaviz. Patient came to the ER from [facility] due to missing 3 dialysis appointments at [facility] in [place]. T/W spoke with [facility]. Patient was supposed to start HD at their facility on . But missed due to transportation issues. Patient was also supposed to start HD today. Was cancelled due to transportation issues again. Patient is now scheduled to start HD on Sunday. Kota Harper is patient's popcorn vendor. Spoke with Dolores at [facility]. Chair chandler was booked for Sunday when patient needed BLS. Facility had difficulty arranging transportation. However, Dolores has confirmed BLS transport is booked for Sunday. Dr Galaviz aware and will order labs.
[2023-10-19 14:48] LABS: Influenza A PCR NEGATIVE (Negative); Influenza B PCR NEGATIVE (Negative); Resp Syncy Virus RNA Qual PCR NEGATIVE (Negative); SARS COV2 PCR INHOUSE NEGATIVE (Negative)
[2023-10-19 16:15] VITALS: BP 155/57; PULSE 53; RESP 18; TEMP 37.1; O2SAT 99
--- NOTE | 2023-10-19 16:16 | PC.NURSE ---
Patient alert, respirations even and unlabored, patient reports no pain at this time.
--- NOTE | 2023-10-19 18:33 | PC.NURSE ---
pt return to [facility] via ems. no acute distress at time of transfer
== END 2023-10-19 18:33 | disposition swing bed (61) ==
PROVIDERS: Physician Assistant Medical; Emergency Provider Emergency Medicine; PCP Family Medicine
DX: I12.9 Hypertensive chronic kidney disease with stage 1 through stage 4 chronic kidney disease, or unspecified chronic kidney disease (principal); E11.22 Type 2 diabetes mellitus with diabetic chronic kidney disease; N18.4 Chronic kidney disease, stage 4 (severe); F03.90 Unspecified dementia, unspecified severity, without behavioral disturbance, psychotic disturbance, mood disturbance, and anxiety; Z99.2 Dependence on renal dialysis; Z91.158 Patient's noncompliance with renal dialysis for other reason; Z11.52 Encounter for screening for COVID-19; Z20.828 Contact with and (suspected) exposure to other viral communicable diseases
CPT/HCPCS: 0241U; 36415; 71045; 80053; 83735; 85025; 93005; 99283; 99284

== ENCOUNTER → 2023-10-19 12:20 | Outpatient (BNV) | payer MEDICARE, MEDICAID, SELFPAY | PROVIDERS: Emergency Provider Emergency Medicine; PCP Family Medicine; Visit Provider Internal Medicine Cardiovascular Disease | DX: R94.31 Abnormal electrocardiogram [ECG] [EKG] (principal) | CPT/HCPCS: 93010 ==

== ENCOUNTER 2024-01-26 00:33 | Emergency (ER) | payer MEDICARE, MEDICAID, SELFPAY ==
[2024-01-26] VITALS (8 sets, daily range): BP systolic 145–176; BP diastolic 48–60; PULSE 54–66; RESP 14–18; TEMP 36.4–36.7; O2SAT 94–100; BMI 28.6
--- NOTE | 2024-01-26 | ECG_ITS ---
Test Reason : CP Blood Pressure : / mmHG Vent. Rate : 060 BPM Atrial Rate : 060 BPM P-R Int : 218 ms QRS Dur : 128 ms QT Int : 464 ms P-R-T Axes : 052 010 136 degrees QTc Int : 464 ms Sinus rhythm with sinus arrhythmia with 1st degree A-V block Possible Left atrial enlargement Left ventricular hypertrophy with QRS widening and repolarization abnormality ( R in aVL , [place] product ) Inferior infarct (cited on or before 25-JAN-2023) Cannot rule out Anterior infarct (cited on or before 19-OCT-2023) Abnormal ECG When compared with ECG of 26-JAN-2024 01:16, T wave inversion less evident in Lateral leads Referred By: Mary Powers Electronically Signed By:MIKHAIL CHATTERJEE
--- NOTE | ~2024-01-26 | XR_ITS ---
EXAMINATION: XR CHEST CLINICAL INFORMATION: Renal failure. COMPARISON: 10/19/2023 TECHNIQUE: Frontal view of the chest was obtained. FINDINGS: The lung volumes are low. The cardiomediastinal silhouette is stable. There is no focal lung consolidation or pleural effusion. A dual-lumen central catheter is again noted in place, stable in position. The bony structures and soft tissues are unremarkable. XR/XR chest 1V IMPRESSION: Low lung volumes, otherwise no acute cardiopulmonary process.
--- NOTE | 2024-01-26 00:58 | ED_ITS ---
HPI - General Adult General Chief complaint: General Medical Stated complaint: missed dialysis Time Seen by Provider: 01/26/24 00:58 Mode of arrival: EMS Limitations: no limitations History of Present Illness ED Provider: [place] AN narrative: Patient 83 years old with history of Dementia hypertension diabetes CKD stage 4 on dialysis missed dialysis today this is since 12/04/Sunday/Sunday at this time complaining of weakness and tired patient . Patient goes to [facility] Related Data Home Medications ?Medication ?Instructions ?Recorded ?Confirmed acetaminophen 325 mg tablet 975 mg PO Q8H 01/25/23 03/04/23 atorvastatin 20 mg tablet 20 mg PO BEDTIME 01/25/23 03/04/23 bisacodyl 10 mg rectal suppository 10 mg PA DAILY PRN Constipation 01/25/23 03/04/23 clonidine HCl 0.2 mg tablet 0.2 mg PO TID 01/25/23 03/04/23 epoetin paul 20,000 unit/2 mL 20,000 unit subcut FR 01/25/23 03/04/23 injection solution (Procrit) escitalopram oxalate 10 mg tablet 10 mg PO DAILY 01/25/23 03/04/23 furosemide 40 mg tablet 40 mg PO BID 01/25/23 03/04/23 hydralazine 100 mg tablet 100 mg PO TID 01/25/23 03/04/23 ipratropium 18 mcg-albuterol 103 1 spray inhalation Q6H PRN Wheezing 01/25/23 03/04/23 mcg/actuation aerosol inhaler melatonin 3 mg tablet 3 mg PO BEDTIME 01/25/23 03/04/23 nifedipine 60 mg tablet,extended 60 mg PO BID 01/25/23 03/04/23 release oxycodone 5 mg capsule 5 mg PO Q6H PRN Pain 01/25/23 03/04/23 polyethylene glycol 3350 17 gram 17 g PO BID 01/25/23 03/04/23 oral powder packet (Miralax) sennosides 8.6 mg-docusate sodium 2 tab-cap PO QAM 01/25/23 03/04/23 50 mg capsule (Senna Plus) sevelamer HCl 800 mg tablet 800 mg PO BID 01/25/23 03/04/23 sodium bicarbonate 650 mg tablet 650 mg PO TID 01/25/23 03/04/23 aspirin 81 mg chewable tablet 81 mg PO DAILY 03/04/23 03/04/23 docusate sodium 100 mg capsule 100 mg PO BEDTIME 03/04/23 03/04/23 nitroglycerin 0.4 mg sublingual 0.4 mg sublingual Q5M PRN Chest 03/04/23 03/04/23 tablet Pain ondansetron 4 mg disintegrating 4 mg PO Q6H PRN Nausea And Vomiting 03/04/23 03/04/23 tablet oxycodone 5 mg tablet 5 mg PO BID 03/04/23 03/04/23 sodium phosphates 19 gram-7 118 ml PA DAILY PRN Constipation 03/04/23 03/04/23 gram/118 mL enema (Fleet Enema) Allergies Allergy/AdvReac Type Severity Reaction Status Date / Time No Known Allergies Allergy Verified 01/26/24 00:46 Review of Systems Review of Systems: Yes all other systems are reviewed and are negative [facility] Past Medical History Medical History Heart failure Anxiety Alzheimer's dementia CAD (coronary artery disease) Diabetes CKD (chronic kidney disease) stage 3, GFR 30-59 ml/min Hypertension Social History Social History Household Members: None Housing: Apartment Do you presently have visiting nurse or other home services: No Alcohol intake: never Patient Tobacco Use Status: Former Tobacco user Advance Directives: Yes Advance Directives on File: Yes Advance Directives Date on File: 12/11/22 service: No Physical Exam ED Vital Signs: Vital Signs - 24 hr 01/26/24 00:39 Temperature 98.0 F Pulse Rate 59 Respiratory Rate 16 Pulse Oximetry 97 Oxygen Delivery Method Room Air BMI result Body Mass Index 28.6 Appearance: Alert. Oriented X3. No acute distress. Eyes: PERRLA, No Nystagmus ENT: Pharynx normal. Oral Mucosa dry Neck: Normal inspection. Neck supple. CVS: Normal heart rate and rhythm. Pulses normal. Respiratory: No respiratory distress. Equal air entry bilateral, no wheezing/rales/rhonchi Abdomen: Soft and nontender. Bowel sounds are present, no mass palpable, no CVA tenderness Skin: Skin warm and dry. Normal skin color. Normal skin turgor. Extremities: No lower extremity edema. No calf tenderness AV fistula left arm bruit+ Neuro: Oriented X 3. No motor deficit. No sensory deficit.No cerebellar signs , cranial nerves II-XII intact Medical Decision Making Medical Decision Making [facility] Narrative: Patient on dialysis missed her dialysis feeling tired and weak will check the labs next dialysis source 2 days from now Sunday depending on the labs will decide patient whether need dialysis during this week and out to Dr. Powers Discharge Plan Discharge Clinical Impression: End stage chronic kidney disease Patient Disposition: Still a Patient Prescriptions: No Action Fleet Enema 19-7 gram/118 mL Enema 118 ml PA DAILY PRN (Reason: Constipation) docusate sodium 100 mg Capsule 100 mg PO BEDTIME aspirin 81 mg Tablet,Chewable 81 mg PO DAILY nitroglycerin 0.4 mg Tablet, Sublingual 0.4 mg SUBLINGUAL Q5M PRN (Reason: Chest Pain) Rx Instructions: do not exceed 3 doses per episode ondansetron 4 mg Tablet,Disintegrating 4 mg PO Q6H PRN (Reason: Nausea And Vomiting) oxycodone 5 mg tablet 5 mg PO BID furosemide 40 mg tablet 40 mg PO BID acetaminophen 325 mg Tablet 975 mg PO Q8H atorvastatin 20 mg Tablet 20 mg PO BEDTIME polyethylene glycol 3350 [Miralax] 17 gram Powder In Packet 17 g PO BID sevelamer HCl 800 mg Tablet 800 mg PO BID Rx Instructions: must administer with a meal/food melatonin 3 mg Tablet 3 mg PO BEDTIME clonidine HCl 0.2 mg Tablet 0.2 mg PO TID sodium bicarbonate 650 mg Tablet 650 mg PO TID bisacodyl 10 mg Suppository 10 mg PA DAILY PRN (Reason: Constipation) hydralazine 100 mg Tablet 100 mg PO TID oxycodone 5 mg Capsule 5 mg PO Q6H PRN (Reason: Pain) ipratropium-albuterol 18-103 mcg/actuation Aerosol 1 spray INHALATION Q6H PRN (Reason: Wheezing) nifedipine 60 mg Tablet Extended Release 60 mg PO BID escitalopram oxalate 10 mg tablet 10 mg PO DAILY Procrit 20,000 unit/2 mL Solution 20,000 unit SUBCUT FR Senna Plus 8.6-50 mg Capsule 2 tab-cap PO QAM Print Language: Monegasque
--- NOTE | 2024-01-26 01:08 | ECG_ITS ---
Test Reason : RENAL FAILER Blood Pressure : / mmHG Vent. Rate : 057 BPM Atrial Rate : 057 BPM P-R Int : 224 ms QRS Dur : 122 ms QT Int : 462 ms P-R-T Axes : 045 -02 131 degrees QTc Int : 449 ms Sinus bradycardia with 1st degree A-V block Left ventricular hypertrophy with QRS widening and repolarization abnormality ( R in aVL , [place] product ) Inferior infarct (cited on or before 25-JAN-2023) Anterior infarct (cited on or before 23-JUN-2023) Abnormal ECG When compared with ECG of 19-OCT-2023 13:03, No significant change was found Referred By: Archie Elizabeth Electronically Signed By:MIKHAIL CHTATERJEE
--- NOTE | 2024-01-26 01:25 | MHC.EDTECH ---
Patient came via ambulance,changed into hospital attire,placed on the air sampling and monitoring,vitals taken and EKG taken per order and signed by provider. Pure-wick placed to keep patient clean and dry,patient tolerated well,call wilks in reach
[2024-01-26 01:30] LABS: Basophils Absolute Auto 0.1 X10*3/uL (0.0-0.2); Basophils Percent Auto 0.8 % (0-2); Eosinophils Absolute Auto 0.6 X10*3/uL (0.0-0.4); Eosinophils Percent Auto 10.1 % (0-4); Hemoglobin 10.3 g/dl (12.0-16.0); Imm Gran Abs Auto 0.02 X10*3/uL (0.00-0.03); Imm Gran Pct Auto 0.3 % (0.0-0.4); Lymphocytes Absolute Auto 1.5 X10*3/uL (1.2-4.9); Lymphocytes Percent Auto 23.5 % (20-40); MANUAL DIFF FLAG NO; Mean Corpuscular HGB Conc 33.2 g/dl (31.0-35.0); Mean Corpuscular Volume 96.3 fL (80.0-98.0); Mean Platelet Volume 9.4 fL (9.4-12.3); Monocytes Absolute Auto 0.8 X10*3/uL (0.1-1.2); Monocytes Percent Auto 12.1 % (2-11); NRBC Pct Auto 0.3 /100WBC (0.0-0.2); Neutrophils Absolute Auto 3.3 x10*3/uL (2.0-8.3); Neutrophils Percent Auto 53.2 % (45-73); PLT CLUMP 1; Red Blood Count 3.22 X10*6/uL (4.20-5.50); Red Cell Distribution Width 13.4 % (11.0-16.0); SCAN SMEAR FLAG 1; White Blood Count 6.2 X10*3/uL (4.8-10.8)
[2024-01-26 01:45] LABS: Platelet Count 315 X10*3/uL (160-400)
[2024-01-26 02:17] LABS: Alanine Aminotransferase 6 U/L (0-31); Albumin Level 3.3 g/dL (3.5-5.0); Alkaline Phosphatase 47 U/L (39-117); Anion Gap 23 (12-20); Aspartate Amino Transferase 20 U/L (5-31); Bilirubin Total 0.3 mg/dL (0.0-1.0); Blood Urea Nitrogen 77 mg/dL (9-16); Calcium 9.4 mg/dL (8.4-10.2); Carbon Dioxide 16 mmol/L (22-29); Chloride 107 mmol/L (96-108); Creatinine Clr Calc Pharmacy 7.7; Estimated Glomerular Filt Rate 9; Glucose Random 74 mg/dL (60-115); Sodium 140 mmol/L (135-145); Total Protein 6.9 g/dL (6.5-8.0)
[2024-01-26] MEDS: Calcium Gluconate/NaCl,Iso-Osm 2 GM/100 ML PLAST..BAG IV (02:44)
[2024-01-26] MEDS: Dextrose 25 % 2.5 GM/10 ML SYRINGE IVPUSH (02:45)
[2024-01-26] MEDS: Albuterol Sulfate (0.083%) 2.5 MG/3 ML VIAL.NEB 10 MG INHALE (02:46)
[2024-01-26] MEDS: Insulin Regular, Human 100 UNIT/ML 10 ML VIAL IVPUSH (02:47)
[2024-01-26 03:54] LABS: Glucose, Whole Blood 36 mg/dL (60-115)
--- NOTE | 2024-01-26 03:59 | MHC.EDTECH ---
Patient's blood sugar is 36,RN and MD aware, patient was given two cups of orange juice,RN at bedside
--- NOTE | 2024-01-26 04:03 | PC.NURSE ---
let provider know about blood sugar and overrode dextrose. Pt also had zofran for nausea and orange juice
[2024-01-26] MEDS: ondansetron HCL 4 MG/2 ML VIAL IVPUSH (04:07)
--- NOTE | 2024-01-26 04:12 | MHC.EDTECH ---
POC taken and is 66,RN aware at bedside,repeat labs drawn and sent to lab.
--- NOTE | 2024-01-26 04:12 | PC.NURSE ---
sugar 66 after dextrose IV push. orange juice given. Will recheck POC
[2024-01-26 04:17] LABS: Glucose, Whole Blood 66 mg/dL (60-115)
--- NOTE | 2024-01-26 04:22 | MHC.EDTECH ---
EKG taken per order and signed by provider,patient was given 2 cups of orange juice
[2024-01-26 04:31] LABS: Anion Gap 24 (12-20); Blood Urea Nitrogen 75 mg/dL (9-16); Calcium 10.1 mg/dL (8.4-10.2); Carbon Dioxide 14 mmol/L (22-29); Chloride 104 mmol/L (96-108); Creatinine Clr Calc Pharmacy 7.7; Estimated Glomerular Filt Rate 9; Glucose Random 64 mg/dL (60-115); Potassium 4.9 mmol/L (3.3-5.1); Sodium 137 mmol/L (135-145)
[2024-01-26] MEDS: Acetaminophen 325 MG TABLET 975 MG PO (04:33)
[2024-01-26 04:42] LABS: Glucose, Whole Blood 82 mg/dL (60-115)
--- NOTE | 2024-01-26 05:14 | MHC.EDTECH ---
POC taken and is 113,RN made aware,hourly rounds and vitals completed
[2024-01-26 05:19] LABS: Glucose, Whole Blood 113 mg/dL (60-115)
--- NOTE | 2024-01-26 05:26 | PC.NURSE ---
called dialysis and then cannot get her in today as they are full and short staffed
--- NOTE | 2024-01-26 05:37 | PC.NURSE ---
nurse to nurse report given to [facility]
[2024-01-26 07:22] LABS: Glucose, Whole Blood 87 mg/dL (60-115)
--- NOTE | 2024-01-26 07:35 | PC.NURSE ---
Addendum entered by Katey Hernández 01/26/24 08:07: pt given juice/sandwich/ and coffee per pt's request Original Note: pt sleeping but easily arousable, skin appropriate for ethnicity but slighly clammy, pt is awaiting for transfer back to [facility] care, this rn rechecked the POC, currently 87. aware
== END 2024-01-26 08:12 ==
PROVIDERS: Emergency Medicine; Emergency Provider Internal Medicine
DX: R53.1 Weakness (principal); Z87.891 Personal history of nicotine dependence; E11.22 Type 2 diabetes mellitus with diabetic chronic kidney disease; I13.2 Hypertensive heart and chronic kidney disease with heart failure and with stage 5 chronic kidney disease, or end stage renal disease; N18.6 End stage renal disease; I50.9 Heart failure, unspecified; Z99.2 Dependence on renal dialysis; Z91.158 Patient's noncompliance with renal dialysis for other reason; F03.90 Unspecified dementia, unspecified severity, without behavioral disturbance, psychotic disturbance, mood disturbance, and anxiety; Z86.73 Personal history of transient ischemic attack (TIA), and cerebral infarction without residual deficits; Z87.440 Personal history of urinary (tract) infections; E11.649 Type 2 diabetes mellitus with hypoglycemia without coma; Z79.82 Long term (current) use of aspirin; Z79.899 Other long term (current) drug therapy; Z79.02 Long term (current) use of antithrombotics/antiplatelets
CPT/HCPCS: 36415; 71045; 80048; 80053; 82947; 85025; 93005; 94640; 96365; 96366; 96375; 99285; J0613; J2405

== ENCOUNTER → 2024-01-26 01:08 | Outpatient (BNV) | payer MEDICARE, MEDICAID, SELFPAY | PROVIDERS: Emergency Provider Internal Medicine; Visit Provider Internal Medicine | DX: R07.9 Chest pain, unspecified (principal); R00.1 Bradycardia, unspecified; R94.31 Abnormal electrocardiogram [ECG] [EKG] | CPT/HCPCS: 93010 ==

== ENCOUNTER 2024-02-07 12:32 | Emergency (ER) | payer MEDICARE, MEDICAID, SELFPAY ==
--- NOTE | ~2024-02-07 | XR_ITS ---
EXAMINATION: XR CHEST CLINICAL INFORMATION: Dialysis catheter placement. COMPARISON: 01/26/2024 TECHNIQUE: 2 views of the chest were obtained. FINDINGS: The heart is enlarged. There is mild upper zone redistribution but no gross CHF. A tunneled left IJ hemodialysis catheter is present with its tip in the distal SVC. No pneumothorax. No infiltrates, effusions or lung masses. XR/XR chest 2V IMPRESSION: Cardiomegaly with mild upper zone redistribution. No acute intrathoracic disease.
--- NOTE | 2024-02-07 12:29 | ED.GENADULT ---
HPI - General Adult General Chief complaint: General Medical Stated complaint: PULLING AT DIALYSYS PORT,AGITATED FROM SNF PER EMS Time Seen by Provider: 02/07/24 12:47 History of Present Illness ED Provider: Jalyn AN narrative: The patient is an 83-year-old woman with a history of dementia who also has a history of renal failure and is a dialysis patient. She has a dialysis catheter in her right chest. She receives dialysis on Mondays, Wednesdays, and Fridays. Apparently she seemed somewhat agitated today and was apparently pulling at the dialysis catheter in her right chest. Staff was concerned about the safety of the catheter and had her sent to the emergency room for evaluation. Apparently the catheter suture that is normally through the skin had been pulled out. On arrival in the emergency room the patient is awake and not obviously agitated. She seems pleasantly demented. She denies headache, sore throat, chest pain, abdominal pain, nausea, vomiting, shortness of breath. She denies any painful urination. There is no report of any fever from the residential. Staff says her overall level of anxiety has been worse over the last couple of weeks but no other acute changes in the last day or 2. She had her regular dialysis yesterday. The nurse I spoke to says the patient is bed-bound and they use a Sudhir lift when moving her. Related Data Home Medications ?Medication ?Instructions ?Recorded ?Confirmed acetaminophen 325 mg tablet 975 mg PO Q8H 01/25/23 03/04/23 atorvastatin 20 mg tablet 20 mg PO BEDTIME 01/25/23 03/04/23 bisacodyl 10 mg rectal suppository 10 mg MN DAILY PRN Constipation 01/25/23 03/04/23 clonidine HCl 0.2 mg tablet 0.2 mg PO TID 01/25/23 03/04/23 epoetin paul 20,000 unit/2 mL 20,000 unit subcut FR 01/25/23 03/04/23 injection solution (Procrit) escitalopram oxalate 10 mg tablet 10 mg PO DAILY 01/25/23 03/04/23 furosemide 40 mg tablet 40 mg PO BID 01/25/23 03/04/23 hydralazine 100 mg tablet 100 mg PO TID 01/25/23 03/04/23 ipratropium 18 mcg-albuterol 103 1 spray inhalation Q6H PRN Wheezing 01/25/23 03/04/23 mcg/actuation aerosol inhaler melatonin 3 mg tablet 3 mg PO BEDTIME 01/25/23 03/04/23 nifedipine 60 mg tablet,extended 60 mg PO BID 01/25/23 03/04/23 release oxycodone 5 mg capsule 5 mg PO Q6H PRN Pain 01/25/23 03/04/23 polyethylene glycol 3350 17 gram 17 g PO BID 01/25/23 03/04/23 oral powder packet (Miralax) sennosides 8.6 mg-docusate sodium 2 tab-cap PO QAM 01/25/23 03/04/23 50 mg capsule (Senna Plus) sevelamer HCl 800 mg tablet 800 mg PO BID 01/25/23 03/04/23 sodium bicarbonate 650 mg tablet 650 mg PO TID 01/25/23 03/04/23 aspirin 81 mg chewable tablet 81 mg PO DAILY 03/04/23 03/04/23 docusate sodium 100 mg capsule 100 mg PO BEDTIME 03/04/23 03/04/23 nitroglycerin 0.4 mg sublingual 0.4 mg sublingual Q5M PRN Chest 03/04/23 03/04/23 tablet Pain ondansetron 4 mg disintegrating 4 mg PO Q6H PRN Nausea And Vomiting 03/04/23 03/04/23 tablet oxycodone 5 mg tablet 5 mg PO BID 03/04/23 03/04/23 sodium phosphates 19 gram-7 118 ml MN DAILY PRN Constipation 03/04/23 03/04/23 gram/118 mL enema (Fleet Enema) Allergies Allergy/AdvReac Type Severity Reaction Status Date / Time No Known Allergies Allergy Verified 02/07/24 12:57 Review of Systems Review of Systems: Yes all other systems are reviewed and are negative [facility] Past Medical History Medical History Heart failure Anxiety Alzheimer's dementia CAD (coronary artery disease) Diabetes CKD (chronic kidney disease) stage 3, GFR 30-59 ml/min Hypertension Social History Social History Household Members: None Housing: Apartment Do you presently have visiting nurse or other home services: No Unable to assess alcohol history related to: Unknown Alcohol intake: never Patient Tobacco Use Status: Former Tobacco user Smoked in Last 30 Days: No Use of substances other than those prescribed or required for medical reasons: Unknown Advance Directives: Yes Advance Directives on File: Yes Advance Directives Date on File: 12/11/22 Do you have a plan to hurt others: No Plan service: No Physical Exam ED Vital Signs: Vital Signs - 24 hr 02/07/24 12:56 02/07/24 15:55 Temperature 99.1 F 98.4 F Pulse Rate 57 50 Respiratory Rate 18 14 Blood Pressure 159/55 H 146/42 H Pulse Oximetry 97 97 Oxygen Delivery Method Room Air Room Air BMI result Body Mass Index 27.2 Const Other: The patient is a chronically ill-appearing 83-year-old. She is awake seems alert. She seems pleasantly demented. She does not seem obviously acutely ill. HENMT Other: Face is symmetrical. Mucous membranes moist. Eyes Other: Pupils are round equal, conjunctivae clear Neck Other: No JVD Chest Other: There is a dialysis catheter in the right upper chest. At the moment it's position seems reasonably good. There is some suture material attached to the catheter that is not through the patient's skin. The cuff of the catheter is not external. The skin around the insertion site is normal Resp Effort & Inspection: normal respiratory effort Auscultation: clear to auscultation bilaterally Cardio Rate: regular rate Rhythm: regular rhythm Heart sounds: S1 normal heart sound present and S2 normal heart sound present GI Other: Abdomen is soft and nontender Skin Other: Skin is dry and unremarkable. No erythema or drainage at the catheter insertion site. Neuro Other: The patient is awake and alert. She seems to be demented but pleasantly demented. No focal findings. Extrem Other: No peripheral edema Medical Decision Making Medical Decision Making MDM Narrative: The patient presents after getting agitated and pulling at her dialysis catheter. A chest x-ray shows good position of the catheter. Labs are unremarkable. I discussed the case with the patient's casino beverage server, Dr. Gume Guzman. He felt that as long as the cuff of the catheter had not been pulled out the utility of the catheter should not be compromised. This is the case. She will be returned to her residential. Lab Data 02/07/24 13:29 02/07/24 13:29 Labs: Lab Results 02/07/24 Range/Units 13:29 WBC 11.1 H (4.8-10.8) X10*3/uL RBC 3.16 L (4.20-5.50) X10*6/uL Hgb 10.1 L (12.0-16.0) g/dl Hct 29.9 L (37.0-47.0) % MCV 94.6 (80.0-98.0) fL MCH 32.0 (27.0-33.0) pg MCHC 33.8 (31.0-35.0) g/dl RDW 13.7 (11.0-16.0) % Plt Count 314 (160-400) X10*3/uL MPV 9.6 (9.4-12.3) fL Immature Gran % (Auto) 0.4 (0.0-0.4) % Neut % (Auto) 70.1 (45-73) % Lymph % (Auto) 18.0 L (20-40) % [place] % (Auto) 6.8 (2-11) % Eos % (Auto) 4.3 H (0-4) % Baso % (Auto) 0.4 (0-2) % Lymph # (Auto) 2.0 (1.2-4.9) X10*3/uL [place] # (Auto) 0.8 (0.1-1.2) X10*3/uL Eos # (Auto) 0.5 H (0.0-0.4) X10*3/uL Baso # (Auto) 0.0 (0.0-0.2) X10*3/uL Abs Immat Gran (auto) 0.05 H (0.00-0.03) X10*3/uL Absolute Neuts (auto) 7.8 (2.0-8.3) x10*3/uL Absolute Nucleated RBC 0.000 (0.0-0.012) X10*3/uL Nucleated RBC % (auto) 0.0 (0.0-0.2) /100WBC Sodium 132 L (135-145) mmol/L Potassium 4.8 (3.3-5.1) mmol/L Chloride 100 (96-108) mmol/L Carbon Dioxide 24 (22-29) mmol/L Anion Gap 13 (12-20) BUN 33 H (9-16) mg/dL Creatinine 3.05 H (0.5-1.4) mg/dL Estim Creat Clear Calc 12.8 Estimated GFR 15 Random Glucose 95 (60-115) mg/dL Calcium 9.4 D (8.4-10.2) mg/dL Total Bilirubin 0.4 (0.0-1.0) mg/dL Direct Bilirubin 0.1 (0.0-0.5) mg/dL AST 9 (5-31) U/L ALT < 5 (0-31) U/L Alkaline Phosphatase 49 (39-117) U/L Total Protein 6.4 L (6.5-8.0) g/dL Albumin 3.4 L (3.5-5.0) g/dL Influenza Type A (PCR) NEGATIVE (Negative) Influenza Type B (PCR) NEGATIVE (Negative) RSV RNA Qual (PCR) NEGATIVE (Negative) SARS-CoV-2 RNA (RT-PCR) NEGATIVE (Negative) Independent Interpretation I performed an independent interpretation of an: EKG Interpretation: EKG at 12:55 shows sinus bradycardia at 48 beats per minute. No significant change from previous EKG. Discharge Plan Discharge Clinical Impression: Vascular dialysis catheter in place Patient Disposition: er [facility] Additional Instructions: The patient's catheter seems to be stable. Labs are unremarkable. Please resume usual care. Please continue dialysis tomorrow as scheduled. Return to the emergency room if acutely worse Prescriptions: No Action Fleet Enema 19-7 gram/118 mL Enema 118 ml MN DAILY PRN (Reason: Constipation) docusate sodium 100 mg Capsule 100 mg PO BEDTIME aspirin 81 mg Tablet,Chewable 81 mg PO DAILY nitroglycerin 0.4 mg Tablet, Sublingual 0.4 mg SUBLINGUAL Q5M PRN (Reason: Chest Pain) Rx Instructions: do not exceed 3 doses per episode ondansetron 4 mg Tablet,Disintegrating 4 mg PO Q6H PRN (Reason: Nausea And Vomiting) oxycodone 5 mg tablet 5 mg PO BID furosemide 40 mg tablet 40 mg PO BID acetaminophen 325 mg Tablet 975 mg PO Q8H atorvastatin 20 mg Tablet 20 mg PO BEDTIME polyethylene glycol 3350 [Miralax] 17 gram Powder In Packet 17 g PO BID sevelamer HCl 800 mg Tablet 800 mg PO BID Rx Instructions: must administer with a meal/food melatonin 3 mg Tablet 3 mg PO BEDTIME clonidine HCl 0.2 mg Tablet 0.2 mg PO TID sodium bicarbonate 650 mg Tablet 650 mg PO TID bisacodyl 10 mg Suppository 10 mg MN DAILY PRN (Reason: Constipation) hydralazine 100 mg Tablet 100 mg PO TID oxycodone 5 mg Capsule 5 mg PO Q6H PRN (Reason: Pain) ipratropium-albuterol 18-103 mcg/actuation Aerosol 1 spray INHALATION Q6H PRN (Reason: Wheezing) nifedipine 60 mg Tablet Extended Release 60 mg PO BID escitalopram oxalate 10 mg tablet 10 mg PO DAILY Procrit 20,000 unit/2 mL Solution 20,000 unit SUBCUT FR Senna Plus 8.6-50 mg Capsule 2 tab-cap PO QAM [facility] Steven Martinez MD [Primary Care Provider] - Print Language: Portuguese
--- NOTE | 2024-02-07 12:48 | ECG_ITS ---
Test Reason : DONALD Blood Pressure : / mmHG Vent. Rate : 048 BPM Atrial Rate : 048 BPM P-R Int : 192 ms QRS Dur : 116 ms QT Int : 484 ms P-R-T Axes : 010 011 129 degrees QTc Int : 432 ms Sinus bradycardia Possible Left atrial enlargement Left ventricular hypertrophy with QRS widening and repolarization abnormality ( R in aVL , [employer] product ) Inferior infarct (cited on or before 25-JAN-2023) Abnormal ECG When compared with ECG of 26-JAN-2024 04:16, Minimal criteria for Anterior infarct are no longer Present Referred By: Joni Gunderson Electronically Signed By:FANNY RODRIGUEZ MD
[2024-02-07 12:55] VITALS: BP 170/60; PULSE 50; O2SAT 98
[2024-02-07 12:56] VITALS: BP 159/55; PULSE 57; RESP 18; TEMP 37.3; O2SAT 97; BMI 27.2
[2024-02-07 13:35] LABS: MANUAL DIFF FLAG NO
[2024-02-07 13:36] LABS: Basophils Percent Auto 0.4 % (0-2); Eosinophils Absolute Auto 0.5 X10*3/uL (0.0-0.4); Eosinophils Percent Auto 4.3 % (0-4); Hematocrit 29.9 % (37.0-47.0); Hemoglobin 10.1 g/dl (12.0-16.0); Imm Gran Abs Auto 0.05 X10*3/uL (0.00-0.03); Imm Gran Pct Auto 0.4 % (0.0-0.4); Mean Corpuscular HGB Conc 33.8 g/dl (31.0-35.0); Mean Corpuscular Volume 94.6 fL (80.0-98.0); Mean Platelet Volume 9.6 fL (9.4-12.3); Monocytes Absolute Auto 0.8 X10*3/uL (0.1-1.2); Monocytes Percent Auto 6.8 % (2-11); Neutrophils Absolute Auto 7.8 x10*3/uL (2.0-8.3); Neutrophils Percent Auto 70.1 % (45-73); Platelet Count 314 X10*3/uL (160-400); Red Blood Count 3.16 X10*6/uL (4.20-5.50); Red Cell Distribution Width 13.7 % (11.0-16.0); White Blood Count 11.1 X10*3/uL (4.8-10.8)
[2024-02-07 14:03] LABS: Alanine Aminotransferase < 5 U/L (0-31); Albumin Level 3.4 g/dL (3.5-5.0); Alkaline Phosphatase 49 U/L (39-117); Anion Gap 13 (12-20); Aspartate Amino Transferase 9 U/L (5-31); Bilirubin Direct 0.1 mg/dL (0.0-0.5); Bilirubin Total 0.4 mg/dL (0.0-1.0); Blood Urea Nitrogen 33 mg/dL (9-16); Calcium 9.4 mg/dL (8.4-10.2); Carbon Dioxide 24 mmol/L (22-29); Chloride 100 mmol/L (96-108); Creatinine Clr Calc Pharmacy 12.8; Estimated Glomerular Filt Rate 15; Glucose Random 95 mg/dL (60-115); Potassium 4.8 mmol/L (3.3-5.1); Sodium 132 mmol/L (135-145); Total Protein 6.4 g/dL (6.5-8.0)
[2024-02-07 14:19] LABS: Influenza A PCR NEGATIVE (Negative); Influenza B PCR NEGATIVE (Negative); Resp Syncy Virus RNA Qual PCR NEGATIVE (Negative); SARS COV2 PCR INHOUSE NEGATIVE (Negative)
[2024-02-07 15:55] VITALS: BP 146/42; PULSE 50; RESP 14; TEMP 36.9; O2SAT 97
[2024-02-07 19:38] VITALS: BP 146/50; PULSE 55; RESP 17; TEMP 36.3; O2SAT 96
[2024-02-07 19:46] VITALS: BP 146/50; PULSE 55; RESP 17; TEMP 36.3; O2SAT 96
== END 2024-02-07 19:48 | disposition home or self-care (01) ==
PROVIDERS: Emergency Provider Emergency Medicine; PCP Family Medicine
DX: R45.1 Restlessness and agitation (principal); R00.1 Bradycardia, unspecified; E11.22 Type 2 diabetes mellitus with diabetic chronic kidney disease; I13.0 Hypertensive heart and chronic kidney disease with heart failure and stage 1 through stage 4 chronic kidney disease, or unspecified chronic kidney disease; N18.30 Chronic kidney disease, stage 3 unspecified; I50.9 Heart failure, unspecified; Z99.2 Dependence on renal dialysis; Z71.1 Person with feared health complaint in whom no diagnosis is made; F01.50 Vascular dementia, unspecified severity, without behavioral disturbance, psychotic disturbance, mood disturbance, and anxiety; Z86.73 Personal history of transient ischemic attack (TIA), and cerebral infarction without residual deficits; Z87.440 Personal history of urinary (tract) infections; Z87.891 Personal history of nicotine dependence; Z79.82 Long term (current) use of aspirin; Z79.899 Other long term (current) drug therapy; Z79.02 Long term (current) use of antithrombotics/antiplatelets; Z03.818 Encounter for observation for suspected exposure to other biological agents ruled out
CPT/HCPCS: 0241U; 71046; 80048; 80076; 85025; 93005; 99283; 99284

== ENCOUNTER → 2024-02-07 12:48 | Outpatient (BNV) | payer MEDICARE, MEDICAID, SELFPAY | PROVIDERS: Emergency Provider Emergency Medicine; PCP Family Medicine; Visit Provider Internal Medicine Cardiovascular Disease | DX: R00.1 Bradycardia, unspecified (principal); R94.31 Abnormal electrocardiogram [ECG] [EKG] | CPT/HCPCS: 93010 ==

== ENCOUNTER 2024-02-15 15:26 | Emergency (ER) | payer MEDICARE, MEDICAID, SELFPAY ==
--- NOTE | 2024-02-15 | ECG_ITS ---
Test Reason : CHEST PAIN Blood Pressure : / mmHG Vent. Rate : 059 BPM Atrial Rate : 059 BPM P-R Int : 198 ms QRS Dur : 116 ms QT Int : 474 ms P-R-T Axes : 016 033 138 degrees QTc Int : 469 ms Sinus bradycardia with Premature atrial complexes Left ventricular hypertrophy with QRS widening and repolarization abnormality ( R in aVL , [place] product ) Inferior infarct (cited on or before 25-JAN-2023) Anterior infarct , age undetermined Abnormal ECG When compared with ECG of 07-FEB-2024 12:55, Premature atrial complexes are now Present Anterior infarct is now Present Referred By: Generic ED Physician Electronically Signed By:MIKHAIL CHATTERJEE
--- NOTE | ~2024-02-15 | XR_ITS ---
EXAMINATION: CHEST 2 VIEWS CLINICAL INFORMATION: CP. COMPARISON: 02/07/2024. TECHNIQUE: AP frontal and lateral views of the chest obtained FINDINGS: Lungs are mildly hypoexpanded with chronic appearing coarsened reticular markings seen. There is central vascular prominence noted and I cannot exclude a component of mild fluid overload. No significant effusion or pneumothorax. Cardiac silhouette remains prominent with vascular calcification in the tortuous aorta. Right AJ dialysis catheter is in place with the tip overlying the expected cavoatrial junction. Degenerative changes in the spine and shoulders. XR/XR chest 2V IMPRESSION: Central vascular prominence and increased reticular markings. Mild fluid overload would be difficult to exclude in the acute setting. Chronic appearing changes otherwise.
--- NOTE | ~2024-02-15 | CT_ITS ---
EXAMINATION: CT HEAD WITHOUT CONTRAST CT CERVICAL SPINE WITHOUT CONTRAST CLINICAL INFORMATION: Head trauma. COMPARISON: CT head and cervical spine June 23, 2023 TECHNIQUE: Imaging was performed from the skull base to vertex without intravenous administration of contrast. In addition, helical noncontrast CT imaging was acquired through the cervical spine and source images were reviewed along with axial reconstructions and sagittal and coronal MPRs. [This CT examination was performed using dose optimization techniques as appropriate, variously including the following: *Automated exposure control *Adjustment of mA and/or kV according to patient size (this includes techniques or standardized protocols for targeted exams where dose is matched to indication/reason for exam; i.e. extremities or head) *Use of iterative reconstruction technique] DLP: 1141 mGy-cm FINDINGS: HEAD: No intracranial mass, hemorrhage, or midline shift is visualized. There is generalized global volume loss. There is moderate prominence of the ventricles and the sulci . There is marked hypodensity of the periventricular white matter due to chronic small vessel ischemic disease. There are vascular calcifications of the internal carotid arteries bilaterally. Focal encephalomalacia from old infarct in the right frontal parietal lobe. No extra-axial collections are identified. The paranasal sinuses and mastoid air cells are well aerated. CERVICAL SPINE: There is no evidence of acute cervical spine fracture. Vertebral bodies remain normal in height. Cervical vertebrae have normal alignment. There is multilevel degenerative spondylosis of the cervical spine with disc height narrowing and endplate spurs and facet joint arthrosis. The most significant cervical disc height narrowing C4-C5 disc level. No pre- or paravertebral soft tissue abnormality is identified. Limited assessment of the lung apices is unremarkable. CT/CT cervical spine wo IV con IMPRESSION: 1. No acute intracranial pathology. 2. No CT evidence of acute cervical spine fracture or traumatic subluxation
[2024-02-15 15:37] VITALS: BP 65/58; PULSE 57; O2SAT 96; BMI 26.1
[2024-02-15 16:22] VITALS: BP 152/56; PULSE 55; TEMP 36.6; O2SAT 95
[2024-02-15 16:27] VITALS: BP 158/56; PULSE 56; RESP 16; TEMP 36.4; O2SAT 99
[2024-02-15 16:55] LABS: Alanine Aminotransferase 5 U/L (0-31); Albumin Level 3.7 g/dL (3.5-5.0); Alkaline Phosphatase 53 U/L (39-117); Anion Gap 14 (12-20); Aspartate Amino Transferase 8 U/L (5-31); Bilirubin Total 0.4 mg/dL (0.0-1.0); Blood Urea Nitrogen 19 mg/dL (9-16); Calcium 9.1 mg/dL (8.4-10.2); Carbon Dioxide 25 mmol/L (22-29); Chloride 102 mmol/L (96-108); Creatinine Clr Calc Pharmacy 17.3; Estimated Glomerular Filt Rate 21; Glucose Random 174 mg/dL (60-115); Potassium 4.2 mmol/L (3.3-5.1); Sodium 137 mmol/L (135-145); Total Protein 6.9 g/dL (6.5-8.0)
[2024-02-15 17:05] LABS: Troponin-I High Sensitivity 52.9 ng/L (<3.5-17.0)
--- NOTE | 2024-02-15 18:38 | ED.CHESTPAIN ---
HPI - Chest Pain General Chief Complaint: Chest Pain Stated Complaint: Chest pain Time Seen by Provider: 02/15/24 17:04 History of Present Illness ED Provider: Dr. 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 Also reports generalized non-focal headache. States she had a fall with head trauma 2 days ago but did not seek medical evaluation at that time. Denies: nausea/vomiting, diarrhea, fever or chills, cough/congestion, syncope. Related Data Home Medications ?Medication ?Instructions ?Recorded ?Confirmed acetaminophen 325 mg tablet 975 mg PO Q8H 01/25/23 03/04/23 atorvastatin 20 mg tablet 20 mg PO BEDTIME 01/25/23 03/04/23 bisacodyl 10 mg rectal suppository 10 mg SC DAILY PRN Constipation 01/25/23 03/04/23 clonidine HCl 0.2 mg tablet 0.2 mg PO TID 01/25/23 03/04/23 epoetin paul 20,000 unit/2 mL 20,000 unit subcut FR 01/25/23 03/04/23 injection solution (Procrit) escitalopram oxalate 10 mg tablet 10 mg PO DAILY 01/25/23 03/04/23 furosemide 40 mg tablet 40 mg PO BID 01/25/23 03/04/23 hydralazine 100 mg tablet 100 mg PO TID 01/25/23 03/04/23 ipratropium 18 mcg-albuterol 103 1 spray inhalation Q6H PRN Wheezing 01/25/23 03/04/23 mcg/actuation aerosol inhaler melatonin 3 mg tablet 3 mg PO BEDTIME 01/25/23 03/04/23 nifedipine 60 mg tablet,extended 60 mg PO BID 01/25/23 03/04/23 release oxycodone 5 mg capsule 5 mg PO Q6H PRN Pain 01/25/23 03/04/23 polyethylene glycol 3350 17 gram 17 g PO BID 01/25/23 03/04/23 oral powder packet (Miralax) sennosides 8.6 mg-docusate sodium 2 tab-cap PO QAM 01/25/23 03/04/23 50 mg capsule (Senna Plus) sevelamer HCl 800 mg tablet 800 mg PO BID 01/25/23 03/04/23 sodium bicarbonate 650 mg tablet 650 mg PO TID 01/25/23 03/04/23 aspirin 81 mg chewable tablet 81 mg PO DAILY 03/04/23 03/04/23 docusate sodium 100 mg capsule 100 mg PO BEDTIME 03/04/23 03/04/23 nitroglycerin 0.4 mg sublingual 0.4 mg sublingual Q5M PRN Chest 03/04/23 03/04/23 tablet Pain ondansetron 4 mg disintegrating 4 mg PO Q6H PRN Nausea And Vomiting 03/04/23 03/04/23 tablet oxycodone 5 mg tablet 5 mg PO BID 03/04/23 03/04/23 sodium phosphates 19 gram-7 118 ml SC DAILY PRN Constipation 03/04/23 03/04/23 gram/118 mL enema (Fleet Enema) Allergies Allergy/AdvReac Type Severity Reaction Status Date / Time No Known Allergies Allergy Verified 02/15/24 15:40 Review of Systems Review of Systems: Yes all other systems are reviewed and are negative Neurologic: Denies Sensory deficit (Neuro) [facility] Past Medical History Attestation statement: The following information was validated with the patient. Source: old records reviewed Medical History Heart failure Anxiety Alzheimer's dementia CAD (coronary artery disease) Diabetes CKD (chronic kidney disease) stage 3, GFR 30-59 ml/min Hypertension Social History Social History Household Members: None Housing: Apartment Do you presently have visiting nurse or other home services: No Unable to assess alcohol history related to: Unknown Alcohol intake: former Patient Tobacco Use Status: Former Tobacco user Smoked in Last 30 Days: No Use of substances other than those prescribed or required for medical reasons: No Advance Directives: Yes Advance Directives on File: Yes Advance Directives Date on File: 12/11/22 service: No Physical Exam Vital Signs: Vital Signs: Last Vital Signs Temp 98.6 F 02/15/24 19:24 Pulse 55 02/15/24 19:24 Resp 18 02/15/24 19:24 BP 154/57 H 02/15/24 19:24 Pulse Ox 97 02/15/24 19:24 O2 Del Method Room Air 02/15/24 19:24 BMI result Body Mass Index 26.1 Patient is afebrile and hemodynamically stable. Const: General: cooperative and no acute distress Orientation/consciousness: patient oriented x3 HEENT: Head: Yes normal to inspection and Yes atraumatic Eyes: General: appearance normal, both eyes and all related structures Pupils: Equal, round and reactive pupils present EOM: EOMs intact bilaterally Neck: Neck: Yes normal visual inspection, Yes full ROM, Yes supple and No tender Chest: Chest palpation & inspection: normal inspection of the chest and normal palpation of entire chest wall Resp: Effort & Inspection: normal respiratory effort, able to speak in complete sentences, no cough and no respiratory distress Auscultation: clear to auscultation bilaterally Cardio: Rate: regular rate Rhythm: regular rhythm Peripheral pulses: Peripheral pulses 2+ throughout GI: Inspection: Yes normal to inspection, No Abdominal wall edema and No distended Palpation (GI): Soft to palpation, not firm, nontender, no guarding and not rigid Auscultation: normal bowel sounds Back/Spine/Pelvis: Back: No back tenderness Neuro: General: patient oriented x3 Cranial nerves: Yes Equal, round and reactive pupils present Motor exam (neuro): 5/5 motor strength present throughout Sensory Exam: No Sensory deficit (Neuro) Coordination: [id number] test normal, [id number] test normal, Normal rapid alternating movements of the distal upper extremity present (Neuro) and Normal rapid alternating movements of the distal lower extremity present (Neuro) Course Course Course Narrative: Patient is afebrile and hemodynamically stable. Ordered CT Head/Cervical Spine. Ordered CXR. CXR with mild interstitial edema noted. Labs reviewed. Mild baseline anemia. No leukocytosis. Baseline mildly elevated troponin x2. CT Head/Neck unremarkable. Plan: Transition care to Dr. Elizabeth pending UA and anticipated discharge to home Condition: Stable Medical Decision Making Lab Data 02/15/24 19:23 02/15/24 16:36 Labs: Lab Results 02/15/24 02/15/24 Range/Units 16:36 19:23 WBC 7.5 (4.8-10.8) X10*3/uL RBC 3.20 L (4.20-5.50) X10*6/uL Hgb 10.1 L (12.0-16.0) g/dl Hct 30.4 L (37.0-47.0) % MCV 95.0 (80.0-98.0) fL MCH 31.6 (27.0-33.0) pg MCHC 33.2 (31.0-35.0) g/dl RDW 14.2 (11.0-16.0) % Plt Count 229 D (160-400) X10*3/uL MPV 9.3 L (9.4-12.3) fL Immature Gran % (Auto) 0.3 (0.0-0.4) % Neut % (Auto) 65.3 (45-73) % Lymph % (Auto) 17.5 L (20-40) % [place] % (Auto) 8.8 (2-11) % Eos % (Auto) 7.6 H (0-4) % Baso % (Auto) 0.5 (0-2) % Lymph # (Auto) 1.3 (1.2-4.9) X10*3/uL [place] # (Auto) 0.7 (0.1-1.2) X10*3/uL Eos # (Auto) 0.6 H (0.0-0.4) X10*3/uL Baso # (Auto) 0.0 (0.0-0.2) X10*3/uL Abs Immat Gran (auto) 0.02 (0.00-0.03) X10*3/uL Absolute Neuts (auto) 4.9 (2.0-8.3) x10*3/uL Absolute Nucleated RBC 0.000 (0.0-0.012) X10*3/uL Nucleated RBC % (auto) 0.0 (0.0-0.2) /100WBC Sodium 137 (135-145) mmol/L Potassium 4.2 (3.3-5.1) mmol/L Chloride 102 (96-108) mmol/L Carbon Dioxide 25 (22-29) mmol/L Anion Gap 14 (12-20) BUN 19 H (9-16) mg/dL Creatinine 2.20 H (0.5-1.4) mg/dL Estim Creat Clear Calc 17.3 Estimated GFR 21 Random Glucose 174 H (60-115) mg/dL Calcium 9.1 (8.4-10.2) mg/dL Total Bilirubin 0.4 (0.0-1.0) mg/dL AST 8 (5-31) U/L ALT 5 (0-31) U/L Alkaline Phosphatase 53 (39-117) U/L Troponin I High Sens 52.9 H* 55.4 H* (<3.5-17.0) ng/L Total Protein 6.9 (6.5-8.0) g/dL Albumin 3.7 (3.5-5.0) g/dL Lipase 54 (8-78) U/L Independent Interpretation I performed an independent interpretation of an: EKG Interpretation: NSR 59BPM with LVH unchanged compared to 02/07/2024. Radiology Impression Discussion of test interpretation with radiology: I have reviewed the radiologist's reading. Radiologist Impression: EXAMINATION: CHEST 2 VIEWS CLINICAL INFORMATION: CP. COMPARISON: 02/07/2024. TECHNIQUE: AP frontal and lateral views of the chest obtained FINDINGS: Lungs are mildly hypoexpanded with chronic appearing coarsened reticular markings seen. There is central vascular prominence noted and I cannot exclude a component of mild fluid overload. No significant effusion or pneumothorax. Cardiac silhouette remains prominent with vascular calcification in the tortuous aorta. Right AJ dialysis catheter is in place with the tip overlying the expected cavoatrial junction. Degenerative changes in the spine and shoulders. XR/XR chest 2V IMPRESSION: Central vascular prominence and increased reticular markings. Mild fluid overload would be difficult to exclude in the acute setting. Chronic appearing changes otherwise EXAMINATION: CT HEAD WITHOUT CONTRAST CT CERVICAL SPINE WITHOUT CONTRAST CLINICAL INFORMATION: Head trauma. COMPARISON: CT head and cervical spine June 23, 2023 TECHNIQUE: Imaging was performed from the skull base to vertex without intravenous administration of contrast. In addition, helical noncontrast CT imaging was acquired through the cervical spine and source images were reviewed along with axial reconstructions and sagittal and coronal MPRs. [This CT examination was performed using dose optimization techniques as appropriate, variously including the following: *Automated exposure control *Adjustment of mA and/or kV according to patient size (this includes techniques or standardized protocols for targeted exams where dose is matched to indication/reason for exam; i.e. extremities or head) *Use of iterative reconstruction technique] DLP: 1141 mGy-cm FINDINGS: HEAD: No intracranial mass, hemorrhage, or midline shift is visualized. There is generalized global volume loss. There is moderate prominence of the ventricles and the sulci . There is marked hypodensity of the periventricular white matter due to chronic small vessel ischemic disease. There are vascular calcifications of the internal carotid arteries bilaterally. Focal encephalomalacia from old infarct in the right frontal parietal lobe. No extra-axial collections are identified. The paranasal sinuses and mastoid air cells are well aerated. CERVICAL SPINE: There is no evidence of acute cervical spine fracture. Vertebral bodies remain normal in height. Cervical vertebrae have normal alignment. There is multilevel degenerative spondylosis of the cervical spine with disc height narrowing and endplate spurs and facet joint arthrosis. The most significant cervical disc height narrowing C4-C5 disc level. No pre- or paravertebral soft tissue abnormality is identified. Limited assessment of the lung apices is unremarkable. CT/CT cervical spine wo IV con IMPRESSION: 1. No acute intracranial pathology. 2. No CT evidence of acute cervical spine fracture or traumatic subluxation Discharge Plan Discharge Clinical Impression: Chest pain, Neck pain Patient Disposition: Still a Patient Prescriptions: No Action Fleet Enema 19-7 gram/118 mL Enema 118 ml SC DAILY PRN (Reason: Constipation) docusate sodium 100 mg Capsule 100 mg PO BEDTIME aspirin 81 mg Tablet,Chewable 81 mg PO DAILY nitroglycerin 0.4 mg Tablet, Sublingual 0.4 mg SUBLINGUAL Q5M PRN (Reason: Chest Pain) Rx Instructions: do not exceed 3 doses per episode ondansetron 4 mg Tablet,Disintegrating 4 mg PO Q6H PRN (Reason: Nausea And Vomiting) oxycodone 5 mg tablet 5 mg PO BID furosemide 40 mg tablet 40 mg PO BID acetaminophen 325 mg Tablet 975 mg PO Q8H atorvastatin 20 mg Tablet 20 mg PO BEDTIME polyethylene glycol 3350 [Miralax] 17 gram Powder In Packet 17 g PO BID sevelamer HCl 800 mg Tablet 800 mg PO BID Rx Instructions: must administer with a meal/food melatonin 3 mg Tablet 3 mg PO BEDTIME clonidine HCl 0.2 mg Tablet 0.2 mg PO TID sodium bicarbonate 650 mg Tablet 650 mg PO TID bisacodyl 10 mg Suppository 10 mg SC DAILY PRN (Reason: Constipation) hydralazine 100 mg Tablet 100 mg PO TID oxycodone 5 mg Capsule 5 mg PO Q6H PRN (Reason: Pain) ipratropium-albuterol 18-103 mcg/actuation Aerosol 1 spray INHALATION Q6H PRN (Reason: Wheezing) nifedipine 60 mg Tablet Extended Release 60 mg PO BID escitalopram oxalate 10 mg tablet 10 mg PO DAILY Procrit 20,000 unit/2 mL Solution 20,000 unit SUBCUT FR Senna Plus 8.6-50 mg Capsule 2 tab-cap PO QAM Print Language: Italian
[2024-02-15 18:52] LABS: Lipase 54 U/L (8-78)
[2024-02-15 19:24] VITALS: BP 154/57; PULSE 55; RESP 18; TEMP 37; O2SAT 97
[2024-02-15 19:31] LABS: Basophils Percent Auto 0.5 % (0-2); Eosinophils Absolute Auto 0.6 X10*3/uL (0.0-0.4); Eosinophils Percent Auto 7.6 % (0-4); Hematocrit 30.4 % (37.0-47.0); Hemoglobin 10.1 g/dl (12.0-16.0); Imm Gran Abs Auto 0.02 X10*3/uL (0.00-0.03); Imm Gran Pct Auto 0.3 % (0.0-0.4); Lymphocytes Absolute Auto 1.3 X10*3/uL (1.2-4.9); Lymphocytes Percent Auto 17.5 % (20-40); Mean Corpuscular HGB Conc 33.2 g/dl (31.0-35.0); Mean Corpuscular Hemoglobin 31.6 pg (27.0-33.0); Mean Platelet Volume 9.3 fL (9.4-12.3); Monocytes Absolute Auto 0.7 X10*3/uL (0.1-1.2); Monocytes Percent Auto 8.8 % (2-11); Neutrophils Absolute Auto 4.9 x10*3/uL (2.0-8.3); Neutrophils Percent Auto 65.3 % (45-73); Platelet Count 229 X10*3/uL (160-400); Red Cell Distribution Width 14.2 % (11.0-16.0); White Blood Count 7.5 X10*3/uL (4.8-10.8)
[2024-02-15 19:35] LABS: MANUAL DIFF FLAG NO
--- NOTE | 2024-02-15 19:35 | PC.NURSE ---
this rn assumed care of pt, pt a&ox4, respirations even and unlabored, no acute distress noted. vss.
[2024-02-15 19:55] LABS: Troponin-I High Sensitivity 55.4 ng/L (<3.5-17.0)
--- NOTE | 2024-02-15 21:26 | PC.NURSE ---
top trimmer at bedside. urine sample obtained and pt swabbed for SARS, sent to lab.
[2024-02-15 21:31] LABS: Appearance Urine Turbid; Color Urine Yellow; Glucose Urine UA Negative (Negative); Leukocyte Esterase Urine Large (3+) (Negative); Nitrite Urine Negative (Negative); PH >= 9.0 (5.0-9.0); UMIC TRIGGER UACC YES; Urine Blood Trace (Negative); Urine Ketones Negative (Negative); Urine Protein 300 (3+) mg/dL (Neg-Trace)
[2024-02-15 21:56] LABS: Bacteria Urine 4+ (None Seen); Hyaline Casts Urine >20 /LPF (0-2); RBC Urine 0-2 /HPF (0-2); Squamous Epithelial Cell Urine 0-2 /HPF (0-2); UACC Culture Trigger YES; WBC Urine >50 /HPF (0-5)
[2024-02-15] MEDS: Acetaminophen 325 MG TABLET 975 MG PO (22:19)
--- NOTE | 2024-02-15 22:20 | PC.NURSE ---
pt medicated per mar, tolerated well with water.
[2024-02-15 22:22] LABS: Influenza A PCR NEGATIVE (Negative); Influenza B PCR NEGATIVE (Negative); Resp Syncy Virus RNA Qual PCR NEGATIVE (Negative); SARS COV2 PCR INHOUSE NEGATIVE (Negative)
--- NOTE | 2024-02-15 22:44 | PC.NURSE ---
report given to Ale at [facility].
[2024-02-15 23:56] VITALS: BP 203/75; PULSE 57; RESP 16; TEMP 36.7; O2SAT 100
[2024-02-16 00:53] VITALS: BP 189/60
[2024-02-16 01:05] VITALS: BP 189/60; PULSE 57; RESP 16; TEMP 36.7; O2SAT 100
== END 2024-02-16 01:06 | disposition home or self-care (01) ==
PROVIDERS: Emergency Provider Emergency Medicine; PCP Family Medicine
DX: R07.9 Chest pain, unspecified (principal); M54.2 Cervicalgia; S09.90XA Unspecified injury of head, initial encounter; W19.XXXA Unspecified fall, initial encounter; R51.9 Headache, unspecified; E11.9 Type 2 diabetes mellitus without complications; I10 Essential (primary) hypertension; E78.5 Hyperlipidemia, unspecified; Z79.02 Long term (current) use of antithrombotics/antiplatelets; Z79.899 Other long term (current) drug therapy; Z03.818 Encounter for observation for suspected exposure to other biological agents ruled out; Z91.81 History of falling; Y93.9 Activity, unspecified; Y92.129 Unspecified place in nursing home as the place of occurrence of the external cause; Y99.9 Unspecified external cause status
CPT/HCPCS: 0241U; 36415; 70450; 71046; 72125; 80053; 81001; 83690; 84484; 85025; 87086; 93005; 99284; 99285

== ENCOUNTER → 2024-02-15 15:34 | Outpatient (BNV) | payer MEDICARE, MEDICAID, SELFPAY | PROVIDERS: Emergency Provider Emergency Medicine; PCP Family Medicine; Visit Provider Internal Medicine | DX: R07.9 Chest pain, unspecified (principal); R00.1 Bradycardia, unspecified; R94.31 Abnormal electrocardiogram [ECG] [EKG] | CPT/HCPCS: 93010 ==

== ENCOUNTER 2024-03-19 15:45 | Emergency (ER) | payer MEDICARE, MEDICAID, SELFPAY ==
--- NOTE | 2024-03-19 | ECG_ITS ---
Test Reason : DIZZINESS Blood Pressure : / mmHG Vent. Rate : 059 BPM Atrial Rate : 059 BPM P-R Int : 198 ms QRS Dur : 128 ms QT Int : 486 ms P-R-T Axes : 021 011 136 degrees QTc Int : 481 ms Sinus bradycardia with marked sinus arrhythmia with ventricular escape complexes Left ventricular hypertrophy with QRS widening and repolarization abnormality ( R in aVL , [place] product ) Inferior infarct (cited on or before 25-JAN-2023) Cannot rule out Anterior infarct (cited on or before 19-OCT-2023) Abnormal ECG When compared with ECG of 15-FEB-2024 15:34, Premature atrial complexes are no longer Present Sinus rhythm is now with ventricular escape complexes ST less elevated in Anterior leads T wave inversion less evident in Lateral leads Referred By: Generic ED Physician Electronically Signed By:FANNY RODRIGUEZ MD
--- NOTE | ~2024-03-19 | CT_ITS ---
EXAMINATION: CT ABDOMEN AND PELVIS WITHOUT CONTRAST CLINICAL INFORMATION: Nausea and vomiting COMPARISON: 03/04/2023 TECHNIQUE: Multidetector volumetric imaging was performed from the superior aspect of the liver through the pubic symphysis. Sagittal and coronal reformatted images were obtained on the technologist's workstation. This CT examination was performed using dose optimization techniques as appropriate, variously including the following: *Automated exposure control *Adjustment of mA and/or kV according to patient size (this includes techniques or standardized protocols for targeted exams where dose is matched to indication/reason for exam; i.e. extremities or head) *Use of iterative reconstruction technique DLP: 812 mGy-cm FINDINGS: LUNG BASES: The visualized lung bases are unremarkable. LIVER, GALLBLADDER, AND BILIARY TREE: The liver is normal in size, shape, and attenuation. No focal hepatic lesion or biliary ductal dilatation is present. Clips consistent with cholecystectomy. PANCREAS: Unremarkable. SPLEEN: Unremarkable. ADRENAL GLANDS: Unremarkable. KIDNEYS AND URETERS: There is a hyperdense focus lower pole left kidney with adjacent cystic component which appears larger than on previous. The hyperdense component now measures up to 12 mm as opposed to 10 mm previously. Recommend elective ultrasound for further assessment. The kidneys are otherwise without any new findings. No hydronephrosis, hydroureter, or calculi seen. Similar moderate bilateral perinephric stranding. BLADDER: Unremarkable. GASTROINTESTINAL TRACT: Severe retention in scattered diverticula again noted without definite acute inflammatory changes or obstruction. Normal appendix again noted. ABDOMINAL WALL: No significant hernia is appreciated. LYMPH NODES: Normal. VASCULAR: Unremarkable. PELVIC VISCERA: Unremarkable. OSSEOUS STRUCTURES: Stable. No new findings. CT/CT abdomen pelvis wo IV con IMPRESSION: 1. No evidence for any bowel obstruction or acute inflammatory changes. 2. Enlarging hyperdense focus lower pole left kidney as above. Recommend elective ultrasound for further assessment. Fleischner guidelines were followed.
--- NOTE | ~2024-03-19 | CT_ITS ---
EXAMINATION: CT HEAD WITHOUT CONTRAST CLINICAL INFORMATION: Syncope COMPARISON: CT head 02/15/2024 TECHNIQUE: Contiguous axial imaging was performed from the skull base to vertex without intravenous administration of contrast. This CT examination was performed using dose optimization techniques as appropriate, variously including the following: *Automated exposure control *Adjustment of mA and/or kV according to patient size (this includes techniques or standardized protocols for targeted exams where dose is matched to indication/reason for exam; i.e. extremities or head) *Use of iterative reconstruction technique DLP: 1628 mGy-cm FINDINGS: There is no evidence of acute intracranial hemorrhage or acute edematous territorial infarction. No abnormal mass effect or midline shift is seen. Adan to white matter differentiation is well preserved. No abnormal extra-axial fluid collections are identified. Encephalomalacia from chronic infarction in the right frontoparietal lobe. Prominent deep white matter and periventricular hypodensities consistent with chronic microangiopathic disease. Mild generalized cerebral volume loss.. Bilateral lens extraction. No acute calvarial fracture. Paranasal sinuses and mastoid air cells are well-aerated. CT/CT head/brain wo IV con IMPRESSION: No CT evidence of acute intracranial hemorrhage or edematous large vessel territorial infarction. Chronic changes as detailed above.
--- NOTE | ~2024-03-19 | XR_ITS ---
EXAMINATION: XR CHEST CLINICAL INFORMATION: Shortness of breath and chest pain COMPARISON: Chest radiograph 02/15/2024 TECHNIQUE: Frontal view of the chest was obtained. FINDINGS: A tunneled right jugular hemodialysis catheter is present with its tip in the distal SVC. There is mild cardiac enlargement. There is no evidence of CHF. There is a tiny area of chronic pleural thickening along the minor fissure laterally. No consolidations or suspicious lung masses are seen. Degenerative changes are present in the spine along with marked degenerative changes in the right shoulder. XR/XR chest 1V IMPRESSION: No acute intrathoracic disease. Mild cardiomegaly.
[2024-03-19 16:05] VITALS: BP 134/54; BP 138/50; PULSE 59; PULSE 66; RESP 13; TEMP 36.8; O2SAT 97; O2SAT 98; BMI 37.6
--- NOTE | 2024-03-19 16:20 | ED_ITS ---
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 She also endorses mild right lower quadrant abdominal pain. She states her last bowel movement was 2 days ago and it was normal. She also has complaints of 2 days of mild throbbing headache and 1 day of shortness of breath however denies chest pain, cough, fevers, chills. - I spoke with charge nurse at patient's dialysis center who states there were no events that occurred while she was at dialysis. She completed her session and was sent back to her facility. I suspect that while patient was being transported to our facility she began complaining of nausea and was brought to the ED Onset (ago): day(s) Related Data Home Medications ?Medication ?Instructions ?Recorded ?Confirmed acetaminophen 325 mg tablet 975 mg PO Q8H 01/25/23 03/04/23 atorvastatin 20 mg tablet 20 mg PO BEDTIME 01/25/23 03/04/23 bisacodyl 10 mg rectal suppository 10 mg NC DAILY PRN Constipation 01/25/23 03/04/23 clonidine HCl 0.2 mg tablet 0.2 mg PO TID 01/25/23 03/04/23 epoetin paul 20,000 unit/2 mL 20,000 unit subcut FR 01/25/23 03/04/23 injection solution (Procrit) escitalopram oxalate 10 mg tablet 10 mg PO DAILY 01/25/23 03/04/23 furosemide 40 mg tablet 40 mg PO BID 01/25/23 03/04/23 hydralazine 100 mg tablet 100 mg PO TID 01/25/23 03/04/23 ipratropium 18 mcg-albuterol 103 1 spray inhalation Q6H PRN Wheezing 01/25/23 03/04/23 mcg/actuation aerosol inhaler melatonin 3 mg tablet 3 mg PO BEDTIME 01/25/23 03/04/23 nifedipine 60 mg tablet,extended 60 mg PO BID 01/25/23 03/04/23 release oxycodone 5 mg capsule 5 mg PO Q6H PRN Pain 01/25/23 03/04/23 polyethylene glycol 3350 17 gram 17 g PO BID 01/25/23 03/04/23 oral powder packet (Miralax) sennosides 8.6 mg-docusate sodium 2 tab-cap PO QAM 01/25/23 03/04/23 50 mg capsule (Senna Plus) sevelamer HCl 800 mg tablet 800 mg PO BID 01/25/23 03/04/23 sodium bicarbonate 650 mg tablet 650 mg PO TID 01/25/23 03/04/23 aspirin 81 mg chewable tablet 81 mg PO DAILY 03/04/23 03/04/23 docusate sodium 100 mg capsule 100 mg PO BEDTIME 03/04/23 03/04/23 nitroglycerin 0.4 mg sublingual 0.4 mg sublingual Q5M PRN Chest 03/04/23 03/04/23 tablet Pain ondansetron 4 mg disintegrating 4 mg PO Q6H PRN Nausea And Vomiting 03/04/23 03/04/23 tablet oxycodone 5 mg tablet 5 mg PO BID 03/04/23 03/04/23 sodium phosphates 19 gram-7 118 ml NC DAILY PRN Constipation 03/04/23 03/04/23 gram/118 mL enema (Fleet Enema) Allergies Allergy/AdvReac Type Severity Reaction Status Date / Time No Known Allergies Allergy Verified 03/19/24 16:08 Review of Systems 2 Review of Systems: Patient endorses abdominal pain, nausea, shortness of breath Patient denies fevers, chills, head pain, chest pain, cough [facility] Past Medical History Attestation statement: The following information was validated with the patient. 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), right parietal lobe CVA Source: old records reviewed Medical History Heart failure Anxiety Alzheimer's dementia CAD (coronary artery disease) Diabetes CKD (chronic kidney disease) stage 3, GFR 30-59 ml/min Hypertension Social History Social History Household Members: None Housing: Apartment Do you presently have visiting nurse or other home services: No Unable to assess alcohol history related to: Unknown Alcohol intake: former Patient Tobacco Use Status: Former Tobacco user Advance Directives: Yes Advance Directives on File: Yes Advance Directives Date on File: 12/11/22 service: No Physical Exam 2 Vital Signs: Vital Signs: Last Vital Signs Temp 98.4 F 03/19/24 21:07 Pulse 58 03/19/24 21:07 Resp 16 03/19/24 21:07 BP 162/46 H 03/19/24 21:07 Pulse Ox 97 03/19/24 21:07 O2 Del Method Room Air 03/19/24 21:07 BMI result Body Mass Index 37.6 Head is normocephalic and atraumatic, lungs are clear to auscultation bilaterally, normal S1-S2 regular rate rhythm, abdomen is soft, nontender nondistended, no significant pedal edema appreciated Course Course Course Narrative: Labs and imaging studies ordered Medications Administered Discontinued Medications Generic Name Dose Route Start Last Admin Trade Name Wilsonq PRN Reason Stop Dose Admin Ondansetron HCl 4 mg 03/19/24 16:52 03/19/24 18:03 Ondansetron Hcl 4 Mg/2 Ml Vial IVPUSH 03/19/24 16:53 4 mg ONCE ONE Administration Medical Decision Making Medical Decision Making [facility] Narrative: Patient has complaints of nausea, abdominal pain and shortness of breath I am concerned for the following; pneumonia, SBO, biliary disease, diverticulitis, electrolyte/metabolic disturbance, head bleed - as result I have ordered CT head, chest x-ray and CT abdomen and pelvis Patient's lab work is within normal limits, troponin is similar to baseline and flat CT head negative for large bleed CT abdomen pelvis negative for SBO and chest x-ray negative for large consolidation On reassessment patient reports significant improvement in symptoms and would like to be discharged back to her facility Patient's nausea appears to be benign in nature with no concern for underlying surgical or life-threatening pathology. She was discharged with diet instructions Differential Diagnosis Differential Diagnoses: The differential diagnosis associated with the presentation includes Pneumonia, SBO, biliary disease, diverticulitis, electrolyte/metabolic disturbance, head bleed Symptoms less likely secondary to ACS, CVA/stroke Lab Data MDM Lab Attestation statement: I reviewed the patient's lab results. 03/19/24 16:29 03/19/24 16:29 Labs: Lab Results 03/19/24 03/19/24 03/19/24 Range/Units 16:29 18:02 19:10 WBC 7.0 (4.8-10.8) X10*3/uL RBC 3.35 L (4.20-5.50) X10*6/uL Hgb 10.7 L (12.0-16.0) g/dl Hct 32.3 L (37.0-47.0) % MCV 96.4 (80.0-98.0) fL MCH 31.9 (27.0-33.0) pg MCHC 33.1 (31.0-35.0) g/dl RDW 15.3 (11.0-16.0) % Plt Count 220 (160-400) X10*3/uL MPV 9.6 (9.4-12.3) fL Immature Gran % (Auto) 0.1 (0.0-0.4) % Neut % (Auto) 72.3 (45-73) % Lymph % (Auto) 14.2 L (20-40) % Coleman % (Auto) 6.0 (2-11) % Eos % (Auto) 6.7 H (0-4) % Baso % (Auto) 0.7 (0-2) % Lymph # (Auto) 1.0 L (1.2-4.9) X10*3/uL Coleman # (Auto) 0.4 (0.1-1.2) X10*3/uL Eos # (Auto) 0.5 H (0.0-0.4) X10*3/uL Baso # (Auto) 0.1 (0.0-0.2) X10*3/uL Abs Immat Gran (auto) 0.01 (0.00-0.03) X10*3/uL Absolute Neuts (auto) 5.0 (2.0-8.3) x10*3/uL Absolute Nucleated RBC 0.000 (0.0-0.012) X10*3/uL Nucleated RBC % (auto) 0.0 (0.0-0.2) /100WBC PT 11.4 (11.1-13.3) SEC INR 0.9 (0.9-1.1) Sodium 140 (135-145) mmol/L Potassium 3.6 (3.3-5.1) mmol/L Chloride 104 (96-108) mmol/L Carbon Dioxide 26 (22-29) mmol/L Anion Gap 14 (12-20) BUN 17 H (9-16) mg/dL Creatinine 2.17 H (0.5-1.4) mg/dL Estim Creat Clear Calc 14.1 Estimated GFR 22 Random Glucose 256 H (60-115) mg/dL Calcium 9.1 (8.4-10.2) mg/dL Total Bilirubin 0.4 (0.0-1.0) mg/dL AST 7 (5-31) U/L ALT < 5 (0-31) U/L Alkaline Phosphatase 52 (39-117) U/L Troponin I High Sens 55.2 H* 47.0 H (<3.5-17.0) ng/L Total Protein 6.9 (6.5-8.0) g/dL Albumin 3.8 (3.5-5.0) g/dL Lipase 49 (8-78) U/L Independent Interpretation I performed an independent interpretation of an: EKG, Plain X-Ray and CT Scan Interpretation: No new ischemic changes seen on EKG Chest x-ray negative for large consolidation CT scan negative for large head bleed CT abdomen pelvis negative for obstruction Radiology Impression Discussion of test interpretation with radiology: I have reviewed the radiologist's reading. Discharge Plan Discharge Clinical Impression: Nausea Patient Disposition: Xfer LTC Transfer Details: [facility] Additional Instructions: Proporcione al paciente alimentos blandos y de f?cil digesti?n dottie los pr?ximos d?as. Prescriptions: No Action Fleet Enema 19-7 gram/118 mL Enema 118 ml NC DAILY PRN (Reason: Constipation) docusate sodium 100 mg Capsule 100 mg PO BEDTIME aspirin 81 mg Tablet,Chewable 81 mg PO DAILY nitroglycerin 0.4 mg Tablet, Sublingual 0.4 mg SUBLINGUAL Q5M PRN (Reason: Chest Pain) Rx Instructions: do not exceed 3 doses per episode ondansetron 4 mg Tablet,Disintegrating 4 mg PO Q6H PRN (Reason: Nausea And Vomiting) oxycodone 5 mg tablet 5 mg PO BID furosemide 40 mg tablet 40 mg PO BID acetaminophen 325 mg Tablet 975 mg PO Q8H atorvastatin 20 mg Tablet 20 mg PO BEDTIME polyethylene glycol 3350 [Miralax] 17 gram Powder In Packet 17 g PO BID sevelamer HCl 800 mg Tablet 800 mg PO BID Rx Instructions: must administer with a meal/food melatonin 3 mg Tablet 3 mg PO BEDTIME clonidine HCl 0.2 mg Tablet 0.2 mg PO TID sodium bicarbonate 650 mg Tablet 650 mg PO TID bisacodyl 10 mg Suppository 10 mg NC DAILY PRN (Reason: Constipation) hydralazine 100 mg Tablet 100 mg PO TID oxycodone 5 mg Capsule 5 mg PO Q6H PRN (Reason: Pain) ipratropium-albuterol 18-103 mcg/actuation Aerosol 1 spray INHALATION Q6H PRN (Reason: Wheezing) nifedipine 60 mg Tablet Extended Release 60 mg PO BID escitalopram oxalate 10 mg tablet 10 mg PO DAILY Procrit 20,000 unit/2 mL Solution 20,000 unit SUBCUT FR Senna Plus 8.6-50 mg Capsule 2 tab-cap PO QAM Print Language: Macedonian
[2024-03-19 16:36] LABS: MANUAL DIFF FLAG NO
[2024-03-19 16:40] LABS: Basophils Absolute Auto 0.1 X10*3/uL (0.0-0.2); Basophils Percent Auto 0.7 % (0-2); Eosinophils Absolute Auto 0.5 X10*3/uL (0.0-0.4); Eosinophils Percent Auto 6.7 % (0-4); Hematocrit 32.3 % (37.0-47.0); Hemoglobin 10.7 g/dl (12.0-16.0); Imm Gran Abs Auto 0.01 X10*3/uL (0.00-0.03); Imm Gran Pct Auto 0.1 % (0.0-0.4); Lymphocytes Percent Auto 14.2 % (20-40); Mean Corpuscular HGB Conc 33.1 g/dl (31.0-35.0); Mean Corpuscular Hemoglobin 31.9 pg (27.0-33.0); Mean Corpuscular Volume 96.4 fL (80.0-98.0); Mean Platelet Volume 9.6 fL (9.4-12.3); Monocytes Absolute Auto 0.4 X10*3/uL (0.1-1.2); Neutrophils Percent Auto 72.3 % (45-73); Platelet Count 220 X10*3/uL (160-400); Red Blood Count 3.35 X10*6/uL (4.20-5.50); Red Cell Distribution Width 15.3 % (11.0-16.0)
[2024-03-19 17:00] LABS: Alanine Aminotransferase < 5 U/L (0-31); Albumin Level 3.8 g/dL (3.5-5.0); Alkaline Phosphatase 52 U/L (39-117); Anion Gap 14 (12-20); Aspartate Amino Transferase 7 U/L (5-31); Bilirubin Total 0.4 mg/dL (0.0-1.0); Blood Urea Nitrogen 17 mg/dL (9-16); Calcium 9.1 mg/dL (8.4-10.2); Carbon Dioxide 26 mmol/L (22-29); Chloride 104 mmol/L (96-108); Creatinine Clr Calc Pharmacy 14.1; Estimated Glomerular Filt Rate 22; Glucose Random 256 mg/dL (60-115); Potassium 3.6 mmol/L (3.3-5.1); Sodium 140 mmol/L (135-145); Total Protein 6.9 g/dL (6.5-8.0)
[2024-03-19 17:10] LABS: Troponin-I High Sensitivity 55.2 ng/L (<3.5-17.0)
[2024-03-19 18:00] VITALS: BP 161/55; PULSE 59; RESP 14; O2SAT 96
[2024-03-19] MEDS: ondansetron HCL 4 MG/2 ML VIAL IVPUSH (18:03)
--- NOTE | 2024-03-19 18:07 | PC.NURSE ---
20gIV placed in the right forearm - labs obtained/sent to lab. medication administered per provider order. effectiveness pending.
[2024-03-19 18:16] LABS: INTERNATIONAL NORM RATIO 0.9 (0.9-1.1); Prothrombin Time 11.4 SEC (11.1-13.3)
[2024-03-19 18:21] LABS: Lipase 49 U/L (8-78)
[2024-03-19 21:07] VITALS: BP 162/46; PULSE 58; RESP 16; TEMP 36.9; O2SAT 97
[2024-03-19 22:29] VITALS: BP 162/46; PULSE 58; RESP 16; TEMP 36.9; O2SAT 97
== END 2024-03-19 22:30 ==
PROVIDERS: Emergency Provider Student in an Organized Health Care Education/Training Program
DX: R07.89 Other chest pain (principal); I25.10 Atherosclerotic heart disease of native coronary artery without angina pectoris; I10 Essential (primary) hypertension; R11.2 Nausea with vomiting, unspecified; R55 Syncope and collapse; R00.1 Bradycardia, unspecified; R42 Dizziness and giddiness; Z79.899 Other long term (current) drug therapy
CPT/HCPCS: 36415; 70450; 71045; 74176; 80053; 83690; 84484; 85025; 85610; 93005; 96374; 99284; J2405

== ENCOUNTER → 2024-03-19 15:59 | Outpatient (BNV) | payer MEDICARE, MEDICAID, SELFPAY | PROVIDERS: Emergency Provider Student in an Organized Health Care Education/Training Program; Visit Provider Internal Medicine Cardiovascular Disease | DX: R42 Dizziness and giddiness (principal); R00.1 Bradycardia, unspecified; R94.31 Abnormal electrocardiogram [ECG] [EKG] | CPT/HCPCS: 93010 ==